=== PATIENT | female | born 1940 | race Caucasian/White ===

== ENCOUNTER 2017-12-09 17:36 | Inpatient (IN) | payer MEDICARE ==
[2017-12-09 18:19] LABS: INR-International Normal Ratio 1.1; PTT 31.7 SEC (22.9-36.1); Prothrombin Time 13.9 SEC (12.0-14.7)
[2017-12-09 18:26] LABS: #Basophils 0.1 thou/uL (0.0-0.2); #Lymphocytes 1.7 thou/uL (1.20-3.40); #Monocytes 1.5 thou/uL (0.11-0.59); #Neutrophils 13.6 thou/uL (1.40-6.50); %Basophils 0.4 % (0.0-1.0); %Eosinophils 0.1 % (0.0-10.0); %Lymphocytes 9.9 % (21.0-51.0); %Monocytes 8.9 % (0.0-10.0); %Neutrophils 80.7 % (42.0-75.0); Hemoglobin 13.3 g/dL (12.0-16.0); Mean Corpuscular HGB CONC 32.2 g/dL (32.0-36.0); Mean Corpuscular Hemoglobin 30.9 pg (27.0-31.0); Mean Corpuscular Volume 95.9 fL (78.0-98.0); Mean Platelet Volume 7.6 fL (7.4-10.4); Platelet Count 171 thou/uL (130-400); RBC Distribution Width 12.1 % (11.5-14.5); Red Blood Cell (RBC) Count 4.31 mill/uL (4.20-5.40); White Blood Cell (WBC) Count 16.8 thou/uL (4.8-10.8)
[2017-12-09 18:33] LABS: Troponin I 2.059 ng/mL (< 0.028)
[2017-12-09] MEDS ORDERED: Heparin 1,000 UNITS/ML VIAL ONE ×2 (18:34→18:35)
[2017-12-09] MEDS ORDERED: Heparin 25,000 units/D5W 500 ML ONE (18:34)
--- NOTE | 2017-12-09 18:53 | RAD ---
CHEST ONE VIEW: History: Chest pain. Comparison: Earlier exam on same date. FINDINGS: Cardiac silhouette is magnified by projection. Pulmonary vasculature unremarkable. Patient is rotated rightward. Calcification in the arterial structures. No lobar consolidation or evidence of pneumotho rax. IMPRESSION: 1. Atherosclerosis. 2. No active cardiopulmonary abnormalities are demonstrated. POS: [facility]
[2017-12-09] MEDS ORDERED: Heparin 10,000 UNITS/ 10 ML VIAL SLOW IVP SCH ×2 (19:00→20:00)
[2017-12-09] MEDS ORDERED: Heparin 25,000 units/D5W 500 ML IV SCH (19:00)
[2017-12-09] MEDS ORDERED: Senokot S 8.6-50 MG TAB PO PRN (19:57)
[2017-12-09] MEDS ORDERED: Aspirin 300 MG Suppository PR SCH (20:00)
[2017-12-09] MEDS ORDERED: Heparin 25,000 units/D5W 500 ML IVPB SCH (20:00)
[2017-12-09 20:05] LABS: Actual Bicarbonate (HCO3a) 17.7 mEq/L (22-28); Analyzer IN Cardio ER; Base Excess (BEa) -9.4 mEq/L (-2.0 to +3.0); CO2 Tension 43.6 mmHg (35.0-45.0); Calcium, Ionized 0.86 mmol/L (1.12-1.30); Carboxyhemoglobin (COHb) 0.3 gm% (0.0-3.0); Hemoglobin (Hb) 9.3 g/dL (12.0-16.0); Potassium - ABG Lab 2.16 mmol/L (3.70-5.30)
[2017-12-09 20:11] LABS: pH, Arterial 7.23 (7.35-7.45)
[2017-12-09 20:12] LABS: Puncture Site RRA
[2017-12-09 20:29] LABS: Hemoglobin 13.2 g/dL (12.0-16.0); Platelet Count 165 thou/uL (130-400)
[2017-12-09 20:51] LABS: PTT 138.2 SEC (22.9-36.1)
[2017-12-09] MEDS ORDERED: Cefepime 1 GM in Sodium Chloride 0.9% 100 ML IVPB SCH (21:00)
[2017-12-09 21:26] VITALS: BMI 25.8
[2017-12-09] MEDS: Famotidine/PF 20 mg/2ml Vial SLOW IVP SCH (21:53)
[2017-12-09] MEDS: Sodium Chloride 0.9% 1,000 ML IV SCH (23:12)
[2017-12-09] MEDS: Diltiazem 125 MG in Sodium Chloride 0.9% 100 ML IVPB SCH (23:14)
[2017-12-09 23:47] LABS: Critical Call Chem Troponin I RESULT DECREASING
--- NOTE | 2017-12-10 01:09 | HP ---
CHIEF COMPLAINT: Shortness of breath, acute mental status change. HISTORY OF PRESENT ILLNESS: The patient is a 77-year-old female. Most of the history is obtained fr om the daughter who I had to call, daughter's name is Radu at [phone]. The patient is a 77-year -old female with a history of hypertension, hypothyroidism, has a smoking history, also has a history of lung cancer and chronic back pain, who was brought into the hospital for shortness of breath, bhavani st pain, and generalized weakness. The patient's daughter stated that her family member when to visi t her on Sunday, she was very short of breath, very weak, so her family member called patient's daugh faviola who is Radu. The patient's daughter stayed with her the whole night last night, made sure that s he was eating and drinking her fluids, also taking her medications. She stated that the patient has been coughing, was shaking, was very short of breath and had generalized weakness. The patient told me that she has been having diarrhea for 2 days which has stopped. Denies any fevers; however, as I mentioned, had some chills. The patient also complained of some chest pain to the patient's daughter ; however, currently she was not having any chest pain and also was complaining of some shortness of breath. PAST MEDICAL HISTORY: Hypertension, thyroid disease, osteoporosis, chronic back pain, history of quincy g cancer. PAST SURGICAL HISTORY: She has had lumbar fusion, right medial lung carcinoma resection, cholecystec shivam, hernia repair, and left hip replacement. ALLERGIES: She has no known drug allergies. MEDICATIONS: This is per the ER list, is as of the following: Atorvastatin 20 mg daily, Gobles 10/32 5 every 4 hours p.r.n., levothyroxine 50 mcg daily, MS Contin 60 mg 1 cap 3 times a day, sertraline 5 0 mg once a day, hydrochlorothiazide 1 cap once a day, Zofran 1 q.6 hours p.r.n., doxepin 10 mg as ne eded, Symbicort HFA inhaler twice a day and ProAir 2 puffs as needed. FAMILY HISTORY: Mother at the age of 80 with lymphoma. Father at 87. SOCIAL HISTORY: She lives alone. She continues to smoke a pack a day. She is a FULL CODE per her d Radu stern. Denies any drug use or any alcohol. REVIEW OF SYSTEMS: Unable to obtain right now patient is on BiPAP. PHYSICAL EXAMINATION: VITAL SIGNS: Temperature of 99.6, respirations of 23, pulse of 101, blood pressure at this time was 110/60. She is 96%, but she is on BiPAP. GENERAL: The patient is drowsy; however, easily arousable, is able to answer questions appropriately and follow commands. CARDIOVASCULAR: S1, S2 present. No murmurs, rubs or gallops. LUNGS: Clear to auscultation. No rhonchi or wheezes noted. ABDOMEN: Soft, nontender. Bowel sounds are present x2. EXTREMITIES: No edema. Pedal pulses are present x2. NEUROLOGIC: Neurovascular santos, she is able to move all 4 extremities. SKIN: No cuts, lesions, or bruises noted. LABORATORY RESULTS: Initially when she came in, her WBC was 22, hemoglobin was 14.7, hematocrit of 4 5.5, bands of 2. Her BNP was 1126, lactic acid was 2.8. Her troponin initially was 2.082, it trende d to 2.059. CK-MB was elevated at 13.8. She did receive 2-1/2 liters of fluid in the ER at [facility]. Sodium was 135, potassium of 4.2, BUN of 29, creatinine of 1.87. Her urine did not indicate s ignificant etiology of UTI. Chest x-ray upon my interpretation, I did not see any infiltrate and her influenza swab was negative. ASSESSMENT AND PLAN: The patient is a very pleasant 77-year-old female who comes to the hospital wit h chest pain, shortness of breath. 1. Acute hypoxic respiratory failure. The patient was hypoxic and required BiPAP. We will continue broad spectrum antibiotics. We will do DuoNebs. She is going to be in the IMCU, we tried to take h er off the BiPAP, although she desaturated. We will also get a blood gas, I have told the respirator y therapist to get a blood gas on this patient and she does have a history of smoking. We will put h er on nicotine patch. 2. Sepsis. The patient has been hypotensive; however, her urine and her chest x-ray, I do not see a ny acute abnormalities. I have asked the ER doctor to just make sure she does not have any RV strain ing to rule out any pulmonary embolism since we are unable to scan her due to her creatinine being el evated. Her EKG findings are not consistent with saddle pulmonary embolism. We will continue the he anupam for now. 3. Non ST elevation myocardial infarction. She has been evaluated by Cardiology, possible will requ isiah catheterization. Her troponin was 2. We will put her on heparin. We will put on aspirin and pu t her on a statin and continue to monitor. 4. Elevated lactic acidosis is most likely secondary to sepsis, which is improving. 5. Elevated BNP. The patient will most likely have some underlying heart failure. We will check an echocardiogram in the morning. 6. Acute metabolic encephalopathy. The patient is on a lot of pain medication. This could be a cau se of her overdosing on so much pain medication, she is a very tiny lady. She takes 60 mg of MS Cont in three times a day plus hydrocodone p.r.n. She is unable to tell me if she has been taking more th an as prescribed since she is on the BiPAP, but this is definitely a possibility that this could be s ome polypharmacy causing her to have change in her respiratory condition. 7. Deep venous thrombosis prophylaxis. We will put the patient on subcu heparin, also she is alread y on heparin, we will continue to monitor.
[2017-12-10 02:15] LABS: #Lymphocytes 2.1 thou/uL (1.20-3.40); #Monocytes 1.1 thou/uL (0.11-0.59); #Neutrophils 10.6 thou/uL (1.40-6.50); %Basophils 0.2 % (0.0-1.0); %Eosinophils 0.1 % (0.0-10.0); %Lymphocytes 15.4 % (21.0-51.0); %Neutrophils 76.4 % (42.0-75.0); Hemoglobin 12.7 g/dL (12.0-16.0); Mean Corpuscular HGB CONC 32.9 g/dL (32.0-36.0); Mean Corpuscular Hemoglobin 31.3 pg (27.0-31.0); Mean Corpuscular Volume 95.2 fL (78.0-98.0); Mean Platelet Volume 7.8 fL (7.4-10.4); Platelet Count 149 thou/uL (130-400); RBC Distribution Width 11.9 % (11.5-14.5); Red Blood Cell (RBC) Count 4.05 mill/uL (4.20-5.40); White Blood Cell (WBC) Count 13.9 thou/uL (4.8-10.8)
[2017-12-10 02:39] LABS: Anion Gap 13 mmol/L (10-20); BUN (Urea Nitrogen) 30 mg/dL (9.8-20.1); Calc. Creatinine Clearance 39 mL/min (70-130); Calcium 8.1 mg/dL (7.8-10.44); Carbon Dioxide 23 mmol/L (23-31); Chloride 101 mmol/L (98-107); Estimated GFR-MDRD 47; Glucose 106 mg/dL (83-110); Potassium 3.6 mmol/L (3.5-5.1); Sodium 133 mmol/L (136-145)
[2017-12-10 02:47] LABS: Troponin I 1.571 ng/mL (< 0.028)
[2017-12-10] MEDS: Acetaminophen 325 MG TAB PO PRN ×2 (06:10→21:03)
[2017-12-10] MEDS: Levothyroxine Sodium 50 MCG TAB PO SCH (06:10)
[2017-12-10] MEDS: Famotidine/PF 20 mg/2ml Vial SLOW IVP SCH ×2 (08:55→20:24)
[2017-12-10] MEDS ORDERED: Ondansetron PF 4 MG/2 ML Vial SLOW IVP PRN (10:49)
[2017-12-10] MEDS: Gabapentin 400 MG CAP PO SCH ×2 (11:06→20:23)
[2017-12-10] MEDS: Aspirin 81 mg Enteric Coated Tablet PO SCH (11:06)
[2017-12-10] MEDS: Morphine ER 30 MG TAB PO SCH ×2 (11:08→20:22)
[2017-12-10] MEDS ORDERED: Morphine 10 MG/ML VIAL SLOW IVP PRN (12:37)
[2017-12-10] MEDS ORDERED: PROVENTIL INHALER 6.7 G (200 INHALATIONS) INH PRN (13:57)
--- NOTE | 2017-12-10 14:01 | PDOC.PN ---
- Subjective Encounter Start Date: 12/10/17 Encounter Start Time: 13:50 Subjective: f/u for AMS, NSTEMI, A-fib RVR. Nsg reports pt c/o of increasing back pain -: noted on chronic narcotics at home. - Objective Resuscitation Status: Resuscitation Status FULL:Full Resuscitation MAR Reviewed: Yes Vital Signs & Weight: Vital Signs (12 hours) Temp Pulse Resp BP Pulse Ox 12/10/17 10:55 90 20 12/10/17 08:00 95 12/10/17 07:32 93 18 92 L 12/10/17 04:00 98.4 F 91 17 126/73 96 12/10/17 02:30 13 12/10/17 02:29 96 13 96 Weight Weight 127 lb 3.2 oz I&O: 12/09/17 12/10/17 12/11/17 06:59 06:59 06:59 Intake Total 800 Balance 800 Result Diagrams: 12/10/17 01:59 12/10/17 01:59 Additional Labs: Microbiology 12/09/17 19:50 Nasal swab Influenza Types A,B Direct EIA - Final Laboratory Tests 12/09/17 12/09/17 12/09/17 13:18 13:18 17:56 WBC Neutrophils % Sodium 135 L Creatinine 1.87 H Lactic Acid Troponin I 2.082 H* 2.059 H* TSH 3rd Generation 12/09/17 12/09/17 12/09/17 17:56 17:57 20:20 WBC 16.8 H Neutrophils % 80.7 H Sodium Creatinine Lactic Acid 1.4 Troponin I TSH 3rd Generation 0.4216 12/09/17 12/10/17 12/10/17 23:00 01:59 01:59 WBC Neutrophils % 76.4 H Sodium Creatinine Lactic Acid Troponin I 1.760 H* 1.571 H* TSH 3rd Generation EKG Reviewed by me: Yes (Tele - A-fib in 80's) Phys Exam - Physical Examination Constitutional: NAD alert, responsive HEENT: PERRLA, sclera anicteric, oral pharynx no lesions Neck: no nodes, no JVD, supple, full ROM Respiratory: no wheezing, no rales, no rhonchi, clear to auscultation bilateral S1, S2 Cardiovascular: no significant murmur, no rub, gallop, irregular Gastrointestinal: soft, non-tender, no distention, positive bowel sounds Musculoskeletal: no edema, pulses present Neurological: normal sensation, moves all 4 limbs Psychiatric: A&O x 3 Skin: no rash, normal turgor, cap refill <2 seconds Dx/Plan (1) NSTEMI (non-ST elevated myocardial infarction) Code(s): I21.4 - NON-ST ELEVATION (NSTEMI) MYOCARDIAL INFARCTION Status: Acute Comment: Continue Lovenox, ASA, Lipitor, Cardiology consulted, Echo pending (2) Acute respiratory failure with hypoxia Code(s): J96.01 - ACUTE RESPIRATORY FAILURE WITH HYPOXIA Status: Acute Comment: Improved, off BiPAP NIMV, continue O2 via NC (3) Acute metabolic encephalopathy Code(s): G93.41 - METABOLIC ENCEPHALOPATHY Status: Acute Comment: Likely multifactorial given chronic narcotic use, hypoxia and NSTEMI (4) REMA (acute kidney injury) Code(s): N17.9 - ACUTE KIDNEY FAILURE, UNSPECIFIED Status: Acute Comment: Improved, likely due to volume depletion, avoid nephrotoxic meds and limit contrast exposure (5) Atrial fibrillation with RVR Code(s): I48.91 - UNSPECIFIED ATRIAL FIBRILLATION Status: Acute Comment: Continue Cardizem gtt, rate improved, 2D echo pending, anticoagulation with Lovenox and consider OAC options for d/c (6) Chronic pain syndrome Code(s): G89.4 - CHRONIC PAIN SYNDROME Status: Chronic Comment: Resume home MS Contin, Gabapentin, [place] - Plan plan discussed w/ family, PT/OT, nephrology social worker, DVT proph w/SCDs Stable currently -: Continue Lovenox -: Continue Cardizem gtt -: 2D echo pending -: AM lab: BMP, CBC * .
--- NOTE | 2017-12-10 14:11 | CON ---
DATE OF CONSULTATION: 12/10/2017 HISTORY OF PRESENT: This patient is a 77-year-old woman with no previous cardiac history who presented with fevers, chills, diarrhea, and was noted to have an elevated troponin level. The patient was in her usual state of health until recently when she developed acute onset of diarrhea. She noted to be having fevers and chills. The patient denied having any chest discomfort. The patient presented to the local Emergency Room, She was noted to have an elevated troponin level. PAST MEDICAL HISTORY: 1. History of carcinoid tumor. 2. Chronic back pain. 3. Hypertension. 4. Osteoporosis. 5. Dyslipidemia. PAST SURGICAL HISTORY: She has had removal of the carcinoid from her right medial lung resection, cholecystectomy, hernia repair,and hip replacement surgery. MEDICATIONS ON ADMISSION: See nursing list. FAMILY HISTORY: There is no strong family history of coronary artery disease. SOCIAL HISTORY: The patient has a long history of tobacco abuse and smokes 1 pack per day. FAMILY HISTORY: No strong family history of heart disease. ALLERGIES: No known drug allergies. REVIEW OF SYSTEMS: The patient reports having severe back discomfort. PHYSICAL EXAMINATION: GENERAL: This is a thin woman in marked distress. VITAL SIGNS: Blood pressure of 126/73. NECK: Showed no jugular vein distention. LUNGS: Lungs have diminished breath sounds bilateral. HEART: Irregular rate and rhythm, normal S1, S2, 1/6 systolic murmur. ABDOMEN: Nondistended. EXTREMITIES: Showed trace edema. SKIN: Warm and dry. VASCULAR: Radial pulses 2+. LABORATORIES: White blood cell count was 13.9, hemoglobin 12.7, hematocrit 38.5 and her platelets 149. Her sodium was 133, potassium 3.6, chloride 101, bicarbonate 23, BUN 30, creatinine is 1.12. Troponin was 1.7. Her EKG revealed her to have atrial fibrillation with nonspecific ST abnormality. IMPRESSION: 1. Sepsis. 2. Non-Q-wave myocardial infarction. 3. Atrial fibrillation with a rapid ventricular response. 4. Chronic back pain. 5. History of carcinoid of a tumor. 6. Tobacco abuse. This patient presented with diarrhea, fever, and chills and a markedly elevated white blood cell count. She has been treated with IV antibiotics. The patient' s troponin level is elevated. This may be secondary to demand ischemia. The patient has multiple risk factors. Would continue to treat the patient for sepsis. We will check the patient's echocardiogram and follow this patient with you through her hospitalization. CLEMENTINA
--- NOTE | 2017-12-10 14:52 | EKG ---
Test Reason : A-FIB Blood Pressure : / mmHG Vent. Rate : 118 BPM Atrial Rate : 078 BPM P-R Int : 000 ms QRS Dur : 096 ms QT Int : 332 ms P-R-T Axes : 000 027 022 degrees QTc Int : 465 ms Atrial fibrillation with rapid ventricular response ST elevation, consider early repolarization, pericarditis, or injury Abnormal ECG Confirmed by KATERINA NOEL ([id number]) on 12/10/2017 2:52:24 PM Referred By: QUAN Confirmed By:KATERINA NOEL
[2017-12-10] MEDS: Cefepime 1 GM in Sodium Chloride 0.9% 100 ML IVPB SCH (15:00)
[2017-12-10] MEDS: HYDROcodone/Acetaminophen 10/325 mg Tablet PO PRN (15:00)
[2017-12-10] MEDS: Sodium Chloride 0.9% 1,000 ML IV SCH (15:01)
[2017-12-10] MEDS: Mometasone/Formoterol 120 PUFF INHALER INH SCH (18:38)
[2017-12-10] MEDS: Atorvastatin Calcium 20 MG TAB PO SCH (20:23)
[2017-12-10] MEDS: Vancomycin HCl 1 GM in Premix Bag 1 BAG IVPB SCH (20:23)
[2017-12-10] MEDS: Enoxaparin Sodium 60 MG/0.6 ML SYRINGE SC SCH (20:24)
--- NOTE | 2017-12-10 23:01 | CON ---
DATE OF CONSULTATION: 12/10/2017 PAST HISTORY: Ms. Velazco is a 77-year-old female who has issues with chronic back pain. She presented with hypotension and metabolic acidosis as well as tachypnea. She was placed on BiPAP. She has had severe diarrhea for 2 days leading up to this, now is complaining of abdominal cramping, but has not had morphine since admission. She says her diarrhea has resolved. PAST MEDICAL HISTORY: Remarkable for hypertension, hypothyroidism, osteoporosis , history of lung cancer, history of lumbar spine surgery. PAST SURGICAL HISTORY: 1. History of lung cancer resected. 2. Status post cholecystectomy. 3. History of herniorrhaphy. 4. History of hip replacement. FAMILY HISTORY: Negative for lung disease in early age. SOCIAL HISTORY: Not obtained. ALLERGIES: She reports an allergy to HYDRALAZINE. She does not use drugs. MEDICATIONS: Medications have been reviewed. REVIEW OF SYSTEMS: 10 point review of systems completed, otherwise remarkable only for pain all over. PHYSICAL EXAM GENERAL: Ms. Velazco is a 77-year-old female who has issues with chronic back pain. HEENT: pupils react EYES:Sclera anicteric NECK:no nodes VITALS: She has had atrial fibrillation since she has been admitted. LUNGS:faint wheezes HEART:RRR NO GALLOP. 2/6 SYSTOLIC MURMUR ABDOMEN: soft EXTREMITIES: without clubbing. LABORATORY DATA: Urinalysis was unremarkable. When she was admitted, her blood gas was done showed a pH 7.23, CO2 is 43, pO2 of 40 on BiPAP. White count was 16.8, hemoglobin 13.3, platelets 171. Today, sodium 135, potassium 4.2, chloride 92, BUN 29, creatinine 1.87. Followup Chem-7 shows creatinine down to 1.12. IMPRESSION AND PLAN: Metabolic acidosis secondary to severe diarrhea with secondary bicarbonate losses, this is improved. There is no output recorded for 24 hours, which would be helpful, so I do not know where she is from a fluid standpoint, but it sounds like she was dry. Her current complaints are more likely related to the beginning of acute morphine withdrawal, so she will need to be put back on her slow-release morphine. She was given one dose of IV morphine this morning. She will stay in the Intermediate Care Unit for now. This is a 50-minute consult, with greater than 50% of the time spent in the unit coordinating care. CLEMENTINA
[2017-12-11] MEDS: Diltiazem 125 MG in Sodium Chloride 0.9% 100 ML IVPB SCH (01:04)
[2017-12-11] MEDS: Morphine ER 30 MG TAB PO SCH ×3 (03:22→20:38)
[2017-12-11 04:57] LABS: Anion Gap 11 mmol/L (10-20); BUN (Urea Nitrogen) 21 mg/dL (9.8-20.1); Calc. Creatinine Clearance 55 mL/min (70-130); Calcium 8.4 mg/dL (7.8-10.44); Carbon Dioxide 24 mmol/L (23-31); Chloride 101 mmol/L (98-107); Estimated GFR-MDRD 72; Glucose 144 mg/dL (83-110); Potassium 3.2 mmol/L (3.5-5.1); Sodium 133 mmol/L (136-145)
[2017-12-11 05:04] LABS: Band 2 % (5-11); Hemoglobin 12.6 g/dL (12.0-16.0); Lymphocytes 13 % (21-51); MDiff Complete? YES; Mean Corpuscular HGB CONC 32.6 g/dL (32.0-36.0); Mean Corpuscular Hemoglobin 30.6 pg (27.0-31.0); Mean Platelet Volume 8.2 fL (7.4-10.4); Monocytes 5 % (0-10); Neutrophil 80 % (42-75); Platelet Count 169 thou/uL (130-400); White Blood Cell (WBC) Count 12.2 thou/uL (4.8-10.8)
[2017-12-11] MEDS: Levothyroxine Sodium 50 MCG TAB PO SCH (05:24)
[2017-12-11] MEDS: Mometasone/Formoterol 120 PUFF INHALER INH SCH ×2 (08:14→18:42)
--- NOTE | 2017-12-11 08:52 | PRG ---
DATE OF SERVICE: 12/11/2017 SUBJECTIVE: She says she feels much better today. She denies shortness of breath. She has had diar danita this morning. She tells me she had C. difficile last year. OBJECTIVE: VITAL SIGNS: She is afebrile, heart rate is 79, respiratory rate is 12, oximetry is 85-92 on 3-4 lit ers nasal cannula, blood pressure 119/59. LUNGS: Clear. HEART: Regular rhythm. ABDOMEN: Soft. LABORATORY DATA: White count 12.2, hemoglobin 12.6, platelets 169. Sodium 133, potassium 3.2, chlor deejay 101, bicarbonate 24, BUN 21, creatinine 0.78. IMPRESSION: 1. Diarrhea. 2. Metabolic acidosis secondary to prolonged diarrhea with intravascular volume contraction. 3. Early opiate withdrawal yesterday withholding after her morphine was held. That is dramatically improved. PLAN: Send stool for C. difficile. Continue with oxygen therapy. I do not see blood cultures that are pending. Her antibiotics probably should be simplified with her history of C. difficile-induced diarrhea and n o clear source of infection other than her gastrointestinal tract.
[2017-12-11] MEDS: Gabapentin 400 MG CAP PO SCH ×2 (09:18→13:43)
[2017-12-11] MEDS: Enoxaparin Sodium 60 MG/0.6 ML SYRINGE SC SCH ×2 (09:18→20:41)
[2017-12-11] MEDS: Sodium Chloride 0.9% 1,000 ML IV SCH (09:18)
[2017-12-11] MEDS: Aspirin 81 mg Enteric Coated Tablet PO SCH (09:18)
[2017-12-11] MEDS: Famotidine/PF 20 mg/2ml Vial SLOW IVP SCH ×2 (09:19→20:40)
[2017-12-11] MEDS: Cefepime 1 GM in Sodium Chloride 0.9% 100 ML IVPB SCH (13:42)
--- NOTE | 2017-12-11 15:01 | PDOC.PN ---
- Subjective Encounter Start Date: 12/11/17 Encounter Start Time: 14:40 Subjective: f/u for ? sepsis, NSTEMI, A-fib rvr converting to SR. Feels better overall. -: Not sleeping very well. Appetite ok. Ucx showing GNR. - Objective Resuscitation Status: Resuscitation Status FULL:Full Resuscitation MAR Reviewed: Yes Vital Signs & Weight: Vital Signs (12 hours) Temp Pulse Resp BP BP Pulse Ox 12/11/17 14:18 20 12/11/17 11:21 98.6 F 76 16 93/51 L 96 12/11/17 11:20 77 16 95 12/11/17 09:18 77 117/74 12/11/17 08:15 85 L 12/11/17 08:13 77 16 85 L 12/11/17 07:45 85 L 12/11/17 07:20 98.5 F 79 12 119/59 L 85 L 12/11/17 04:16 97.7 F 64 18 110/60 92 L Weight Weight 127 lb 3.2 oz I&O: 12/10/17 12/11/17 12/12/17 06:59 06:59 06:59 Intake Total 800 1410 Balance 800 1410 Result Diagrams: 12/11/17 03:41 12/11/17 03:41 Additional Labs: Microbiology 12/09/17 19:50 Nasal swab Influenza Types A,B Direct EIA - Final 12/09/17 15:15 Nasal swab Influenza Types A,B Direct EIA - Final 12/09/17 14:13 Venous blood - Left Arm Blood Culture - Preliminary Specimen has been received and culture in progress. No Growth to date. 12/09/17 14:13 Urine Straight Catheter Urine Culture - Preliminary Gram Negative Johann 12/09/17 14:10 Venous blood - Left Hand Blood Culture - Preliminary Specimen has been received and culture in progress. No Growth to date. Laboratory Tests 12/09/17 12/09/17 12/09/17 13:18 13:18 17:56 WBC Neutrophils % Sodium 135 L Creatinine 1.87 H Lactic Acid Troponin I 2.082 H* 2.059 H* TSH 3rd Generation 12/09/17 12/09/17 12/09/17 17:56 17:57 20:20 WBC 16.8 H Neutrophils % 80.7 H Sodium Creatinine Lactic Acid 1.4 Troponin I TSH 3rd Generation 0.4216 12/09/17 12/10/17 12/10/17 23:00 01:59 01:59 WBC Neutrophils % 76.4 H Sodium Creatinine 1.12 H Lactic Acid Troponin I 1.760 H* TSH 3rd Generation 12/10/17 01:59 WBC Neutrophils % Sodium Creatinine Lactic Acid Troponin I 1.571 H* TSH 3rd Generation Radiology Reviewed by me: Yes (2D echo - EF 60-65%, mod MR, mod-severe TR) EKG Reviewed by me: Yes (Tele - SR) Phys Exam - Physical Examination Constitutional: NAD HEENT: PERRLA, sclera anicteric, oral pharynx no lesions Neck: no nodes, no JVD, supple, full ROM bilat rhonchi S1, S2 Cardiovascular: RRR, no significant murmur, no rub, gallop Gastrointestinal: soft, non-tender, no distention, positive bowel sounds Musculoskeletal: no edema, pulses present Neurological: normal sensation, moves all 4 limbs Psychiatric: A&O x 3 Skin: no rash, normal turgor, cap refill <2 seconds Dx/Plan (1) NSTEMI (non-ST elevated myocardial infarction) Code(s): I21.4 - NON-ST ELEVATION (NSTEMI) MYOCARDIAL INFARCTION Status: Acute Comment: Continue Lovenox, ASA, Lipitor, Cardiology consulted, Echo with preserved EF 60-65% (2) Acute respiratory failure with hypoxia Code(s): J96.01 - ACUTE RESPIRATORY FAILURE WITH HYPOXIA Status: Acute Comment: Improved, off BiPAP NIMV, continue O2 via NC (3) Acute metabolic encephalopathy Code(s): G93.41 - METABOLIC ENCEPHALOPATHY Status: Acute Comment: Likely multifactorial given chronic narcotic use, hypoxia and NSTEMI (4) REMA (acute kidney injury) Code(s): N17.9 - ACUTE KIDNEY FAILURE, UNSPECIFIED Status: Acute Comment: Improved, likely due to volume depletion, avoid nephrotoxic meds and limit contrast exposure (5) Atrial fibrillation with RVR Code(s): I48.91 - UNSPECIFIED ATRIAL FIBRILLATION Status: Acute Comment: Converted to SR, continue Cardizem po, preserved EF, anticoagulation with Lovenox, pt high risk for OAC given fall risk (6) UTI (urinary tract infection) Status: Acute Comment: GNR initially, continue Cefepime pending final sensitivities (7) Chronic pain syndrome Code(s): G89.4 - CHRONIC PAIN SYNDROME Status: Chronic Comment: Resume home MS Contin, Gabapentin, [place] (8) COPD (chronic obstructive pulmonary disease) Status: Chronic Comment: Continue Duonebs, Dulera, Proventil - Plan plan discussed w/ family, continue antibiotics, PT/OT, criminal justice social worker, respiratory therapy, out of bed/ambulate, DVT proph w/SCDs Stable overall -: Saline lock IVF -: Continue Cefepime and Vancomycin -: Continue Duonebs, Dulera, O2 prn -: Ensure High Protein TID * AM lab: BMP, CBC
--- NOTE | 2017-12-11 15:04 | PQF ---
DATE: 12-11-17 ATTN: DR. STEPAN CALDERON Please exercise your independent, professional judgment in responding to the clarification form. Clinical indicators are provided on the bottom of this form for your review Please check appropriate box(s) to clarify if the following diagnosis has been ruled in or ruled out: SEPSIS [ ] Ruled in diagnosis [ ] Continue to treat [ ] Resolved [ x ] Ruled out diagnosis [ ] Other diagnosis [ ] Unable to determine In addition, please specify: Present on Admission (POA): [ ] Yes [ x ] No [ ] Unable to determine For continuity of documentation, please document condition throughout progress notes and discharge summary. Thank You. CLINICAL INDICATORS - SIGNS / SYMPTOMS / LABS ER DX: SEPSIS, HYPOXIC RESPIRATORY FAILURE, LACTIC ACIDOSIS, NSTEMI H&P: ACUTE HYPOXIC RESP FAILURE, SEPSIS, NON ST ELEVATION MD, ELEVATED LACTIC ACIDOSIS IS MOST LIKELY 2/2 SEPSIS, WHICH IS IMPROVING, ACUTE METABOLIC ENCEPHALOPATHY WBC: 12-09-17: 16.8 12-10-17: 13.9 12-11-17: 12.2 BP: ER: 96/43, 88/60 PULSE: ER: 103 12-10-17: 127 RR: ER: 34, 30, 24 12-10-17: 22 RISK FACTORS: H&P: HX HTN, HYPOTHYROIDISM, SMOKER, HX LUNG CA, CAME IN WITH SOB, CP, AND GENERALIZED WEAKNESS, DIARRHEA, HYPOTENSIVE TREATMENTS: ER: VANCOMYCIN IV MAR: MAXIPIME IV, NS IVF (This form is maintained as a part of the permanent medical record) 2014 [employer], [employer]. All Rights Reserved OWEN [email or web address] Office: [phone] [facility], [place]
[2017-12-11] MEDS ORDERED: GABAPENTIN 600 MG PO SCH (17:00)
[2017-12-11 19:09] LABS: Hemoglobin 12.8 g/dL (12.0-16.0); Platelet Count 188 thou/uL (130-400)
[2017-12-11 19:26] LABS: Vancomycin, Trough 8.6 ug/mL
[2017-12-11] MEDS: Atorvastatin Calcium 20 MG TAB PO SCH (20:39)
[2017-12-11] MEDS: Vancomycin HCl 1 GM in Premix Bag 1 BAG IVPB SCH (20:42)
[2017-12-11] MEDS: Gabapentin 300 MG CAP PO SCH (20:48)
[2017-12-11] MEDS: Temazepam 15 MG CAP PO PRN (22:11)
[2017-12-12] MEDS: Levothyroxine Sodium 50 MCG TAB PO SCH (04:47)
[2017-12-12] MEDS: Morphine ER 30 MG TAB PO SCH ×3 (04:47→20:17)
[2017-12-12 04:48] LABS: Anion Gap 10 mmol/L (10-20); BUN (Urea Nitrogen) 14 mg/dL (9.8-20.1); Calc. Creatinine Clearance 60 mL/min (70-130); Calcium 8.5 mg/dL (7.8-10.44); Carbon Dioxide 26 mmol/L (23-31); Chloride 101 mmol/L (98-107); Estimated GFR-MDRD 80; Glucose 114 mg/dL (83-110); Sodium 134 mmol/L (136-145)
[2017-12-12] MEDS: Mometasone/Formoterol 120 PUFF INHALER INH SCH ×2 (06:49→19:37)
[2017-12-12 06:57] LABS: Hemoglobin 12.1 g/dL (12.0-16.0); Mean Corpuscular HGB CONC 32.7 g/dL (32.0-36.0); Mean Corpuscular Hemoglobin 30.7 pg (27.0-31.0); Mean Corpuscular Volume 93.9 fL (78.0-98.0); Mean Platelet Volume 8.6 fL (7.4-10.4); Platelet Count 189 thou/uL (130-400); Red Blood Cell (RBC) Count 3.94 mill/uL (4.20-5.40); White Blood Cell (WBC) Count 11.4 thou/uL (4.8-10.8)
[2017-12-12 08:57] LABS: Band 6 % (5-11); Eosinophils 1 % (0-10); Lymphocytes 22 % (21-51); MDiff Complete? YES; Monocytes 5 % (0-10); Neutrophil 65 % (42-75); PLT Morphology Comment Appears Adequate; Reactive Lymphocytes 1 % (0-10)
[2017-12-12] MEDS: Enoxaparin Sodium 60 MG/0.6 ML SYRINGE SC SCH ×2 (09:26→20:17)
[2017-12-12] MEDS: Aspirin 81 mg Enteric Coated Tablet PO SCH (09:26)
[2017-12-12] MEDS: Famotidine/PF 20 mg/2ml Vial SLOW IVP SCH ×2 (09:26→20:17)
[2017-12-12] MEDS: Gabapentin 300 MG CAP PO SCH ×4 (09:26→20:17)
[2017-12-12] MEDS: Cefepime 1 GM in Sodium Chloride 0.9% 100 ML IVPB SCH (13:36)
--- NOTE | 2017-12-12 14:56 | PDOC.PN ---
- Subjective Encounter Start Date: 12/12/17 Encounter Start Time: 14:25 Subjective: f/u for NSTEMI, UTI with E. coli on Cefepime. Feeling weak today. -: Tolerating po intake. Ambulating with PT. - Objective Resuscitation Status: Resuscitation Status FULL:Full Resuscitation MAR Reviewed: Yes Vital Signs & Weight: Vital Signs (12 hours) Temp Pulse Pulse Pulse Resp BP BP 12/12/17 11:50 99.1 F 103 H 18 12/12/17 10:57 101 H 16 12/12/17 08:53 82 88 126/74 129/77 12/12/17 08:00 99.3 F 91 18 12/12/17 06:51 12/12/17 06:34 85 16 12/12/17 04:00 98.0 F 85 18 BP Pulse Ox Pulse Ox Pulse Ox 12/12/17 11:50 132/95 H 95 12/12/17 10:57 99 12/12/17 08:53 91 L 92 L 12/12/17 08:00 120/67 91 L 12/12/17 06:51 92 L 12/12/17 06:34 92 L 12/12/17 04:00 111/68 90 L Weight Weight 129 lb I&O: 12/11/17 12/12/17 12/13/17 06:59 06:59 06:59 Intake Total 1410 1935.5 480 Output Total 500 300 Balance 1410 1435.5 180 Result Diagrams: 12/12/17 03:54 12/12/17 03:54 Additional Labs: Microbiology 12/09/17 19:50 Nasal swab Influenza Types A,B Direct EIA - Final 12/09/17 15:15 Nasal swab Influenza Types A,B Direct EIA - Final 12/09/17 14:13 Urine Straight Catheter Urine Culture - Final Escherichia coli 12/09/17 14:13 Venous blood - Left Arm Blood Culture - Preliminary Specimen has been received and culture in progress. No Growth to date. 12/09/17 14:13 Urine Straight Catheter Urine Culture - Preliminary Gram Negative Johann 12/09/17 14:10 Venous blood - Left Hand Blood Culture - Preliminary Specimen has been received and culture in progress. No Growth to date. Laboratory Tests 12/09/17 12/09/17 12/09/17 13:18 13:18 17:56 WBC Neutrophils % Sodium 135 L Creatinine 1.87 H Lactic Acid Troponin I 2.082 H* 2.059 H* TSH 3rd Generation 12/09/17 12/09/17 12/09/17 17:56 17:57 20:20 WBC 16.8 H Neutrophils % 80.7 H Sodium Creatinine Lactic Acid 1.4 Troponin I TSH 3rd Generation 0.4216 12/09/17 12/10/17 12/10/17 23:00 01:59 01:59 WBC Neutrophils % 76.4 H Sodium Creatinine 1.12 H Lactic Acid Troponin I 1.760 H* TSH 3rd Generation 12/10/17 01:59 WBC Neutrophils % Sodium Creatinine Lactic Acid Troponin I 1.571 H* TSH 3rd Generation EKG Reviewed by me: Yes (Tele - A-fib in 80's) Phys Exam - Physical Examination Constitutional: NAD alert, responsive HEENT: PERRLA, sclera anicteric, oral pharynx no lesions Neck: no nodes, no JVD, supple occasional rhonchi Respiratory: no wheezing S1, S2 Cardiovascular: no significant murmur, no rub, gallop, irregular Gastrointestinal: soft, non-tender, no distention, positive bowel sounds Musculoskeletal: no edema, pulses present Neurological: normal sensation, moves all 4 limbs Psychiatric: A&O x 3 Skin: no rash, normal turgor, cap refill <2 seconds Dx/Plan (1) NSTEMI (non-ST elevated myocardial infarction) Code(s): I21.4 - NON-ST ELEVATION (NSTEMI) MYOCARDIAL INFARCTION Status: Acute Comment: Continue Lovenox, ASA, Lipitor, Cardiology consulted, Echo with preserved EF 60-65% (2) Acute respiratory failure with hypoxia Code(s): J96.01 - ACUTE RESPIRATORY FAILURE WITH HYPOXIA Status: Acute Comment: Improved, off BiPAP NIMV, continue O2 via NC (3) Acute metabolic encephalopathy Code(s): G93.41 - METABOLIC ENCEPHALOPATHY Status: Acute Comment: Likely multifactorial given chronic narcotic use, hypoxia and NSTEMI (4) REMA (acute kidney injury) Code(s): N17.9 - ACUTE KIDNEY FAILURE, UNSPECIFIED Status: Acute Comment: Improved, likely due to volume depletion, avoid nephrotoxic meds and limit contrast exposure (5) Atrial fibrillation with RVR Code(s): I48.91 - UNSPECIFIED ATRIAL FIBRILLATION Status: Acute Comment: Converted to SR, continue Cardizem po, preserved EF, anticoagulation with Lovenox, pt high risk for OAC given fall risk (6) UTI (urinary tract infection) Status: Acute Comment: E.coli on Ucx, continue Cefepime another 24h (7) Chronic pain syndrome Code(s): G89.4 - CHRONIC PAIN SYNDROME Status: Chronic Comment: Resume home MS Contin, Gabapentin, [place] (8) COPD (chronic obstructive pulmonary disease) Status: Chronic Comment: Continue Duonebs, Dulera, Proventil - Plan continue antibiotics, PT/OT, client services representative, respiratory therapy, out of bed/ ambulate, DVT proph w/SCDs Stable overall -: [place]-Con 40meq BID -: Continue Cefepime another 24h then convert to po regimen -: OOB/PT -: D/C Vancomycin * Am lab: BMP * TRansfer to tele
--- NOTE | 2017-12-12 18:49 | PRG ---
DATE OF PROGRESS NOTE: 12/12/2017 SUBJECTIVE: Adriana Velazco is in no distress. OBJECTIVE: GENERAL: She says she is feeling great. She is sitting up in a chair. VITAL SIGNS: She is afebrile, heart rate 81, respiratory rate 16, oximetry is 100%. We need to begin weaning from oxygen, blood pressure 132/95. LUNGS: Were clear. HEART: Regular rhythm. ABDOMEN: Soft. LABORATORY DATA: Hemoglobin 12.1, white count 11.4, platelets 189. Sodium 134 , potassium 3, chloride 101, bicarbonate 26, BUN 14, creatinine 0.7, glucose 114. IMPRESSION: 1. Hypotension with metabolic acidosis on arrival, likely secondary to severe diarrhea. 2. Acute kidney injury secondary to intravascular volume depletion. 3. Atrial fibrillation, now in sinus rhythm. 4. Chronic pain. 5. Chronic obstructive pulmonary disease, which has not been a clinical issue this admission, . She appears to be improving. She could probably be moved to a telemetry bed. CLEMENTINA
[2017-12-12] MEDS: Atorvastatin Calcium 20 MG TAB PO SCH (20:17)
[2017-12-13] MEDS: Levothyroxine Sodium 50 MCG TAB PO SCH (04:19)
[2017-12-13] MEDS: Morphine ER 30 MG TAB PO SCH ×3 (04:19→20:01)
[2017-12-13 05:16] LABS: Anion Gap 11 mmol/L (10-20); BUN (Urea Nitrogen) 11 mg/dL (9.8-20.1); Calc. Creatinine Clearance 57 mL/min (70-130); Carbon Dioxide 30 mmol/L (23-31); Chloride 102 mmol/L (98-107); Estimated GFR-MDRD 74; Glucose 118 mg/dL (83-110); Potassium 3.3 mmol/L (3.5-5.1); Sodium 140 mmol/L (136-145)
[2017-12-13] MEDS: Mometasone/Formoterol 120 PUFF INHALER INH SCH ×2 (06:36→19:06)
--- NOTE | 2017-12-13 07:25 | PRG ---
DATE OF SERVICE: 12/13/2017 Ms. Velazco is clinically stable. Her only complaint today is that she coughs when she drinks out of a straw. Unfortunately, she is lying at about 15 degrees in bed trying to drink water. PHYSICAL EXAMINATION: VITAL SIGNS: She is afebrile, heart rate 74, respiratory rate 20, oximetry is 96 on 3 liters. LUNGS: Remarkable for diffuse wheezes. These are mild. CARDIOVASCULAR: Regular rhythm. ABDOMEN: Soft and nontender. EXTREMITIES: Without edema or asymmetry. LABORATORY: Sodium 140, potassium 3.3, chloride 102, bicarbonate 30, BUN 11, creatinine 0.76. IMPRESSION: 1. Metabolic acidosis secondary to severe intravascular volume depletion combined with diarrhea, resolved. 2. Cystitis on meropenem. I would think her antibiotics could be changed to p.o. antimicrobials. With simple cystitis, most likely her urinary tract infection is already treated as she has had several days of broad spectrum IV antibiotics. 3. Diarrhea, more or less resolved by her history. I do not see where a C. diff was ever collected. I ordered one in several days back. 4. Anemia with normal mean corpuscular volume. 5. Chronic pain, chronic high dose opiate use. 6. Atrial fibrillation, normal sinus rhythm now. Decision needs to be made whether or not full dose anticoagulation needs to continue. She is still on full dose Lovenox. I will add q.a.m. steroids. Continue nebulized treatments, add Tessalon Perles for cough. I have instructed her to sit up in bed before she takes water. She may do better just drinking out of a cup. She says she has had swallowing problems in the past. She is stable to move to telemetry unit in my opinion. CLEMENTINA
[2017-12-13] MEDS: Gabapentin 300 MG CAP PO SCH ×4 (08:09→20:02)
[2017-12-13] MEDS: Aspirin 81 mg Enteric Coated Tablet PO SCH (08:10)
[2017-12-13] MEDS: Famotidine/PF 20 mg/2ml Vial SLOW IVP SCH ×2 (08:11→20:02)
[2017-12-13] MEDS: Benzonatate 100 MG CAP PO SCH ×3 (08:12→20:01)
[2017-12-13] MEDS: Enoxaparin Sodium 60 MG/0.6 ML SYRINGE SC SCH ×2 (08:12→20:02)
[2017-12-13] MEDS ORDERED: Communication Order-Pharmacy FS SCH (08:45)
[2017-12-13] MEDS: Acetaminophen 325 MG TAB PO PRN (11:08)
[2017-12-13] MEDS: Cefepime 1 GM in Sodium Chloride 0.9% 100 ML IVPB SCH (14:27)
[2017-12-13] MEDS: Potassium Chloride 20 MEQ TAB PO SCH (17:14)
--- NOTE | 2017-12-13 17:34 | PDOC.PN ---
- Subjective Encounter Start Date: 12/13/17 Encounter Start Time: 17:30 Subjective: f/u for NSTEMI, UTI and dehydration. Overall feeling better. No recurrent -: CP. Receiving Cefepime currently. - Objective Resuscitation Status: Resuscitation Status FULL:Full Resuscitation MAR Reviewed: Yes Vital Signs & Weight: Vital Signs (12 hours) Temp Pulse Pulse Pulse Resp BP BP 12/13/17 15:10 98.9 F 85 17 12/13/17 15:05 87 16 12/13/17 11:38 88 18 12/13/17 11:00 99.1 F 97 19 12/13/17 10:34 97 100 136/84 12/13/17 09:10 12/13/17 09:07 97.8 F 101 H 22 H 12/13/17 08:09 99 161/87 H 12/13/17 07:41 12/13/17 07:31 98.9 F 101 H 18 12/13/17 06:40 12/13/17 06:38 94 20 12/13/17 06:36 94 18 BP BP Pulse Ox Pulse Ox Pulse Ox 12/13/17 15:10 110/56 L 94 L 12/13/17 15:05 91 L 12/13/17 11:38 92 L 12/13/17 11:00 136/62 95 12/13/17 10:34 145/68 H 96 95 12/13/17 09:10 96 12/13/17 09:07 167/77 H 96 12/13/17 08:09 12/13/17 07:41 94 L 12/13/17 07:31 130/77 94 L 12/13/17 06:40 96 12/13/17 06:38 98 12/13/17 06:36 98 Weight Weight 133 lb 1 oz I&O: 12/12/17 12/13/17 12/14/17 06:59 06:59 06:59 Intake Total 1935.5 1310 643 Output Total 500 1000 300 Balance 1435.5 310 343 Result Diagrams: 12/12/17 03:54 12/13/17 03:36 Additional Labs: Microbiology 12/09/17 19:50 Nasal swab Influenza Types A,B Direct EIA - Final 12/09/17 15:15 Nasal swab Influenza Types A,B Direct EIA - Final 12/09/17 14:13 Urine Straight Catheter Urine Culture - Final Escherichia coli 12/09/17 14:13 Venous blood - Left Arm Blood Culture - Preliminary Specimen has been received and culture in progress. No Growth to date. 12/09/17 14:13 Urine Straight Catheter Urine Culture - Preliminary Gram Negative Johann 12/09/17 14:10 Venous blood - Left Hand Blood Culture - Preliminary Specimen has been received and culture in progress. No Growth to date. Laboratory Tests 12/09/17 12/09/17 12/09/17 13:18 13:18 17:56 WBC Neutrophils % Sodium 135 L Potassium Creatinine 1.87 H Lactic Acid Troponin I 2.082 H* 2.059 H* TSH 3rd Generation 12/09/17 12/09/17 12/09/17 17:56 17:57 20:20 WBC 16.8 H Neutrophils % 80.7 H Sodium Potassium Creatinine Lactic Acid 1.4 Troponin I TSH 3rd Generation 0.4216 12/09/17 12/10/17 12/10/17 23:00 01:59 01:59 WBC Neutrophils % 76.4 H Sodium Potassium Creatinine 1.12 H Lactic Acid Troponin I 1.760 H* TSH 3rd Generation 12/10/17 12/12/17 01:59 03:54 WBC Neutrophils % Sodium Potassium 3.0 L Creatinine Lactic Acid Troponin I 1.571 H* [facility] 3rd Generation EKG Reviewed by me: Yes (Tele - A-fib in 's) Phys Exam - Physical Examination Constitutional: NAD HEENT: PERRLA, sclera anicteric, oral pharynx no lesions Neck: no nodes, no JVD, supple, full ROM scattered coarse sounds S1, S2 Cardiovascular: no significant murmur, no rub, gallop, irregular Gastrointestinal: soft, non-tender, no distention, positive bowel sounds Musculoskeletal: no edema, pulses present Neurological: normal sensation, moves all 4 limbs Psychiatric: normal affect, A&O x 3 Skin: normal turgor, cap refill <2 seconds Dx/Plan (1) NSTEMI (non-ST elevated myocardial infarction) Code(s): I21.4 - NON-ST ELEVATION (NSTEMI) MYOCARDIAL INFARCTION Status: Acute Comment: Continue Lovenox, ASA, Lipitor, Cardiology consulted, Echo with preserved EF 60-65%, plan for LHC in am (2) Acute respiratory failure with hypoxia Code(s): J96.01 - ACUTE RESPIRATORY FAILURE WITH HYPOXIA Status: Acute Comment: Improved, off BiPAP NIMV, continue O2 via NC (3) Acute metabolic encephalopathy Code(s): G93.41 - METABOLIC ENCEPHALOPATHY Status: Acute Comment: Likely multifactorial given chronic narcotic use, hypoxia and NSTEMI (4) REMA (acute kidney injury) Code(s): N17.9 - ACUTE KIDNEY FAILURE, UNSPECIFIED Status: Acute Comment: Improved, likely due to volume depletion, avoid nephrotoxic meds and limit contrast exposure (5) Atrial fibrillation with RVR Code(s): I48.91 - UNSPECIFIED ATRIAL FIBRILLATION Status: Acute Comment: Converted to SR, continue Cardizem po, preserved EF, anticoagulation with Lovenox, pt high risk for OAC given fall risk (6) UTI (urinary tract infection) Status: Acute Comment: E.coli on Ucx, d/c Cefepime, start Omnicef 300mg BID (7) Chronic pain syndrome Code(s): G89.4 - CHRONIC PAIN SYNDROME Status: Chronic Comment: Resume home MS Contin, Gabapentin, [place] (8) COPD (chronic obstructive pulmonary disease) Status: Chronic Comment: Continue Duonebs, Dulera, Proventil - Plan plan discussed w/ family, continue antibiotics, PT/OT, social welfare clerk, respiratory therapy, out of bed/ambulate, DVT proph w/SCDs Stable currently -: continue pulmonary supportive measures -: Plan for LHC in am -: continue ASA, Lipitor -: KCL 40meq BID * AM lab: BMP
[2017-12-13] MEDS: Cefdinir 300 MG CAP PO SCH (20:02)
[2017-12-13] MEDS: Atorvastatin Calcium 20 MG TAB PO SCH (20:02)
[2017-12-13 20:17] LABS: Hemoglobin 11.8 g/dL (12.0-16.0); Platelet Count 253 thou/uL (130-400)
[2017-12-14] MEDS: Guaifenesin DM 100-10/5 ML UDCUP PO PRN (01:05)
[2017-12-14 05:28] LABS: Anion Gap 12 mmol/L (10-20); BUN (Urea Nitrogen) 15 mg/dL (9.8-20.1); Calc. Creatinine Clearance 59 mL/min (70-130); Calcium 9.5 mg/dL (7.8-10.44); Carbon Dioxide 27 mmol/L (23-31); Chloride 102 mmol/L (98-107); Estimated GFR-MDRD 74; Glucose 142 mg/dL (83-110); Potassium 4.8 mmol/L (3.5-5.1); Sodium 136 mmol/L (136-145)
[2017-12-14] MEDS: Benzonatate 100 MG CAP PO SCH ×3 (05:51→20:49)
[2017-12-14] MEDS: Morphine ER 30 MG TAB PO SCH ×3 (05:52→21:02)
[2017-12-14] MEDS: Levothyroxine Sodium 50 MCG TAB PO SCH (05:52)
[2017-12-14] MEDS: Potassium Chloride 20 MEQ TAB PO SCH ×2 (05:53→16:00)
[2017-12-14] MEDS: Aspirin 81 mg Enteric Coated Tablet PO SCH ×2 (05:53→09:22)
[2017-12-14] MEDS: Gabapentin 300 MG CAP PO SCH ×4 (05:53→20:44)
[2017-12-14] MEDS: Cefdinir 300 MG CAP PO SCH ×2 (05:54→20:45)
[2017-12-14] MEDS: Famotidine/PF 20 mg/2ml Vial SLOW IVP SCH ×2 (05:56→20:44)
[2017-12-14] MEDS ORDERED: Lidocaine 1% (PF) 30 ML VIAL ONE (07:05)
[2017-12-14] MEDS ORDERED: Fentanyl 100 MCG/2 ML VIAL ONE (08:11)
[2017-12-14] MEDS ORDERED: Midazolam HCl 2 mg/2 ml Vial ONE (08:11)
[2017-12-14] MEDS ORDERED: Nitroglycerin 0.4 MG TAB (25 Tab Bottle) SL PRN (08:35)
[2017-12-14] MEDS ORDERED: Acetaminophen/Codeine 30-300mg Tablet PO PRN ×2 (08:35)
[2017-12-14] MEDS ORDERED: traMADol HCl 50 MG TAB PO PRN (08:35)
[2017-12-14] MEDS ORDERED: Sodium Chloride 0.9% 200 ML IV SCH (09:00)
[2017-12-14] MEDS: Mometasone/Formoterol 120 PUFF INHALER INH SCH ×2 (11:57→19:28)
[2017-12-14] MEDS ORDERED: Iopamidol 370 76% 100 ML VIAL ONE (13:29)
--- NOTE | 2017-12-14 14:09 | PDOC.PN ---
- Subjective Encounter Start Date: 12/14/17 Encounter Start Time: 14:00 Subjective: f/u for UTI, apparent NSTEMI and resp failure. s/p cardiac cath today -: showing mild disease with recs for med mgmt. No new complaints. - Objective Resuscitation Status: Resuscitation Status FULL:Full Resuscitation MAR Reviewed: Yes Vital Signs & Weight: Vital Signs (12 hours) Temp Pulse Resp BP BP Pulse Ox 12/14/17 11:57 78 12 12/14/17 11:51 94 L 12/14/17 11:48 78 12 12/14/17 11:05 96.7 F L 72 16 144/70 H 95 12/14/17 07:25 98.4 F 92 17 179/88 H 94 L 12/14/17 05:55 91 12/14/17 03:42 99.1 F 91 17 140/71 92 L 12/14/17 02:22 92 L Weight Weight 131 lb 3 oz I&O: 12/13/17 12/14/17 12/15/17 06:59 06:59 06:59 Intake Total 1310 1523 Output Total 1000 1020 Balance 310 503 Result Diagrams: 12/13/17 19:52 12/14/17 04:55 Additional Labs: Microbiology 12/09/17 19:50 Nasal swab Influenza Types A,B Direct EIA - Final 12/09/17 15:15 Nasal swab Influenza Types A,B Direct EIA - Final 12/09/17 14:13 Urine Straight Catheter Urine Culture - Final Escherichia coli 12/09/17 14:13 Venous blood - Left Arm Blood Culture - Preliminary Specimen has been received and culture in progress. No Growth to date. 12/09/17 14:13 Urine Straight Catheter Urine Culture - Preliminary Gram Negative Johann 12/09/17 14:10 Venous blood - Left Hand Blood Culture - Preliminary Specimen has been received and culture in progress. No Growth to date. Laboratory Tests 12/09/17 12/09/17 12/09/17 13:18 13:18 17:56 WBC Neutrophils % Sodium 135 L Potassium Creatinine 1.87 H Lactic Acid Troponin I 2.082 H* 2.059 H* TSH 3rd Generation 12/09/17 12/09/17 12/09/17 17:56 17:57 20:20 WBC 16.8 H Neutrophils % 80.7 H Sodium Potassium Creatinine Lactic Acid 1.4 Troponin I TSH 3rd Generation 0.4216 12/09/17 12/10/17 12/10/17 23:00 01:59 01:59 WBC Neutrophils % 76.4 H Sodium Potassium Creatinine 1.12 H Lactic Acid Troponin I 1.760 H* TSH 3rd Generation 12/10/17 12/12/17 01:59 03:54 WBC Neutrophils % Sodium Potassium 3.0 L Creatinine Lactic Acid Troponin I 1.571 H* [facility] 3rd Generation Radiology Reviewed by me: Yes (LHC - mild dz RCA, preserved EF) EKG Reviewed by me: Yes (Tele - SR) Phys Exam - Physical Examination Constitutional: NAD HEENT: PERRLA, sclera anicteric, oral pharynx no lesions Neck: no nodes, no JVD, supple, full ROM Respiratory: no wheezing, no rales, no rhonchi, clear to auscultation bilateral S1, S2 Cardiovascular: RRR, no significant murmur, no rub, gallop Gastrointestinal: soft, non-tender, no distention, positive bowel sounds Musculoskeletal: no edema, pulses present Neurological: normal sensation, moves all 4 limbs Psychiatric: A&O x 3 Skin: normal turgor, cap refill <2 seconds Dx/Plan (1) Acute respiratory failure with hypoxia Code(s): J96.01 - ACUTE RESPIRATORY FAILURE WITH HYPOXIA Status: Acute Comment: Improved, off BiPAP NIMV, continue O2 via NC (2) Acute metabolic encephalopathy Code(s): G93.41 - METABOLIC ENCEPHALOPATHY Status: Acute Comment: Likely multifactorial given chronic narcotic use, hypoxia and NSTEMI (3) REMA (acute kidney injury) Code(s): N17.9 - ACUTE KIDNEY FAILURE, UNSPECIFIED Status: Acute Comment: Improved, likely due to volume depletion, avoid nephrotoxic meds and limit contrast exposure (4) Atrial fibrillation with RVR Code(s): I48.91 - UNSPECIFIED ATRIAL FIBRILLATION Status: Acute Comment: Converted to SR, continue Cardizem po, preserved EF, Eliquis currently but remains fall risk (5) UTI (urinary tract infection) Status: Acute Comment: E.coli on Ucx, d/c Cefepime, start Omnicef 300mg BID (6) Chronic pain syndrome Code(s): G89.4 - CHRONIC PAIN SYNDROME Status: Chronic Comment: Resume home MS Contin, Gabapentin, [place] (7) COPD (chronic obstructive pulmonary disease) Status: Chronic Comment: Continue Duonebs, Dulera, Proventil (8) CAD (coronary artery disease) Code(s): I25.10 - ATHSCL HEART DISEASE OF [place] CORONARY ARTERY W/O ANG PCTRS Status: Chronic Comment: Mild dz on LHC, med mgmt - Plan continue antibiotics, PT/OT, licensed social worker, out of bed/ambulate, DVT proph w/ SCDs Stable overall -: Continue Omnicef -: ASA, Lipitor -: OOB/PT -: AM lab: H/H * Likely home in 24-48h
--- NOTE | 2017-12-14 15:51 | PRG ---
DATE OF SERVICE: 12/14/2017 SUBJECTIVE: Adriana Velazco says she is feeling much better. She is complaining of insomnia. She does not really know whether or not she will be able to quit smoking, but she says she is willing to try a patch. PHYSICAL EXAMINATION: VITAL SIGNS: She is afebrile, heart rate 78, respiratory rate is 12, oximetry is 94% on 3 liters. LUNGS: Still remarkable for wheezes. HEART: Regular rhythm. ABDOMEN: Soft. LABORATORY DATA: Hemoglobin was 11.8 yesterday. Sodium 136, potassium 4.8, chloride 102, bicarbonate 27, BUN 15, creatinine 0.76. IMPRESSION: 1. Chronic obstructive pulmonary disease with ongoing bronchospasm. 2. Tobacco dependence. PLAN: Will add a patch. Steroids are probably keeping her awake, so I will switch her to p.o. prednisone and put in for a sleeping pill. MTDD
[2017-12-14] MEDS: Nicotine 14 MG PATCH TD SCH (15:54)
[2017-12-14] MEDS: Atorvastatin Calcium 20 MG TAB PO SCH (20:44)
[2017-12-15] MEDS: Morphine ER 30 MG TAB PO SCH ×3 (03:22→20:29)
[2017-12-15] MEDS: Mometasone/Formoterol 120 PUFF INHALER INH SCH ×2 (06:43→18:57)
[2017-12-15] MEDS: Levothyroxine Sodium 50 MCG TAB PO SCH (06:45)
[2017-12-15] MEDS: Gabapentin 300 MG CAP PO SCH ×4 (08:30→20:30)
[2017-12-15] MEDS: predniSONE 20 MG TAB PO SCH (08:30)
[2017-12-15] MEDS: Cefdinir 300 MG CAP PO SCH ×2 (08:30→20:30)
[2017-12-15] MEDS: Aspirin 81 mg Enteric Coated Tablet PO SCH (08:30)
[2017-12-15] MEDS: Potassium Chloride 20 MEQ TAB PO SCH ×2 (08:30→16:39)
[2017-12-15] MEDS: Famotidine/PF 20 mg/2ml Vial SLOW IVP SCH (08:31)
[2017-12-15] MEDS: Benzonatate 100 MG CAP PO SCH ×3 (08:31→20:30)
[2017-12-15] MEDS ORDERED: Apixaban 2.5 MG TAB PO SCH ×3 (09:00→10:15)
--- NOTE | 2017-12-15 09:41 | PDOC.CTH ---
Cardiology Progress Note - Subjective Patient with c/o cough causing urinary incontinence. Also c/o severe groin pain at cath site. - Objective Vital Signs Temp Pulse Resp BP BP Pulse Ox 12/15/17 08:30 97 12/15/17 07:53 98.4 F 97 18 113/77 95 12/15/17 06:46 93 L 12/15/17 06:45 80 18 93 L 12/15/17 06:43 80 18 93 L 12/15/17 04:00 97.8 F 96 18 151/85 H 95 12/15/17 02:11 92 L 12/14/17 22:45 92 L Weight 129 lb 12/14/17 12/15/17 12/16/17 06:59 06:59 05:59 Intake Total 1523 1920 Output Total 1020 1425 Balance 503 495 - Physical Examination General/Neuro: alert & oriented x3 Neck: no JVD present Lungs: other: (tight) Heart: other: (IRR) Abdomen: NT/ND Other PE findings: Right groin TTP - Telemetry Telemetry Rhythm: AF - Labs Result Diagrams: 12/13/17 19:52 12/14/17 04:55 Troponin/CKMB Troponin I 1.571 ng/mL (< 0.028) H* 12/10/17 01:59 - Assessment/Plan 1. Right groin pain s/p cath 2. paroxysmal AF 3. NSTEMI - mild CAD on cath. Probable demand ischemia 4. Sepsis at presentation 5. URI Stable cardiac status. Still in/out of AF. ? add Multaq. Unsure if patient can afford. Per nursing she has been converting in and out since admission so will continue cardizem only for now. Increase Eliquis to therapeutic dosage as she is currently underdosed only placing her at a risk of bleeding with CVA prevention. US right groin given TTP out of proportion. No swelling suggestive of bleed, but will double check at patient request. Cough treatment per pulmonary.
[2017-12-15] MEDS ORDERED: Apixaban 5 MG TAB PO SCH (10:00)
--- NOTE | 2017-12-15 12:29 | PDOC.PN ---
- Subjective Encounter Start Date: 12/15/17 Encounter Start Time: 08:00 Pt seen for followup re: acute hypoxic respiratory failure. Reports right groin pain. No chest pain, shortness of breath, fevers or chills. - Objective Resuscitation Status: Resuscitation Status FULL:Full Resuscitation MAR Reviewed: Yes Vital Signs & Weight: Vital Signs (12 hours) Temp Pulse Resp BP BP BP Pulse Ox 12/15/17 11:52 98 F 94 18 138/90 95 12/15/17 10:18 94 18 94 L 12/15/17 08:30 97 12/15/17 08:00 95 12/15/17 07:53 98.4 F 97 18 113/77 95 12/15/17 06:46 93 L 12/15/17 06:45 80 18 93 L 12/15/17 06:43 80 18 93 L 12/15/17 04:00 97.8 F 96 18 151/85 H 95 12/15/17 02:11 92 L Weight Weight 129 lb I&O: 12/14/17 12/15/17 12/16/17 06:59 06:59 05:59 Intake Total 1523 1920 Output Total 1020 1425 Balance 503 495 Result Diagrams: 12/13/17 19:52 12/14/17 04:55 EKG Reviewed by me: Yes (Tele: adrián) Phys Exam - Physical Examination Constitutional: NAD HEENT: moist MMs Neck: supple Bibasal crackles Cardiovascular: irregular Gastrointestinal: soft right groin tenderness Neurological: moves all 4 limbs Psychiatric: normal affect Dx/Plan (1) Acute respiratory failure with hypoxia Code(s): J96.01 - ACUTE RESPIRATORY FAILURE WITH HYPOXIA Status: Acute Comment: Improved (2) Atrial fibrillation with RVR Code(s): I48.91 - UNSPECIFIED ATRIAL FIBRILLATION Status: Acute Comment: continue cardizem (3) CAD (coronary artery disease) Code(s): I25.10 - ATHSCL HEART DISEASE OF [place] CORONARY ARTERY W/O ANG PCTRS Status: Chronic Comment: For med mgmt (4) Hypertension Code(s): I10 - ESSENTIAL (PRIMARY) HYPERTENSION Status: Chronic Plan: controlled Comment: controlled - Plan * . Review of Systems - Review of Systems Respiratory: Cough, Dry. negative: Shortness of Breath, SOB with Excertion, Pleuritic Pain, Wheezing Cardiovascular: negative: chest pain, palpitations, orthopnea, paroxysmal nocturnal dyspnea, edema, light headedness Musculoskeletal: Other (right groin pain) - Medications/Allergies Allergies/Adverse Reactions: Allergies Allergy/AdvReac Type Severity Reaction Status Date / Time hydralazine Allergy Verified 03/10/14 22:10 Medications: Current Medications Acetaminophen (Tylenol) 650 mg PO Q4H PRN PRN Reason: Headache/Fever/Mild Pain (1-3) Last Admin: 12/13/17 11:08 Dose: 650 mg Acetaminophen/Codeine Phosphate (Tylenol #3) 1 tab PO Q4H PRN PRN Reason: Mild Pain (1-3) Acetaminophen/Codeine Phosphate (Tylenol #3) 2 tab PO Q4H PRN PRN Reason: Moderate Pain (4-6) Hydrocodone Bitart/Acetaminophen (Meta 10/325) 1 tab PO Q6H PRN PRN Reason: Moderate Pain (4-6) Last Admin: 12/10/17 15:00 Dose: 1 tab Albuterol Sulfate (Proventil Hfa) 2 puff INH Q6HR PRN PRN Reason: SOB &/or Wheezing Albuterol/Ipratropium (Duoneb) 3 ml NEB [id number] [facility] Last Admin: 12/15/17 10:18 Dose: 3 ml Apixaban (Eliquis) 5 mg PO BID [facility] Aspirin (Ecotrin) 81 mg PO DAILY [facility] Last Admin: 12/15/17 08:30 Dose: 81 mg Atorvastatin Calcium (Lipitor) 20 mg PO HS [facility] Last Admin: 12/14/17 20:44 Dose: 20 mg Benzonatate (Tessalon) 200 mg PO TID [facility] Last Admin: 12/15/17 08:31 Dose: 200 mg Cefdinir (Omnicef) 300 mg PO BID [facility] Last Admin: 12/15/17 08:30 Dose: 300 mg Diltiazem HCl (Cardizem Cd) 240 mg PO DAILY [facility] Last Admin: 12/15/17 08:30 Dose: 240 mg Famotidine (Pepcid) 20 mg SLOW IVP Q12HR [facility] Last Admin: 12/15/17 08:31 Dose: 20 mg Gabapentin (Neurontin) 600 mg PO QID [facility] Last Admin: 12/15/17 11:56 Dose: 600 mg Guaifenesin/Dextromethorphan (Robitussin Dm) 15 ml PO Q4H PRN PRN Reason: Cough Last Admin: 12/14/17 01:05 Dose: 15 ml Levothyroxine Sodium (Synthroid) 50 mcg PO 0600 [facility] Last Admin: 12/15/17 06:45 Dose: 50 mcg Mometasone Furoate/Formoterol Fumar (Dulera 200 Mcg/5 Mcg Inhaler) 1 puff INH BID-RT [facility] Last Admin: 12/15/17 06:43 Dose: 1 puff Morphine Sulfate (Ms Contin) 60 mg PO 0400,1200,2000 [facility] Last Admin: 12/15/17 11:55 Dose: 60 mg Morphine Sulfate (Morphine) 6 mg SLOW IVP Q4H PRN PRN Reason: Pain Last Admin: 12/10/17 12:49 Dose: 6 mg Nicotine (Nicoderm Patch) 14 mg TD Q24HR [facility] Last Admin: 12/14/17 15:54 Dose: 14 mg Nitroglycerin (Nitrostat) 0.4 mg SL Q5MIN PRN PRN Reason: Chest Pain Ondansetron HCl (Zofran) 4 mg SLOW IVP Q6H PRN PRN Reason: Nausea Last Admin: 12/10/17 11:06 Dose: 4 mg Potassium Chloride (K-Dur) 40 meq PO BID-[facility] Last Admin: 12/15/17 08:30 Dose: 40 meq Prednisone (Prednisone) 20 mg PO QAM-WM [facility] Last Admin: 12/15/17 08:30 Dose: 20 mg Senna/Docusate Sodium (Senokot S) 2 tab PO BID PRN PRN Reason: Constipation Sertraline HCl (Zoloft) 50 mg PO DAILY [facility] Last Admin: 12/15/17 08:31 Dose: 50 mg Sodium Chloride (Flush - Normal Saline) 10 ml IVF Q12HR [facility] Last Admin: 12/15/17 08:31 Dose: 10 ml Sodium Chloride (Flush - Normal Saline) 10 ml IVF PRN PRN PRN Reason: Saline Flush Temazepam (Restoril) 15 mg PO HSPRN PRN PRN Reason: Insomnia Last Admin: 12/11/17 22:11 Dose: 15 mg Tramadol HCl (Ultram) 50 mg PO Q6H PRN PRN Reason: Moderate Pain (4-6)
--- NOTE | 2017-12-15 13:25 | ULT ---
ULTRASOUND EXTREMITY NONVASCULAR LIMITED: (right groin ultrasound) HISTORY: The patient is status post cath performed 2 days ago. Right groin pain and tenderness. FINDINGS/IMPRESSION: There is normal flow in the common femoral artery and flow in the right groin. No cystic mass with f low is demonstrated to suggest pseudoaneurysm formation. POS: [facility]
[2017-12-15] MEDS: Nicotine 14 MG PATCH TD SCH (15:31)
--- NOTE | 2017-12-15 15:46 | PRG ---
DATE OF SERVICE: 12/15/2017 SUBJECTIVE: Ms. Velazco is complaining of back pain after going for a walk with physical therapy yanci oliver. Other than that, she had no complaints. OBJECTIVE: VITAL SIGNS: She is afebrile, heart rate is 94, respiratory rate is 18, oximetry is 95 on 3 liters, blood pressure is 138/90. LUNGS: Were actually remarkable for less wheezes than in the last few days. HEART: Regular rhythm. ABDOMEN: Soft. She did not ask for a sleeping pill last night, so she did not sleep much, but she does nap on and of f all day and I have explained to her this is why she cannot sleep at night. IMPRESSION: 1. Chronic obstructive pulmonary disease, not a real factor in this admission with some bronchospasm . 2. Tobacco use up until this admission. Now, the patch on. 3. Diarrhea illness leading to intravascular volume depletion and metabolic acidosis, resolved. 4. Atrial fibrillation. 5. History of coronary artery disease. 6. Hypertension, reasonably well controlled with some breakthrough elevated blood pressures, last on e was probably after exercise. We will continue to follow.
[2017-12-15 20:11] LABS: Hemoglobin 11.8 g/dL (12.0-16.0); Platelet Count 347 thou/uL (130-400)
[2017-12-15] MEDS: Atorvastatin Calcium 20 MG TAB PO SCH (20:30)
[2017-12-15] MEDS: Famotidine 20 MG TAB PO SCH (20:30)
[2017-12-15] MEDS: Apixaban 5 MG TAB PO SCH (20:30)
[2017-12-16] MEDS: Temazepam 15 MG CAP PO PRN ×2 (00:05→23:09)
[2017-12-16] MEDS: Guaifenesin DM 100-10/5 ML UDCUP PO PRN ×2 (01:35→23:09)
[2017-12-16] MEDS: Morphine ER 30 MG TAB PO SCH ×3 (04:17→20:30)
[2017-12-16] MEDS: Levothyroxine Sodium 50 MCG TAB PO SCH (04:17)
[2017-12-16] MEDS: Mometasone/Formoterol 120 PUFF INHALER INH SCH ×2 (06:51→18:54)
[2017-12-16] MEDS: Gabapentin 300 MG CAP PO SCH ×4 (08:03→20:29)
[2017-12-16] MEDS: Benzonatate 100 MG CAP PO SCH ×3 (08:03→20:29)
[2017-12-16] MEDS: Famotidine 20 MG TAB PO SCH ×2 (08:04→20:31)
[2017-12-16] MEDS: Cefdinir 300 MG CAP PO SCH ×2 (08:04→20:29)
[2017-12-16] MEDS: Apixaban 5 MG TAB PO SCH ×2 (08:04→20:30)
[2017-12-16] MEDS: Aspirin 81 mg Enteric Coated Tablet PO SCH (08:04)
[2017-12-16] MEDS: Potassium Chloride 20 MEQ TAB PO SCH ×2 (08:05→17:00)
[2017-12-16] MEDS: predniSONE 20 MG TAB PO SCH (08:05)
--- NOTE | 2017-12-16 09:34 | PDOC.CTH ---
<Leighann Collier - Last Filed: 12/16/17 09:32> Cardiology Progress Note - Subjective Still with c/o cough, but otherwise ok. In/out of AF with RVR and what appears to be AFl. 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 Right groin pain s/p cath - negative groin US 2. paroxysmal AF/Fl 3. NSTEMI - mild CAD on cath. Probable demand ischemia 4. Sepsis at presentation 5. URI 6. COPD Doing better, but still breaking through with AF/Fl with RVR. Will rate-control for now. Dr. Pyle back tomorrow and can determine if patient needs Multaq vs other antiarrhythmic or EP consult. <Curt Sahni - Last Filed: 12/16/17 14:30> Cardiology Progress Note - Objective Vital Signs Temp Pulse Pulse Pulse Resp BP BP 12/16/17 13:51 80 16 12/16/17 12:48 102 H 94 169/89 H 125/64 12/16/17 11:33 97.8 F 111 H 16 12/16/17 08:04 88 12/16/17 07:03 98.2 F 88 16 12/16/17 06:51 90 14 12/16/17 03:25 98.5 F 85 18 BP BP Pulse Ox Pulse Ox Pulse Ox 12/16/17 13:51 12/16/17 12:48 94 L 97 12/16/17 11:33 123/69 96 12/16/17 08:04 12/16/17 07:03 176/82 H 99 12/16/17 06:51 12/16/17 03:25 132/71 92 L Weight 131 lb 12/15/17 12/16/17 12/17/17 07:59 06:59 06:59 Intake Total Output Total Balance - Labs Result Diagrams: 12/15/17 19:57 12/14/17 04:55 Troponin/CKMB Troponin I 1.571 ng/mL (< 0.028) H* 12/10/17 01:59 - Assessment/Plan Pt seen and examined. IMproving. No pain to right groin. Mild CAD Abx
--- NOTE | 2017-12-16 11:19 | PDOC.PN ---
- Subjective Encounter Start Date: 12/16/17 Encounter Start Time: 08:20 Pt seen for followup re: acute hypoxic resp failure. Reports feeling weak. No nausea or vomiting. 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 Weight Weight 131 lb I&O: 12/15/17 12/16/17 12/17/17 07:59 06:59 06:59 Intake Total Output Total Balance Result Diagrams: 12/15/17 19:57 12/14/17 04:55 Phys Exam - Physical Examination Constitutional: NAD HEENT: moist MMs Neck: supple Respiratory: clear to auscultation bilateral Cardiovascular: RRR Gastrointestinal: soft Neurological: moves all 4 limbs Psychiatric: normal affect Dx/Plan (1) Acute respiratory failure with hypoxia Code(s): J96.01 - ACUTE RESPIRATORY FAILURE WITH HYPOXIA Status: Acute Comment: Improved (2) Atrial fibrillation with RVR Code(s): I48.91 - UNSPECIFIED ATRIAL FIBRILLATION Status: Acute Comment: on cardizem, currently in sinus rhythm (3) CAD (coronary artery disease) Code(s): I25.10 - ATHSCL HEART DISEASE OF [place] CORONARY ARTERY W/O ANG PCTRS Status: Chronic Comment: for medical management (4) Hypertension Code(s): I10 - ESSENTIAL (PRIMARY) HYPERTENSION Status: Chronic Comment: controlled - Plan * . Review of Systems - Review of Systems Constitutional: weakness Respiratory: SOB with Excertion. negative: Cough, Shortness of Breath, Pleuritic Pain, Wheezing Cardiovascular: negative: chest pain, palpitations, orthopnea, paroxysmal nocturnal dyspnea, edema, light headedness - Medications/Allergies Allergies/Adverse Reactions: Allergies Allergy/AdvReac Type Severity Reaction Status Date / Time hydralazine Allergy Verified 03/10/14 22:10 Medications: Current Medications Acetaminophen (Tylenol) 650 mg PO Q4H PRN PRN Reason: Headache/Fever/Mild Pain (1-3) Last Admin: 12/13/17 11:08 Dose: 650 mg Acetaminophen/Codeine Phosphate (Tylenol #3) 1 tab PO Q4H PRN PRN Reason: Mild Pain (1-3) Acetaminophen/Codeine Phosphate (Tylenol #3) 2 tab PO Q4H PRN PRN Reason: Moderate Pain (4-6) Hydrocodone Bitart/Acetaminophen ([place]xtell 10/325) 1 tab PO Q6H PRN PRN Reason: Moderate Pain (4-6) Last Admin: 12/10/17 15:00 Dose: 1 tab Albuterol Sulfate (Proventil Hfa) 2 puff INH Q6HR PRN PRN Reason: SOB &/or Wheezing Albuterol/Ipratropium (Duoneb) 3 ml NEB [id number] [facility] Last Admin: 12/16/17 10:35 Dose: Not Given Apixaban (Eliquis) 5 mg PO BID [facility] Last Admin: 12/16/17 08:04 Dose: 5 mg Aspirin (Ecotrin) 81 mg PO DAILY [facility] Last Admin: 12/16/17 08:04 Dose: 81 mg Atorvastatin Calcium (Lipitor) 20 mg PO HS [facility] Last Admin: 12/15/17 20:30 Dose: 20 mg Benzonatate (Tessalon) 200 mg PO TID [facility] Last Admin: 12/16/17 08:03 Dose: 200 mg Cefdinir (Omnicef) 300 mg PO BID [facility] Last Admin: 12/16/17 08:04 Dose: 300 mg Diltiazem HCl (Cardizem Cd) 240 mg PO DAILY [facility] Last Admin: 12/16/17 08:04 Dose: 240 mg Famotidine (Pepcid) 20 mg PO BID [facility] Last Admin: 12/16/17 08:04 Dose: 20 mg Gabapentin (Neurontin) 600 mg PO QID [facility] Last Admin: 12/16/17 08:03 Dose: 600 mg Guaifenesin/Dextromethorphan (Robitussin Dm) 15 ml PO Q4H PRN PRN Reason: Cough Last Admin: 12/16/17 01:35 MACHINE ADJUSTER HELPER Dose: 15 ml Levothyroxine Sodium (Synthroid) 50 mcg PO 0600 [facility] Last Admin: 12/16/17 04:17 Dose: 50 mcg Mometasone Furoate/Formoterol Fumar (Dulera 200 Mcg/5 Mcg Inhaler) 1 puff INH BID-RT [facility] Last Admin: 12/16/17 06:51 Dose: 1 puff Morphine Sulfate (Ms Contin) 60 mg PO 0400,1200,2000 [facility] Last Admin: 12/16/17 04:17 Dose: 60 mg Morphine Sulfate (Morphine) 6 mg SLOW IVP Q4H PRN PRN Reason: Pain Last Admin: 12/10/17 12:49 Dose: 6 mg Nicotine (Nicoderm Patch) 14 mg TD Q24HR [facility] Last Admin: 12/15/17 15:31 Dose: 14 mg Nitroglycerin (Nitrostat) 0.4 mg SL Q5MIN PRN PRN Reason: Chest Pain Ondansetron HCl (Zofran) 4 mg SLOW IVP Q6H PRN PRN Reason: Nausea Last Admin: 12/10/17 11:06 Dose: 4 mg Potassium Chloride (K-Dur) 40 meq PO BID-[facility] Last Admin: 12/16/17 08:05 Dose: 40 meq Prednisone (Prednisone) 20 mg PO QAM-[facility] Last Admin: 12/16/17 08:05 Dose: 20 mg Senna/Docusate Sodium (Senokot S) 2 tab PO BID PRN PRN Reason: Constipation Sertraline HCl (Zoloft) 50 mg PO DAILY [facility] Last Admin: 12/16/17 08:04 Dose: 50 mg Sodium Chloride (Flush - Normal Saline) 10 ml IVF Q12HR [facility] Last Admin: 12/16/17 08:05 Dose: 10 ml Sodium Chloride (Flush - Normal Saline) 10 ml IVF PRN PRN PRN Reason: Saline Flush Temazepam (Restoril) 15 mg PO HSPRN PRN PRN Reason: Insomnia Last Admin: 12/16/17 00:05 Dose: 15 mg Tramadol HCl (Ultram) 50 mg PO Q6H PRN PRN Reason: Moderate Pain (4-6)
[2017-12-16] MEDS: Nicotine 14 MG PATCH TD SCH (14:07)
--- NOTE | 2017-12-16 16:31 | PRG ---
DATE OF SERVICE: 12/16/2017 SUBJECTIVE: Adriana Velazco has no complaints other than back pain. OBJECTIVE: VITAL SIGNS: She is afebrile, heart rate is 88-111 today, respiratory rate is 16, oximetry is 96 on 3 liters, blood pressure is 169/89, heart rate was down to 102 after lunch. LUNGS: Distant, clear. HEART: Regular rhythm. ABDOMEN: Soft. IMPRESSION: 1. Intermittent atrial fibrillation. 2. Chronic obstructive pulmonary disease, which is clinically stable at this point in time. 3. Deconditioning. 4. Chronic back pain on long-acting morphine. 5. Status post admission with severe diarrhea and a metabolic acidosis, most likely secondary to bic arbonate losses with her diarrhea. 6. Intravascular volume depletion on presentation, resolved. PLAN: Continue current supportive care.
[2017-12-16] MEDS: Acetaminophen 325 MG TAB PO PRN (17:01)
[2017-12-16] MEDS: Atorvastatin Calcium 20 MG TAB PO SCH (20:30)
[2017-12-17] MEDS: Levothyroxine Sodium 50 MCG TAB PO SCH (05:08)
[2017-12-17] MEDS: Morphine ER 30 MG TAB PO SCH ×3 (05:08→20:54)
[2017-12-17] MEDS: Mometasone/Formoterol 120 PUFF INHALER INH SCH ×2 (07:13→18:01)
[2017-12-17] MEDS: Benzonatate 100 MG CAP PO SCH ×3 (08:42→20:56)
[2017-12-17] MEDS: Potassium Chloride 20 MEQ TAB PO SCH ×2 (08:42→17:23)
[2017-12-17] MEDS: predniSONE 20 MG TAB PO SCH (08:42)
[2017-12-17] MEDS: Cefdinir 300 MG CAP PO SCH ×2 (08:42→20:56)
[2017-12-17] MEDS: Gabapentin 300 MG CAP PO SCH ×4 (08:43→20:56)
[2017-12-17] MEDS: Famotidine 20 MG TAB PO SCH ×2 (08:43→20:56)
[2017-12-17] MEDS: Aspirin 81 mg Enteric Coated Tablet PO SCH (08:43)
[2017-12-17] MEDS: Apixaban 5 MG TAB PO SCH ×2 (08:43→20:55)
--- NOTE | 2017-12-17 10:15 | PQF ---
DATE: 12-17-17 ATTN: DR. DERRICK PERALTA Please exercise your independent, professional judgment in responding to the clarification form. Clinical indicators are provided on the bottom of this form for your review Please check appropriate box(s) to clarify if the following diagnosis has been ruled in or ruled out: NSTEMI [ ] Ruled in diagnosis [ ] Continue to treat [ ] Resolved [ ] Ruled out diagnosis [ X ] Other diagnosis ___demand ischemia [ ] Unable to determine In addition, please specify: Present on Admission (POA): [ ] Yes [ ] No [ ] Unable to determine For continuity of documentation, please document condition throughout progress notes and discharge summary. Thank You. CLINICAL INDICATORS - SIGNS / SYMPTOMS / LABS ER DX: SEPSIS, HYPOXIC RESPIRATORY FAILURE, LACTIC ACIDOSIS, NSTEMI H&P: ACUTE HYPOXIC RESPIRATORY FAILURE, SEPSIS, NON ST ELEVATION SD, ACUTE METABOLIC ENCEPHALOPATHY TROP: 12-09-17: 2.059 1.760 12-10-17: 1.[address] NOEL 12-10-17: SEPSIS, NON Q-WAVE SD PN DR. CALDERON 12-11-17: NSTEMI RISK FACTORS: H&P: HX HTN, THROID DISEASE, OSTEOPOROSIS, HX OF LUNG CANCER , SMOKER TREATMENTS: H&P: CARDIOLOGY CONSULT, WE WILL PUT HER ON HEPARIN. WE WILL PUT ON ASPIRIN AND PUT HER ON A STATIN AND CONTINUE TO MONITOR. (This form is maintained as a part of the permanent medical record) 2014 [email or web address]. All Rights Reserved OWEN [email or web address] Office: [phone] [facility]
--- NOTE | 2017-12-17 12:03 | PDOC.PN ---
- Subjective Encounter Start Date: 12/17/17 Encounter Start Time: 07:20 Pt seen for followup re: acute hypoxic respiratory failure. Feels better. No nausea or vomiting. - Objective Resuscitation Status: Resuscitation Status FULL:Full Resuscitation MAR Reviewed: Yes Vital Signs & Weight: Vital Signs (12 hours) Temp Pulse Resp BP Pulse Ox 12/17/17 11:18 98.2 F 86 18 103/59 L 94 L 12/17/17 10:36 82 16 94 L 12/17/17 08:42 78 12/17/17 07:15 97.5 F L 78 16 173/80 H 94 L 12/17/17 07:11 84 16 94 L 12/17/17 04:10 98.7 F 80 19 127/66 96 12/17/17 01:35 78 18 93 L Weight Weight 132 lb 8 oz I&O: 12/16/17 12/17/17 12/18/17 06:59 06:59 06:59 Intake Total 1450 Output Total 1900 Balance -450 Result Diagrams: 12/15/17 19:57 12/14/17 04:55 EKG Reviewed by me: Yes (Tele: NSR) Phys Exam - Physical Examination Constitutional: NAD HEENT: moist MMs Neck: supple Respiratory: clear to auscultation bilateral Cardiovascular: RRR Gastrointestinal: soft Neurological: moves all 4 limbs Psychiatric: normal affect Dx/Plan (1) Acute respiratory failure with hypoxia Code(s): J96.01 - ACUTE RESPIRATORY FAILURE WITH HYPOXIA Status: Acute Comment: Improved (2) Atrial fibrillation with RVR Code(s): I48.91 - UNSPECIFIED ATRIAL FIBRILLATION Status: Acute Comment: continue cardizem (3) CAD (coronary artery disease) Code(s): I25.10 - ATHSCL HEART DISEASE OF [place] CORONARY ARTERY W/O ANG PCTRS Status: Chronic Comment: for medical management. Mild CAD on cath. Troponin elevation likely due to demand ischemia. (4) Hypertension Code(s): I10 - ESSENTIAL (PRIMARY) HYPERTENSION Status: Chronic Comment: controlled - Plan * . Review of Systems - Review of Systems Respiratory: SOB with Excertion. negative: Cough, Shortness of Breath, Pleuritic Pain, Wheezing Cardiovascular: negative: chest pain, palpitations, orthopnea, paroxysmal nocturnal dyspnea, edema, light headedness, other - Medications/Allergies Allergies/Adverse Reactions: Allergies Allergy/AdvReac Type Severity Reaction Status Date / Time hydralazine Allergy Verified 03/10/14 22:10 Medications: Current Medications Acetaminophen (Tylenol) 650 mg PO Q4H PRN PRN Reason: Headache/Fever/Mild Pain (1-3) Last Admin: 12/16/17 17:01 Dose: 650 mg Acetaminophen/Codeine Phosphate (Tylenol #3) 1 tab PO Q4H PRN PRN Reason: Mild Pain (1-3) Acetaminophen/Codeine Phosphate (Tylenol #3) 2 tab PO Q4H PRN PRN Reason: Moderate Pain (4-6) Hydrocodone Bitart/Acetaminophen ([place] 10/325) 1 tab PO Q6H PRN PRN Reason: Moderate Pain (4-6) Last Admin: 12/10/17 15:00 Dose: 1 tab Albuterol Sulfate (Proventil Hfa) 2 puff INH Q6HR PRN PRN Reason: SOB &/or Wheezing Albuterol/Ipratropium (Duoneb) 3 ml NEB [id number] [facility] Last Admin: 12/17/17 10:36 Dose: 3 ml Apixaban (Eliquis) 5 mg PO BID [facility] Last Admin: 12/17/17 08:43 Dose: 5 mg Aspirin (Ecotrin) 81 mg PO DAILY [facility] Last Admin: 12/17/17 08:43 Dose: 81 mg Atorvastatin Calcium (Lipitor) 20 mg PO HS [facility] Last Admin: 12/16/17 20:30 Dose: 20 mg Benzonatate (Tessalon) 200 mg PO TID [facility] Last Admin: 12/17/17 08:42 Dose: 200 mg Cefdinir (Omnicef) 300 mg PO BID [facility] Last Admin: 12/17/17 08:42 Dose: 300 mg Diltiazem HCl (Cardizem Cd) 240 mg PO DAILY [facility] Last Admin: 12/17/17 08:42 Dose: 240 mg Famotidine (Pepcid) 20 mg PO BID [facility] Last Admin: 12/17/17 08:43 Dose: 20 mg Gabapentin (Neurontin) 600 mg PO QID [facility] Last Admin: 12/17/17 08:43 Dose: 600 mg Guaifenesin/Dextromethorphan (Robitussin Dm) 15 ml PO Q4H PRN PRN Reason: Cough Last Admin: 12/16/17 23:09 Dose: 15 ml Levothyroxine Sodium (Synthroid) 50 mcg PO 0600 [facility] Last Admin: 12/17/17 05:08 Dose: 50 mcg Mometasone Furoate/Formoterol Fumar (Dulera 200 Mcg/5 Mcg Inhaler) 1 puff INH BID-RT [facility] Last Admin: 12/17/17 07:13 Dose: 1 puff Morphine Sulfate (Ms Contin) 60 mg PO 0400,1200,2000 [facility] Last Admin: 12/17/17 05:08 Dose: 60 mg Morphine Sulfate (Morphine) 6 mg SLOW IVP Q4H PRN PRN Reason: Pain Last Admin: 12/10/17 12:49 Dose: 6 mg Nicotine (Nicoderm Patch) 14 mg TD Q24HR [facility] Last Admin: 12/16/17 14:07 Dose: 14 mg Nitroglycerin (Nitrostat) 0.4 mg SL Q5MIN PRN PRN Reason: Chest Pain Ondansetron HCl (Zofran) 4 mg SLOW IVP Q6H PRN PRN Reason: Nausea Last Admin: 12/10/17 11:06 Dose: 4 mg Potassium Chloride (K-Dur) 40 meq PO BID-[facility] Last Admin: 12/17/17 08:42 Dose: 40 meq Prednisone (Prednisone) 20 mg PO QAM-[facility] Last Admin: 12/17/17 08:42 Dose: 20 mg Senna/Docusate Sodium (Senokot S) 2 tab PO BID PRN PRN Reason: Constipation Sertraline HCl (Zoloft) 50 mg PO DAILY [facility] Last Admin: 12/17/17 08:43 Dose: 50 mg Sodium Chloride (Flush - Normal Saline) 10 ml IVF Q12HR [facility] Last Admin: 12/17/17 08:43 Dose: 10 ml Sodium Chloride (Flush - Normal Saline) 10 ml IVF PRN PRN PRN Reason: Saline Flush Temazepam (Restoril) 15 mg PO HSPRN PRN PRN Reason: Insomnia Last Admin: 12/16/17 23:09 Dose: 15 mg Tramadol HCl (Ultram) 50 mg PO Q6H PRN PRN Reason: Moderate Pain (4-6)
[2017-12-17] MEDS: Nicotine 14 MG PATCH TD SCH (15:46)
[2017-12-17] MEDS: HYDROcodone/Acetaminophen 10/325 mg Tablet PO PRN (15:46)
[2017-12-17 19:17] LABS: Hemoglobin 13.6 g/dL (12.0-16.0); Platelet Count 499 thou/uL (130-400)
[2017-12-17] MEDS: Atorvastatin Calcium 20 MG TAB PO SCH (20:56)
[2017-12-18] MEDS: Temazepam 15 MG CAP PO PRN (00:09)
[2017-12-18] MEDS: Guaifenesin DM 100-10/5 ML UDCUP PO PRN (00:09)
[2017-12-18] MEDS: Levothyroxine Sodium 50 MCG TAB PO SCH (05:05)
[2017-12-18] MEDS: Morphine ER 30 MG TAB PO SCH ×2 (05:05→11:48)
[2017-12-18] MEDS: Mometasone/Formoterol 120 PUFF INHALER INH SCH (07:11)
[2017-12-18] MEDS: Aspirin 81 mg Enteric Coated Tablet PO SCH (09:35)
[2017-12-18] MEDS: Famotidine 20 MG TAB PO SCH (09:36)
[2017-12-18] MEDS: Cefdinir 300 MG CAP PO SCH (09:36)
[2017-12-18] MEDS: Apixaban 5 MG TAB PO SCH (09:37)
[2017-12-18] MEDS: predniSONE 20 MG TAB PO SCH (09:38)
[2017-12-18] MEDS: Gabapentin 300 MG CAP PO SCH ×2 (09:38→13:49)
[2017-12-18] MEDS: Benzonatate 100 MG CAP PO SCH ×2 (09:43→15:32)
[2017-12-18] MEDS: Potassium Chloride 20 MEQ TAB PO SCH (10:13)
[2017-12-18] MEDS ORDERED: Digoxin 0.5 MG/2 ML AMP SLOW IVP SCH ×2 (11:00→13:00)
[2017-12-18 12:25] VITALS: TEMP 98.2
[2017-12-18 13:12] VITALS: BP 174/77
--- NOTE | 2017-12-18 14:11 | PRG ---
DATE OF SERVICE: 12/18/2017 SUBJECTIVE: Ms. Velazco has no complaints. She tells me she is anticipating going home soon. OBJECTIVE: VITAL SIGNS: She is afebrile, heart rate is 83, respiratory rate 16, oximetry is 93 on 2 liters. LUIS DANIEL NGS: Clear. HEART: Regular rhythm. ABDOMEN: Soft. She says she has a nebulizer at home. IMPRESSION: 1. Chronic obstructive pulmonary disease, stable after a mild exacerbation. 2. Tobacco dependence. 3. Status post admission with metabolic acidosis likely as a complication of diarrhea that was sever e with intravascular volume depletion. 4. History of hypertension. 5. History of resected lung cancer. 6. Deconditioning. 7. Chronic pain on long-acting opiates. PLAN: Continue as per the other physicians. From a pulmonary standpoint, she is stable to go home at any time.
[2017-12-18] MEDS: Nicotine 14 MG PATCH TD SCH (16:25)
--- NOTE | 2017-12-19 02:34 | DIS ---
DATE OF ADMISSION: 12/09/2017 DATE OF DISCHARGE: 12/18/2017 PRIMARY CARE PHYSICIAN: Dr. Aissatou Freire. DISCHARGE DIAGNOSES: 1. Acute hypoxic respiratory failure. 2. Sepsis. 3. Demand ischemia. 4. Atrial fibrillation/flutter. 5. Acute metabolic encephalopathy. 6. Dyskinesia coli urinary tract infection. 7. Physical deconditioning. CONSULTATIONS DURING THIS HOSPITALIZATION: Cardiology, Dr. Pyle. Pulmonary and critical care wa Dr. Morales sims. CONDITION OF PATIENT ON THE DAY OF DISCHARGE: Stable. I assessed Mr. Velazco on the day of discha rge. She denies any chest pain or shortness of breath. PHYSICAL EXAMINATION: VITAL SIGNS: Stable. HEART: S1 and S2 are heard, regular. LUNGS: Lung examination reveals occasional expiratory wheeze. DISCHARGE MEDICATIONS: Zofran 4 mg every 6 hours as needed, Lipitor 20 mg daily, gabapentin 600 mg 4 times a day, levothyroxine 50 mcg daily, MS Contin 60 mg 3 times a day, Zoloft 50 mg daily, Nicoderm 14 mg patch daily, Tylenol No.3 one-two tablets every 4 hours as needed, apixaban 5 mg 2 times a day , aspirin 81 mg daily, Tessalon 200 mg 3 times a day, cefdinir 300 mg 2 times a day for 5 more days, digoxin 0.125 mg daily, Cardizem-CD 240 mg daily, DuoNeb 3 mL every 6 hours as needed, Medrol Dosepak , Dulera 200/5 mcg inhaler, 1 puff 2 times a day, and Senokot S 2 tablets two times a day as needed. HOSPITAL COURSE: Ms. Velazco is a pleasant 77-year-old lady who was admitted to [facility] on 12/09/2017. Please refer to Dr. Ferreira's history and physical note dated 018 for further details. Patient was initially treated with BiPAP and was admitted to [facility]. She was seen by Cardiology and Pulmonary and Critical Care Medicine Services. A 2D echocardiogram on 2017 showed left ventricular ejection fraction of 60%-65%, mildly dilated left atrium, mildly enlarge d right ventricle cavity, normal left ventricular size, moderate mitral regurgitation, and moderate-t o-severe tricuspid regurgitation. She was treated with broad spectrum antibiotics. Influenza screen at the time of admission was negat jenny. Urine cultures grew Escherichia coli that was sensitive to amikacin, cefepime, gentamicin, shahbaz penem, piperacillin, tazobactam, tobramycin and trimethoprim/sulfamethoxazole, intermediate sensitivi ty to nitrofurantoin and ampicillin/sulbactam and resistant to ampicillin, cefoxitin, ceftazidime, ce ftriaxone, ciprofloxacin, and levofloxacin. She also had runs of atrial fibrillation/flutter. She has been started on anticoagulation by Cardiol ogy Service. She has also been started on digoxin. She had elevated troponins, therefore, underwent cardiac catheterization on 12/14/2017. She was foun d to have mild coronary artery disease, and the troponin elevation was most likely secondary to deman d ischemia. She continued to improve clinically but was deconditioned. She was evaluated by therapy services. S he is being discharged to inpatient rehab for further management. Many thanks for allowing me to participate in your patient's care. Please feel free to contact me wi th any questions or concerns On 12/17/2017, she had hemoglobin 13.6, platelet count 499,000. On 12/14/2017, she had sodium 136 an d potassium 4.8. DISCHARGE DESTINATION: [facility]. TOTAL AMOUNT OF TIME SPENT COORDINATING THIS DISCHARGE: 32 minutes.
[2017-12-19] MEDS ORDERED: Digoxin 0.125 MG TAB PO SCH (09:00)
== END 2017-12-18 16:55 | DRG 189 ==
LOC: ERS 17:36 → IMCU/EMU 19:45 → 2NO 12-13 09:09
PROVIDERS: ADMIT Internal Medicine; ATTEND Internal Medicine
PROC: 4A023N7 Measurement of Cardiac Sampling and Pressure, Left Heart, Percutaneous Approach (ICD-10-PCS; principal; 2017-12-09)
PROC: B2151ZZ Fluoroscopy of Left Heart using Low Osmolar Contrast (ICD-10-PCS; 2017-12-09)
PROC: B2111ZZ Fluoroscopy of Multiple Coronary Arteries using Low Osmolar Contrast (ICD-10-PCS; 2017-12-09)
DX: J96.01 Acute respiratory failure with hypoxia (principal); G93.41 Metabolic encephalopathy; E87.2 Acidosis; N17.9 Acute kidney failure, unspecified; I24.8 Other forms of acute ischemic heart disease; I48.92 Unspecified atrial flutter; N39.0 Urinary tract infection, site not specified; I10 Essential (primary) hypertension; E03.9 Hypothyroidism, unspecified; Z85.118 Personal history of other malignant neoplasm of bronchus and lung; G89.29 Other chronic pain; M81.0 Age-related osteoporosis without current pathological fracture; Z96.642 Presence of left artificial hip joint; F17.210 Nicotine dependence, cigarettes, uncomplicated; J44.9 Chronic obstructive pulmonary disease, unspecified; I25.10 Atherosclerotic heart disease of native coronary artery without angina pectoris; E86.9 Volume depletion, unspecified; N30.90 Cystitis, unspecified without hematuria; D64.9 Anemia, unspecified; F11.90 Opioid use, unspecified, uncomplicated; I08.1 Rheumatic disorders of both mitral and tricuspid valves; B96.20 Unspecified Escherichia coli [E. coli] as the cause of diseases classified elsewhere; Z90.49 Acquired absence of other specified parts of digestive tract; E78.5 Hyperlipidemia, unspecified; I48.0 Paroxysmal atrial fibrillation
CPT/HCPCS: 36415; 71045; 76882; 80048; 80061; 80202; 82805; 83605; 84443; 84484; 85007; 85014; 85018; 85025; 85027; 85049; 87804; 93005; 93010; 93306; 93458; 93798; 94640; 94660; 94760; 96365; 96368; 96376; 99152; C1769; G8978-GP-CL; G8978-GP-CM; G8979-GP-CJ; G8979-GP-CK; G8987-GO-CK; G8988-GO-CJ; J0692; J1160; J1644; J1650; J2001; J2250; J2270; J2405; J2920; J3010; J3370; J7050; J7506; J7620; S0028

== ENCOUNTER 2017-12-28 05:15 | Inpatient (IN) | payer MEDICARE ==
[2017-12-28] MEDS ORDERED: Acetaminophen 500 MG TAB ONE (05:42)
[2017-12-28] MEDS ORDERED: methylPREDNISolone Sod Succ/PF 125 MG/2 ML VIAL ONE (05:42)
[2017-12-28] MEDS ORDERED: Piperacillin/Tazobactam 3.375 GM VIAL ONE (05:42)
[2017-12-28] MEDS ORDERED: Water For Inject, Bacteriostat 30 ML ONE (05:42)
[2017-12-28] MEDS ORDERED: Acetaminophen 650 MG Suppository ONE (05:45)
[2017-12-28] MEDS ORDERED: Acetaminophen 325 MG Suppository ONE (05:45)
[2017-12-28 05:53] LABS: Bilirubin Negative (Negative); Blood, Urine Negative (Negative); Clarity CLEAR (Clear); Glucose, Urine (Dipstick) Negative (Negative); Leukocyte Trace (Negative); Nitrite Negative (Negative); Protein, Urine (Dipstick) Trace mg/dL (Neg-Trace); Specific Gravity, Urine 1.022 (1.002-1.036); Urobilinogen 0.2 mg/dL (0.2-1.0)
[2017-12-28 05:56] LABS: Bacteria/HPF None Seen HPF (None Seen); RBC/HPF 0-3 HPF (0-3); Squamous Epithelial 0-3 HPF (0-3); WBC/HPF 0-3 HPF (0-3)
[2017-12-28 06:05] LABS: Hyaline Casts/LPF 4-6 HYALINE CAST LPF (0-3 Hyaline); Other Casts/LPF None Seen LPF (0-3 Hyaline); Oval Fat Bodies/HPF None Seen HPF (None Seen); Pathc Cast-AUWi Flag 3.77 (0-2.49); Renal Epithelial 0-3 HPF (0-3); Sperm/HPF None Seen HPF (None Seen); Transitional Epithelial NONE SEEN HPF (0-3); Trichomonas/HPF None Seen HPF (None Seen); Yeast-All Forms None Seen HPF (None Seen)
[2017-12-28 06:16] LABS: Hemoglobin 11.8 g/dL (12.0-16.0); Mean Corpuscular HGB CONC 31.2 g/dL (32.0-36.0); Mean Corpuscular Hemoglobin 30.8 pg (27.0-31.0); Mean Corpuscular Volume 98.8 fL (78.0-98.0); Mean Platelet Volume 7.2 fL (7.4-10.4); Platelet Count 316 thou/uL (130-400); RBC Distribution Width 12.8 % (11.5-14.5); Red Blood Cell (RBC) Count 3.83 mill/uL (4.20-5.40); White Blood Cell (WBC) Count 17.3 thou/uL (4.8-10.8)
[2017-12-28] MEDS ORDERED: Ondansetron PF 4 MG/2 ML Vial IVP PRN (06:20)
[2017-12-28] MEDS ORDERED: Acetaminophen 325 MG TAB PO PRN (06:20)
[2017-12-28 06:26] LABS: ALT (SGPT) 21 U/L (8-55); AST (SGOT) 16 U/L (5-34); Albumin 3.3 g/dL (3.4-4.8); Alkaline Phosphatase 83 U/L (40-150); Anion Gap 10 mmol/L (10-20); BUN (Urea Nitrogen) 35 mg/dL (9.8-20.1); Bilirubin, Total 0.9 mg/dL (0.2-1.2); Calc. Creatinine Clearance 0 mL/min (70-130); Calcium 9.5 mg/dL (7.8-10.44); Carbon Dioxide 35 mmol/L (23-31); Chloride 94 mmol/L (98-107); Estimated GFR-MDRD 44; Glucose 148 mg/dL (83-110); Potassium 4.7 mmol/L (3.5-5.1); Protein, Total 6.3 g/dL (6.0-8.3); Sodium 134 mmol/L (136-145)
[2017-12-28 06:29] LABS: Band 8 % (5-11); Lymphocytes 9 % (21-51); MDiff Complete? YES; Monocytes 10 % (0-10); Neutrophil 73 % (42-75); PLT Morphology Comment Appears Adequate
[2017-12-28] MEDS ORDERED: Sodium Chloride 0.9% 1,000 ML IV SCH ×3 (06:30→14:30)
--- NOTE | 2017-12-28 07:51 | RAD ---
PORTABLE CHEST ONE VIEW 12/28/17 at 4:41 a.m. HISTORY: Dyspnea, cough. FINDINGS: Comparison made with exam of previous day. The heart size is normal. There is pulmonary vascular congestion with bilateral infiltrates in the lo wer lung zones, right greater than left. No pneumothoraces or large effusions are seen. Postop change s in the spine are redemonstrated. IMPRESSION: Bilateral pneumonia. POS: [facility]
[2017-12-28] MEDS ORDERED: Norepinephrine 8 MG/0.9% NS 250 ML IVPB SCH (08:45)
[2017-12-28] MEDS ORDERED: Norepinephrine 8 MG/0.9% NS 250 ML ONE (09:15)
[2017-12-28 09:25] LABS: INR-International Normal Ratio 1.4; Prothrombin Time 17.1 SEC (12.0-14.7)
[2017-12-28] MEDS ORDERED: Hydrocortisone Sod Succ/PF 250 mg/2 ml Vial SLOW IVP SCH (09:30)
[2017-12-28] MEDS ORDERED: Furosemide 40 MG/4 ML VIAL SLOW IVP SCH (10:15)
[2017-12-28 10:21] VITALS: BMI 32.7
[2017-12-28] MEDS ORDERED: Furosemide 40 MG/4 ML VIAL ONE (10:31)
--- NOTE | 2017-12-28 10:39 | RAD ---
FRONTAL VIEW CHEST: Date: 12/28/17 COMPARISON: Earlier same date. INDICATION: Dyspnea. Central line placement evaluation. FINDINGS: There has been placement of a left subclavian venous catheter. A discrete, significant postprocedural pneumothorax is not seen. There has been progression of abnormal alveolar and interstitial opacity t hroughout each lung, predominantly perihilar in distribution, superimposed upon an enlarged cardiac s ilhouette and pulmonary vasculature. Evidence of bilateral pleural fluid, mild in volume. IMPRESSION: 1. Interval placement of left subclavian venous catheter without evidence of a significant postproce dural pneumothorax. 2. Progressive pulmonary parenchymal opacification favoring cardiogenic pulmonary edema. Correlate c linically and recommend continued imaging follow-up. POS: [facility]
--- NOTE | 2017-12-28 10:40 | CT ---
CT HEAD NONCONTRAST: Date: 12/28/17 HISTORY: Altered mental status. CVA. COMPARISON: 02/04/07. FINDINGS: There is no evidence of acute intracranial hemorrhage or infarct. Diffuse cortical atrophy and chroni c ischemic small vessel disease have progressed since the previous exam 10 years ago. There is no mas s effect or shift of midline structures. Mild mucosal thickening within the ethmoid air cells. IMPRESSION: No acute intracranial abnormalities are demonstrated. POS: [facility]
[2017-12-28 10:42] LABS: Base Excess (BEa) 1.8 mEq/L (-2.0 to +3.0); CO2 Tension 58.6 mmHg (35.0-45.0); Carboxyhemoglobin (COHb) 1.1 gm% (0.0-3.0); Hemoglobin (Hb) 11.8 g/dL (12.0-16.0); O2 Tension (PaO2) 77.4 mmHg (> 70.0); Potassium - ABG Lab 4.45 mmol/L (3.70-5.30); pH, Arterial 7.31 (7.35-7.45)
[2017-12-28 10:47] LABS: Puncture Site LRA
[2017-12-28] MEDS: Digoxin 0.125 MG TAB PO SCH (10:48)
[2017-12-28] MEDS: Famotidine 20 MG TAB PO SCH ×2 (10:48→21:03)
[2017-12-28] MEDS: Aspirin 81 mg Enteric Coated Tablet PO SCH (10:49)
[2017-12-28] MEDS: Famotidine/PF 20 mg/2ml Vial SLOW IVP SCH ×2 (10:52→21:05)
[2017-12-28] MEDS: Cefepime 2 GM in Sodium Chloride 0.9% 100 ML IVPB SCH (10:59)
[2017-12-28] MEDS: Benzonatate 100 MG CAP PO SCH ×3 (10:59→21:36)
--- NOTE | 2017-12-28 11:03 | HP ---
DATE OF ADMISSION: 12/28/2017 REASON FOR ADMISSION: Sepsis/septic shock, right lung pneumonia, acute respiratory failure with hypoxia, chf exacerbatio. HISTORY OF PRESENT ILLNESS: Please note majority of this history is obtained by talking to ER physician, ER records and prior medical records as the patient is not oriented at present. The patient was at the inpatient rehab after she was discharged 10 days back and was sent over for shortness of breath and fever. This is per ER records. On arrival here, the patient had saturations dropping down to 80% and was placed on a face mask. Also, her blood pressure started to drop down to 70 systolic and was given 2 liters bolus. She had a temperature of 101.6. The patient currently is speaking in Micronesian language and does not respond to in [place]rean back. PAST MEDICAL/SURGICAL HISTORY: She was discharged on 12/18/2017 to inpatient rehab after she was hospitalized for nearly 9 days in the hospital. She was here for hypoxic respiratory failure, sepsis, metabolic encephalopathy, atrial fibrillation, demand ischemia and urinary tract infection. She was deconditioned and was sent to rehabilitation. The patient's last echo done on the shows a good ejection fraction, but has [id number] tricuspid regurgitation and moderate mitral regurgitation. History of hypertension, hypothyroidism, osteoporosis, chronic back pain on narcotics high dose, history of lung cancer with prior resection on the right side, history of lumbar fusion , cholecystectomy, hernia repair, left hip replacement, COPD. CURRENT MEDICATIONS: The patient was discharged on Lipitor 20 mg daily, gabapentin 600 mg 4 times daily, levothyroxine 50 mcg daily, MS Contin 60 mg p.o. 3 times daily, Zoloft 50 mg daily, nicotine patch 14 mg daily, Tylenol No. 3 p.r.n., Eliquis 5 mg twice daily likely for atrial fibrillation, aspirin 81 mg daily, Tessalon Perles 200 mg 3 times daily, Omnicef 300 mg twice daily for 5 days and likely has completed this course, digoxin 0.125 mg p.o. daily, Cardizem CD 240 mg daily, DuoNeb q.6 hourly, Medrol Dosepak, Dulera inhaler, Senokot-S 2 tabs twice daily as needed. ALLERGIES: No known drug allergies. PERSONAL HISTORY: The patient was smoking a pack a day up until her last admission on 12/09/2017. Does not abuse drugs or alcohol. She lives with alone per prior records. FAMILY HISTORY: Per prior records, mother of lymphoma at the age of 80 years. Father at the age of 87 years. CODE STATUS: I have discussed this with Ms. Osmany Carolina, her daughter and POA and she wants her to be full code. REVIEW OF SYSTEMS: Cannot be obtained as the patient is not oriented at present. PHYSICAL EXAMINATION: VITAL SIGNS: Blood pressure 80/60, pulse 90 per minute, respiratory rate 20 per minute, temperature 101.2 degrees Fahrenheit, saturating 84% on room air. NECK: Supple. No elevated JVD. HEENT: Eyes, extraocular muscles intact. Pupils reacting to light. Oral cavity, mucous membranes are dry. No exudates or congestion. CARDIOVASCULAR: S1, S2 heard. Regular rhythm. RESPIRATORY: Air entry 1+ bilateral. Scattered rales plus bilateral, rhonchi plus bilateral. ABDOMEN: Soft. Bowel sounds heard. No tenderness, rigidity or guarding. EXTREMITIES: Mild peripheral edema. No calf tenderness. VASCULAR SYSTEM: Peripheral pulses barely palpable in the lower extremities. EXTREMITIES: Upper extremities 1+ bilateral. No ischemic ulcerations or gangrene. The patient has a bruise on her right leg and right thigh area on the upper lateral aspect. We will obtain an x-ray of the region once she is more stable hemodynamically. CENTRAL NERVOUS SYSTEM The patient is seen moving all extremities. No gross focal signs seen, but the patient is not oriented. PSYCHIATRIC: Cannot be assessed due to the patient's current cognitive status. LABORATORY AND X-RAY FINDINGS: Chest x-ray done shows bilateral pneumonia, worse on the right side. White count of 17, H and H 11 and 37, platelet count 316,000 with 73% neutrophils, 8% bands. Electrolytes are stable. BUN 35, creatinine 1.1, glucose 148, albumin is 3.3. UA done on the shows moderate leukoesterase, greater than 50 WBCs with no bacteria seen. Blood cultures have been obtained yesterday. The preliminary results show no growth. EKG done shows atrial fibrillation at 93 beats per minute with nonspecific ST- T wave changes. CLINICAL IMPRESSION AND PLAN: The patient will be admitted to ICU for sepsis with septic shock. The patient was on steroids. It is unclear if she is still on it. In view of this, she will be given 100 mg hydrocortisone stat one dose now and we will continue on Solu-Medrol 40 mg IV q.6 hourly. She will be on broad spectrum antibiotics including cefepime, Levaquin and vancomycin. Damian. She has received a total of 2 liters bolus of normal saline in the ER and we will give the third liter. We will obtain CT angio chest and CT brain. The patient was on Eliquis for likely atrial fibrillation and it is unclear if she is still continuing it and unlikely to have PE given her anticoagulation. She will be on aspirin, Lipitor and digoxin. We will hold the Rebtel CD. Levothyroxine and Zoloft as before. We will also continue her extended release morphine 60 mg 3 times daily to prevent withdrawal. Her blood gas will be obtained stat now. I will consult Dr. Morales for Pulmonology and Critical Care. The patient was seen by Dr. Nielsen during her last admission here. A cortisol level stat will be obtained as well. I have discussed code status with the patient's daughter, Ms. Osmany Carolina and she wants her mom to be full code. She in fact states me that she spoke to her last night and she sounded okay. The patient apparently is fluent in both Micronesian and Eritrean per daughter. CLEMENTINA
[2017-12-28] MEDS: Morphine ER 30 MG TAB PO SCH ×3 (11:08→21:02)
[2017-12-28] MEDS: Levofloxacin 750 mg/D5W 500 MG in Premix Bag 1 BAG IVPB SCH (11:11)
--- NOTE | 2017-12-28 11:13 | OP ---
DATE OF PROCEDURE: 12/28/2017 PREOPERATIVE DIAGNOSES: Acute sepsis with septic shock. POSTOPERATIVE DIAGNOSES: Acute sepsis with septic shock. PROCEDURES PERFORMED: Placemet of triple lumen left subclavian central venous catheter. INDICATIONS FOR PROCEDURE: A 77-year-old woman who was seen in the emergency department with acute hypotension and confusion. Severe sepsis with septic shock is suspected. The patient needs IV access for therapeutics. Multiple efforts to secure a dependable peripheral IV access was unsuccessful and I was asked to place a central venous catheter to facilitate therapeutic intervention. DESCRIPTION OF PROCEDURE: Informed consent obtained from the patient who was placed in supine position. Left chest wall sterilely prepped and draped in usual fashion. Skin below the left clavicle anesthetized with 1% lidocaine. Left subclavian vein was cannulated with an 18-gauge introducer needle returning dark venous blood. A guidewire was passed through the needle and advanced to the left subclavian vein without resistance. Needle was withdrawn over the guidewire. A stab incision was made adjacent to the guidewire using an 11 scalpel. The dilator was passed over the guidewire dilating subcutaneous tissues. Dilator was removed and replaced with a triple-lumen central venous catheter which was advanced over the guidewire and placed in the left subclavian vein without resistance or stopping at the 18 cm roxann. Guidewire was removed. Dark venous blood was aspirated from all 3 ports which were individually flushed with saline. Catheter was secured to the anterior chest wall using 3-0 silk suture at 2 points. Sterile dressings were applied. The patient tolerated this procedure without any apparent complications. A chest x- ray was obtained confirming proper placement and no pneumothorax present. CLEMENTINA
--- NOTE | 2017-12-28 11:39 | CON ---
DATE OF CONSULTATION: 12/28/2017 HISTORY: She is a 77-year-old female who presents with back pain, difficulty breathing, co ugh, congestion, confusion and hypoxemia. When she arrived to the ER, she was hypotensive, started on Levophed. She had a CAT scan of her ches t and her head and a chest x-ray was taken. In my mind all are consistent with congestive heart failure, questionable pneumonia. She is still sm oking. Sats were 84% on room air, her temperature was 101, blood pressure was 119/67, blood pressure has since declined to 80 systolic when she was started on the Levophed. Her main complaint once again includes back pain. PAST MEDICAL HISTORY: Hypothyroidism, high cholesterol, hypertension, CHF, diastolic dysfunction, CO PD, tobacco abuse. PAST SURGICAL HISTORY: She had appendix, cholecystectomy, hernia, orthopedic surgery, right hip, spi nal surgery, thoracic and lumbar, tonsils. TOBACCO: As noted. ALCOHOL: None. ALLERGIES: HYDRALAZINE. MEDICATIONS: From home includes a long list including Nicoderm, Eliquis 5 twice a day, aspirin 81, d igoxin 0.125, Cardizem-CD 240, nebulizer, Synthroid 50 mcg, Dulera, morphine, MS Contin 60 three time s a day, Zoloft 50. On admission she was started on Maxipime 2 grams, Levaquin, Synthroid, Solu-Medrol, Dulera vancomycin . PHYSICAL EXAMINATION: GENERAL: She is in the ICU. NEUROLOGIC: She is awake and responsive, appears to be in no distress with a Ventimask. VITAL SIGNS: Sats are 99%, pulse 83, blood pressure 130/85 on the Levophed. CHEST: Chest reveals bilateral rhonchi and crackles. CARDIAC: Normal S1, S2, no gallops. ABDOMEN: Soft, no masses. LABORATORY: White count 10,000, H&H 11 and 37, platelet count 360, 73 segs, 8 bands. Electrolytes a re normal. Creatinine 1.9. Bicarb is 35. Urine was normal. IMPRESSION: 1. Respiratory failure. 2. Congestive heart failure. 3. Bilateral pleural effusion. 4. Possibly pneumonia. 5. Renal failure. 6. Advanced age. 7. Diastolic dysfunction. PLAN: At this stage, continue nebulizer treatments, steroids and antibiotics. Diuretics. Consult C ardiology. This is a consultation note, critical care time 45 minutes in the ICU.
--- NOTE | 2017-12-28 12:07 | CT ---
CTA THORAX WITH CONTRAST: (Computed Tomographic Angiography, chest(noncoronary) with contrast material, and image postprocessin g) (PE protocol) Date: 12/28/17 Time: 0936 hours HISTORY: 77-year-old female with cough, fever, and hemoptysis. TECHNIQUE: IV injection of iodinated contrast: 60 mL [id number]. Scan acquisition timing attempted to coincide with iodinated contrast bolus reaching maximal density in pulmonary arteries. 3D MIP reconstructions. FINDINGS: There is no evidence of pulmonary thromboembolism. There is vertebroplasty cement treating old compre ssion fractures at multiple levels in the thoracic spine. Pedicle screws are partially visualized in the upper lumbar spine. There are multifocal patchy consolidations. The largest are in the bilateral lower lobes, with air bronchograms. There is a small right pleural effusion. There is a small bubble of gas at the right posterior inferior hemithoracic pleural space. There are a few smaller patchy air space densities, most notably in the right middle lobe. There are diffuse interstitial densities thr oughout the rest of the lungs. There is thickening of pulmonary septa diffusely. Diffuse soft tissue density throughout the mediastinum suggestive of lymphadenopathy, including pretracheal region, aorto pulmonic window, and especially subcarinal region, confluent with bilateral hilar lymphadenopathy, ri ght greater than left. Ectasia, tortuosity, and atherosclerotic calcification of thoracic aorta. No p neumothorax. Approximately 3 x 2 cm mass at the left adrenal gland is noted. This was present on prev ious CT of 02/05/07, and is probably an adrenal adenoma. It has slightly increased in size since 2006 . There is a left internal jugular central venous catheter with distal tip in the SVC. There is edema throughout the subcutaneous soft tissues around the chest wall. IMPRESSION: 1. Evidence for pneumonia in the bilateral lower lobes, and in the right middle lobe. 2. Nonspecific mediastinal and hilar lymphadenopathy. 3. Possible congestive heart failure with pulmonary interstitial edema. 4. No pulmonary thromboembolism. 5. Severe osteoporosis, and status post vertebroplasty of multiple old compression fractures of the thoracic spine. 6. Small right pleural effusion containing a small bubble of gas, raising the possibility of small r ight empyema. Alternatively, this gas could have been introduced by a needle if there was a recent th oracentesis. 7. Anasarca. jn[] POS: TPC
[2017-12-28] MEDS ORDERED: ISOVUE-370 76%-LOCM 1 ML ONE (12:30)
[2017-12-28] MEDS: Mometasone/Formoterol 120 PUFF INHALER INH SCH (19:06)
[2017-12-28] MEDS: Vancomycin HCl 750 MG in Sodium Chloride 0.9% 250 ML 250 ML IVPB SCH (21:01)
[2017-12-28] MEDS: Atorvastatin Calcium 20 MG TAB PO SCH (21:02)
[2017-12-29 05:28] LABS: #Lymphocytes 0.4 thou/uL (1.20-3.40); #Monocytes 0.5 thou/uL (0.11-0.59); #Neutrophils 15.8 thou/uL (1.40-6.50); %Basophils 0.2 % (0.0-1.0); %Eosinophils 0.1 % (0.0-10.0); %Lymphocytes 2.6 % (21.0-51.0); %Neutrophils 94.1 % (42.0-75.0); Hemoglobin 9.9 g/dL (12.0-16.0); Mean Corpuscular HGB CONC 31.1 g/dL (32.0-36.0); Mean Corpuscular Hemoglobin 30.3 pg (27.0-31.0); Mean Corpuscular Volume 97.2 fL (78.0-98.0); Mean Platelet Volume 7.7 fL (7.4-10.4); Platelet Count 281 thou/uL (130-400); RBC Distribution Width 12.5 % (11.5-14.5); Red Blood Cell (RBC) Count 3.29 mill/uL (4.20-5.40); White Blood Cell (WBC) Count 16.7 thou/uL (4.8-10.8)
[2017-12-29 05:43] LABS: ALT (SGPT) 26 U/L (8-55); AST (SGOT) 19 U/L (5-34); Albumin 3.1 g/dL (3.4-4.8); Alkaline Phosphatase 89 U/L (40-150); Anion Gap 10 mmol/L (10-20); BUN (Urea Nitrogen) 32 mg/dL (9.8-20.1); Bilirubin, Total 0.4 mg/dL (0.2-1.2); Calc. Creatinine Clearance 57 mL/min (70-130); Carbon Dioxide 31 mmol/L (23-31); Chloride 100 mmol/L (98-107); Estimated GFR-MDRD 59; Globulin 2.7 g/dL (2.4-3.5); Glucose 167 mg/dL (83-110); Potassium 4.5 mmol/L (3.5-5.1); Protein, Total 5.8 g/dL (6.0-8.3); Sodium 136 mmol/L (136-145)
[2017-12-29] MEDS: Morphine ER 30 MG TAB PO SCH ×3 (07:30→20:08)
[2017-12-29] MEDS: Levothyroxine Sodium 50 MCG TAB PO SCH (07:31)
--- NOTE | 2017-12-29 08:38 | RAD ---
RADIOGRAPH CHEST 1 VIEW: Date: 12/29/17 Time: 0510 HOURS HISTORY: 77-year-old female with respiratory distress. COMPARISON: 12/28/17 at 0821 hours. FINDINGS: The bilateral mixed interstitial and alveolar densities have improved. There are residual alveolar de nsities in the right mid and right lower lung zones, and at the left base. The lung apices are relati vely clear now. Cardiac size is within normal limits. Left subclavian central line remains. Vertebrop lasty cement in multiple thoracic spine levels fixating old compression fractures. No pneumothorax. IMPRESSION: Interval improvement in the bilateral infiltrates, which could represent pulmonary edema, pneumonia, or a combination of both. KUSH [] POS: DANIEL
[2017-12-29] MEDS: Aspirin 81 mg Enteric Coated Tablet PO SCH (09:17)
[2017-12-29] MEDS: Famotidine 20 MG TAB PO SCH ×2 (09:17→20:09)
[2017-12-29] MEDS: Levofloxacin 750 mg/D5W 500 MG in Premix Bag 1 BAG IVPB SCH (09:17)
[2017-12-29] MEDS: Digoxin 0.125 MG TAB PO SCH (09:17)
[2017-12-29] MEDS: Benzonatate 100 MG CAP PO SCH ×3 (09:18→20:10)
[2017-12-29] MEDS: Vancomycin HCl 750 MG in Sodium Chloride 0.9% 250 ML 250 ML IVPB SCH (09:18)
[2017-12-29] MEDS: Famotidine/PF 20 mg/2ml Vial SLOW IVP SCH ×2 (09:37→20:10)
[2017-12-29] MEDS: Mometasone/Formoterol 120 PUFF INHALER INH SCH ×2 (09:37→20:20)
[2017-12-29] MEDS: Cefepime 2 GM in Sodium Chloride 0.9% 100 ML IVPB SCH (09:57)
--- NOTE | 2017-12-29 11:35 | PDOC.PN ---
- Subjective Encounter Start Date: 12/29/17 Encounter Start Time: 10:45 Subjective: awake, no sob -: feels good, is eating well - Objective Resuscitation Status: Resuscitation Status FULL:Full Resuscitation MAR Reviewed: Yes Vital Signs & Weight: Vital Signs (12 hours) Pulse Pulse Ox 12/29/17 09:17 73 12/29/17 06:55 96 Weight Weight 156 lb 11.979 oz Most Recent Monitor Data Heart Rate from ECG 75 NIBP 120/56 NIBP BP-Mean 77 Respiration from ECG 12 SpO2 95 I&O: 12/28/17 12/29/17 12/30/17 06:59 06:59 06:59 Intake Total 2053.5 Output Total 2330 Balance -276.5 Result Diagrams: 12/29/17 04:49 12/29/17 04:49 Phys Exam - Physical Examination HEENT: PERRLA, moist MMs Neck: no JVD, supple Respiratory: no wheezing rhonchi+, rales+ Cardiovascular: RRR, no significant murmur Gastrointestinal: soft, non-tender, positive bowel sounds Musculoskeletal: no edema, pulses present Neurological: non-focal, moves all 4 limbs Psychiatric: normal affect, A&O x 3 Dx/Plan (1) Acute exacerbation of CHF (congestive heart failure) Code(s): I50.9 - HEART FAILURE, UNSPECIFIED Status: Acute Qualifiers: Heart failure type: diastolic Qualified Code(s): I50.33 - Acute on chronic diastolic (congestive) heart failure (2) Sepsis Code(s): A41.9 - SEPSIS, UNSPECIFIED ORGANISM Status: Suspected Qualifiers: Sepsis type: sepsis due to unspecified organism Qualified Code(s): A41.9 - Sepsis, unspecified organism (3) PNA (pneumonia) Code(s): J18.9 - PNEUMONIA, UNSPECIFIED ORGANISM Status: Suspected Qualifiers: Pneumonia type: due to unspecified organism Laterality: bilateral (4) Acute metabolic encephalopathy Code(s): G93.41 - METABOLIC ENCEPHALOPATHY Status: Resolved (5) Acute respiratory failure with hypoxia Code(s): J96.01 - ACUTE RESPIRATORY FAILURE WITH HYPOXIA Status: Resolved (6) CAD (coronary artery disease) Code(s): I25.10 - ATHSCL HEART DISEASE OF [place] CORONARY ARTERY W/O ANG PCTRS Status: Chronic Qualifiers: Coronary Disease-Associated Artery/Lesion type: [place] artery [place] vs. transplanted heart: [place] heart Associated angina: without angina Qualified Code(s): I25.10 - Atherosclerotic heart disease of [place] coronary artery without angina pectoris (7) COPD (chronic obstructive pulmonary disease) Status: Chronic (8) Chronic pain syndrome Code(s): G89.4 - CHRONIC PAIN SYNDROME Status: Chronic Comment: Resume home MS Contin, Gabapentin, [place] (9) Hypertension Code(s): I10 - ESSENTIAL (PRIMARY) HYPERTENSION Status: Chronic Qualifiers: Hypertension type: essential hypertension Qualified Code(s): I10 - Essential (primary) hypertension Comment: controlled - Plan has diuresed well, is oriented well this morning -: is on nasal canula, oral lasix bid -: await full cultures, had normal ef, likely diastolic dysfunction -: PT to mobilize as tolerated -: is on levaq, prednisone, nebs. * . continue dig, asp and lipitor. Review of Systems - Medications/Allergies Allergies/Adverse Reactions: Allergies Allergy/AdvReac Type Severity Reaction Status Date / Time hydralazine Allergy Verified 03/10/14 22:10 Medications: Current Medications Acetaminophen (Tylenol) 650 mg PO Q4H PRN PRN Reason: Headache/Fever/Mild Pain (1-3) Albuterol/Ipratropium (Duoneb) 3 ml NEB QID-RT [facility] Last Admin: 12/29/17 09:37 Dose: Not Given Aspirin (Ecotrin) 81 mg PO DAILY [facility] Last Admin: 12/29/17 09:17 Dose: 81 mg Atorvastatin Calcium (Lipitor) 20 mg PO HS [facility] Last Admin: 12/28/17 21:02 Dose: 20 mg Benzonatate (Tessalon) 200 mg PO TID [facility] Last Admin: 12/29/17 09:18 Dose: 200 mg Digoxin (Lanoxin) 0.125 mg PO QAM [facility] Last Admin: 12/29/17 09:17 Dose: 0.125 mg Famotidine (Pepcid) 20 mg SLOW IVP Q12HR [facility] Last Admin: 12/29/17 09:37 Dose: Not Given Famotidine (Pepcid) 20 mg PO BID [facility] Last Admin: 12/29/17 09:17 Dose: 20 mg Furosemide (Lasix) 40 mg PO 0900,1400 [facility] Norepinephrine Bitartrate (Levophed) 250 mls @ 0 mls/hr IVPB INF [facility]; Protocol Sodium Chloride (Normal Saline 0.9%) 1,000 mls @ 0 mls/hr IV .Q0M [facility] Levofloxacin (Levaquin) 500 mg PO 0600 [facility] Levothyroxine Sodium (Synthroid) 50 mcg PO 0600 [facility] Last Admin: 12/29/17 07:31 Dose: 50 mcg Miscellaneous Medication (Pharmacy To Dose) 0 each IVPB PRN PRN PRN Reason: VANC/CEFEPIME Pharmacy to Dose Mometasone Furoate/Formoterol Fumar (Dulera 200 Mcg/5 Mcg Inhaler) 1 puff INH BID-RT [facility] Last Admin: 12/29/17 09:37 Dose: Not Given Morphine Sulfate (Ms Contin) 60 mg PO TID [facility] Last Admin: 12/29/17 07:30 Dose: 60 mg Ondansetron HCl (Zofran Odt) 4 mg PO Q6H PRN PRN Reason: Nausea/Vomiting Ondansetron HCl (Zofran) 4 mg IVP Q6H PRN PRN Reason: Nausea/Vomiting Last Admin: 12/28/17 10:58 Dose: 4 mg Prednisone (Prednisone) 20 mg PO QAM-WM [facility] Senna/Docusate Sodium (Senokot S) 2 tab PO BIDPRN PRN PRN Reason: Constipation Sertraline HCl (Zoloft) 50 mg PO DAILY [facility] Last Admin: 12/29/17 09:17 Dose: 50 mg Sodium Chloride (Flush - Normal Saline) 10 ml IVF PRN PRN PRN Reason: Saline Flush Sodium Chloride (Flush - Normal Saline) 10 ml IVF Q12HR [facility] Last Admin: 12/29/17 09:19 Dose: 10 ml
--- NOTE | 2017-12-29 14:38 | PRG ---
DATE OF SERVICE: 12/29/2017 SUBJECTIVE: This morning, she is better, less short of breath, less cough. X-ray still shows eviden ce of pulmonary edema. OBJECTIVE: VITAL SIGNS: Sats are 98 on 4 liters, pulse 71, blood pressure 124/87, respiration rate 18. CHEST: Bilateral crackles and wheezing. CARDIAC: Normal S1, S2. No gallops. ABDOMEN: Soft. No masses. LABORATORY DATA: White count 16,000, H and H 9 and 31, platelet count is normal. Electrolytes are n ormal. Her BNP was 1293, elevated. IMPRESSION: 1. Congestive heart failure, probably diastolic dysfunction. 2. Chronic obstructive pulmonary disease, tobacco abuse. PLAN: Deescalate antibiotics, p.o. medication, steroids, neb treatments, diuretics. She was transfe rred out of the ICU.
[2017-12-29] MEDS: Furosemide 20 MG TAB PO SCH (14:59)
[2017-12-29] MEDS: Atorvastatin Calcium 20 MG TAB PO SCH (20:10)
[2017-12-29] MEDS: Ondansetron ODT 4 MG TAB PO PRN (20:13)
[2017-12-30] MEDS: Levothyroxine Sodium 50 MCG TAB PO SCH (05:58)
[2017-12-30] MEDS: Mometasone/Formoterol 120 PUFF INHALER INH SCH ×2 (06:09→20:07)
[2017-12-30] MEDS: Benzonatate 100 MG CAP PO SCH ×3 (09:29→22:26)
[2017-12-30] MEDS: Digoxin 0.125 MG TAB PO SCH (09:33)
[2017-12-30] MEDS: Aspirin 81 mg Enteric Coated Tablet PO SCH (09:34)
[2017-12-30] MEDS: Morphine ER 30 MG TAB PO SCH ×3 (09:34→21:17)
[2017-12-30] MEDS: predniSONE 20 MG TAB PO SCH (09:35)
[2017-12-30] MEDS: Furosemide 20 MG TAB PO SCH (09:35)
[2017-12-30] MEDS: Famotidine/PF 20 mg/2ml Vial SLOW IVP SCH (09:36)
[2017-12-30] MEDS: Famotidine 20 MG TAB PO SCH ×2 (09:36→21:18)
--- NOTE | 2017-12-30 10:49 | PDOC.PN ---
- Subjective Encounter Start Date: 12/30/17 Encounter Start Time: 09:45 Subjective: has sob, felt worse this morning -: is trying to eat her breakfast - Objective Resuscitation Status: Resuscitation Status FULL:Full Resuscitation MAR Reviewed: Yes Vital Signs & Weight: Vital Signs (12 hours) Temp Pulse Resp BP Pulse Ox 12/30/17 10:08 71 16 94 L 12/30/17 09:33 86 12/30/17 07:33 97.9 F 85 16 148/69 H 91 L 12/30/17 06:08 72 14 96 12/29/17 23:20 98.8 F 82 20 104/52 L 91 L Weight Admit Weight 156 lb 11.979 oz Weight 156 lb 11.979 oz Most Recent Monitor Data Heart Rate from ECG 75 NIBP 120/56 NIBP BP-Mean 77 Respiration from ECG 12 SpO2 95 I&O: 12/29/17 12/30/17 12/31/17 06:59 06:59 06:59 Intake Total 2053.5 Output Total 2330 1150 Balance -276.5 -1150 Result Diagrams: 12/29/17 04:49 12/29/17 04:49 Phys Exam - Physical Examination HEENT: PERRLA, moist MMs Neck: no JVD, supple Respiratory: no wheezing rales++ Cardiovascular: RRR, no significant murmur Gastrointestinal: soft, non-tender, positive bowel sounds Musculoskeletal: no edema, pulses present Neurological: non-focal, moves all 4 limbs Psychiatric: normal affect, A&O x 3 Dx/Plan (1) Acute exacerbation of CHF (congestive heart failure) Code(s): I50.9 - HEART FAILURE, UNSPECIFIED Status: Acute Qualifiers: Heart failure type: diastolic Qualified Code(s): I50.33 - Acute on chronic diastolic (congestive) heart failure (2) Sepsis Code(s): A41.9 - SEPSIS, UNSPECIFIED ORGANISM Status: Suspected Qualifiers: Sepsis type: sepsis due to unspecified organism Qualified Code(s): A41.9 - Sepsis, unspecified organism (3) PNA (pneumonia) Code(s): J18.9 - PNEUMONIA, UNSPECIFIED ORGANISM Status: Suspected Qualifiers: Pneumonia type: due to unspecified organism Laterality: bilateral (4) Acute metabolic encephalopathy Code(s): G93.41 - METABOLIC ENCEPHALOPATHY Status: Resolved (5) Acute respiratory failure with hypoxia Code(s): J96.01 - ACUTE RESPIRATORY FAILURE WITH HYPOXIA Status: Resolved (6) CAD (coronary artery disease) Code(s): I25.10 - ATHSCL HEART DISEASE OF [place] CORONARY ARTERY W/O ANG PCTRS Status: Chronic Qualifiers: Coronary Disease-Associated Artery/Lesion type: [place] artery [place] vs. transplanted heart: [place] heart Associated angina: without angina Qualified Code(s): I25.10 - Atherosclerotic heart disease of [place] coronary artery without angina pectoris (7) COPD (chronic obstructive pulmonary disease) Status: Chronic (8) Chronic pain syndrome Code(s): G89.4 - CHRONIC PAIN SYNDROME Status: Chronic Comment: Resume home MS Contin, Gabapentin, [place] (9) Hypertension Code(s): I10 - ESSENTIAL (PRIMARY) HYPERTENSION Status: Chronic Qualifiers: Hypertension type: essential hypertension Qualified Code(s): I10 - Essential (primary) hypertension Comment: controlled - Plan change lasix to iv for 3 more doses then po -: is on levaquin, nebs prn -: to amb as tolerated with PT -: continue digoxin, lipitor and aspirin as before -: likely dc plan in am to rehab if she is clinically better * . Review of Systems - Medications/Allergies Allergies/Adverse Reactions: Allergies Allergy/AdvReac Type Severity Reaction Status Date / Time hydralazine Allergy Verified 03/10/14 22:10 Medications: Current Medications Acetaminophen (Tylenol) 650 mg PO Q4H PRN PRN Reason: Headache/Fever/Mild Pain (1-3) Albuterol/Ipratropium (Duoneb) 3 ml NEB QID-RT [facility] Last Admin: 12/30/17 10:08 Dose: 3 ml Aspirin (Ecotrin) 81 mg PO DAILY [facility] Last Admin: 12/30/17 09:34 Dose: 81 mg Atorvastatin Calcium (Lipitor) 20 mg PO HS [facility] Last Admin: 12/29/17 20:10 Dose: 20 mg Benzonatate (Tessalon) 200 mg PO TID [facility] Last Admin: 12/30/17 09:29 Dose: 200 mg Digoxin (Lanoxin) 0.125 mg PO QAM [facility] Last Admin: 12/30/17 09:33 Dose: 0.125 mg Famotidine (Pepcid) 20 mg PO BID [facility] Last Admin: 12/30/17 09:36 Dose: 20 mg Furosemide (Lasix) 40 mg SLOW IVP 0600,1400 [facility] Norepinephrine Bitartrate (Levophed) 250 mls @ 0 mls/hr IVPB INF [facility]; Protocol Sodium Chloride (Normal Saline 0.9%) 1,000 mls @ 0 mls/hr IV .Q0M [facility] Levofloxacin (Levaquin) 500 mg PO 0600 [facility] Last Admin: 12/30/17 05:58 Dose: 500 mg Levothyroxine Sodium (Synthroid) 50 mcg PO 0600 [facility] Last Admin: 12/30/17 05:58 Dose: 50 mcg Mometasone Furoate/Formoterol Fumar (Dulera 200 Mcg/5 Mcg Inhaler) 1 puff INH BID-RT [facility] Last Admin: 12/30/17 06:09 Dose: 1 puff Morphine Sulfate (Ms Contin) 60 mg PO TID [facility] Last Admin: 12/30/17 09:34 Dose: 60 mg Ondansetron HCl (Zofran Odt) 4 mg PO Q6H PRN PRN Reason: Nausea/Vomiting Last Admin: 12/29/17 20:13 Dose: 4 mg Ondansetron HCl (Zofran) 4 mg IVP Q6H PRN PRN Reason: Nausea/Vomiting Last Admin: 12/28/17 10:58 Dose: 4 mg Prednisone (Prednisone) 20 mg PO QAM-WM [facility] Last Admin: 12/30/17 09:35 Dose: 20 mg Senna/Docusate Sodium (Senokot S) 2 tab PO BIDPRN PRN PRN Reason: Constipation Sertraline HCl (Zoloft) 50 mg PO DAILY [facility] Last Admin: 12/30/17 09:36 Dose: 50 mg Sodium Chloride (Flush - Normal Saline) 10 ml IVF PRN PRN PRN Reason: Saline Flush Sodium Chloride (Flush - Normal Saline) 10 ml IVF Q12HR [facility] Last Admin: 12/30/17 09:41 Dose: 10 ml
[2017-12-30 11:22] LABS: #Neutrophils 16.1 thou/uL (1.40-6.50); %Basophils 0.1 % (0.0-1.0); %Eosinophils 0.1 % (0.0-10.0); %Lymphocytes 5.3 % (21.0-51.0); %Monocytes 5.4 % (0.0-10.0); %Neutrophils 89.1 % (42.0-75.0); Hemoglobin 9.7 g/dL (12.0-16.0); Mean Corpuscular HGB CONC 31.6 g/dL (32.0-36.0); Mean Corpuscular Hemoglobin 30.3 pg (27.0-31.0); Mean Corpuscular Volume 96.1 fL (78.0-98.0); Mean Platelet Volume 7.6 fL (7.4-10.4); Platelet Count 251 thou/uL (130-400); RBC Distribution Width 12.7 % (11.5-14.5); White Blood Cell (WBC) Count 18.1 thou/uL (4.8-10.8)
[2017-12-30 11:36] LABS: Anion Gap 12 mmol/L (10-20); BUN (Urea Nitrogen) 27 mg/dL (9.8-20.1); Calc. Creatinine Clearance 65 mL/min (70-130); Calcium 8.8 mg/dL (7.8-10.44); Carbon Dioxide 28 mmol/L (23-31); Chloride 102 mmol/L (98-107); Estimated GFR-MDRD 69; Glucose 115 mg/dL (83-110); Potassium 4.1 mmol/L (3.5-5.1); Sodium 138 mmol/L (136-145)
--- NOTE | 2017-12-30 13:33 | PRG ---
DATE OF SERVICE: 12/30/2017 SUBJECTIVE: This morning, she is better. She is less short of breath, still confused. OBJECTIVE: VITAL SIGNS: Sats 90 on room air, respiration rate 18, temperature 98, blood pressure 143/67. CHEST: Chest reveals decreased breath sounds, no wheezing. CARDIAC: Normal S1, S2. ABDOMEN: Soft, no gallops mass. LABORATORY: White count 18,000, H and H 9 and 30, platelet count is 251. IMPRESSION: Chronic obstructive pulmonary disease, tobacco abuse, severe deconditioning. PLAN: P.o. antibiotics, p.o. steroids. Home soon.
[2017-12-30] MEDS: Furosemide 40 MG/4 ML VIAL SLOW IVP SCH (15:57)
[2017-12-30] MEDS: Senokot S 8.6-50 MG TAB PO PRN (16:17)
[2017-12-30] MEDS: Prevnar 13-Val Conj/PF 0.5 ML SYRINGE IM ONE (16:18)
[2017-12-30] MEDS: Atorvastatin Calcium 20 MG TAB PO SCH (21:18)
[2017-12-31] MEDS: Furosemide 40 MG/4 ML VIAL SLOW IVP SCH (05:54)
[2017-12-31] MEDS: Levothyroxine Sodium 50 MCG TAB PO SCH (05:54)
[2017-12-31 06:21] LABS: Anion Gap 10 mmol/L (10-20); BUN (Urea Nitrogen) 26 mg/dL (9.8-20.1); Calc. Creatinine Clearance 64 mL/min (70-130); Carbon Dioxide 34 mmol/L (23-31); Chloride 97 mmol/L (98-107); Estimated GFR-MDRD 68; Glucose 96 mg/dL (83-110); Potassium 3.4 mmol/L (3.5-5.1); Sodium 138 mmol/L (136-145)
[2017-12-31] MEDS: Mometasone/Formoterol 120 PUFF INHALER INH SCH ×2 (06:32→18:45)
[2017-12-31] MEDS: Digoxin 0.125 MG TAB PO SCH (09:19)
[2017-12-31] MEDS: Famotidine 20 MG TAB PO SCH ×2 (09:19→21:12)
[2017-12-31] MEDS: predniSONE 20 MG TAB PO SCH (09:19)
[2017-12-31] MEDS: Aspirin 81 mg Enteric Coated Tablet PO SCH (09:20)
[2017-12-31] MEDS: Benzonatate 100 MG CAP PO SCH ×3 (09:23→21:11)
[2017-12-31] MEDS ORDERED: Diltiazem HCl 125 MG, Admixture Fee 1 EACH in Sodium Chloride 0.9% 100 ML IVPB SCH (09:30)
[2017-12-31] MEDS: Morphine ER 30 MG TAB PO SCH ×3 (10:29→21:12)
[2017-12-31] MEDS: Ondansetron ODT 4 MG TAB PO PRN (10:31)
[2017-12-31] MEDS: Prevnar 13-Val Conj/PF 0.5 ML SYRINGE IM ONE (10:48)
--- NOTE | 2017-12-31 11:56 | PDOC.PN ---
- Subjective Encounter Start Date: 12/31/17 Encounter Start Time: 08:30 Subjective: does not feel good -: no sob or chest pain -: has chills but no fever - Objective Resuscitation Status: Resuscitation Status FULL:Full Resuscitation MAR Reviewed: Yes Vital Signs & Weight: Vital Signs (12 hours) Temp Pulse Resp BP Pulse Ox 12/31/17 11:40 98.7 F 98 16 174/98 H 93 L 12/31/17 09:19 79 12/31/17 07:41 98.6 F 79 18 187/82 H 93 L 12/31/17 06:29 76 18 90 L 12/31/17 05:15 169/75 H 12/31/17 04:00 98.3 F 79 20 178/84 H 95 12/31/17 00:00 99.5 F 87 16 141/67 H 94 L Weight Admit Weight 156 lb 11.979 oz Weight 156 lb 11.979 oz Most Recent Monitor Data Heart Rate from ECG 75 NIBP 120/56 NIBP BP-Mean 77 Respiration from ECG 12 SpO2 95 I&O: 12/30/17 12/31/17 01/01/18 06:59 06:59 06:59 Intake Total 340 Output Total 1150 300 Balance -1150 40 Result Diagrams: 12/30/17 07:39 12/31/17 05:42 Additional Labs: Accuchecks 12/31/17 09:10 POC Glucose 88 Phys Exam - Physical Examination HEENT: PERRLA, moist MMs Neck: no JVD, supple Respiratory: no wheezing, no rales Cardiovascular: RRR, no significant murmur Gastrointestinal: soft, non-tender, positive bowel sounds Musculoskeletal: no edema, pulses present Neurological: non-focal, moves all 4 limbs Dx/Plan (1) Atrial fibrillation with RVR Code(s): I48.91 - UNSPECIFIED ATRIAL FIBRILLATION Status: Acute Comment: cardizem drip (2) Acute exacerbation of CHF (congestive heart failure) Code(s): I50.9 - HEART FAILURE, UNSPECIFIED Status: Acute Qualifiers: Heart failure type: diastolic Qualified Code(s): I50.33 - Acute on chronic diastolic (congestive) heart failure (3) Sepsis Code(s): A41.9 - SEPSIS, UNSPECIFIED ORGANISM Status: Suspected Qualifiers: Sepsis type: sepsis due to unspecified organism Qualified Code(s): A41.9 - Sepsis, unspecified organism (4) PNA (pneumonia) Code(s): J18.9 - PNEUMONIA, UNSPECIFIED ORGANISM Status: Suspected Qualifiers: Pneumonia type: due to unspecified organism Laterality: bilateral (5) Acute metabolic encephalopathy Code(s): G93.41 - METABOLIC ENCEPHALOPATHY Status: Resolved (6) Acute respiratory failure with hypoxia Code(s): J96.01 - ACUTE RESPIRATORY FAILURE WITH HYPOXIA Status: Resolved (7) CAD (coronary artery disease) Code(s): I25.10 - ATHSCL HEART DISEASE OF [place] CORONARY ARTERY W/O ANG PCTRS Status: Chronic Qualifiers: Coronary Disease-Associated Artery/Lesion type: [place] artery [place] vs. transplanted heart: [place] heart Associated angina: without angina Qualified Code(s): I25.10 - Atherosclerotic heart disease of [place] coronary artery without angina pectoris (8) COPD (chronic obstructive pulmonary disease) Status: Chronic (9) Chronic pain syndrome Code(s): G89.4 - CHRONIC PAIN SYNDROME Status: Chronic Comment: Resume home MS Contin, Gabapentin, [place] (10) Hypertension Code(s): I10 - ESSENTIAL (PRIMARY) HYPERTENSION Status: Chronic Qualifiers: Hypertension type: essential hypertension Qualified Code(s): I10 - Essential (primary) hypertension Comment: controlled - Plan is on cardizem drip, watch for BP -: change lasix to po -: on digoxin, asp, lipitor -: levaquin, steroids, prn nebs -: PT to mobilize when rvr settles down * . Review of Systems - Medications/Allergies Allergies/Adverse Reactions: Allergies Allergy/AdvReac Type Severity Reaction Status Date / Time hydralazine Allergy Verified 03/10/14 22:10 Medications: Current Medications Acetaminophen (Tylenol) 650 mg PO Q4H PRN PRN Reason: Headache/Fever/Mild Pain (1-3) Albuterol/Ipratropium (Duoneb) 3 ml NEB QID-RT [facility] Last Admin: 12/31/17 09:57 Dose: Not Given Aspirin (Ecotrin) 81 mg PO DAILY [facility] Last Admin: 12/31/17 09:20 Dose: 81 mg Atorvastatin Calcium (Lipitor) 20 mg PO HS [facility] Last Admin: 12/30/17 21:18 Dose: 20 mg Benzonatate (Tessalon) 200 mg PO TID [facility] Last Admin: 12/31/17 09:23 Dose: 200 mg Digoxin (Lanoxin) 0.125 mg PO QAM [facility] Last Admin: 12/31/17 09:19 Dose: 0.125 mg Famotidine (Pepcid) 20 mg PO BID [facility] Last Admin: 12/31/17 09:19 Dose: 20 mg Furosemide (Lasix) 40 mg SLOW IVP 0600,1400 [facility] Last Admin: 12/31/17 05:54 Dose: 40 mg Diltiazem HCl 125 mg/Miscellaneous Medication 1 each/ Sodium Chloride 125 mls @ 5 mls/hr IVPB INF [facility]; Protocol Last Admin: 12/31/17 10:22 Dose: 125 mls Levofloxacin (Levaquin) 500 mg PO 0600 [facility] Last Admin: 12/31/17 05:54 Dose: 500 mg Levothyroxine Sodium (Synthroid) 50 mcg PO 0600 [facility] Last Admin: 12/31/17 05:54 Dose: 50 mcg Mometasone Furoate/Formoterol Fumar (Dulera 200 Mcg/5 Mcg Inhaler) 1 puff INH BID-RT [facility] Last Admin: 12/31/17 06:32 Dose: 1 puff Morphine Sulfate (Ms Contin) 60 mg PO TID [facility] Last Admin: 12/31/17 10:29 Dose: 60 mg Ondansetron HCl (Zofran Odt) 4 mg PO Q6H PRN PRN Reason: Nausea/Vomiting Last Admin: 12/31/17 10:31 Dose: 4 mg Ondansetron HCl (Zofran) 4 mg IVP Q6H PRN PRN Reason: Nausea/Vomiting Last Admin: 12/28/17 10:58 Dose: 4 mg Prednisone (Prednisone) 20 mg PO QAM-WM [facility] Last Admin: 12/31/17 09:19 Dose: 20 mg Senna/Docusate Sodium (Senokot S) 2 tab PO BIDPRN PRN PRN Reason: Constipation Last Admin: 12/30/17 16:17 Dose: 2 tab Sertraline HCl (Zoloft) 50 mg PO DAILY [facility] Last Admin: 12/31/17 09:21 Dose: 50 mg Sodium Chloride (Flush - Normal Saline) 10 ml IVF PRN PRN PRN Reason: Saline Flush Sodium Chloride (Flush - Normal Saline) 10 ml IVF Q12HR [facility] Last Admin: 12/31/17 09:24 Dose: 10 ml
[2017-12-31] MEDS ORDERED: Potassium Chloride 20 MEQ TAB PO SCH (12:45)
--- NOTE | 2017-12-31 12:48 | CON ---
DATE OF CONSULTATION: 12/31/2017 REASON FOR CONSULTATION: Atrial flutter. PRIMARY MASTER IN CHANCERY: Dr. Mina Pyle. HISTORY OF PRESENT ILLNESS: Ms. Velazco is a delightful 77-year-old woman. She recently was in [facility] with tachycardia, atrial fibrillation and some atrial flutter. She was sent to [facility] before she had to come back to the hospital due to shortness of breath and rapid heart rate. The patient has recurrent atrial flutter, we have been reconsulted. The patient recently had cardiac catheterization showing only mild atherosclerotic heart disease. MEDICATIONS: 1. Intravenous diltiazem. 2. Aspirin. 3. Atorvastatin. 4. Digoxin 0.125 mg a day. 5. Prednisone. ALLERGIES: HYDRALAZINE. REVIEW OF SYSTEMS: CONSTITUTIONAL: Feels weak and fatigued. VISION: No changes. HEARING: No changes. PULMONARY: No cough or wheezing. GASTROINTESTINAL: No nausea, vomiting, diarrhea. SKIN: No rashes. NEUROLOGIC: No unilateral weakness or numbness. PSYCHIATRIC: No unusual depression or anxiety. PAST MEDICAL HISTORY: Positive for atrial fibrillation, atrial flutter and COPD. 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 SOCIAL HISTORY: She has a long history of smoking up until this recent admission, smoked a pack a da y. PHYSICAL EXAMINATION: GENERAL: This is a pleasant elderly woman, states that she just does not feel well. VITAL SIGNS: Blood pressure 174/98, pulse 98, it is currently regular and she is in sinus rhythm. NECK: Neck veins are normal. Carotid normal upstrokes, no bruits. LUNGS: Clear. CARDIAC: Currently, normal S1, normal S2. There is no murmur, rub or gallop. ABDOMEN: Soft, nontender. EXTREMITIES: Warm, dry, no clubbing, cyanosis or edema. PERTINENT LABORATORY AND X-RAY FINDINGS: Hemoglobin is 9.7, hematocrit 30.7, potassium 3.4, BUN is 2 6, creatinine 0.82. BNP 1293. Recent cardiac catheterization showed only mild nonobstructive atherosclerotic heart disease. [place] rdiogram; ejection fraction 60-65%. The EKG does show atrial flutter with a ventricular response of 140. Now, she is in sinus rhythm. ASSESSMENT: 1. Paroxysmal atrial flutter. 2. Also, paroxysmal atrial fibrillation by report. PLAN: 1. Currently on intravenous diltiazem. 2. She is on digoxin. 3. She is on furosemide, transitioning to intravenous. She has diastolic heart failure. 4. Consideration for Electrophysiologic consultation, at some point would likely benefit from atrial flutter ablation. For now, we will continue the intravenous Cardizem.
[2017-12-31] MEDS: Furosemide 20 MG TAB PO SCH (13:00)
[2017-12-31] MEDS: Senokot S 8.6-50 MG TAB PO PRN (16:06)
[2017-12-31] MEDS: Atorvastatin Calcium 20 MG TAB PO SCH (21:11)
[2018-01-01] MEDS: Mometasone/Formoterol 120 PUFF INHALER INH SCH ×2 (06:11→18:33)
[2018-01-01] MEDS: Levothyroxine Sodium 50 MCG TAB PO SCH (07:07)
[2018-01-01] MEDS: Morphine ER 30 MG TAB PO SCH ×3 (08:25→23:31)
[2018-01-01] MEDS: Benzonatate 100 MG CAP PO SCH ×3 (08:25→23:31)
[2018-01-01] MEDS: Digoxin 0.125 MG TAB PO SCH (08:25)
[2018-01-01] MEDS: Aspirin 81 mg Enteric Coated Tablet PO SCH (08:26)
[2018-01-01] MEDS: Furosemide 20 MG TAB PO SCH ×2 (08:26→15:19)
[2018-01-01] MEDS: Famotidine 20 MG TAB PO SCH ×2 (08:26→23:29)
[2018-01-01] MEDS: predniSONE 20 MG TAB PO SCH (08:26)
--- NOTE | 2018-01-01 11:16 | PDOC.PN ---
- Subjective Encounter Start Date: 01/01/18 Encounter Start Time: 09:45 Subjective: no sob, feels better -: ate her breakfast -: is wanting to walk with PT - Objective Resuscitation Status: Resuscitation Status FULL:Full Resuscitation MAR Reviewed: Yes Vital Signs & Weight: Vital Signs (12 hours) Temp Pulse Resp BP BP Pulse Ox 01/01/18 09:38 85 14 92 L 01/01/18 08:26 59 L 134/64 01/01/18 08:25 62 01/01/18 07:45 98.3 F 62 16 158/71 H 89 L 01/01/18 06:11 85 16 92 L 01/01/18 06:09 81 16 92 L 01/01/18 04:00 98.6 F 60 19 140/65 91 L 01/01/18 00:00 98.7 F 83 19 157/73 H 91 L Weight Admit Weight 156 lb 11.979 oz Weight 156 lb 11.979 oz Most Recent Monitor Data Heart Rate from ECG 75 NIBP 120/56 NIBP BP-Mean 77 Respiration from ECG 12 SpO2 95 I&O: 12/31/17 01/01/18 01/02/18 06:59 06:59 06:59 Intake Total 340 Output Total 300 800 Balance 40 -800 Result Diagrams: 12/30/17 07:39 12/31/17 05:42 Phys Exam - Physical Examination HEENT: PERRLA, sclera anicteric Neck: no JVD, supple Respiratory: no wheezing rales+ Cardiovascular: no significant murmur, irregular Gastrointestinal: soft, non-tender, positive bowel sounds Musculoskeletal: no edema, pulses present Neurological: non-focal, moves all 4 limbs Psychiatric: A&O x 3 Dx/Plan (1) Atrial fibrillation with RVR Code(s): I48.91 - UNSPECIFIED ATRIAL FIBRILLATION Status: Acute Comment: rate controlled (2) Acute exacerbation of CHF (congestive heart failure) Code(s): I50.9 - HEART FAILURE, UNSPECIFIED Status: Acute Qualifiers: Heart failure type: diastolic Qualified Code(s): I50.33 - Acute on chronic diastolic (congestive) heart failure (3) Sepsis Code(s): A41.9 - SEPSIS, UNSPECIFIED ORGANISM Status: Suspected Qualifiers: Sepsis type: sepsis due to unspecified organism Qualified Code(s): A41.9 - Sepsis, unspecified organism (4) PNA (pneumonia) Code(s): J18.9 - PNEUMONIA, UNSPECIFIED ORGANISM Status: Suspected Qualifiers: Pneumonia type: due to unspecified organism Laterality: bilateral (5) Acute metabolic encephalopathy Code(s): G93.41 - METABOLIC ENCEPHALOPATHY Status: Resolved (6) Acute respiratory failure with hypoxia Code(s): J96.01 - ACUTE RESPIRATORY FAILURE WITH HYPOXIA Status: Resolved (7) CAD (coronary artery disease) Code(s): I25.10 - ATHSCL HEART DISEASE OF [place] CORONARY ARTERY W/O ANG PCTRS Status: Chronic Qualifiers: Coronary Disease-Associated Artery/Lesion type: [place] artery [place] vs. transplanted heart: [place] heart Associated angina: without angina Qualified Code(s): I25.10 - Atherosclerotic heart disease of [place] coronary artery without angina pectoris (8) COPD (chronic obstructive pulmonary disease) Status: Chronic (9) Chronic pain syndrome Code(s): G89.4 - CHRONIC PAIN SYNDROME Status: Chronic Comment: Resume home MS Contin, Gabapentin, [place] (10) Hypertension Code(s): I10 - ESSENTIAL (PRIMARY) HYPERTENSION Status: Chronic Qualifiers: Hypertension type: essential hypertension Qualified Code(s): I10 - Essential (primary) hypertension Comment: controlled - Plan afib/flutter is rate controlled, dc cardizem drip -: is on oral cardizem, dig, aspirin, eliquis, lasix -: levaquin, nebs, prednisone -: PT to mobilize from today -: dc planning to home with HH/PT? * . Review of Systems - Medications/Allergies Allergies/Adverse Reactions: Allergies Allergy/AdvReac Type Severity Reaction Status Date / Time hydralazine Allergy Verified 03/10/14 22:10 Medications: Current Medications Acetaminophen (Tylenol) 650 mg PO Q4H PRN PRN Reason: Headache/Fever/Mild Pain (1-3) Last Admin: 01/01/18 02:13 Dose: 650 mg Albuterol/Ipratropium (Duoneb) 3 ml NEB QID-RT [facility] Last Admin: 01/01/18 09:38 Dose: 3 ml Aspirin (Ecotrin) 81 mg PO DAILY [facility] Last Admin: 01/01/18 08:26 Dose: 81 mg Atorvastatin Calcium (Lipitor) 20 mg PO HS [facility] Last Admin: 12/31/17 21:11 Dose: 20 mg Benzonatate (Tessalon) 200 mg PO TID [facility] Last Admin: 01/01/18 08:25 Dose: 200 mg Digoxin (Lanoxin) 0.125 mg PO QAM [facility] Last Admin: 01/01/18 08:25 Dose: 0.125 mg Diltiazem HCl (Cardizem Cd) 120 mg PO BID [facility] Last Admin: 01/01/18 08:26 Dose: 120 mg Famotidine (Pepcid) 20 mg PO BID [facility] Last Admin: 01/01/18 08:26 Dose: 20 mg Furosemide (Lasix) 20 mg PO 0900,1400 [facility] Last Admin: 01/01/18 08:26 Dose: 20 mg Levofloxacin (Levaquin) 500 mg PO 0600 [facility] Last Admin: 01/01/18 07:07 Dose: 500 mg Levothyroxine Sodium (Synthroid) 50 mcg PO 0600 [facility] Last Admin: 01/01/18 07:07 Dose: 50 mcg Mometasone Furoate/Formoterol Fumar (Dulera 200 Mcg/5 Mcg Inhaler) 1 puff INH BID-RT [facility] Last Admin: 01/01/18 06:11 Dose: 1 puff Morphine Sulfate (Ms Contin) 60 mg PO TID [facility] Last Admin: 01/01/18 08:25 Dose: 60 mg Ondansetron HCl (Zofran Odt) 4 mg PO Q6H PRN PRN Reason: Nausea/Vomiting Last Admin: 12/31/17 10:31 Dose: 4 mg Ondansetron HCl (Zofran) 4 mg IVP Q6H PRN PRN Reason: Nausea/Vomiting Last Admin: 12/28/17 10:58 Dose: 4 mg Prednisone (Prednisone) 20 mg PO QAM-WM [facility] Last Admin: 01/01/18 08:26 Dose: 20 mg Senna/Docusate Sodium (Senokot S) 2 tab PO BIDPRN PRN PRN Reason: Constipation Last Admin: 12/31/17 16:06 Dose: 2 tab Sertraline HCl (Zoloft) 50 mg PO DAILY [facility] Last Admin: 01/01/18 08:27 Dose: 50 mg Sodium Chloride (Flush - Normal Saline) 10 ml IVF PRN PRN PRN Reason: Saline Flush Sodium Chloride (Flush - Normal Saline) 10 ml IVF Q12HR [facility] Last Admin: 01/01/18 08:26 Dose: 10 ml
[2018-01-01 11:48] LABS: #Eosinphils 0.1 thou/uL (0.0-0.7); #Lymphocytes 0.8 thou/uL (1.20-3.40); #Monocytes 0.6 thou/uL (0.11-0.59); #Neutrophils 12.4 thou/uL (1.40-6.50); %Eosinophils 0.8 % (0.0-10.0); %Lymphocytes 5.4 % (21.0-51.0); %Monocytes 4.1 % (0.0-10.0); %Neutrophils 89.7 % (42.0-75.0); Hemoglobin 12.2 g/dL (12.0-16.0); Mean Corpuscular HGB CONC 31.6 g/dL (32.0-36.0); Mean Corpuscular Volume 94.9 fL (78.0-98.0); Mean Platelet Volume 7.2 fL (7.4-10.4); Platelet Count 318 thou/uL (130-400); RBC Distribution Width 12.5 % (11.5-14.5); Red Blood Cell (RBC) Count 4.07 mill/uL (4.20-5.40); White Blood Cell (WBC) Count 13.8 thou/uL (4.8-10.8)
[2018-01-01 12:09] LABS: BUN (Urea Nitrogen) 21 mg/dL (9.8-20.1); Calc. Creatinine Clearance 61 mL/min (70-130); Calcium 9.6 mg/dL (7.8-10.44); Estimated GFR-MDRD 64; Glucose 136 mg/dL (83-110)
[2018-01-01 12:19] LABS: Anion Gap 14 mmol/L (10-20); Carbon Dioxide 34 mmol/L (23-31); Chloride 93 mmol/L (98-107); Potassium 3.7 mmol/L (3.5-5.1); Sodium 137 mmol/L (136-145)
--- NOTE | 2018-01-01 13:28 | PRG ---
DATE OF SERVICE: 01/01/2018 SUBJECTIVE: Ms. Velazco says she just feels "so-so." No chest pain or pressure. PHYSICAL EXAMINATION: VITAL SIGNS: Blood pressure 157/74, pulse 67 and regular. LUNGS: Clear. CARDIAC: Normal S1, normal S2. ABDOMEN: Soft, nontender. EXTREMITIES: There is no significant edema. ASSESSMENT: 1. Paroxysmal atrial fibrillation and atrial flutter, now in sinus rhythm. 2. Chronic obstructive pulmonary disease. PLAN: 1. Continue current medical regimen. 2. At some point, will likely need atrial flutter ablation once the medical problems improved.
[2018-01-01] MEDS: Dronedarone HCl 400 MG TAB PO SCH (17:07)
[2018-01-01] MEDS ORDERED: Fleet Enema 133 ML BOT FS PRN (19:39)
[2018-01-01] MEDS ORDERED: Fleet Enema 133 ML BOT PR SCH (20:00)
--- NOTE | 2018-01-01 20:37 | CON ---
DATE OF ADMISSION: 12/28/2017 DATE OF CONSULTATION: 01/01/2018 REFERRING PHYSICIAN: Kiley Tripatih M.D. REASON FOR CONSULTATION: Atrial arrhythmias. HISTORY OF PRESENT ILLNESS: Ms. Velazco is a very pleasant 77-year-old woman. She was admitted to [facility] for acute respiratory failure with hypoxia, septic shock and questionable right lung pneumonia. She was admitted at [facility] in November and at that time was diagnosed with atrial fibrillation. She was discharged to rehab and was transferred back to [facility] after having acute respiratory failure. She has since been found to be back in atrial flutter and atrial fibrillation hospitalization with RVR. She was just recently started on Eliquis 5 mg b.i.d. and EP consult is for consideration of ablation for her atrial flutter. Currently, Ms. Velazco is resting comfortably in bed. She denies any heart racing, palpitations, chest pain, pressure, syncope, near syncope, stroke or stroke-like symptoms. She does report fatigue, shortness of breath, malaise and generalized weakness. She is also very tired. She had a recent left heart catheterization showing mild atherosclerotic heart disease. An echocardiogram performed in November that showed preserved ejection fraction of approximately 60 %, moderate to severe tricuspid regurgitation. REVIEW OF SYSTEMS: Twelve-point review of systems was conducted and is negative except that listed above in the HPI. PAST MEDICAL HISTORY: Includes hypertension, high cholesterol, hypothyroidism, congestive heart failure, diastolic dysfunction, COPD, and tobacco abuse and atrial fibrillation, atrial flutter. PAST SURGICAL HISTORY: Appendectomy, cholecystectomy, hernia repair, orthopedic surgeries. SOCIAL HISTORY: Negative for tobacco, alcohol, or illicit drugs. Lives at home independently until recent health issues. Has a daughter that is close to her. FAMILY HISTORY: Negative for heart disease. ALLERGIES: HYDRALAZINE. HOME MEDICATIONS: Nicoderm CQ, Tylenol No. 3 as needed, cefdinir 300 mg p.o. b.i.d., Tessalon Perles 3 times a day, Lipitor daily, aspirin 81 mg daily, Eliquis 5 mg b.i.d., Zofran 4 mg as needed, MS Contin 60 mg p.o. t.i.d., Dulera inhaler b.i.d., levothyroxine 50 mcg daily, DuoNeb q.i.d., gabapentin 600 mg daily, diltiazem CD 240 mg daily, digoxin 0.125 mg p.o. daily, senna b.i.d. p.r.n. and Medrol Dosepak as directed. PHYSICAL EXAMINATION: VITAL SIGNS: Temperature 98.0, pulse 67, blood pressure 157/74, respirations 18 , oxygen is 91% on 1 liter nasal cannula. GENERAL: The patient is rather small stature and frail appearing. She appears malnourished and underweight. She is mostly asleep during the exam, but will awake to voice and physical stimulation. She is alert and oriented. Her speech is clear. Affect is appropriate and sleepy. NECK: Supple without jugular venous distention. LUNGS: Have fine crackles and wheezes bilaterally. Respirations are even and unlabored with good bilateral excursion. HEART: Heart rate is regularly regular currently. PMI nondisplaced. ABDOMEN: Soft, nontender without palpable masses. Hepatojugular reflux is negative. EXTREMITIES: Bilateral lower extremities exhibit 1+ edema. NEUROLOGIC: Grossly intact and nonfocal. DATABASE: INR 1.4, hemoglobin 12.2, hematocrit 38.6, WBC 13.8, platelet count 318. Potassium 3.7, creatinine 0.86, AST and ALT are within normal limits. BNP 1293. Telemetry and EKG reviewed, mostly show atrial fibrillation with varying ventricular rates. There is 1 tracing in the chart, but could indicate typical atrial flutter that likely indicate typical atrial flutter currently in sinus rhythm. Echocardiogram from November shows preserved ejection fraction of approximately 60% with moderate to severe tricuspid regurgitation. IMPRESSION: 1. Paroxysmal atrial flutter and atrial fibrillation with rapid ventricular response currently in sinus rhythm. 2. Respiratory failure secondary to pneumonia. 3. Diastolic dysfunction with congestive heart failure with an elevated BNP. 4. Urinary tract infection, questionable. 5. Malnutrition with low albumin. 6. Oral anticoagulation with Eliquis. Her CHADS-VASc score of 5. 7. Chronic obstructive pulmonary disease. PLAN: 1. I have ordered Multaq 400 mg p.o. b.i.d. We will continue that while she is in the hospital though this may not be financially an option as an outpatient. We will watch her QT for possible prolongation and if this is seen , may need to consider alternate agents that are also known to provoke QT prolongation like Levaquin. 2. Continue oral anticoagulation and monitor for bleeding. 3. Could consider CTI ablation for her flutter. If this recurs despite of arrhythmia suppression and once she is medically and more stable condition and better compensated. For now, would recommend just arrhythmia suppression and continued anticoagulation. This is discussed with the patient and her daughter who both prefer conservative medical management at this time. Thank you for allowing us to participate in the care of this patient. CLEMENTINA
[2018-01-01] MEDS: Apixaban 5 MG TAB PO SCH (23:29)
[2018-01-01] MEDS: Atorvastatin Calcium 20 MG TAB PO SCH (23:29)
[2018-01-02] MEDS ORDERED: cloNIDine 0.1 MG TAB PO PRN (00:01)
[2018-01-02] MEDS: Ondansetron ODT 4 MG TAB PO PRN (03:10)
[2018-01-02] MEDS: Fleet Enema 133 ML BOT PR PRN ×2 (03:10→11:02)
[2018-01-02 04:33] LABS: Anion Gap 19 mmol/L (10-20); BUN (Urea Nitrogen) 18 mg/dL (9.8-20.1); Calc. Creatinine Clearance 64 mL/min (70-130); Calcium 9.2 mg/dL (7.8-10.44); Carbon Dioxide 29 mmol/L (23-31); Chloride 92 mmol/L (98-107); Estimated GFR-MDRD 68; Glucose 103 mg/dL (83-110); Potassium 3.5 mmol/L (3.5-5.1); Sodium 136 mmol/L (136-145)
[2018-01-02] MEDS: Mometasone/Formoterol 120 PUFF INHALER INH SCH ×2 (07:16→19:31)
[2018-01-02] MEDS: Levothyroxine Sodium 50 MCG TAB PO SCH (07:39)
--- NOTE | 2018-01-02 09:31 | PRG ---
DATE OF SERVICE: 01/02/2018 Ms. Velazco is feeling better. She is in better spirits today. No chest pain or pressure. PHYSICAL EXAMINATION: VITAL SIGNS: Blood pressure 120/65, pulse 70, it is regular. LUNGS: Clear. CARDIAC: Normal S1, normal S2. ABDOMEN: Soft and nontender. ASSESSMENT: 1. Paroxysmal atrial fibrillation and atrial flutter. 2. She has been started on Multaq by Dr. Swann yesterday. He recommends medical therapy. PLAN: 1. Continue current medical regimen. The patient from a cardiac standpoint could be sent back to [facility] rehab facility. 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 2. We will give her 1 extra dose of potassium today. 3. She is now on Multaq and moderate dose Cardizem, will stop digoxin.
[2018-01-02] MEDS: Morphine ER 30 MG TAB PO SCH ×3 (10:06→21:49)
[2018-01-02] MEDS: Benzonatate 100 MG CAP PO SCH ×3 (10:07→21:48)
[2018-01-02] MEDS: Apixaban 5 MG TAB PO SCH ×2 (10:07→21:48)
[2018-01-02] MEDS: Dronedarone HCl 400 MG TAB PO SCH ×2 (10:07→16:11)
[2018-01-02] MEDS: Aspirin 81 mg Enteric Coated Tablet PO SCH (10:07)
[2018-01-02] MEDS: Famotidine 20 MG TAB PO SCH ×2 (10:08→21:48)
[2018-01-02] MEDS: Furosemide 20 MG TAB PO SCH ×2 (10:08→14:32)
[2018-01-02] MEDS: predniSONE 20 MG TAB PO SCH (10:08)
[2018-01-02] MEDS: Digoxin 0.125 MG TAB PO SCH (10:20)
--- NOTE | 2018-01-02 12:03 | PDOC.PN ---
- Subjective Encounter Start Date: 01/02/18 Encounter Start Time: 10:40 Subjective: awake, no chest pain or palp -: no sob, wants something for constipation - Objective Resuscitation Status: Resuscitation Status FULL:Full Resuscitation MAR Reviewed: Yes Vital Signs & Weight: Vital Signs (12 hours) Temp Pulse Resp BP BP Pulse Ox 01/02/18 10:07 70 01/02/18 08:00 97.7 F 70 20 120/65 90 L 01/02/18 07:13 82 16 94 L 01/02/18 04:00 98.3 F 80 20 146/80 H 93 L 01/02/18 01:00 172/70 H 01/02/18 00:14 187/86 H Weight Admit Weight 156 lb 11.979 oz Weight 156 lb 11.979 oz Most Recent Monitor Data Heart Rate from ECG 75 NIBP 120/56 NIBP BP-Mean 77 Respiration from ECG 12 SpO2 95 I&O: 01/01/18 01/02/18 01/03/18 06:59 06:59 06:59 Intake Total 750 Output Total 800 1400 Balance -800 -650 Result Diagrams: 01/01/18 11:23 01/02/18 04:01 Phys Exam - Physical Examination HEENT: PERRLA, moist MMs Neck: no JVD, supple Respiratory: no wheezing, no rales Cardiovascular: no significant murmur, irregular Gastrointestinal: soft, non-tender, positive bowel sounds Musculoskeletal: no edema, pulses present Neurological: non-focal, moves all 4 limbs Psychiatric: normal affect, A&O x 3 Dx/Plan (1) Atrial fibrillation with RVR Code(s): I48.91 - UNSPECIFIED ATRIAL FIBRILLATION Status: Acute Comment: rate controlled (2) Acute exacerbation of CHF (congestive heart failure) Code(s): I50.9 - HEART FAILURE, UNSPECIFIED Status: Acute Qualifiers: Heart failure type: diastolic Qualified Code(s): I50.33 - Acute on chronic diastolic (congestive) heart failure (3) Sepsis Code(s): A41.9 - SEPSIS, UNSPECIFIED ORGANISM Status: Suspected Qualifiers: Sepsis type: sepsis due to unspecified organism Qualified Code(s): A41.9 - Sepsis, unspecified organism (4) PNA (pneumonia) Code(s): J18.9 - PNEUMONIA, UNSPECIFIED ORGANISM Status: Suspected Qualifiers: Pneumonia type: due to unspecified organism Laterality: bilateral (5) Acute metabolic encephalopathy Code(s): G93.41 - METABOLIC ENCEPHALOPATHY Status: Resolved (6) Acute respiratory failure with hypoxia Code(s): J96.01 - ACUTE RESPIRATORY FAILURE WITH HYPOXIA Status: Resolved (7) CAD (coronary artery disease) Code(s): I25.10 - ATHSCL HEART DISEASE OF [place] CORONARY ARTERY W/O ANG PCTRS Status: Chronic Qualifiers: Coronary Disease-Associated Artery/Lesion type: [place] artery [place] vs. transplanted heart: [place] heart Associated angina: without angina Qualified Code(s): I25.10 - Atherosclerotic heart disease of [place] coronary artery without angina pectoris (8) COPD (chronic obstructive pulmonary disease) Status: Chronic (9) Chronic pain syndrome Code(s): G89.4 - CHRONIC PAIN SYNDROME Status: Chronic Comment: Resume home MS Contin, Gabapentin, [place] (10) Hypertension Code(s): I10 - ESSENTIAL (PRIMARY) HYPERTENSION Status: Chronic Qualifiers: Hypertension type: essential hypertension Qualified Code(s): I10 - Essential (primary) hypertension Comment: controlled - Plan on multaq, cardizem daily, off dig for now -: eliquis full dose, levaquin, nebs, lasix -: watch for qt prolongation -: asp, lipitor, prednisone taper, bowel regimen, is on narcotics -: PT to mobilize as tolerated, will be ready for dc in am if telemetry is nor * . Review of Systems - Medications/Allergies Allergies/Adverse Reactions: Allergies Allergy/AdvReac Type Severity Reaction Status Date / Time hydralazine Allergy Verified 03/10/14 22:10 Medications: Current Medications Acetaminophen (Tylenol) 650 mg PO Q4H PRN PRN Reason: Headache/Fever/Mild Pain (1-3) Last Admin: 01/01/18 02:13 Dose: 650 mg Albuterol/Ipratropium (Duoneb) 3 ml NEB QID-RT [facility] Last Admin: 01/02/18 07:13 Dose: 3 ml Apixaban (Eliquis) 5 mg PO BID [facility] Last Admin: 01/02/18 10:07 Dose: 5 mg Aspirin (Ecotrin) 81 mg PO DAILY [facility] Last Admin: 01/02/18 10:07 Dose: 81 mg Atorvastatin Calcium (Lipitor) 20 mg PO HS [facility] Last Admin: 01/01/18 23:29 Dose: 20 mg Benzonatate (Tessalon) 200 mg PO TID [facility] Last Admin: 01/02/18 10:07 Dose: 200 mg Clonidine (Catapres) 0.1 mg PO BIDPRN PRN PRN Reason: Blood Pressure Last Admin: 01/02/18 00:14 Dose: 0.1 mg Diltiazem HCl (Cardizem Cd) 120 mg PO DAILY [facility] Last Admin: 01/02/18 10:07 Dose: 120 mg Dronedarone (Multaq) 400 mg PO BID-WM [facility] Last Admin: 01/02/18 10:07 Dose: 400 mg Famotidine (Pepcid) 20 mg PO BID [facility] Last Admin: 01/02/18 10:08 Dose: 20 mg Furosemide (Lasix) 20 mg PO 0900,1400 [facility] Last Admin: 01/02/18 10:08 Dose: 20 mg Levofloxacin (Levaquin) 500 mg PO 0600 [facility] Last Admin: 01/02/18 07:39 Dose: 500 mg Levothyroxine Sodium (Synthroid) 50 mcg PO 0600 [facility] Last Admin: 01/02/18 07:39 Dose: 50 mcg Mometasone Furoate/Formoterol Fumar (Dulera 200 Mcg/5 Mcg Inhaler) 1 puff INH BID-RT [facility] Last Admin: 01/02/18 07:16 Dose: 1 puff Morphine Sulfate (Ms Contin) 60 mg PO TID [facility] Last Admin: 01/02/18 10:06 Dose: 60 mg Ondansetron HCl (Zofran Odt) 4 mg PO Q6H PRN PRN Reason: Nausea/Vomiting Last Admin: 01/02/18 03:10 Dose: 4 mg Ondansetron HCl (Zofran) 4 mg IVP Q6H PRN PRN Reason: Nausea/Vomiting Last Admin: 12/28/17 10:58 Dose: 4 mg Prednisone (Prednisone) 20 mg PO [facility] Last Admin: 01/02/18 10:08 Dose: 20 mg Senna/Docusate Sodium (Senokot S) 2 tab PO BIDPRN PRN PRN Reason: Constipation Last Admin: 12/31/17 16:06 Dose: 2 tab Sertraline HCl (Zoloft) 50 mg PO DAILY [facility] Last Admin: 01/02/18 10:08 Dose: 50 mg Sodium Biphosphate/Sodium Phosphate (Fleet Enema) 133 ml IA DAILYPRN PRN PRN Reason: Constipation Last Admin: 01/02/18 11:02 Dose: 133 ml Sodium Chloride (Flush - Normal Saline) 10 ml IVF PRN PRN PRN Reason: Saline Flush Sodium Chloride (Flush - Normal Saline) 10 ml IVF Q12HR [facility] Last Admin: 01/02/18 10:09 Dose: 10 ml
[2018-01-02] MEDS ORDERED: Bisacodyl 10 MG SUPP PR PRN (12:05)
[2018-01-02] MEDS: Docusate 100 MG CAP PO SCH (21:48)
[2018-01-02] MEDS: Atorvastatin Calcium 20 MG TAB PO SCH (21:48)
[2018-01-03] MEDS: Levothyroxine Sodium 50 MCG TAB PO SCH (06:13)
[2018-01-03 07:46] VITALS: BP 104/59; TEMP 98.5
[2018-01-03] MEDS: Mometasone/Formoterol 120 PUFF INHALER INH SCH (07:50)
[2018-01-03] MEDS: Morphine ER 30 MG TAB PO SCH (08:22)
[2018-01-03] MEDS: Apixaban 5 MG TAB PO SCH (08:22)
[2018-01-03] MEDS: Docusate 100 MG CAP PO SCH (08:23)
[2018-01-03] MEDS: Aspirin 81 mg Enteric Coated Tablet PO SCH (08:23)
[2018-01-03] MEDS: Famotidine 20 MG TAB PO SCH (08:23)
[2018-01-03] MEDS: Dronedarone HCl 400 MG TAB PO SCH (08:23)
[2018-01-03] MEDS: Furosemide 20 MG TAB PO SCH (08:23)
[2018-01-03] MEDS: predniSONE 20 MG TAB PO SCH (08:23)
[2018-01-03] MEDS: Benzonatate 100 MG CAP PO SCH (08:24)
[2018-01-03] MEDS ORDERED: Polyethylene Glycol 3350 17 GM Packet PO SCH (09:00)
--- NOTE | 2018-01-03 12:02 | PDOC.CTH ---
Cardiology Progress Note - Subjective No new issues. No new complaints. - Objective Vital Signs Temp Pulse Resp BP Pulse Ox 01/03/18 10:50 68 16 01/03/18 08:25 69 01/03/18 08:06 95 01/03/18 07:50 69 18 95 01/03/18 07:45 98.5 F 66 18 104/59 L 90 L 01/03/18 04:00 98.4 F 60 18 118/55 L 93 L Admit Weight 156 lb 11.979 oz Weight 123 lb 3.2 oz 01/02/18 01/03/18 01/04/18 06:59 06:59 06:59 Intake Total 750 1266 240 Output Total 1400 475 Balance -650 791 240 - Physical Examination General/Neuro: alert & oriented x3, NAD Neck: no JVD present Lungs: CTA, unlabored respirations Heart: RRR Abdomen: NT/ND Extremities: other: (no edema) - Telemetry Telemetry Rhythm: NSR - Labs Result Diagrams: 01/01/18 11:23 01/02/18 04:01 - Assessment/Plan 1. Paroxysmal afib/flutter. 2. [place] PLAN: - Continue Multaq. - Follow up with Dr. Pyle as outpatient on discharge. - Will sign out. Please call with any questions.
--- NOTE | 2018-01-03 18:37 | DIS ---
DATE OF ADMISSION: 12/28/2017 DATE OF DISCHARGE: 01/03/2018 DISCHARGE DISPOSITION: [facility] Bed. PRIMARY CARE PHYSICIAN: Aissatou Freire M.D. DISCHARGE DIAGNOSES: 1. Paroxysmal atrial fibrillation and flutter, on Multaq. 2. Pneumonia. 3. Chronic deconditioning. 4. Acute on chronic congestive diastolic heart failure. 5. Suspected sepsis due to pneumonia. 6. Acute metabolic encephalopathy, resolved. 7. Acute hypoxic respiratory failure, resolved. 8. Coronary artery disease. 9. Chronic pain syndrome. 10. Hypertension. DISCHARGE MEDICATIONS: 1. Nicotine patch 14 mg q.24 hours. 2. Tessalon Perles p.r.n. 3. Lipitor. 4. Aspirin 81 mg daily. 5. Eliquis 5 mg p.o. b.i.d. 6. MS Contin 60 mg p.o. t.i.d. Please note that this is a home medication. No prescription was pro vided. 7. Dulera 1 puff b.i.d. 8. Levothyroxine 50 mcg daily. 9. DuoNebs q.i.d. p.r.n. 10. Zoloft 50 mg daily. 11. Clonidine 0.1 mg p.o. b.i.d. p.r.n. 12. Levofloxacin 500 mg p.o. daily for 5 more days. 13. Lasix 20 mg p.o. b.i.d. 14. Multaq 400 mg p.o. b.i.d. 15. Diltiazem CD 120 mg p.o. daily. This has been changed from 250 mg daily that the patient was pr eviously taking. 16. Bisacodyl and acetaminophen p.r.n. INHOUSE CONSULTATIONS: 1. Cardiology, Kiley Tripathi M.D. and Ellis Avery MD 2. Electrophysiology, Rush Swann M.D. 3. General Surgery, Dionicio Barrios DO PROCEDURES DONE IN THE HOSPITAL: 1. CT scan of the brain on 12/28/2017, which shows no acute intracranial abnormalities. 2. CT angio of the thorax on 12/28/2017, which shows pneumonia in both lower lobes, nonspecific medi astinal and hilar lymphadenopathy and possibly congestive heart failure. 3. Severe osteoporosis was also seen. There was no pulmonary embolism. 4. Placement of a triple lumen left subclavian central venous line by Dr. Barrios on 12/28/2017, for I V access. 5. Multiple chest x-rays. HOSPITAL COURSE: Ms. Velazco is a 77-year-old pleasant female who [facility] being [facility] there only days prior to presentation: For Shortness of breath and fever. According to the admission H and P, she was found to be hypoxic with sats dropping to 80% an d blood pressure dropping down to 70 systolic, requiring IV least fluid resuscitation. She was also found to be febrile. She was admitted with a presumptive diagnosis of sepsis with septic shock on pr esentation. Chest x-ray showed bilateral pneumonia. She had a leukocytosis with left shift and band emia. UA showed leukocyte esterase and multiple wbc's. EKG showed atrial fibrillation. Please see admission history and physical for further detail. HOSPITAL COURSE: CT angio was done and it was negative for pulmonary embolism. The patient was alre yfn on aspirin, Lipitor, digoxin, and Eliquis. Pulmonary Critical Care Medicine was also consulted. The patient was started and continued on broad spectrum empiric IV antibiotics and cultures were orde red. Her blood culture and urine culture remained negative until date. She went into atrial fibrillation with RVR during hospitalization for which Cardiology was consulted and she was initially treated with IV Cardizem, which was later transitioned to oral and Multaq orall y. Dr. Swann also saw the patient and recommended continuation of arrhythmic for now. As of this [facility]a, she has been cleared for discharge by Cardiology and Electrophysiology. She will continue the oral anticoagulation and antiarrhythmics along with calcium channel leoncio. [facility]. She was seen and examined prior to discharge. She has been accepted at [facility] for re habilitation and is hemodynamically stable and will be discharged. PHYSICAL EXAMINATION: Per my review this morning include, VITAL SIGNS: Temperature 98.5, heart rate 68, respirations 16, saturating 95% on 2 liters nasal sridhar em. GENERAL: No acute distress, awake, alert, oriented x3. CHEST: Clear to auscultation bilaterally. Rate and rhythm is regular. Discharge plan was discussed with the patient and she verbalized understanding. DISCHARGE LAB WORK: CBC shows WBCs of 13.8, which was 17.3 upon presentation. Serum chemistries unr emarkable. Total time spent 38 minutes.
--- NOTE | 2018-01-04 10:59 | PRG ---
DATE OF SERVICE: 01/02/2018 SUBJECTIVE: Mrs. Velazco seems to be doing better today. She had atrial fibrillation overnight neri d some constipation-like symptoms, but this morning, she converted back to sinus rhythm, currently sh e is feeling well. OBJECTIVE: VITAL SIGNS: Blood pressure 136/54, heart rate 67, respiration is 20, temperature 98.4 degrees Fahre nheit. GENERAL: She is alert and oriented woman in no apparent distress. NECK: Supple. Jugular veins not distended. CHEST: Coarse without crackles. CARDIOVASCULAR: Heart sounds are regular to rate and rhythm. No murmur or gallop. ABDOMEN: Benign. Bowel sounds positive. EXTREMITIES: Lower extremities without edema, clubbing or cyanosis. DATABASE: The telemetry strips revealing atypical atrial flutter spells with moderate ventricular ra te control converting to sinus rhythm. EKG reveals QTC of 465. No significant change. LABORATORY DATA: White count 13.8, hemoglobin 12.2, platelet count is about 318,000. INR 1.4. Sodi um 136, potassium 3.5, BUN 18, creatinine 0.82. ASSESSMENT AND PLAN: Mrs. Velazco is a pleasant 77-year-old woman with a history of paroxysmal atr ial fibrillation and flutter. She had recurrent respiratory distress and developed frequent rapid at rial fibrillation with RVR. Some EKGs suggested CTI circuit operational, other EKGs suggest multifoc al left atrial . At this point, we will try medical management which is in keeping with the patient and the daughter's wishes. Multaq will be initiated. Monitor for bradycardia. We would continue Eliquis. Discussed with Dr. Morales, the pulmonary just regarding her antibiotic Levaquin which may need to be adjusted if QT prolongs. If typical atrial flutter with rapid rates recur, ;although that would be in frail, cache ctic, elderly lady.
== END 2018-01-03 12:54 | disposition swing bed (61) | DRG 871 ==
LOC: ERS 05:15 → CCU 06:16 → 2SE 12-29 11:52
PROVIDERS: ADMIT Internal Medicine; ATTEND Internal Medicine
PROC: 02HV33Z Insertion of Infusion Device into Superior Vena Cava, Percutaneous Approach (ICD-10-PCS; principal; 2017-12-28)
DX: A41.9 Sepsis, unspecified organism (principal); J18.9 Pneumonia, unspecified organism; I50.33 Acute on chronic diastolic (congestive) heart failure; G93.41 Metabolic encephalopathy; J96.01 Acute respiratory failure with hypoxia; R65.21 Severe sepsis with septic shock; I48.92 Unspecified atrial flutter; E46 Unspecified protein-calorie malnutrition; N17.9 Acute kidney failure, unspecified; I48.0 Paroxysmal atrial fibrillation; Z79.01 Long term (current) use of anticoagulants; I11.0 Hypertensive heart disease with heart failure; I25.10 Atherosclerotic heart disease of native coronary artery without angina pectoris; G89.29 Other chronic pain; Z79.82 Long term (current) use of aspirin; M81.0 Age-related osteoporosis without current pathological fracture; E78.00 Pure hypercholesterolemia, unspecified; E03.9 Hypothyroidism, unspecified; J44.9 Chronic obstructive pulmonary disease, unspecified; F17.210 Nicotine dependence, cigarettes, uncomplicated; Z68.25 Body mass index [BMI] 25.0-25.9, adult; K59.00 Constipation, unspecified
CPT/HCPCS: 36415; 36416; 36556; 51701; 70450; 71045; 71275; 80048; 80053; 81003; 82533; 82805; 83605; 83880; 85025; 85610; 87040; 87070; 87086; 87205; 90471; 90670; 93005; 93010; 93798; 94640; 96361; 96365; 96367; 96375; A4353; G0009; G8978-GP-CM; G8979-GP-CK; G8987-GO-CM; G8988-GO-CK; J0692; J1720; J1940; J1956; J2405; J2543; J2920; J2930; J3370; J7050; J7506; J7620; Q0162; S0028

== ENCOUNTER 2018-06-04 02:24 | Observation (INO) | payer MEDICARE ==
--- NOTE | 2018-06-04 03:25 | PDOC.FPRHP ---
- History of Present Illness Chief Complaint: feeling wierd History of Present Illness: 77yo F with pmh of COPD presents as transfer from outside ER for CP. However, when pt was evaluated [facility] she adamently denied ever having had chest pain or any discomfort. She just reports "feeling wierd" and having some SOB for 2 days with increased sputum (with green coloration). No fevers or chills, no LE edema. ED Course: hydralazine, gabapentin, morphine, lasix 20mg IV, ASA, nitro - Allergies/Adverse Reactions Allergies Allergy/AdvReac Type Severity Reaction Status Date / Time hydralazine Allergy Verified 05/31/18 13:50 No Known Drug Allergies Allergy Verified 05/31/18 13:50 - Home Medications Medication Instructions Recorded Confirmed Type Sennosides/Docusate Sodium 2 tab PO BID PRN tab 12/18/17 01/03/18 Rx [Senokot S] Acetaminophen [Tylenol Regular 650 mg PO Q4H PRN tab 01/23/18 Rx Strength] Apixaban [Eliquis] 5 mg PO BID tab 01/23/18 Rx Aspirin [Ecotrin Low Strength] 81 mg PO DAILY tab 01/23/18 Rx Atorvastatin Calcium 20 mg PO HS #30 tablet 01/23/18 Rx Bisacodyl [Dulcolax] 10 mg PO DAILYPRN PRN tab 01/23/18 Rx Clotrimazole [Lotrimin 1% Cream] 0 gm TOP BID tube 01/23/18 Rx Diltiazem CD [Cardizem CD] 120 mg PO DAILY cap 01/23/18 06/04/18 Rx Dronedarone HCl [Multaq] 400 mg PO BID-WM tab 01/23/18 Rx Famotidine [Pepcid] 20 mg PO BID #60 tab 01/23/18 Rx Furosemide [Lasix] 20 mg PO 0900,1400 tab 01/23/18 Rx Ipratropium/Albuterol Sulfate 3 ml NEB QID PRN neb 01/23/18 Rx [DuoNeb] Lantiseptic 0 gm TOP PRN PRN jar 01/23/18 Rx Levothyroxine Sodium [Synthroid] 50 mcg PO 0600 tab 01/23/18 06/04/18 Rx Mag Hydrox/Al Hydrox/Simeth 30 ml PO Q6H PRN #120 udcup 01/23/18 Rx [Maalox Plus] Morphine ER [MS Contin] 60 mg PO 0600,1500,2100 tab 01/23/18 06/04/18 Rx Nicotine [Nicoderm CQ] 7 mg TD DAILY #30 patch 01/23/18 Rx Polyethylene Glycol 3350 [Miralax] 17 gm PER TUBE DAILY #1 bot 01/23/18 Rx Sertraline HCl [Zoloft] 50 mg PO DAILY tab 01/23/18 Rx traZODone HCl [Desyrel] 50 mg PO HS PRN #15 tab 01/23/18 Rx Acetaminophen/Diphenhydramine 1 tablet PO TID 03/13/18 03/13/18 History [Percogesic 325-12.5 mg Tablet] Albuterol Sulfate [Albuterol 2.5 mg NEB Q4H PRN 03/13/18 06/04/18 History Sulfate Neb] Albuterol Sulfate [Proair HFA] 2 puff INH Q6HR PRN 03/13/18 03/13/18 History Apixaban [Eliquis] 5 mg PO BID 03/13/18 06/04/18 History Budesonide-Formoterol [Symbicort 2 puff INH BID 03/13/18 06/04/18 History 160-4.5] Diltiazem HCl [Cardizem] 1 tab PO DAILY 03/13/18 03/13/18 History Dronedarone HCl [Multaq] 400 mg PO BID-WM 03/13/18 06/04/18 History Fluticasone Propionate [Flonase 1 spray EA NARE DAILY 03/13/18 06/04/18 History Allergy Relief] Gabapentin 600 mg PO QID 03/13/18 06/04/18 History HYDROcodone/Acetaminophen [[place] 1 tab PO QID PRN 03/13/18 06/04/18 History 10-325 Tablet] Hydrochlorothiazide 25 mg PO DAILY 03/13/18 06/04/18 History Morphine Sulfate [Morphabond ER] 60 mg PO Q8H 03/13/18 03/13/18 History Nitroglycerin [Nitrostat] 0.4 mg SL Q5MIN #1 bot 03/13/18 Rx Pravastatin Sodium [Pravachol] 20 mg PO HS #30 tab 03/13/18 Rx - History PMHx: mild CAD-cath in 12/2017 reveals 20% stenosis in RCA, Paroxysmal a-fib/ flutter, COPD, hypothyroidism, chronic back pain on high dose opioids PSHx: back surgeries, right middle lobe resection 2/2 lung cancer?, lumbar fusion, cholecystectomy, left hip replacement, appendectomy, hysterectomy FHx: Father: LAILA Social: Smokes 5-10 cig per day for the last few month, previously 1 pack a day for 50 years, no alcohol or drugs - Review of Systems General: denies: fever/chills, weight/appetite/sleep changes ENT: denies: nasal congestion, rhinorrhea Respiratory: reports: cough (productive green sputum), shortness of breath Cardiovascular: denies: chest pain, paroxysmal nocturnal dyspnea, orthopnea Gastrointestinal: denies: nausea, vomiting, constipation, abdominal pain Genitourinary: denies: dysuria, discharge Skin: denies: rashes, lesions Musculoskeletal: reports: pain (back pain) Neurological: denies: numbness, syncope, seizure - Vital signs BP: 152/68, Pulse: 68, Resp: 16, Temp: 98.2 (Oral), Pain: 6, O2 sat: 96 on 3L Oxygen, Time: 06/04/2018 02:35 weight: 58kg - Physical Exam Constitutional: awake, alert and oriented HEENT: EOMI, grossly normal vision, grossly normal hearing Neck: supple, trachea midline Chest: no-tender to palpation Heart: RRR, normal S1/S2, other (+1 pitting edema in bilateral ankles) Lungs: no respiratory distress, other (expiratory wheezing in bilateral lungs) Abdomen: soft, non-tender Musculoskeletal: normal structure, normal tone Neurological: no focal deficit, normal sensation Skin: no rash/lesions, good turgor Heme/Lymphatic: no unusual bruising or bleeding, no purpura Psychiatric: normal mood and affect, good judgment and insight FMR H&P: A/P - Problem List (1) COPD exacerbation Current Visit: Yes Status: Acute Code(s): J44.1 - CHRONIC OBSTRUCTIVE PULMONARY DISEASE W (ACUTE) EXACERBATION (2) Afib Current Visit: Yes Status: Acute Code(s): I48.91 - UNSPECIFIED ATRIAL FIBRILLATION (3) Hypertension Current Visit: No Status: Chronic Code(s): I10 - ESSENTIAL (PRIMARY) HYPERTENSION Qualifiers: Hypertension type: essential hypertension Qualified Code(s): I10 - Essential (primary) hypertension Comment: controlled - Plan COPD exacerbation A- exam consisitent with COPD exacerbation, pt is now requiring up to 3L of O2 where as previously she was only requiring O2 at night. Increased sputum but afebrile with unimpressive WBC at 11.8 P- prednisone -duonebs -procal -hold ABX for now until resulted procal mild volume overload A- no hx of CHF, echo from 11/2017 does show EF of 60-65%. Exam consistent with some mild volume overload. Pt is s/p one dose of lasix 20mg IV P- will hold future lasix and fluid restrict with strict I/Os COPD -home meds afib -home meds HTN -home meds hypothyroidism -home meds CODE: FULL FMR H&P: Upper Level - Pertinent history 77 yr old female with PMH of mild CAD, COPD, Pt felt weird. Feels as though she may be coming down with something. She reports increased sputum production over the last couple days. Reports increased coughing. No fever. Has required increased oxygen use over the last 2 days. Usually only requires it at night. Patient adamantly denies chest pain. - Pertinent findings Gen: patient is very sleepy(it is 0400) but easily arrousable Lungs: Diffuse wheezes in all lungs frausto, bilateral lower lobe crackles, moving air, no resp distress Neuro: no focal neurologic deficits Msk: severe kyphosis CXR (2 view): mild diffuse interstitial prominence, no focal consolidation. EKG: NSR, no ST changes QTc 476 - Plan Date/Time: 06/04/18 0324 I, [Crystal Samson], have evaluated this patient and agree with findings/plan as outlined by [employer]rib[employer] internship resident. Pertinent changes/additions are listed here. 77 yr old female with increased SOB, increasing O2 requirement, increase cough and productive sputum COPD exacerbation -patient afebrile, no tachycardia, mild WBC, no tachypnea(no sepsis/sirs critera met) -will obtain procal and add antibiotics if indicated -oral prednisone -scheduled duonebs -wean O2 as tolerated Chest pain -reported in ER notes although patient adamantly denies -trop neg x 2 -neg stress in 02/2018 -cath with only 20% stenosis in RCA in 11/2017 Chronic back pain -restart home pain meds hypothyroidism -restart home med hx of a fib/flutter -cont multaq -cont eliquis PCP: Dr. Ray Code: FULL Dispo: likely in 2 midnights DVT ppx: eliquis Diet: HH
[2018-06-04] MEDS ORDERED: predniSONE 20 MG TAB ONE (05:24)
[2018-06-04] MEDS ORDERED: Calcium Carbonate 500 MG ChewTAB PO PRN (06:44)
[2018-06-04] MEDS ORDERED: Levothyroxine Sodium 50 MCG TAB PO SCH (06:44)
[2018-06-04] MEDS ORDERED: Acetaminophen 325 MG TAB PO PRN (06:44)
[2018-06-04] MEDS ORDERED: predniSONE 20 MG TAB PO SCH (06:44)
[2018-06-04 07:10] VITALS: BMI 25.3
[2018-06-04 08:47] LABS: Troponin I Less than 0.010 ng/mL (< 0.028)
[2018-06-04] MEDS ORDERED: Non-Formulary Item 1 EACH (Fluticasone Propionate [Flonase Allergy Relief] 1 SPRAY) EA NARE SCH (09:00)
[2018-06-04] MEDS ORDERED: Non-Formulary Item 1 EACH (Gabapentin [Gabapentin] 600 MG) PO SCH (09:00)
[2018-06-04] MEDS: Levothyroxine Sodium 50 MCG TAB PO SCH (09:49)
[2018-06-04] MEDS: Apixaban 5 MG TAB PO SCH ×2 (09:49→20:00)
[2018-06-04] MEDS: Dronedarone HCl 400 MG TAB PO SCH ×2 (09:49→17:54)
[2018-06-04] MEDS: Gabapentin 300 MG CAP PO SCH ×4 (09:49→20:00)
[2018-06-04] MEDS: Hydrochlorothiazide 25 MG TAB PO SCH (09:50)
[2018-06-04] MEDS: Nicotine 21 MG PATCH TD SCH (09:50)
[2018-06-04] MEDS: Fluticasone Propionate Nasal Spray 16 gm Bottle NASAL SCH ×2 (09:56→10:36)
[2018-06-04 10:31] LABS: Actual Bicarbonate (HCO3a) 34.1 mEq/L (22-28); Base Excess (BEa) 9.1 mEq/L (-2.0 to +3.0); CO2 Tension 47.3 mmHg (35.0-45.0); Calcium, Ionized 1.18 mmol/L (1.12-1.30); Carboxyhemoglobin (COHb) 3.4 gm% (0.0-3.0); Hemoglobin (Hb) 14.9 g/dL (12.0-16.0); Potassium - ABG Lab 3.65 mmol/L (3.70-5.30); pH, Arterial 7.48 (7.35-7.45)
[2018-06-04 10:33] LABS: ALV-art Gradient 42.505 (0-20); O2 Tension (PaO2) 48.1 mmHg (> 70.0); Puncture Site LRA
--- NOTE | 2018-06-04 14:16 | HP ---
I have examined the patient. I have discussed the case with Dr. Sukh Rubalcava and agree with his assessment and plan. Briefly, Ms. Velazco is a 77-year-old white female with a long history of COPD. She presented to an [facility] ER with increased shortness of breath and some chest discomfort. She has a long history of COPD and requires oxygen at home at times. PHYSICAL EXAMINATION: GENERAL: On exam, when I examined her, she was drowsy but easily arousable. VITAL SIGNS: Her blood pressure is 150/60, her pulse rate was 70 and regular, respirations were 16. She is afebrile. Her O2 saturation on 3 L was 96%. EAR, NOSE, AND THROAT: No evidence of erythema of the throat. NECK: Supple. CARDIAC: Heart rhythm was regular. S4 apical gallop. LUNGS: There are a few expiratory wheezes bilaterally. She was not using accessory muscles of respiration. ABDOMEN: Flat and soft. No guarding, rebound, or rigidity. EXTREMITIES: Trace edema. NEUROLOGICAL: No focal deficits. LABORATORY DATA: Her room air arterial blood gas showed pH is 7.48, pCO2 of 47.3, pO2 of 48.1 with an O2 saturation of 86%. Still pending are chemistries and CBC. ASSESSMENT: 1. Acute exacerbation of chronic obstructive pulmonary disease. 2. Oxygen-dependent patient with chronic obstructive pulmonary disease. PLAN: Admit. Continue DuoNeb. Continue steroids. We have explained to the patient that she will need lifelong 24 hour per day oxygen. Job ID: [id number]
[2018-06-04 18:39] LABS: Bilirubin Negative (Negative); Blood, Urine Negative (Negative); Clarity CLEAR (Clear); Glucose, Urine (Dipstick) Negative (Negative); Leukocyte Negative (Negative); Nitrite Negative (Negative); Protein, Urine (Dipstick) Negative (Neg-Trace); Specific Gravity, Urine 1.008 (1.002-1.036); Urobilinogen 0.2 mg/dL (0.2-1.0); pH, Urine 8.5 (5.0-9.0)
[2018-06-04 18:41] LABS: Bacteria/HPF None Seen HPF (None Seen); Hyaline Casts/LPF 0-3 HYALINE CAST LPF (0-3 Hyaline); RBC/HPF 0-3 HPF (0-3); Squamous Epithelial None Seen HPF (0-3); WBC/HPF None Seen HPF (0-3)
[2018-06-05] MEDS: HYDROcodone/Acetaminophen 7.5/325 mg Tablet PO PRN ×2 (02:01→08:03)
[2018-06-05 05:15] LABS: #Eosinphils 0.2 thou/uL (0.0-0.7); #Lymphocytes 1.8 thou/uL (1.20-3.40); #Monocytes 0.8 thou/uL (0.11-0.59); %Basophils 0.4 % (0.0-1.0); %Eosinophils 1.6 % (0.0-10.0); %Lymphocytes 18.6 % (21.0-51.0); %Monocytes 7.7 % (0.0-10.0); %Neutrophils 71.8 % (42.0-75.0); Hemoglobin 13.5 g/dL (12.0-16.0); Mean Corpuscular HGB CONC 31.7 g/dL (32.0-36.0); Mean Corpuscular Hemoglobin 29.7 pg (27.0-31.0); Mean Corpuscular Volume 93.5 fL (78.0-98.0); Mean Platelet Volume 7.5 fL (7.4-10.4); Platelet Count 296 thou/uL (130-400); RBC Distribution Width 12.7 % (11.5-14.5); Red Blood Cell (RBC) Count 4.56 mill/uL (4.20-5.40); White Blood Cell (WBC) Count 9.8 thou/uL (4.8-10.8)
[2018-06-05 05:59] LABS: Anion Gap 15 mmol/L (10-20); BUN (Urea Nitrogen) 12 mg/dL (9.8-20.1); Calc. Creatinine Clearance 45 mL/min (70-130); Calcium 9.7 mg/dL (7.8-10.44); Carbon Dioxide 27 mmol/L (23-31); Chloride 102 mmol/L (98-107); Estimated GFR-MDRD 56; Glucose 88 mg/dL (83-110); Potassium 3.7 mmol/L (3.5-5.1); Sodium 140 mmol/L (136-145)
[2018-06-05] MEDS: Hydrochlorothiazide 25 MG TAB PO SCH (06:27)
[2018-06-05] MEDS ORDERED: predniSONE 20 MG TAB PO SCH (08:00)
[2018-06-05] MEDS: Dronedarone HCl 400 MG TAB PO SCH (08:08)
[2018-06-05] MEDS: Gabapentin 300 MG CAP PO SCH ×2 (08:09→13:43)
[2018-06-05] MEDS: Apixaban 5 MG TAB PO SCH (08:09)
[2018-06-05] MEDS: Fluticasone Propionate Nasal Spray 16 gm Bottle NASAL SCH (08:14)
[2018-06-05] MEDS: Nicotine 21 MG PATCH TD SCH (08:26)
--- NOTE | 2018-06-05 08:50 | PDOC.FM ---
- Subjective Subjective: High BPs overnight, fransico denies VERDUGO, chest pain , vision changes. Says breathing is better. C/o lower back pain, requesting home pain meds she takes. - Objective MAR Reviewed: Yes Vital Signs & Weight: Vital Signs (12 hours) Temp Pulse Resp BP BP Pulse Ox 06/05/18 08:08 85 195/86 H 06/05/18 07:03 94 L 06/05/18 07:02 98.6 F 89 18 194/86 H 97 06/05/18 07:01 94 16 94 L 06/05/18 06:15 195/93 H 06/05/18 05:08 98.6 F 84 19 208/97 H 92 L 06/05/18 02:18 95 06/05/18 02:14 16 06/04/18 23:27 98.1 F 104 H 20 132/69 92 L 06/04/18 22:26 94 16 Weight Weight 50.394 kg I&O: 06/04/18 06/05/18 06/06/18 06:59 06:59 06:59 Intake Total 1270 Output Total 1800 Balance -530 Result Diagrams: 06/05/18 04:29 06/05/18 04:29 Phys Exam - Physical Examination Constitutional: NAD HEENT: PERRLA, moist MMs dec respiratory effort, mild expiratory wheezing Cardiovascular: RRR, no significant murmur Gastrointestinal: soft, non-tender Neurological: non-focal, moves all 4 limbs Psychiatric: normal affect, A&O x 3 Dx/Plan (1) Afib Code(s): I48.91 - UNSPECIFIED ATRIAL FIBRILLATION Status: Acute (2) COPD exacerbation Code(s): J44.1 - CHRONIC OBSTRUCTIVE PULMONARY DISEASE W (ACUTE) EXACERBATION Status: Acute (3) CAD (coronary artery disease) Code(s): I25.10 - ATHSCL HEART DISEASE OF [place] CORONARY ARTERY W/O ANG PCTRS Status: Chronic Qualifiers: Coronary Disease-Associated Artery/Lesion type: [place] artery [place] vs. transplanted heart: [place] heart Associated angina: without angina Qualified Code(s): I25.10 - Atherosclerotic heart disease of [place] coronary artery without angina pectoris (4) Chronic pain syndrome Code(s): G89.4 - CHRONIC PAIN SYNDROME Status: Chronic - Plan Plan: COPD exacerbation -On home O2 around baseline -Continue steroids, duonebs -Neg procal, no fever, no imaging indicative of PNA-no need to initiate abx -Pt w/ likely inc O2 requirement, advised to wear oxygen contniuously -May need rpt echo in outpt setting to assess for pulm HTN -Counseled on smoking cessation COPD -resume home med regimen upon discharge -daughter states she has all COPD meds at home including duonebs nebulizer, maintenance inhaler afib -home meds HTN -elevated, likely 2/2 pain -resume home meds, recheck, PRN antihypertensive if SBP >180 hypothyroidism -home meds Chronic back pain -Resume home meds CODE: FULL
[2018-06-05] MEDS: Levothyroxine Sodium 50 MCG TAB PO SCH (09:31)
[2018-06-05] MEDS ORDERED: Morphine ER 30 MG TAB PO SCH ×2 (09:45→15:00)
[2018-06-05 12:21] VITALS: BP 147/67; TEMP 98.9
--- NOTE | 2018-06-05 12:23 | PRG ---
DATE OF SERVICE: 06/05/2018 ADDENDUM: Please add this as an addendum to the note of Dr. Maxine Hunt. Ms. Velazco is at her baseline. She is resting in bed, in no distress. Her shortness of breath is at baseline. She will be discharged today, and I have suggested that we add Spiriva for long-term inhalation treatment. We have also explained to her carefully that she needs to use O2 24 hours a day for the rest of her life. We have also counseled that she quit smoking. We will supply her with a nicotine patch prescription. Job ID: [id number]
--- NOTE | 2018-06-06 14:09 | DIS ---
DATE OF ADMISSION: 06/04/2018 DATE OF DISCHARGE: 06/05/2018 RESIDENT: Maxine Hunt, PGY-1. ADMITTING ATTENDING: Shannan Freitas MD. DISCHARGE ATTENDING: Adeel Storm MD. CONSULTS: None. PROCEDURES: None. PRIMARY DIAGNOSES: 1. Acute hypoxic respiratory failure requiring nasal cannula, secondary to COPD exacerbation 2. Acute COPD exacerbation. SECONDARY DIAGNOSES: 1. COPD 2. Suspected underlying pulmonary hypertension. 3. History of atrial fibrillation and atrial flutter. 4. Hypothyroidism. 5. History of myocardial infarction x2. 6. Tobacco use. 7. Chronic low back pain. DISCHARGE MEDICATIONS: 1. Prednisone 40 mg p.o. q.a.m. for 3 more days. 2. Nicoderm 21 mg patch transdermal q.24 hours. 3. Spiriva HandiHaler 18 mcg inhaled daily. 4. DuoNeb 3 mL nebulizer q.2 hours p.r.n. 5. DuoNeb 3 mL q.4 hours. 6. TUMS. 7. Tylenol. Rest of the patient's home medications, which were not reconciled due to no updated list as daughter was supposed to bring. DISCONTINUE MEDICATIONS: None. HOSPITAL COURSE: Ms. Adriana Velazco is a 77-year-old female with an extensive smoking history, who presented to the ER for "feeling weird." The patient had been short of breath for 2 days with increased green sputum. She is typically on 2 L of home O2 only at night but had been having an increased requirement for daytime use. She required 4L in the ER to remain non-hypoxic. Labs and x-ray were negative for signs of pneumonia. The patient was treated as an acute COPD exacerbation and started on breathing treatments. She improved over the course of her stay in the hospital , but ultimately needing 2L O2 constantly during both day and night. ABG was consistent with chronic hypoxemia. There was suspicion for underlying pulmonary hypertension from her COPD. TTE was not obtained to confirm this since patient had one 6 months prior that was normal. The patient was advised to continue wearing O2 continuously and to titrate to goal saturation of 92%. She was also advised to quit smoking. The patient indicated understanding and she was sent home with tobacco patches with instructions to follow up. .The patient does live with daughter who helps take care of her. Daughter was called for updates and for follow up instructions. DISPOSITION: Stable. DISCHARGE INSTRUCTIONS: 1. Location: Home. 2. Diet: Diabetic and heart healthy diet. 3. Activity: As tolerated. 4. Followup: Please follow up with Dr. Ray in 2 to 3 days. 5. Please continue using home O2 and titrating to peripheral O2 saturation 90% to 92% as discussed. 6. Please quit smoking. Job ID: [id number] MTDD
== END 2018-06-05 13:57 | disposition home or self-care (01) ==
LOC: ERS 02:24 → 2SW 06:51
PROVIDERS: ADMIT Family Medicine; ATTEND Family Medicine
DX: J44.1 Chronic obstructive pulmonary disease with (acute) exacerbation (principal); J96.01 Acute respiratory failure with hypoxia; I25.10 Atherosclerotic heart disease of native coronary artery without angina pectoris; I48.0 Paroxysmal atrial fibrillation; E03.9 Hypothyroidism, unspecified; F17.210 Nicotine dependence, cigarettes, uncomplicated; E87.70 Fluid overload, unspecified; G89.4 Chronic pain syndrome; I48.92 Unspecified atrial flutter; I25.2 Old myocardial infarction; Z99.81 Dependence on supplemental oxygen; Z88.8 Allergy status to other drugs, medicaments and biological substances; Z79.01 Long term (current) use of anticoagulants; Z79.899 Other long term (current) drug therapy; Z79.891 Long term (current) use of opiate analgesic
CPT/HCPCS: 80048; 81001; 82805; 84145; 84484 ×2; 85025; 93005; 94640 ×3; 97116; 99285; G0378 ×2; 36415; J7512; J7620

== ENCOUNTER 2018-07-16 11:46 | Outpatient (CLI) | payer MEDICARE ==
--- NOTE | 2018-07-16 12:04 | RAD ---
EXAM: Chest Two Views 07/16/2018 12:01 PM HISTORY: Dyspnea COMPARISON: June 03, 2018 FINDINGS: Heart: Normal in size and contour. Pulmonary vessels: Normal. Costophrenic angles: Clear. Lungs: No acute airspace opacity or pleural effusion is evident. Scattered fibrotic change is stable Pneumothorax: None. Osseous structures:There is multilevel vertebroplasty changes. The moderate wedge compression fractur e involving mid thoracic vertebra is stable. There are pedicle screws involving multiple lumbar vertebral levels. Additional findings: None. IMPRESSION: No significant acute intrathoracic disease.
== END 2018-07-16 11:47 | disposition home or self-care (01) ==
LOC: RAD 11:46
PROVIDERS: ATTEND Internal Medicine Critical Care Medicine
DX: R06.00 Dyspnea, unspecified (principal)
CPT/HCPCS: 71046

== ENCOUNTER 2018-08-25 09:43 | Observation (INO) | payer MEDICARE ==
[2018-08-25] MEDS ORDERED: Nitroglycerin 2% Ointment 1 INCH/1 GM Packet ONE (10:28)
--- NOTE | 2018-08-25 11:50 | PDOC.FPRHP ---
- History of Present Illness Chief Complaint: Chest Pain History of Present Illness: Mrs. Velazco is a pleasant 77yo CF with h/o Afib on Eliquis, HTN, chronic pain , COPD on 2L O2, and hypothyroidism who presents for aytpical chest pain. Patient states she was sitting in her recliner this morning at about 0600 when she began to experience a squeezing, left-sided chest pain rated 7/10 and lasting approximately 1 minute. The pain then resolved on its own, but she then experienced 2 more similar episodes over the next few minutes. EMS was called and she was transported to the [place] ED. Once there, she was given nitro and ASA with initial trops negative and transferred to [facility] ED for further eval and management. She has not experienced any more chest pain since prior to presentation to [facility] ED. She states that during the episode she did not experience any n/v, diaphoresis, radiation of the pain, SOB, LOC, or associated pain. She denies any recent illness, change in medications, or previous episodes similar in the past. She has had an extensive cardiac workup in the past. Echo in Nov 2017 showed EF of 60-65% and moderate to severe tricuspid regurg, Heart cath in 2017 demonstrated 20% stenosis in the RCA, and Stress test in Feb 2018 was without any demand-perfusion deficits. 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 ED Course: In the ED she was given ASA and nitro. Initial trops x2 negative. Admitted for cardiac r/o. - Allergies/Adverse Reactions Allergies Allergy/AdvReac Type Severity Reaction Status Date / Time hydralazine Allergy Verified 05/31/18 13:50 Latex, Natural Rubber Allergy Verified 08/25/18 13:43 - Home Medications Medication Instructions Recorded Confirmed Type Sennosides/Docusate Sodium 2 tab PO BID PRN tab 12/18/17 01/03/18 Rx [Senokot S] Acetaminophen [Tylenol Regular 650 mg PO Q4H PRN tab 01/23/18 Rx Strength] Apixaban [Eliquis] 5 mg PO BID tab 01/23/18 Rx Aspirin [Ecotrin Low Strength] 81 mg PO DAILY tab 01/23/18 Rx Atorvastatin Calcium 20 mg PO HS #30 tablet 01/23/18 Rx Bisacodyl [Dulcolax] 10 mg PO DAILYPRN PRN tab 01/23/18 Rx Clotrimazole [Lotrimin 1% Cream] 0 gm TOP BID tube 01/23/18 Rx Diltiazem CD [Cardizem CD] 120 mg PO DAILY cap 01/23/18 06/04/18 Rx Dronedarone HCl [Multaq] 400 mg PO BID-WM tab 01/23/18 Rx Famotidine [Pepcid] 20 mg PO BID #60 tab 01/23/18 Rx Furosemide [Lasix] 20 mg PO 0900,1400 tab 01/23/18 Rx Ipratropium/Albuterol Sulfate 3 ml NEB QID PRN neb 01/23/18 Rx [DuoNeb] Lantiseptic 0 gm TOP PRN PRN jar 01/23/18 Rx Levothyroxine Sodium [Synthroid] 50 mcg PO 0600 tab 01/23/18 06/04/18 Rx Mag Hydrox/Al Hydrox/Simeth 30 ml PO Q6H PRN #120 udcup 01/23/18 Rx [Maalox Plus] Morphine ER [MS Contin] 60 mg PO 0600,1500,2100 tab 01/23/18 06/04/18 Rx Nicotine [Nicoderm CQ] 7 mg TD DAILY #30 patch 01/23/18 Rx Polyethylene Glycol 3350 [Miralax] 17 gm PER TUBE DAILY #1 bot 01/23/18 Rx Sertraline HCl [Zoloft] 50 mg PO DAILY tab 01/23/18 Rx traZODone HCl [Desyrel] 50 mg PO HS PRN #15 tab 01/23/18 Rx Acetaminophen/Diphenhydramine 1 tablet PO TID 03/13/18 03/13/18 History [Percogesic 325-12.5 mg Tablet] Albuterol Sulfate [Albuterol 2.5 mg NEB Q4H PRN 03/13/18 06/04/18 History Sulfate Neb] Albuterol Sulfate [Proair HFA] 2 puff INH Q6HR PRN 03/13/18 03/13/18 History Apixaban [Eliquis] 5 mg PO BID 03/13/18 06/04/18 History Budesonide-Formoterol [Symbicort 2 puff INH BID 03/13/18 06/04/18 History 160-4.5] Diltiazem HCl [Cardizem] 1 tab PO DAILY 03/13/18 03/13/18 History Dronedarone HCl [Multaq] 400 mg PO BID-WM 03/13/18 06/04/18 History Fluticasone Propionate [Flonase 1 spray EA NARE DAILY 03/13/18 06/04/18 History Allergy Relief] Gabapentin 600 mg PO QID 03/13/18 06/04/18 History HYDROcodone/Acetaminophen [[place] 1 tab PO QID PRN 03/13/18 06/04/18 History 10-325 Tablet] Hydrochlorothiazide 25 mg PO DAILY 03/13/18 06/04/18 History Morphine Sulfate [Morphabond ER] 60 mg PO Q8H 03/13/18 03/13/18 History Nitroglycerin [Nitrostat] 0.4 mg SL Q5MIN #1 bot 03/13/18 Rx Pravastatin Sodium [Pravachol] 20 mg PO HS #30 tab 03/13/18 Rx Acetaminophen [Tylenol Regular 650 mg PO Q4H PRN tab 06/05/18 Rx Strength] Calcium Carbonate [Tums] 1,000 mg PO Q4H PRN tab 06/05/18 Rx Ipratropium/Albuterol Sulfate 3 ml NEB [id number] PRN neb 06/05/18 Rx [DuoNeb] Ipratropium/Albuterol Sulfate 3 ml NEB [id number] neb 06/05/18 Rx [DuoNeb] Nicotine [Nicoderm CQ] 21 mg TD Q24HR #30 patch 06/05/18 Rx Tiotropium [Spiriva Handihaler] 18 mcg INH DAILY #1 inh 06/05/18 Rx predniSONE 40 mg PO QAM-WM #3 tab 06/05/18 Rx - History PMHx:Afib on Eliquis, Hypothyroidism, HTN, COPD on 2L, HLD, chronic pain on Percocet and morphine PSHx: Hysterectomy, appy, jakob, hernia repair, R hip replacement, spinal surgery with hardware placement, tonsilectomy FHx: No family history of cardiac conditions. Social: 1ppd x60+ years, no alcohol or tobacco use. Lives at home with Daughter. - Review of Systems General: denies: fever/chills, weight/appetite/sleep changes, night sweats, fatigue Eyes: denies: vision changes ENT: denies: nasal congestion, rhinorrhea Respiratory: denies: cough, congestion, shortness of breath, exercise intolerance Cardiovascular: reports: chest pain, edema. denies: palpitation, paroxysmal nocturnal dyspnea, orthopnea Gastrointestinal: denies: nausea, vomiting, diarrhea, constipation, abdominal pain, GI bleeding Genitourinary: denies: incontinence, dysuria, polyuria Skin: denies: rashes Musculoskeletal: reports: pain (chronic back pain), stiffness (chronic in back) Neurological: denies: numbness, syncope, seizure - Vital signs BP: 141/70 HR: 63 RR: 18 Tmax: 87.5 Pox: 97% on RA Wt: 58kg - Physical Exam Constitutional: NAD, awake, alert and oriented, well developed HEENT: normocephalic and atraumatic, PERRLA, EOMI, grossly normal vision, grossly normal hearing, MMM Neck: supple, trachea midline, no JVD Chest: no-tender to palpation Heart: RRR, normal S1/S2, no murmurs/rubs/gallops, pulses present, other (1+ pitting edema to ankles bilaterally.) Lungs: no respiratory distress, good air movement, no wheezing, other (Good aeration throughout. Slight rales BL bases.) Abdomen: soft, non-tender, bowel sounds present, no masses/distention Musculoskeletal: normal structure, normal tone Neurological: no focal deficit, normal sensation Skin: other (3cm healing contusion on right lower left from fall out of chair a few days ago. Surround edema, but no erythema or exudates noted.) Heme/Lymphatic: no unusual bruising or bleeding Psychiatric: normal mood and affect, good judgment and insight FMR H&P: Results - Labs Lab results: Laboratory Tests 08/25/18 08/25/18 08/25/18 06:35 06:35 06:35 WBC 11.6 H Hgb 12.3 Plt Count 231 Sodium 141 Potassium 3.6 Chloride 98 Carbon Dioxide 33 H BUN 18 Creatinine 1.09 Glucose 96 Calcium 9.2 Total Bilirubin Less than 0.2 L AST 19 ALT 16 Alkaline Phosphatase 99 Troponin I Less than 0.010 B-Natriuretic Peptide 08/25/18 08/25/18 06:35 10:31 WBC Hgb Plt Count Sodium Potassium Chloride Carbon Dioxide BUN Creatinine Glucose Calcium Total Bilirubin AST ALT Alkaline Phosphatase Troponin I Less than 0.010 B-Natriuretic Peptide 186.4 H - EKG Interpretation EKG: NSR. Normal intervals. Inverted T wave in V1. No acute ST changes. FMR H&P: A/P - Problem List (1) Atypical chest pain Current Visit: Yes Status: Acute Code(s): R07.89 - OTHER CHEST PAIN (2) Afib Current Visit: No Status: Chronic Code(s): I48.91 - UNSPECIFIED ATRIAL FIBRILLATION Qualifiers: Atrial fibrillation type: paroxysmal Qualified Code(s): I48.0 - Paroxysmal atrial fibrillation (3) COPD (chronic obstructive pulmonary disease) Current Visit: No Status: Chronic (4) Chronic pain Current Visit: No Status: Chronic Code(s): G89.29 - OTHER CHRONIC PAIN Qualifiers: Chronic pain type: chronic pain syndrome Qualified Code(s): G89.4 - Chronic pain syndrome (5) Hypertension Current Visit: No Status: Chronic Code(s): I10 - ESSENTIAL (PRIMARY) HYPERTENSION Qualifiers: Hypertension type: essential hypertension Qualified Code(s): I10 - Essential (primary) hypertension Comment: controlled - Plan Mrs. Velazco is a 77yo CF with h/o Afib on Eliquis, COPD on 2L, chronic pain on Morphine and Percocet, and HTN who presents with atypical chest pain. 1. Atypical chest pain - cardiac vs GI vs MSK - EKG and trops x2 negative. No return of sxs. - Extensive cardiac workup in past. Echo (11/2017) 60-65%, Cath (12/2017) 20% stenosis in RCA, and Stress (02/2018) WNL. 2/2 entensive workup in past year, will not undergo stress today and will pursue enzyme cardiac r/o - Will continue to trend trops x4 total - CBC and CMP WNL, will check mg and phos 2. Afib - On Eliquis at home, will continue. Admitted to Tele Obs for monitoring. Continue home medications for rate control. 3. Chronic mad[place] - continue home morphine and percocet - continue home medications 4. COPD on 2L - No acute exacerbation, will provide 2L O2 and monitor. 5. HTN - continue home medications 6. HLD - continue home medications 7. Hypothryoidism - Continue home levo. Will check TSH. Diet: Heart Heathy VTE: Eliquis Code: Full Disposition/LOS: Admit to Tele for observation. Trending troponins. Anticipate d/c within 48hours pending clinical course. FMR H&P: Upper Level - Pertinent history 77 yo F w/hx of CAD, afib, HLD, HTN, opiate dependance, COPD, NE x2, hypothyroidism here with complaint of squeezing chest pain that lasted less than 1 hour at approx 0600 on 08/25 while watching TV. Denies exacerbating or remitting factors and notes that the pain stopped on its own. She has had 2 MIs in the past, but has never had similar pain. She was initially seen in the [facility] ED where initial trop was negative and EKG was reassuring. She was given ASA and nitro and transferred to this facility for further monitoring. Here, repeat trop was also negative and EKG remained largely normal with the exception of inverted T wave in V1 and 1st degree AV block with sinus bradycardia. CP has not returned since initial episode See international first officer note for full ROS, PE, vitals, and lab results. ROS General denies fever, chills HEENT denies changes in vision or headache CV complains of CP. Denies radiation of pain or diaphoresis Resp denies SOB, cough GI denies n/v Extremities denies edema - Pertinent findings PE General A&O x4, no acute distress HEENT NCAT CV RRR, no murmur, no pedal edema, no chest wall TTP Resp CTA b/l GI non distended, no tenderness Extremities no edema, normal pulses Neuro no focal deficits - Plan Date/Time: 08/25/18 1150 I, Sam Alston DO, have evaluated this patient and agree with findings/plan as outlined by international first officer resident. Pertinent changes/additions are listed here. 1. Atypical chest pain - given normal stress in February of this year and only 20% RCA occlusion on cath in Dec, this is unlikely to be ACS - trend trops x3 and monitor on tele, if CP returns will get stress in am - elevated BNP is at baseline 2. COPD - at baseline 2L NC 3. HTN - home meds 4. CAD - continue statin/asa 5. A fib - currently in NSR, continue DOAC 6. Hypothyroid - home synthroid Addendum - Attending - Attending Attestation Date/Time: 08/25/18 2319 I personally evaluated the patient and discussed the management with Dr. Merritt/ Alecia. I agree with the History, Examination, Assessment and Plan documented above with any addition or exceptions noted below. Patient with multiple PMHx here with acute onset of chest pain. She had normal EKG and vitals signs and has not had return of the chest pain. She had stress testing about 6 months ago, as well as heart cath about 8 months ago that showed no CAD, only 20% stenosis in some distal coronary branches. She is not indicated for repeat imaging at this time. Will r/o ACS with enzymes. Suspect this may be more related to pulmonary disease due to history of COPD and echo review that shows some RV enlargement. Monitor through the day and likely discharge tomorrow.
[2018-08-25 13:44] VITALS: BMI 23.3
[2018-08-25] MEDS ORDERED: Nicotine 14 MG PATCH TD SCH (14:00)
[2018-08-25 14:22] LABS: Phosphorus 3.7 mg/dL (2.3-4.7)
[2018-08-25 14:28] LABS: Troponin I Less than 0.010 ng/mL (< 0.028)
[2018-08-25 14:42] LABS: Thyroid Stimulating Hormone 2.5598 uIU/mL (0.35-4.94)
[2018-08-25 16:56] VITALS: BP 162/73; TEMP 97.2
--- NOTE | 2018-08-31 13:16 | EKG ---
Test Reason : CHEST PAIN Blood Pressure : / mmHG Vent. Rate : 064 BPM Atrial Rate : 064 BPM P-R Int : 184 ms QRS Dur : 098 ms QT Int : 450 ms P-R-T Axes : 061 053 055 degrees QTc Int : 464 ms Normal sinus rhythm Normal ECG No changes Confirmed by EVELYN SCHULTE, FRANKLIN ([id number]), editor book XAVIER MARTINEZ ([id number]) on 08/31/2018 1:15:53 PM Referred By: Confirmed By:FRANKLIN RIVAS MD
== END 2018-08-25 19:20 | disposition home or self-care (01) ==
LOC: ERS 09:43 → ERHOLD 10:23 → 2SW 13:20
PROVIDERS: ADMIT Student in an Organized Health Care Education/Training Program; ATTEND Student in an Organized Health Care Education/Training Program
DX: R07.89 Other chest pain (principal); I10 Essential (primary) hypertension; E03.9 Hypothyroidism, unspecified; J44.9 Chronic obstructive pulmonary disease, unspecified; I48.91 Unspecified atrial fibrillation; G89.29 Other chronic pain; F17.210 Nicotine dependence, cigarettes, uncomplicated; Z79.51 Long term (current) use of inhaled steroids; Z79.82 Long term (current) use of aspirin; Z79.899 Other long term (current) drug therapy; Z88.8 Allergy status to other drugs, medicaments and biological substances; Z91.040 Latex allergy status; Z79.01 Long term (current) use of anticoagulants
CPT/HCPCS: 82306; 83735; 84100; 84443; 84484; 93005; 99285; G0378 ×2; 36415

== ENCOUNTER 2018-10-04 20:06 | Inpatient (IN) | payer MEDICARE ==
[~2018-10-04 20:06] MED LIST: ISOVUE-370 76%-LOCM 1 ML ONE
[2018-10-04] MEDS ORDERED: Fentanyl 100 MCG/2 ML VIAL ONE ×2 (20:15→20:23)
[2018-10-04] MEDS ORDERED: Midazolam HCl 5 mg/ml Vial ONE ×2 (20:15→20:29)
[2018-10-04] MEDS ORDERED: fentaNYL Citrate/PF 2,000 MCG in Sodium Chloride 0.9% 60 ML IV SCH (20:27)
[2018-10-04 20:36] LABS: Bilirubin Negative (Negative); Blood, Urine Negative (Negative); Clarity Clear (Clear); Glucose, Urine (Dipstick) Normal (Negative); Leukocyte Negative Leu/uL (Negative); Nitrite Negative (Negative); Protein, Urine (Dipstick) Negative (Neg-Trace); Urobilinogen Normal mg/dL (Less than 2)
[2018-10-04 20:49] LABS: #Eosinphils 0.1 thou/uL (0.0-0.7); #Lymphocytes 0.7 thou/uL (1.20-3.40); #Monocytes 0.3 thou/uL (0.11-0.59); #Neutrophils 9.7 thou/uL (1.40-6.50); %Eosinophils 0.5 % (0.0-10.0); %Lymphocytes 6.2 % (21.0-51.0); %Monocytes 2.6 % (0.0-10.0); %Neutrophils 90.8 % (42.0-75.0); Hemoglobin 11.3 g/dL (12.0-16.0); Mean Corpuscular Hemoglobin 30.2 pg (27.0-31.0); Mean Corpuscular Volume 94.5 fL (78.0-98.0); Mean Platelet Volume 6.4 fL (7.4-10.4); Platelet Count 319 thou/uL (130-400); RBC Distribution Width 12.8 % (11.5-14.5); Red Blood Cell (RBC) Count 3.73 mill/uL (4.20-5.40); White Blood Cell (WBC) Count 10.7 thou/uL (4.8-10.8)
[2018-10-04 20:54] LABS: Actual Bicarbonate (HCO3a) 34.2 mEq/L (22-28); Analyzer IN Cardio ER; Base Excess (BEa) 9.5 mEq/L (-2.0 to +3.0); CO2 Tension 46.5 mmHg (35.0-45.0); Carboxyhemoglobin (COHb) 1.7 gm% (0.0-3.0); Potassium - ABG Lab 3.96 mmol/L (3.70-5.30); pH, Arterial 7.48 (7.35-7.45)
[2018-10-04 21:03] LABS: CO2 Tension (PvCO2) 58.3 mmHg (40.0-50.0); Calcium, Ionized 1.11 mmol/L (See Comments:); Chloride 93 mmol/L (98-107); Glucose 113 mg/dL (83-110); Lactate 0.44 mmol/L (0.50-2.20); Potassium 3.8 mmol/L (3.5-5.1); Sodium 137 mmol/L (138-145); T. Carbon Dioxide 37.6 mmol/L (22.0-28.0); vO2 Saturation-calc 49.9 % (60.0-85.0)
[2018-10-04 21:07] LABS: PTT 33.8 SEC (22.9-36.1); Prothrombin Time 13.5 SEC (12.0-14.7)
--- NOTE | 2018-10-04 21:08 | RAD ---
EXAM: CHEST ONE VIEW HISTORY: Tube placement. COMPARISON: 08/25/2018 FINDINGS: Endotracheal tube is noted in place with the tip overlying the T4-T5 level. Nasogastric tube is noted in place. The tip is not definitively visualized but probably overlies the region of the distal esophagus or GE junction and should be advanced. A right subclavian central venous catheter is noted in place which courses in a cephalad direction overlie the right neck. The tip is not imaged. Cardiac silhouette is within normal limits. Pulmonary vasculature is at the upper limits of normal. T here are increased bibasilar interstitial densities which could be related to chronic lung changes, but none infectious process is a possibility. The left lateral costophrenic angle is excluded from vi ew. Vascular calcifications are seen in a tortuous thoracic aorta. There are vertebroplasty changes invol ving multiple thoracic vertebral bodies with postsurgical changes seen involving the lower thoracic as well as upper lumbar spine with multilevel pedicular screws seen. IMPRESSION: 1. Nasogastric tube is noted in place. The tip is not definitely visualized but probably overlies the region of the GE junction and should be advanced. 2. Right subclavian central venous catheter noted in place with the catheter overlying the right neck . The tip is not visualized. No pneumothorax is seen. 3. Bibasilar interstitial densities which may be related to infectious process. Findings could potent ially be related to mild chronic lung changes, but the interstitial densities do appear mildly increased when compared to prior exam. Follow-up evaluation is recommended. 4. Endotracheal tube noted in place. 5. Vertebroplasty changes and postsurgical changes of the thoracic and lumbar spine.
[2018-10-04 21:13] LABS: ALT (SGPT) 23 U/L (8-55); AST (SGOT) 28 U/L (5-34); Albumin 3.7 g/dL (3.4-4.8); Alkaline Phosphatase 109 U/L (40-150); Anion Gap 15 mmol/L (10-20); BUN (Urea Nitrogen) 14 mg/dL (9.8-20.1); Bilirubin, Total 0.2 mg/dL (0.2-1.2); Calc. Creatinine Clearance 0 mL/min (70-130); Calcium 8.9 mg/dL (7.8-10.44); Carbon Dioxide 33 mmol/L (23-31); Chloride 92 mmol/L (98-107); Estimated GFR-MDRD 51; Globulin 2.3 g/dL (2.4-3.5); Glucose 106 mg/dL (83-110); Potassium 4.1 mmol/L (3.5-5.1); Sodium 136 mmol/L (136-145)
[2018-10-04 21:25] LABS: ALV-art Gradient 163.075 (0-20); Puncture Site RRA
[2018-10-04] MEDS ORDERED: Cefepime 2 GM VIAL ONE (21:30)
--- NOTE | 2018-10-04 22:07 | CT ---
CT Head without IV contrast COMPARISON: 12/28/2017. HISTORY: Altered mental status. TECHNIQUE: Axial CT imaging at 5 mm intervals from vertex through skull base without contrast FINDINGS: There is no evidence of an acute infarction, hemorrhage, mass effect, or midline shift. There is decr eased attenuation seen in the periventricular white matter which is nonspecific but likely attributable to chronic small vessel ischemic changes. Punctate low-density focus is seen in the infe rior aspect left basal ganglia also seen on prior study and likely attributable to tiny remote lacunar infarction. There is mild cerebral volume loss. The ventricular system is normal in size, sha pe, and position for the degree of sulcal atrophy. There is opacification of multiple ethmoidal air cells bilaterally with mucosal thickening in each fr ontal sinus with minimal mucosal thickening in the left maxillary antrum. Mastoid air cells are clear. Osseous structures appear intact. There is a increased density focus seen overlying the right internal jugular foramen likely related t o patient's right subclavian central venous catheter noted on recent chest x-ray to extend superiorly. IMPRESSION: 1. No acute intracranial abnormality demonstrated. 2. Chronic small vessel ischemic changes and cerebral volume loss similar to prior exam. 3. Sinus disease. 4. Radiopaque density with tip in the region of the jugular foramen likely related to patient's centr al venous catheter noted to extend cephalad on the recent chest x-ray.
[2018-10-05] MEDS ORDERED: Lorazepam 2 MG/ML VIAL SLOW IVP PRN ×2 (00:14→00:34)
[2018-10-05] MEDS ORDERED: Morphine 2 MG/ML SYRINGE SLOW IVP PRN ×2 (00:14→00:34)
[2018-10-05] MEDS ORDERED: DISCONTINUE PREVIOUS NARCOTIC PAIN MEDICATIONS AND BENZODIAZEPINES FS SCH ×2 (00:14→00:34)
[2018-10-05] MEDS ORDERED: Propofol BOLUS 1,000 MG/100 ML VIAL IV PRN ×2 (00:14→00:34)
[2018-10-05] MEDS ORDERED: Fentanyl BOLUS 250 ML IVPB PRN ×2 (00:14→00:34)
[2018-10-05] MEDS ORDERED: Propofol 1,000 MG/100 ML VIAL IV PRN (00:14)
[2018-10-05] MEDS ORDERED: Sodium Chloride 0.45% 1,000 ML IV SCH (00:15)
[2018-10-05] MEDS ORDERED: Loperamide HCl 2 MG CAP PO PRN ×2 (00:29)
[2018-10-05] MEDS ORDERED: cefTRIAXone\\ROCEPHIN 2 GM in Sodium Chloride 0.9% 100 ML IVPB SCH (00:29)
[2018-10-05] MEDS ORDERED: Acetaminophen 325 MG TAB PO PRN (00:29)
[2018-10-05] MEDS ORDERED: Ventilator Sedation Protocol 1 EACH FS SCH (00:29)
[2018-10-05] MEDS ORDERED: Senokot S 8.6-50 MG TAB PO PRN ×2 (00:29→03:42)
[2018-10-05] MEDS ORDERED: Norepinephrine 8 MG in Dextrose 5% in Water 242 ML IVPB PRN (00:29)
--- NOTE | 2018-10-05 00:30 | PDOC.FPRHP ---
- History of Present Illness Chief Complaint: ARDS History of Present Illness: History obtained from medical staff, due to intubation of pt. Pt is a 77 yo F with history of AFib (on Eliquis), COPD (on 2L @ home), chronic pain (percocet and morphine @ home), HTN, and Hypothyroidism who presents to the ED intubated by EMS in the field for Acute Hypoxic Respiratory Distress. She saw her PCP in [place] earlier today and was given 3 meds (Bactrim, prednisone, and Doxy), Pt took 1 dose. Pt called EMS this afternoon after experiencing dyspnea. When EMS arrived, they tried her on Bipap. She continued to experience SOB and fell, without hitting her head and became unconcious, so they inbuated her in the field. ED Course: Once in the ED, CT of Head was negative. Pt was started on Vanc and Rocephin. A central line was placed and 500 cc bolus was given. Troponin was < 0.010, BNP: 259.7, and UA neg for leuk, nitirites, and WBC. WBC: 10.7, PT, PTT, and INR were wnl. LA was neg at 0.6. - Allergies/Adverse Reactions Allergies Allergy/AdvReac Type Severity Reaction Status Date / Time hydralazine Allergy Verified 10/05/18 00:56 Latex, Natural Rubber Allergy Verified 10/05/18 00:56 - Home Medications Medication Instructions Recorded Confirmed Type Sennosides/Docusate Sodium 2 tab PO BID PRN tab 12/18/17 10/05/18 Rx [Senokot S] Furosemide [Lasix] 20 mg PO 0900,1400 tab 01/23/18 10/05/18 Rx Levothyroxine Sodium [Synthroid] 50 mcg PO 0600 tab 01/23/18 10/05/18 Rx Sertraline HCl [Zoloft] 50 mg PO DAILY tab 01/23/18 10/05/18 Rx Diltiazem HCl [Cardizem] 30 mg PO BID 03/13/18 10/05/18 History Dronedarone HCl [Multaq] 400 mg PO BID-WM 03/13/18 10/05/18 History Gabapentin 600 mg PO TID 03/13/18 10/05/18 History Morphine Sulfate [Morphabond ER] 60 mg PO Q8H 03/13/18 10/05/18 History Pravastatin Sodium [Pravachol] 20 mg PO HS #30 tab 03/13/18 10/05/18 Rx Alendronate Sodium [Fosamax] 70 mg PO Q7D 10/05/18 10/05/18 History Aspirin [Ecotrin Low Strength] 325 mg PO DAILY 10/05/18 10/05/18 History Fluticasone/Salmeterol [Advair 1 inh IH BID 10/05/18 10/05/18 History Diskus 500/50] Potassium Chloride 10 meq PO BID 10/05/18 10/05/18 History oxyCODONE HCl/Acetaminophen 1 each PO TID 10/05/18 10/05/18 History [Oxycodone-Acetaminophen 10-325] - History Obtained from previous stay, due to pt currently intubated PMHx:Afib on Eliquis, Hypothyroidism, HTN, COPD on 2L, HLD, chronic pain on Percocet and morphine PSHx: Hysterectomy, appy, jakob, hernia repair, R hip replacement, spinal surgery with hardware placement, tonsilectomy FHx: No family history of cardiac conditions. Social: 1ppd x60+ years, no alcohol or tobacco use. Lives at home with Daughter. - Review of Systems ROS unobtainable: due to endotracheal tube - Vital signs BP: 153/72 HR: 120 RR: 17 Tmax: 101.8 Pox: 100% on Ventilator Wt: 63.4 kg - Physical Exam Constitutional: other -Constitutional: Unable to arouse with sternal rub or nail bed pressure. HEENT: normocephalic and atraumatic, PERRLA, conjunctiva clear Neck: supple, no LAD Chest: no-tender to palpation Heart: RRR, normal S1/S2, pulses present, no edema -Lungs: Rhonchi diffusely present. Abdomen: soft, non-tender, bowel sounds present Musculoskeletal: normal structure -Neurological: Unable to assess. Skin: no rash/lesions, no jaundice Heme/Lymphatic: no unusual bruising or bleeding, no LAD FMR H&P: Results - Labs Result Diagrams: 10/05/18 04:54 10/05/18 04:54 Lab results: WBC 10.7 thou/uL (4.8-10.8) 10/04/18 20:41 Hgb 11.3 g/dL (12.0-16.0) L 10/04/18 20:41 Hct 35.2 % (36.0-47.0) L 10/04/18 20:41 MCV 94.5 fL (78.0-98.0) 10/04/18 20:41 Plt Count 319 thou/uL (130-400) 10/04/18 20:41 Neutrophils % 90.8 % (42.0-75.0) H 10/04/18 20:41 ABG pH 7.48 (7.35-7.45) H 10/04/18 20:49 ABG pCO2 46.5 mmHg (35.0-45.0) H 10/04/18 20:49 ABG pO2 64.0 mmHg (> 70.0) 10/04/18 20:49 VBG pCO2 58.3 mmHg (40.0-50.0) H 10/04/18 20:45 VBG pO2 27.8 mmHg (35.0-45.0) L 10/04/18 20:45 Sodium 136 mmol/L (136-145) 10/04/18 20:41 Potassium 4.1 mmol/L (3.5-5.1) 10/04/18 20:41 Chloride 92 mmol/L (98-107) L 10/04/18 20:41 Carbon Dioxide 33 mmol/L (23-31) H 10/04/18 20:41 BUN 14 mg/dL (9.8-20.1) 10/04/18 20:41 Creatinine 1.05 mg/dL (0.6-1.1) 10/04/18 20:41 Glucose 106 mg/dL (83-110) 10/04/18 20:41 Lactic Acid 0.6 mmol/L (0.5-2.2) 10/04/18 20:41 Calcium 8.9 mg/dL (7.8-10.44) 10/04/18 20:41 Total Bilirubin 0.2 mg/dL (0.2-1.2) 10/04/18 20:41 AST 28 U/L (5-34) 10/04/18 20:41 ALT 23 U/L (8-55) 10/04/18 20:41 Alkaline Phosphatase 109 U/L (40-150) 10/04/18 20:41 B-Natriuretic Peptide 259.7 pg/mL (0-100) H 10/04/18 20:41 Serum Total Protein 6.0 g/dL (6.0-8.3) 10/04/18 20:41 Albumin 3.7 g/dL (3.4-4.8) 10/04/18 20:41 Urine Ketones Negative mg/dL (Negative) 10/04/18 20:16 Urine Blood Negative (Negative) 10/04/18 20:16 Urine Nitrite Negative (Negative) 10/04/18 20:16 Ur Leukocyte Esterase Negative Brijesh/uL (Negative) 10/04/18 20:16 FMR H&P: A/P - Problem List (1) COPD exacerbation Current Visit: No Status: Acute Code(s): J44.1 - CHRONIC OBSTRUCTIVE PULMONARY DISEASE W (ACUTE) EXACERBATION (2) Sepsis Current Visit: No Status: Suspected Code(s): A41.9 - SEPSIS, UNSPECIFIED ORGANISM Qualifiers: Sepsis type: sepsis due to unspecified organism Qualified Code(s): A41.9 - Sepsis, unspecified organism - Plan Mrs. Velazco is a 77 yo F with h/o Afib, COPD on 2L, chronic pain on Morphine and Percocet, and HTN who presents with acute respiratory distress and intubated. 1. Acute Respiratory Distress Most likely 2/2 COPD Exacerbation * Duoneb & Albuterol treatments * IV Steroids * Monitor O2 sats * Vent managment and sedation * Pulm Consult 2. SIRS/SEPSIS Tachycardic, Tachypneic, TMax: 101.8 * Vanc and Cefepime in ER * Cxray: bibasilar insterstitial densities * Will switch to rocephin and azithro * Await Cx 3. Afib * Admitted to ICU on continuous telemetry. * Continue home medications for rate control: Multaq 4. Chronic madrid * Will hold home morphine and percocet * Continue home med: Gabapentin 5. HTN * Will hold home medication for now * Episode of hypotension in the ER possibly 2/2 sedation medication * Will monitor 6. HLD * Continue home med: pravastatin 7. Hypothryoidism * Continue home levo Lines: Central IJ Diet: NPO DVT Prophylaxis: Lovenox Code Status: Full GI Prophylaxis: Pepcid Dispo: Inpt, pt needs to be weaned off vent and source of infection found. FMR H&P: Upper Level - Pertinent history 77 yo F presents for acute respiratory failure intubated by ems in field. She has PMH of COPD, chronic opiate dependence. Per report pt was seen by pcp and rx 'd medication for seeming COPD exacerbation, but was only able to lease picker one. She had worsening sob and called ems. On ems arrival pt was tachypneic and hypoxic into the low 70s. RSI performed. In ED pt had central line placed and xr done. XR showed bibasilar interstitial markings chronic vs infiltrate. - Pertinent findings ROS: Unable to obtain. PE: Gen: Sedated intubated HEENT: ET tub in place, OG tube in place. NCAT. Pinpoint pupils. CV: Regurg murmur, mild otherwise regular rate and rhythm Resp: Diffuse rhonchi and few scattered expiratory wheezes Abd: Soft NTND bsx4 Extremities: Warm, peripheral pulses intact. 1+ edema b/l LE. Neuro: Sedated - Plan Date/Time: 10/05/1828 IAlexis DO, have evaluated this patient and agree with findings/ plan as outlined by technical support intern resident. Pertinent changes/additions are listed here. 1) ARDS: with acute hypoxic hypercapneic respiratory failure - will admit to CCU and cont mech ventilation, concult pulm - ABG showed met alkalosis which is likely posthypercapneic alkalosis, will repeat - likely 2/2 copd exacerbation given lung exam findings and cxr findings - given broad spectrum abx in ED, will switch to rocephin azithromycin 2) SIRS: - febrile in field, unclear if this was after ketamine, otherwise no recurrent measured fever and nothing given for antipyretic - will cont rocephin and azithromycin - check procalcitonin 3) COPD, exacerbation - duonebs, albuterol - cont mech ventilation and wean per pulm 4) HTN: - labile bp, will cont to monitor consider restarting meds in am 5) A fib - cont home meds - cont eliquis - RRR on exam and ekg sinus 6) Chronic opiate dependence/abuse: - pt not given narcan in field, unclear scene on arrival per reports - per chart review pt went into mild opiate withdrawal on last admission, cont home medications after weaning from vent Dispo: Serious, will admit to ICU for mechanical ventilation and cont abx for acute COPD exxacerbation. Consult pulm in am, appreciate recs. DVT PPX: Trino PCP: CC Code Status: Full
[2018-10-05] MEDS ORDERED: Lactated Ringer's 1,000 ML IV SCH (00:45)
[2018-10-05] MEDS: Azithromycin 500 MG in Sodium Chloride 0.9% 250 ML 250 ML IVPB SCH (00:45)
--- NOTE | 2018-10-05 00:46 | RAD ---
EXAM: CHEST ONE VIEW HISTORY: Replacement of central line. COMPARISON: 10/04/2018. FINDINGS: Endotracheal tube and nasogastric tubes remain in place. Tip of the nasogastric tube is unable to be visualized. The right subclavian central venous catheter has been withdrawn with the tip overlying the medial right lung apex. The exact location of the central venous catheter is unable to be determi virginie based on this chest x-ray. Bibasilar interstitial and patchy densities are seen which could be related to bibasilar pneumonia or atelectasis. There is elevation right hemidiaphragm. Suggestion of tiny bilateral pleural effusions. Vascular calcifications are seen in the thoracic aorta. Vertebroplasty changes of multiple thoracic vertebral bodies are seen with postsurgical changes seen in lower thoracic spine. IMPRESSION: 1. Central venous catheter on the right is seen. However, the location tip of the central venous cath eter is unable to the determined on this examination, and the tip overlies the medial aspect of the right lung apex. This finding was discussed with Alen, nurse in charge of the patient's care in the [facility] on 10/04/2018 at 0042 hours. 2. Increased bibasilar patchy and interstitial densities which could be related to bibasilar atelecta sis, but bibasilar pneumonia is also a possibility.
[2018-10-05] MEDS: Nicotine 21 MG PATCH TD SCH (01:44)
[2018-10-05] MEDS ORDERED: Enoxaparin Sodium 40 MG/0.4 ML SYRINGE SC SCH ×2 (04:15→09:00)
[2018-10-05 05:12] LABS: #Basophils 0.1 thou/uL (0.0-0.2); #Lymphocytes 1.7 thou/uL (1.20-3.40); #Monocytes 0.6 thou/uL (0.11-0.59); #Neutrophils 6.6 thou/uL (1.40-6.50); %Basophils 0.7 % (0.0-1.0); %Eosinophils 0.5 % (0.0-10.0); %Lymphocytes 18.7 % (21.0-51.0); %Monocytes 6.8 % (0.0-10.0); %Neutrophils 73.2 % (42.0-75.0); Hemoglobin 10.4 g/dL (12.0-16.0); Mean Corpuscular HGB CONC 33.1 g/dL (32.0-36.0); Mean Corpuscular Hemoglobin 31.3 pg (27.0-31.0); Mean Corpuscular Volume 94.5 fL (78.0-98.0); Mean Platelet Volume 6.7 fL (7.4-10.4); Platelet Count 282 thou/uL (130-400); RBC Distribution Width 12.9 % (11.5-14.5); Red Blood Cell (RBC) Count 3.32 mill/uL (4.20-5.40)
[2018-10-05 05:32] LABS: ALT (SGPT) 19 U/L (8-55); AST (SGOT) 25 U/L (5-34); Albumin 3.1 g/dL (3.4-4.8); Alkaline Phosphatase 83 U/L (40-150); Anion Gap 14 mmol/L (10-20); BUN (Urea Nitrogen) 13 mg/dL (9.8-20.1); Bilirubin, Total 0.3 mg/dL (0.2-1.2); Calc. Creatinine Clearance 43 mL/min (70-130); Calcium 8.8 mg/dL (7.8-10.44); Carbon Dioxide 30 mmol/L (23-31); Chloride 97 mmol/L (98-107); Estimated GFR-MDRD 52; Globulin 2.5 g/dL (2.4-3.5); Glucose 89 mg/dL (83-110); Potassium 3.7 mmol/L (3.5-5.1); Protein, Total 5.6 g/dL (6.0-8.3); Sodium 137 mmol/L (136-145)
[2018-10-05] MEDS: cefTRIAXone\\ROCEPHIN 1 GM in Sodium Chloride 0.9% 100 ML IVPB SCH (05:39)
[2018-10-05] MEDS: Levothyroxine Sodium 50 MCG TAB PO SCH (05:39)
[2018-10-05] MEDS: methylPREDNISolone Sod Succ 40 MG VIAL IVP SCH ×3 (05:40→17:25)
[2018-10-05 07:37] LABS: Actual Bicarbonate (HCO3a) 31.8 mEq/L (22-28); CO2 Tension 46.2 mmHg (35.0-45.0); Calcium, Ionized 1.14 mmol/L (1.12-1.30); Carboxyhemoglobin (COHb) 1.1 gm% (0.0-3.0); Hemoglobin (Hb) 11.3 g/dL (12.0-16.0); Potassium - ABG Lab 3.54 mmol/L (3.70-5.30); pH, Arterial 7.46 (7.35-7.45)
[2018-10-05 07:39] LABS: Puncture Site L.R.
--- NOTE | 2018-10-05 07:42 | CT ---
PRELIMINARY REPORT/[facility]/EMERGENCY AFTER HOURS PROCEDURE: EXAM: CT Abdomen and Pelvis With Contrast EXAM DATE/TIME: 10/05/2018 12:01 AM CLINICAL HISTORY: 77 years old, female; Prior surgery; Patient HX: Er 1. Fever w/o source, eval for p ossible infection. PT is a sepsis activation. Surgical history of hysterectomy, appendectomy, cholecy stectomy, hernia repair. TECHNIQUE: Imaging protocol: Computed tomography images of the abdomen and pelvis with intravenous contrast. COMPARISON: No relevant prior studies available. FINDINGS: ABDOMEN: Bilateral pleural effusions are present with adjacent atelectasis and pulmonary fibrosis. Nonspecific posterior right basilar lung nodules are present. Lower thoracic vertebral kyphoplasty changes are p resent. Liver is unremarkable aside from a left lobe 18 mm cyst or hemangioma. Spleen, pancreas, right adrena l and right kidney are unremarkable. There may be a left adrenal nodule on image 26 measuring nearly 2 cm. Nonobstructive lower pole left renal stone is present. No evidence of bowel obstruction, pneumoperitoneum or free abdominal fluid. Atherosclerotic change present in the aorta, without aneurysm. No abnormal peripherally enhancing fluid collection. PELVIS: Appendix is surgically absent. Gamble catheter is present within the bladder. Lower pelvis cannot be evaluated because of orthopedic hardware. Diverticular changes are present within the colon without inflammation. Postsurgical changes in the left hemipelvis and lumbar spine IMPRESSION: No acute surgical or inflammatory intra-abdominal or pelvic process. Bilateral pleural effusions with adjacent atelectasis. No explanation for sepsis. Thank you for allowing us to participate in the care of your patient. Dictated and Authenticated by: Jasen Mcfadden MD 10/05/2018 12:51 AM Central Time ([place] & [place]) FINAL REPORT CT ABDOMEN AND PELVIS WITH CONTRAST: FINDINGS/IMPRESSION: Final report is in agreement with the above-provided preliminary interpretation. CODE QA POS: MARY ANN
[2018-10-05] MEDS: Potassium Chloride 10 MEQ TAB PO SCH ×2 (08:22→17:25)
[2018-10-05] MEDS: Dronedarone HCl 400 MG TAB PO SCH ×2 (08:22→17:25)
[2018-10-05] MEDS: Aspirin 325 mg Enteric Coated Tablet PO SCH (08:22)
[2018-10-05] MEDS: Furosemide 20 MG TAB PO SCH ×2 (08:22→14:26)
[2018-10-05] MEDS: Gabapentin 300 MG CAP PO SCH ×3 (08:22→21:13)
[2018-10-05] MEDS ORDERED: Prevnar 13-Val Conj/PF 0.5 ML SYRINGE IM ONE ×2 (09:00→16:15)
[2018-10-05] MEDS ORDERED: Famotidine 20 MG TAB PO SCH (09:00)
[2018-10-05] MEDS: fentaNYL Citrate/PF 2,000 MCG in Sodium Chloride 0.9% 60 ML IV SCH ×2 (09:06→21:59)
[2018-10-05 09:22] LABS: Magnesium 1.6 mg/dL (1.6-2.6)
[2018-10-05 09:29] LABS: Phosphorus 1.6 mg/dL (2.3-4.7)
--- NOTE | 2018-10-05 09:43 | RAD ---
FRONTAL VIEW CHEST: COMPARISON: Previous day. INDICATION: ICU patient, followup. FINDINGS: Endotracheal tube is present with tip in a stable position. Persistent bilateral interstitial as wel l as patchy bibasilar opacities remain. Right subclavian venous catheter demonstrates similar config uration. Enteric catheter traverses to the central, mid abdomen. IMPRESSION: Grossly stable chest. POS: [facility]
--- NOTE | 2018-10-05 09:53 | CON ---
DATE OF CONSULTATION: HISTORY OF PRESENT ILLNESS: Adriana Velazco is a 77-year-old female, who is intubated for mental status change and respiratory failure. She is presently in the ICU on the vent. History as outlined by admitting physician. Apparently, she had some kind of respiratory issues several days ago, was given a course of antibiotics by her primary care physician. She denied worsening shortness of breath. Tried BiPAP without any relief. She apparently failed, became unconscious and was intubated. PAST MEDICAL HISTORY: Previous extensive past medical history pertinent for congestive heart failure, COPD, chronic pain, atrial fibrillation, and hypothyroidism. PAST SURGICAL HISTORY: Previous surgeries; hernia, gallbladder, appendix, hip, spinal surgery hardware, and tonsillectomy. Previous surgeries as otherwise extensively outlined. ALLERGIES: HYDRALAZINE. MEDICATIONS: Home medicine: 1. Oxycodone. 2. Zoloft 50. 3. Synthroid 50. 4. Morphine sulfate 60. 5. Gabapentin 600. 6. Advair. 7. Multaq 400. 8. Cardizem 30. 9. Aspirin. She is now started on; 1. Solu-Medrol. 2. Zithromax. 3. Ceftriaxone. 4. Neb treatments. PHYSICAL EXAMINATION: GENERAL: She is otherwise awake, alert, and responsive on the vent. Nods appropriately. Moves all 4 extremities. VITAL SIGNS: Saturations are 98%, blood pressure 137/58, respiratory rate 18, and pulse 80. CHEST: Decreased breath sounds. No wheezing. CARDIAC: Normal S1 and S2. No gallops. ABDOMEN: No masses. LABORATORY DATA: White count 9000, H and H 10 and 31, and platelet count is normal. A pO2 is 60, pCO2 of 5 of PEEP. X-ray shows bilateral infiltrates, improved. Lytes are normal. BNP is only 259. IMPRESSION: Chronic obstructive pulmonary disease exacerbation, bronchitis, probably diastolic dysfunction, atrial fibrillation, and chronic pain, multiple medication. PLAN: Continue steroids and neb treatment. Hopefully, we can wean and extubate in the next 24 to 48 hours. This is a 45-minute critical care time. Job ID: [id number]
[2018-10-05] MEDS: Sodium Chloride 0.9% 1,000 ML IV SCH ×2 (10:33→18:24)
[2018-10-05] MEDS: Propofol 1,000 MG/100 ML VIAL IV PRN ×2 (10:34→18:23)
[2018-10-05] MEDS ORDERED: PHOS-NAK 1 PKT PACK PO ONE (17:45)
[2018-10-05] MEDS: Pravastatin Sodium 20 MG TAB PO SCH (21:12)
[2018-10-06] MEDS: Nicotine 21 MG PATCH TD SCH (01:08)
[2018-10-06] MEDS: Azithromycin 500 MG in Sodium Chloride 0.9% 250 ML 250 ML IVPB SCH (01:08)
[2018-10-06] MEDS: methylPREDNISolone Sod Succ 40 MG VIAL IVP SCH ×4 (01:09→20:55)
[2018-10-06] MEDS: Propofol 1,000 MG/100 ML VIAL IV PRN ×2 (01:18→05:08)
[2018-10-06 04:14] LABS: #Lymphocytes 0.6 thou/uL (1.20-3.40); #Monocytes 0.4 thou/uL (0.11-0.59); #Neutrophils 8.7 thou/uL (1.40-6.50); %Eosinophils 0.2 % (0.0-10.0); %Lymphocytes 6.5 % (21.0-51.0); %Monocytes 3.9 % (0.0-10.0); %Neutrophils 89.4 % (42.0-75.0); Hemoglobin 11.1 g/dL (12.0-16.0); Mean Corpuscular HGB CONC 32.8 g/dL (32.0-36.0); Mean Corpuscular Hemoglobin 30.9 pg (27.0-31.0); Mean Corpuscular Volume 94.4 fL (78.0-98.0); Mean Platelet Volume 7.2 fL (7.4-10.4); Platelet Count 278 thou/uL (130-400); RBC Distribution Width 13.1 % (11.5-14.5); Red Blood Cell (RBC) Count 3.58 mill/uL (4.20-5.40); White Blood Cell (WBC) Count 9.7 thou/uL (4.8-10.8)
[2018-10-06 04:24] LABS: Phosphorus 2.4 mg/dL (2.3-4.7)
[2018-10-06 04:28] LABS: ALT (SGPT) 28 U/L (8-55); AST (SGOT) 55 U/L (5-34); Albumin 3.3 g/dL (3.4-4.8); Alkaline Phosphatase 89 U/L (40-150); Anion Gap 13 mmol/L (10-20); BUN (Urea Nitrogen) 15 mg/dL (9.8-20.1); Bilirubin, Total 0.2 mg/dL (0.2-1.2); Calc. Creatinine Clearance 51 mL/min (70-130); Calcium 8.9 mg/dL (7.8-10.44); Carbon Dioxide 28 mmol/L (23-31); Chloride 101 mmol/L (98-107); Estimated GFR-MDRD 63; Globulin 2.8 g/dL (2.4-3.5); Glucose 144 mg/dL (83-110); Potassium 3.8 mmol/L (3.5-5.1); Protein, Total 6.1 g/dL (6.0-8.3); Sodium 138 mmol/L (136-145)
[2018-10-06] MEDS: Sodium Chloride 0.9% 1,000 ML IV SCH ×2 (05:07→16:27)
[2018-10-06] MEDS: cefTRIAXone\\ROCEPHIN 1 GM in Sodium Chloride 0.9% 100 ML IVPB SCH (05:08)
[2018-10-06] MEDS: Levothyroxine Sodium 50 MCG TAB PO SCH (05:09)
--- NOTE | 2018-10-06 06:42 | PDOC.FM ---
- Subjective Subjective: Pt still intubated, resting comfortably. Nurse reports good toleration of OG feeds, no acute events overnight. Pt currently tolerating CPAP on vent. - Objective Vital Signs & Weight: Vital Signs (12 hours) Temp Pulse Resp BP Pulse Ox 10/06/18 06:33 85 136/70 10/06/18 06:31 85 19 99 10/06/18 06:00 19 10/06/18 04:00 97.8 F 17 10/06/18 02:28 85 13 100 10/06/18 02:00 22 H 10/06/18 00:00 19 10/05/18 22:07 85 10/05/18 22:06 82 15 97 10/05/18 22:00 20 10/05/18 20:00 15 100 Weight Admit Weight 60.1 kg Weight 59.7 kg Most Recent Monitor Data Heart Rate from ECG 94 NIBP 136/70 NIBP BP-Mean 92 Respiration from ECG 12 SpO2 99 I&O: 10/04/18 10/05/18 10/06/18 06:59 06:59 06:59 Intake Total 846.2 3596.3 Output Total 765 1025 Balance 81.2 2571.3 Result Diagrams: 10/06/18 03:43 10/06/18 03:43 Phys Exam - Physical Examination Constitutional: NAD sedated HEENT: moist MMs Neck: no nodes, supple Respiratory: no rales, wheezing present Cardiovascular: RRR, no significant murmur Gastrointestinal: soft, non-tender Musculoskeletal: pulses present sedated Skin: no rash, normal turgor Dx/Plan (1) COPD exacerbation Code(s): J44.1 - CHRONIC OBSTRUCTIVE PULMONARY DISEASE W (ACUTE) EXACERBATION Status: Acute (2) Afib Code(s): I48.91 - UNSPECIFIED ATRIAL FIBRILLATION Status: Chronic Qualifiers: Atrial fibrillation type: paroxysmal Qualified Code(s): I48.0 - Paroxysmal atrial fibrillation (3) Chronic pain syndrome Code(s): G89.4 - CHRONIC PAIN SYNDROME Status: Chronic (4) Hypertension Code(s): I10 - ESSENTIAL (PRIMARY) HYPERTENSION Status: Chronic Qualifiers: Hypertension type: essential hypertension Qualified Code(s): I10 - Essential (primary) hypertension (5) PNA (pneumonia) Code(s): J18.9 - PNEUMONIA, UNSPECIFIED ORGANISM Status: Suspected Qualifiers: Pneumonia type: due to unspecified organism Laterality: bilateral - Plan Plan: ARDS: with acute hypoxic hypercapneic respiratory failure A- likely 2/2 copd exacerbation given lung exam findings and cxr findings. Repeat CXR from 10/05 showed some evidence of CAP P- continue prednisone and duonebs -likely extubation today -rocephin azithromycin CAP A- febrile in field, unclear if this was after ketamine, otherwise no recurrent measured fever and nothing given for antipyretic. CXR suspicious for CAP as listed above. P- will cont rocephin and azithromycin HTN: -labile bp on admission, will cont to monitor consider restarting meds A fib -cont home meds, cont eliquis Chronic opiate dependence/abuse: -hx of withdrawal on previous admission, restart home meds once off sedation DVT PPX: Eliquis Code Status: Full Addendum - Attending - Attending Attestation Date/Time: 10/06/18 [id number] I personally evaluated the patient and discussed the management with Dr. Rubalcava. I agree with the History, Examination, Assessment and Plan documented above with any addition or exceptions noted below. She is now extubated and resting comfortably.
[2018-10-06 06:56] LABS: Actual Bicarbonate (HCO3a) 30.3 mEq/L (22-28); Base Excess (BEa) 5.2 mEq/L (-2.0 to +3.0); CO2 Tension 47.2 mmHg (35.0-45.0); Calcium, Ionized 1.12 mmol/L (1.12-1.30); Hemoglobin (Hb) 11.2 g/dL (12.0-16.0); O2 Tension (PaO2) 72.2 mmHg (> 70.0); Potassium - ABG Lab 3.84 mmol/L (3.70-5.30); pH, Arterial 7.43 (7.35-7.45)
[2018-10-06 07:55] LABS: Puncture Site L.R.
[2018-10-06] MEDS ORDERED: predniSONE 20 MG TAB PO SCH (08:00)
[2018-10-06] MEDS ORDERED: DC Sedation Protocol FS ONE (08:17)
[2018-10-06] MEDS ORDERED: Famotidine 20 MG TAB PO SCH (09:00)
--- NOTE | 2018-10-06 09:10 | RAD ---
FRONTAL VIEW CHEST: COMPARISON: Previous day. INDICATION: Daily patient followup. FINDINGS: Slight interval advancement of endotracheal tube with tip approximating the right mainstem. Bilatera l interstitial, alveolar, and pleural-based opacities of the chest are again seen. No significant in terval change depicted. IMPRESSION: 1. Endotracheal tube with tip approximating the proximal right mainstem. Slight retraction may prov e useful. 2. Bilateral pulmonary parenchymal opacities as well as a pleural-based density. POS: MARY ANN
[2018-10-06] MEDS: Apixaban 5 MG TAB PO SCH ×2 (09:52→20:41)
[2018-10-06] MEDS: Gabapentin 300 MG CAP PO SCH ×3 (09:52→20:41)
[2018-10-06] MEDS: Potassium Chloride 10 MEQ TAB PO SCH ×2 (09:52→18:47)
[2018-10-06] MEDS: Dronedarone HCl 400 MG TAB PO SCH ×2 (09:53→18:47)
[2018-10-06] MEDS: Aspirin 325 mg Enteric Coated Tablet PO SCH (09:53)
--- NOTE | 2018-10-06 10:04 | PRG ---
DATE OF SERVICE: 10/06/2018 SUBJECTIVE: This morning, she is awake, alert, responsive, no distress. X-ray shows relatively no acute infiltrates. OBJECTIVE: VITAL SIGNS: Pulse 85, blood pressure 130/70, and respiratory rate 18. CHEST: Decreased breath sounds. No wheezing. CARDIAC: Normal S1 and S2. No gallops. ABDOMEN: No masses. LABORATORY DATA: PO2 of 72, pCO2 of 47.3 on 40%, rate of 10. White count is normal. H and H unremarkable. Electrolytes are normal. IMPRESSION: 1. Respiratory failure. 2. Chronic obstructive pulmonary disease exacerbation. 3. Bronchitis. PLAN: They do not discontinue the steroids, low-dose for several days. De-escalate antibiotics. PT supportive care. Baseline echocardiogram, assess LV function. One-half hour of critical time. Job ID: [id number]
[2018-10-06] MEDS: HYDROcodone/Acetaminophen 5/325 mg Tablet PO PRN ×2 (15:03→21:57)
[2018-10-06] MEDS: Pravastatin Sodium 20 MG TAB PO SCH (20:41)
[2018-10-06] MEDS ORDERED: ALPRAZolam 0.5 MG TAB PO SCH (22:00)
[2018-10-06 22:34] LABS: Actual Bicarbonate (HCO3a) 29.5 mEq/L (22-28); Base Excess (BEa) 3.6 mEq/L (-2.0 to +3.0); CO2 Tension 49.2 mmHg (35.0-45.0); Calcium, Ionized 1.21 mmol/L (1.12-1.30); Carboxyhemoglobin (COHb) 1.1 gm% (0.0-3.0); Potassium - ABG Lab 3.84 mmol/L (3.70-5.30)
[2018-10-06 22:45] LABS: O2 Tension (PaO2) 55.3 mmHg (> 70.0); Puncture Site RBRACH
[2018-10-06] MEDS: Albuterol Sulfate 2.5 mg/3 ml Neb NEB PRN ×2 (23:00→23:01)
--- NOTE | 2018-10-06 23:03 | RAD ---
EXAM: CHEST ONE VIEW HISTORY: Shortness of breath COMPARISON: 10/06/2018 at 0458 hours. FINDINGS: The endotracheal tube and nasogastric tubes have been removed. Cardiac silhouette is magnified by pro jection. Pulmonary vasculature is mildly increased. There is been interval mild increase in perihilar interstitial densities with mild patchy densities at each lung base. Findings may relate to asymmetric pulmonary edema or developing infectious process. A tiny left pleural effusion is present. -Calcic is seen thoracic aorta. Vertebroplasty changes and postsurgical changes of the spine are noted. There is osteopenia. IMPRESSION: 1. Interval removal of the endotracheal tube and nasogastric tubes. 2. Increased interstitial opacities and mild patchy densities at each lung base which may be related to asymmetric pulmonary edema given short interval change. 3. Small left pleural effusion. 4. Osteopenia.
[2018-10-06 23:31] LABS: Anion Gap 14 mmol/L (10-20); BUN (Urea Nitrogen) 15 mg/dL (9.8-20.1); Calc. Creatinine Clearance 56 mL/min (70-130); Calcium 9.4 mg/dL (7.8-10.44); Carbon Dioxide 27 mmol/L (23-31); Chloride 103 mmol/L (98-107); Estimated GFR-MDRD 70; Glucose 181 mg/dL (83-110); Potassium 3.7 mmol/L (3.5-5.1); Sodium 140 mmol/L (136-145)
--- NOTE | 2018-10-06 23:32 | PDOC.EVN ---
Event Note - Event Note Event Note: Paged by ICU around 2210 for elevated BP in the 200s systolic and patient shaking and anxious. Came up with Dr. Ulloa to evaluate the patient. She was anxious appearing and in respiratory distress. Her pulse was in the 130s, O2 sat in the mid to high 80s on 3-4L O2 by NC. She had diffuse rales and poor inspiratory air movement. Dr. Morales had just given an order for her to get xanax and she had just received a duoneb treatment about 20 minutes prior. Ordered stat ABG, CXR, EKG, Trop, d dimer, BMP, CBC. Shortly after this, made the decision to place the patient on BiPAP. Dr. Freitas was called and notified of this decision and she came up to evaluate the patient as well. The patient remained anxious and reported difficulty breathing while on the BiPAP, however her O2 sat improved to the low 90s. She was then given another breathing treatment and her sats improved to the mid 90s. The EKG showed sinus tachycardia with no significant ST changes. D dimer - 1.32 Trop 0.051 Will check BNP and trend trop. PE less likely 2/2 lovenox ppx and then eliquis throughout hospitalization. Will keep on differential if patient decompensates or no other source found.
[2018-10-06 23:36] LABS: Troponin I 0.051 ng/mL (< 0.028)
[2018-10-07] MEDS ORDERED: Lorazepam 2 MG/ML VIAL SLOW IVP SCH (00:15)
[2018-10-07 00:41] LABS: Band 3 % (5-11); Hemoglobin 13.1 g/dL (12.0-16.0); Lymphocytes 7 % (21-51); MDiff Complete? YES; Mean Corpuscular HGB CONC 32.6 g/dL (32.0-36.0); Mean Corpuscular Hemoglobin 31.2 pg (27.0-31.0); Mean Corpuscular Volume 95.8 fL (78.0-98.0); Mean Platelet Volume 7.1 fL (7.4-10.4); Monocytes 3 % (0-10); Neutrophil 87 % (42-75); Platelet Count 451 thou/uL (130-400); Platelet Morphology Comment Appears Increased; RBC Distribution Width 13.4 % (11.5-14.5); Red Blood Cell (RBC) Count 4.19 mill/uL (4.20-5.40)
[2018-10-07] MEDS: Nicotine 21 MG PATCH TD SCH (00:58)
[2018-10-07] MEDS: Labetalol HCl 100 MG/20 ML VIAL SLOW IVP PRN ×2 (00:58→14:11)
[2018-10-07] MEDS ORDERED: Furosemide 40 MG/4 ML VIAL SLOW IVP SCH (01:15)
[2018-10-07 02:35] LABS: #Eosinphils 0.1 thou/uL (0.0-0.7); #Lymphocytes 0.7 thou/uL (1.20-3.40); #Monocytes 1.2 thou/uL (0.11-0.59); #Neutrophils 26.5 thou/uL (1.40-6.50); %Basophils 0.1 % (0.0-1.0); %Eosinophils 0.2 % (0.0-10.0); %Lymphocytes 2.6 % (21.0-51.0); %Neutrophils 93.1 % (42.0-75.0); Mean Corpuscular HGB CONC 32.2 g/dL (32.0-36.0); Mean Corpuscular Hemoglobin 31.1 pg (27.0-31.0); Mean Corpuscular Volume 96.4 fL (78.0-98.0); Platelet Count 422 thou/uL (130-400); RBC Distribution Width 13.3 % (11.5-14.5); Red Blood Cell (RBC) Count 4.19 mill/uL (4.20-5.40); White Blood Cell (WBC) Count 28.5 thou/uL (4.8-10.8)
[2018-10-07 03:01] LABS: ALT (SGPT) 39 U/L (8-55); AST (SGOT) 82 U/L (5-34); Albumin 3.5 g/dL (3.4-4.8); Alkaline Phosphatase 97 U/L (40-150); Anion Gap 16 mmol/L (10-20); BUN (Urea Nitrogen) 17 mg/dL (9.8-20.1); Bilirubin, Total 0.2 mg/dL (0.2-1.2); Calc. Creatinine Clearance 54 mL/min (70-130); Calcium 9.1 mg/dL (7.8-10.44); Carbon Dioxide 24 mmol/L (23-31); Chloride 104 mmol/L (98-107); Estimated GFR-MDRD 68; Globulin 3.1 g/dL (2.4-3.5); Glucose 242 mg/dL (83-110); Potassium 4.1 mmol/L (3.5-5.1); Protein, Total 6.6 g/dL (6.0-8.3); Sodium 140 mmol/L (136-145)
[2018-10-07 03:23] LABS: CKMB 22.1 ng/mL (0-6.6)
[2018-10-07] MEDS ORDERED: Enoxaparin Sodium 60 MG/0.6 ML SYRINGE SC SCH (03:30)
[2018-10-07] MEDS: cefTRIAXone\\ROCEPHIN 1 GM in Sodium Chloride 0.9% 100 ML IVPB SCH (05:32)
--- NOTE | 2018-10-07 06:36 | PDOC.FM ---
- Subjective Subjective: Patient became extremely anxious, dyspneic, & tachycardic overnight requiring her to be placed on Bipap. Tolerated Bipap well overnight but early this AM around 0640 residents were paged again to bedside for tachypnea and hypoxia on Bipap. Therefore, after consulting with pulmonology, the decision was made to re -intubate the patient. Her consent was obtained prior to the procedure and her vitals improved significantly following intubation. - Objective MAR Reviewed: Yes Vital Signs & Weight: Vital Signs (12 hours) Temp Pulse Resp BP Pulse Ox 10/07/18 04:00 97.4 F L 10/07/18 02:15 96 26 H 99 10/07/18 00:58 111 H 183/103 H 10/07/18 00:00 97.5 F L 92 L 10/06/18 23:01 121 H 23 H 92 L 10/06/18 23:00 98.2 F 121 H 22 H 92 L 10/06/18 22:47 121 H 10/06/18 22:01 114 H 23 H 99 10/06/18 20:00 97.7 F 10/06/18 19:40 98 10/06/18 18:39 87 17 94 L Weight Admit Weight 60.1 kg Weight 60 kg Most Recent Monitor Data Heart Rate from ECG 110 NIBP 128/101 NIBP BP-Mean 110 Respiration from ECG 30 SpO2 88 I&O: 10/05/18 10/06/18 10/07/18 06:59 06:59 06:59 Intake Total 846.2 3596.3 2046.1 Output Total 765 1085 2390 Balance 81.2 2511.3 -343.9 Result Diagrams: 10/07/18 02:28 10/07/18 02:28 EKG Reviewed by me: Yes (sinus tachycardia from overnight) Radiology Reviewed by me: Yes (increased interstitial opacities & mild patchy densities @ each lung base) Phys Exam - Physical Examination moderate distress 2/2 increased work of breathing HEENT: moist MMs, sclera anicteric Neck: supple, full ROM Respiratory: wheezing present expiratory wheezing & inspriatory rhonchi heard throughout Cardiovascular: no significant murmur tachycardic with a regular rhythm Gastrointestinal: soft, non-tender, no distention, positive bowel sounds Musculoskeletal: no edema pulses difficult to palpate in B/L LEs & feet cool to touch Neurological: non-focal, moves all 4 limbs Psychiatric: normal affect Deviation from normal: able to nod yes & no appropriately to answer questions but unable to speak due to respiratory distress Skin: no rash, normal turgor Deviation from normal: slightly delayed cap refill just over 2s Dx/Plan (1) COPD exacerbation Code(s): J44.1 - CHRONIC OBSTRUCTIVE PULMONARY DISEASE W (ACUTE) EXACERBATION Status: Acute (2) Acute exacerbation of CHF (congestive heart failure) Code(s): I50.9 - HEART FAILURE, UNSPECIFIED Status: Suspected (3) Hypothyroidism Code(s): E03.9 - HYPOTHYROIDISM, UNSPECIFIED Status: Chronic (4) Afib Code(s): I48.91 - UNSPECIFIED ATRIAL FIBRILLATION Status: Chronic Qualifiers: Atrial fibrillation type: paroxysmal Qualified Code(s): I48.0 - Paroxysmal atrial fibrillation (5) CAD (coronary artery disease) Code(s): I25.10 - ATHSCL HEART DISEASE OF [place] CORONARY ARTERY W/O ANG PCTRS Status: Chronic Qualifiers: Coronary Disease-Associated Artery/Lesion type: [place] artery [place] vs. transplanted heart: [place] heart Associated angina: without angina Qualified Code(s): I25.10 - Atherosclerotic heart disease of [place] coronary artery without angina pectoris (6) COPD (chronic obstructive pulmonary disease) Status: Chronic Qualifiers: COPD type: COPD with acute exacerbation Qualified Code(s): J44.1 - Chronic obstructive pulmonary disease with (acute) exacerbation (7) Chronic pain syndrome Code(s): G89.4 - CHRONIC PAIN SYNDROME Status: Chronic (8) Hypertension Code(s): I10 - ESSENTIAL (PRIMARY) HYPERTENSION Status: Chronic Qualifiers: Hypertension type: essential hypertension Qualified Code(s): I10 - Essential (primary) hypertension - Plan Plan: 77YOF with a PMH significant for COPD on 2L of O2 at home, HTN, paroxysmal A fib , hypothyroidism and chronic pain syndrome who was brought in via EMS after being intubated in the field for SOB Acute hypoxic hypercapneic respiratory failure 2/2 an acute on chronic COPD and/ or suspected CHF exacerbation - Likely 2/2 COPD exacerbation given lung exam findings and cxr findings; however, cannot r/o a possible CHF exacerbation component with pulmonary edema noted on CXR from this AM & overnight. Also cannot r/o an infectious pneumonitis /PNA as patient could have aspirated following her first intubation and extubation. - Will continue prednisone and duonebs & consider broadening abx once again as patient is currently only receiving rocephin. - Repeat ABG s/p intubation pending. - Will continue to monitor respiratory status closely and wean off of respiratory support as tolerated by the patient. Continue QD CXRs. Suspected CAP vs. aspiration pneumonitis - Febrile in field but has remained afebrile since admission. However, WBC elevated even more from yesterday at 28.5 this AM & procal 0.03. Most recent CXR notable for stable & diffuse alveolar & interstitial opacities which could be 2/2 pulmonary edema vs. infection. - Will continue rocephin and consider re-broadening abx coverage due to possibility of aspiration following extubation yesterday. Will also consider sputum cultures. - PRN antipyretics. Suspected CHF exacerbation - No documented or reported h/o CHF but BNP ordered overnight elevated at ~700 which was also higher than BNP with initial admission labs. CXR also concerning for volume overload. ECHO pending for this AM. Will consider de-escalating IVFs as BP is stable and continue VINCENZO lasix pending patient's response to a 40mg IV dose this AM. - Will continue QD weights and strict I&Os. HTN - BP significantly elevated over hospital course thus far. Suspect improvement with sedation meds but will also continue PRN labetalol pending a home meds rec today. Will consider restarting home meds once med rec has been obtained. A fib -Aware, will continue home meds for rate control. Started on therapeutic lovenox overnight due to concern for a possible PE so holding eliquis for now. Chronic opiate dependence/abuse -Aware, hx of withdrawal on previous admission. Will restart home meds once off sedation but consider PRN morphine while intubated and not tolerating PO. Hypothyroidism - Aware will continue home meds once tolerating PO. DVT PPX: Th Lovenox GI PPx: famotidine Abx: Rocephin day #3 IVFs: NS @ 50mLhr Code Status: Full Addendum - Attending - Attending Attestation Date/Time: 10/07/18 1151 I personally evaluated the patient and discussed the management with Dr. Burrell. I agree with and repeated the History, Examination, Assessment and Plan documented above with any addition or exceptions noted below. Resp failure with likely acute on chronic hf with possible STEMI - reviewed ECG from overnight and there appears to be lateral KAL with + TnI. This has resolved on repeat. Will d/w cardiology. Otherwise daily sedation vacation, lung protective vent, TF, GI ppx and therapeutic lovenox.
[2018-10-07 06:41] LABS: Actual Bicarbonate (HCO3a) 31.5 mEq/L (22-28); Base Excess (BEa) 3.2 mEq/L (-2.0 to +3.0); Calcium, Ionized 1.15 mmol/L (1.12-1.30); Carboxyhemoglobin (COHb) 0.8 gm% (0.0-3.0); O2 Tension (PaO2) 73.6 mmHg (> 70.0); Potassium - ABG Lab 4.15 mmol/L (3.70-5.30)
[2018-10-07 06:43] LABS: ALV-art Gradient 272.575 (0-20); CO2 Tension 65.3 mmHg (35.0-45.0); Puncture Site RRA
[2018-10-07] MEDS ORDERED: Propofol 1,000 MG/100 ML VIAL IV ONE (06:59)
[2018-10-07] MEDS ORDERED: Ventilator Sedation Protocol 1 EACH FS ONE (07:26)
[2018-10-07] MEDS ORDERED: Fentanyl BOLUS 250 ML IVPB PRN (07:33)
[2018-10-07] MEDS ORDERED: Propofol BOLUS 1,000 MG/100 ML VIAL IV PRN (07:33)
--- NOTE | 2018-10-07 07:33 | PDOC.EVN ---
Event Note - Event Note Event Note: Nursing paged residents to patient's bedside at ~0640 due to reported increased work of breathing and hypoxia down to the low 80s on Bipap. On exam patient was tachypneic into the upper 20s and tachycardic into the 110s and unable to speak even in short phrases due to increased work of breathing. Pulmonology, Dr. Morales was updated who recommended we intubate the patient. Patient consented by nodding yes and was intubated with a 7.5 ET tube placed 21cm at the teeth after receiving 20mg Etomidate and 60mg rocuronuim IV. Correct placement was confirmed via a STAT portable CXR following the procedure which was reviewed by myself and the attending physician, Dr. Shannan Freitas. Sedation procotol re- initiated & patient noted to be resting comfortably and was satting 95-95% on SIMV mode at 16 and 60% FiO2 s/p confirmation of tube placement. Attending physician, Dr. Shannan Freitas was present throughout the entire procedure.
--- NOTE | 2018-10-07 07:41 | RAD ---
CHEST 1 VIEW: HISTORY: Shortness of breath. Comparison: 10/06/2018 at 10:51 PM. FINDINGS: Lines and tubes: Interval placement of an endotracheal tube, terminating beyond the clavicles. Nasoga stric tube extends beyond the diaphragm. Distal tip is not seen. Cardiac silhouette: Normal. Aorta: Atherosclerosis. Pulmonary vessels: Normal. Costophrenic angles: Clear. Lungs: Stable diffuse interstitial and alveolar opacities. Pneumothorax: None. Osseous abnormalities: Stable multilevel vertebroplasty. IMPRESSION: Interval placement of endotracheal and nasogastric tubes. Otherwise, no change. Transcribed Date/Time: 10/07/2018 8:10 AM
[2018-10-07 08:05] LABS: Actual Bicarbonate (HCO3a) 32.1 mEq/L (22-28); Base Excess (BEa) 5.3 mEq/L (-2.0 to +3.0); CO2 Tension 56.6 mmHg (35.0-45.0); Calcium, Ionized 1.14 mmol/L (1.12-1.30); Carboxyhemoglobin (COHb) 1.4 gm% (0.0-3.0); Hemoglobin (Hb) 13.9 g/dL (12.0-16.0); O2 Tension (PaO2) 68.5 mmHg (> 70.0); Potassium - ABG Lab 3.76 mmol/L (3.70-5.30); pH, Arterial 7.37 (7.35-7.45)
[2018-10-07 08:07] LABS: Puncture Site RRA
--- NOTE | 2018-10-07 08:40 | PRG ---
DATE OF SERVICE: 10/07/2018 SUBJECTIVE: Adriana Velazco is a 77-year-old female, who was extubated yesterday. She became progressively more short of breath. She says she was uneasy. I told her to give her Xanax, called the resident to see the patient. Heart rate increased at 2 o'clock, BiPAP was started by the residents, at 7 o'clock they called me, states she was having difficulty breathing. Gases showed severe respiratory acidosis, pCO2 of 65, pH of 7.30 with pCO2 of 73 on the BiPAP. She was intubated. Troponin is elevated. BNP is 761. Echo pending. Glucose 241. X-ray shows bilateral pulmonary infiltrates. OBJECTIVE: VITAL SIGNS: Blood pressure 150/100, pulse 116, saturations 99% on the vent, and respirations 18. CHEST: Bilateral crackles. CARDIAC: Normal S1 and S2. No gallops. ABDOMEN: No masses. LABORATORY DATA: White count 28,000, segs 93. Lytes are normal. Glucose 241. IMAGING DATA: X-ray shows bilateral pulmonary infiltrates. ASSESSMENT: 1. Respiratory failure. 2. Pneumonia. 3. Superimposed congestive heart failure. 4. Supraventricular tachycardia. 5. Hypothyroidism. 6. Severe deconditioning. PLAN: Antibiotic being adjusted. Continue supportive care, PT, nutrition. May await results of the echo. One-half hour of critical care time. Job ID: [id number]
[2018-10-07] MEDS: Lorazepam 2 MG/ML VIAL SLOW IVP PRN ×3 (09:25→14:08)
[2018-10-07] MEDS: Gabapentin 300 MG CAP PO SCH ×3 (09:39→21:18)
[2018-10-07] MEDS: Dronedarone HCl 400 MG TAB PO SCH (09:39)
[2018-10-07] MEDS: Famotidine/PF 20 mg/2ml Vial SLOW IVP SCH ×2 (09:40→21:18)
[2018-10-07] MEDS: Levothyroxine Sodium 50 MCG TAB PO SCH (09:56)
[2018-10-07] MEDS: Cefepime 1 GM in Sodium Chloride 0.9% 100 ML IVPB SCH ×2 (09:56→21:19)
[2018-10-07] MEDS: Aspirin 325 mg Enteric Coated Tablet PO SCH (10:22)
[2018-10-07] MEDS: Potassium Chloride 10 MEQ TAB PO SCH (10:22)
[2018-10-07] MEDS ORDERED: Aspirin 325 MG TAB PER TUBE SCH (10:30)
[2018-10-07] MEDS ORDERED: Dextrose 50% Abboject 50 ML SYRINGE SLOW IVP PRN (10:36)
[2018-10-07] MEDS ORDERED: HumaLOG 300 UNITS/3 ML VIAL SC PRN ×2 (10:36)
[2018-10-07] MEDS: methylPREDNISolone Sod Succ 40 MG VIAL IVP SCH ×2 (10:37→22:01)
[2018-10-07 11:02] LABS: Bicarbonate (HCO3v) 35.8 mmol/L (22.0-28.0)
[2018-10-07] MEDS: Propofol 1,000 MG/100 ML VIAL IV PRN (11:06)
[2018-10-07] MEDS ORDERED: Aspirin Chewable 81 MG TAB PER TUBE SCH (11:20)
[2018-10-07] MEDS ORDERED: HYDROcodone/Acetaminophen 10/325 mg Tablet PO PRN (11:48)
[2018-10-07 12:36] LABS: Troponin I 1.823 ng/mL (< 0.028)
[2018-10-07] MEDS: Morphine 2 MG/ML SYRINGE SLOW IVP PRN (12:53)
[2018-10-07] MEDS: fentaNYL Citrate/PF 2,000 MCG in Sodium Chloride 0.9% 60 ML IV SCH (13:19)
[2018-10-07] MEDS: Enalaprilat Dihydrate 1.25 MG/ML VIAL SLOW IVP SCH ×2 (13:27→18:51)
--- NOTE | 2018-10-07 14:57 | CON ---
DATE OF CONSULTATION: HISTORY OF PRESENT ILLNESS: The patient is a 77-year-old woman, who presented with dyspnea and respiratory failure. The patient has a history of atrial fibrillation and mild coronary artery disease. In November of last year, she underwent a cardiac catheterization, found to have normal left systolic function with mild coronary artery disease. The right coronary artery had two 20% lesions. The LAD and LCX were both free of significant disease. The patient re-presented in February 2008 with chest pain. She underwent another stress test, which revealed her to have normal left ventricular ejection fraction of 81% with no evidence of ischemia. The patient was admitted with respiratory failure. She has a history of COPD. The patient is now intubated and unable to give a coherent history. PAST MEDICAL HISTORY: Significant for;, 1. CAD. 2. Atrial fibrillation. 3. Hypertension. 4. Hypothyroidism. 5. Carcinoid tumor. 6. Lung carcinoma. PAST SURGICAL HISTORY: Hernia surgery, hip replacement. SOCIAL HISTORY: Long history of tobacco abuse. PHYSICAL EXAMINATION: GENERAL: Intubated woman, who is sedated with a blood pressure of 158/111. NECK: No jugular venous distention. LUNGS: Coarse breath sounds bilateral. HEART: Regular rate and rhythm. Normal S1 and S2. 1/6 systolic murmur. ABDOMEN: Nondistended. EXTREMITIES: Showed no edema. LABORATORY DATA: Her sodium was 140, potassium 4.1, chloride 104, bicarbonate 24, BUN 17, creatinine 0.82. CPK-MB was 22.1, troponin was 0.482. BNP is 761. Her white blood cell count was 28.5, hemoglobin 13.0, hematocrit 40.5, and platelets 422. IMAGING STUDIES: Her EKG reveals her to have normal sinus rhythm with Q-waves suggestive of a possible anterior MN. IMPRESSION: 1. Respiratory failure. 2. Congestive heart failure. 3. Myocardial infarction, probably type 2. 4. History of atrial fibrillation. 5. Chronic obstructive pulmonary disease. 6. Tobacco abuse. This patient developed respiratory failure. She appears to be septic with a markedly elevated white count and developed respiratory failure. She has elevated a small elevation of her troponin level of 1.8. I suspect the patient has had a type 2 myocardial infarction. The patient will be treated with aspirin lipid-lowering medication. I will check the patient's echocardiogram. She appears to be in congestive heart failure. We will discontinue her Multaq. We will start SOFIE inhibitor therapy. We will follow this patient with you throughout her hospitalization. It is a critical care note. Time is 30 minutes. Job ID: [id number]
[2018-10-07] MEDS ORDERED: Etomidate 20 MG/10 ML VIAL ONE (17:00)
[2018-10-07] MEDS ORDERED: Rocuronium Bromide 10 MG/ML (10ML VIAL) ONE (17:00)
[2018-10-07] MEDS: Sodium Chloride 0.9% 1,000 ML IV SCH (21:17)
[2018-10-07] MEDS: Senokot S 8.6-50 MG TAB PO SCH (21:18)
[2018-10-07] MEDS: Atorvastatin Calcium 20 MG TAB PO SCH (21:18)
[2018-10-07] MEDS: Enoxaparin Sodium 60 MG/0.6 ML SYRINGE SC SCH (21:19)
[2018-10-07] MEDS ORDERED: methylPREDNISolone Sod Succ 40 MG VIAL IVP SCH (22:00)
[2018-10-08] MEDS: Enalaprilat Dihydrate 1.25 MG/ML VIAL SLOW IVP SCH ×4 (00:03→21:45)
[2018-10-08] MEDS: fentaNYL Citrate/PF 2,000 MCG in Sodium Chloride 0.9% 60 ML IV SCH ×2 (00:04→12:50)
[2018-10-08] MEDS: Morphine 2 MG/ML SYRINGE SLOW IVP PRN (00:50)
[2018-10-08] MEDS ORDERED: Amiodarone 150 MG, Admixture Fee 1 EACH in Dextrose 5% in Water 100 ML IVPB SCH ×2 (03:30→10:00)
[2018-10-08] MEDS: Amiodarone 450 MG, Admixture Fee 1 EACH in Dextrose 5% in Water 250 ML IVPB SCH (04:00)
[2018-10-08] MEDS ORDERED: Digoxin 0.5 MG/2 ML AMP SLOW IVP SCH (05:00)
[2018-10-08 05:34] LABS: #Lymphocytes 1.2 thou/uL (1.20-3.40); #Monocytes 0.6 thou/uL (0.11-0.59); #Neutrophils 13.5 thou/uL (1.40-6.50); %Basophils 0.1 % (0.0-1.0); %Eosinophils 0.1 % (0.0-10.0); %Lymphocytes 8.1 % (21.0-51.0); %Monocytes 3.9 % (0.0-10.0); %Neutrophils 87.9 % (42.0-75.0); Hemoglobin 11.4 g/dL (12.0-16.0); Mean Corpuscular HGB CONC 32.9 g/dL (32.0-36.0); Mean Corpuscular Hemoglobin 31.2 pg (27.0-31.0); Mean Corpuscular Volume 94.9 fL (78.0-98.0); Mean Platelet Volume 7.2 fL (7.4-10.4); Platelet Count 262 thou/uL (130-400); RBC Distribution Width 13.3 % (11.5-14.5); Red Blood Cell (RBC) Count 3.64 mill/uL (4.20-5.40); White Blood Cell (WBC) Count 15.3 thou/uL (4.8-10.8)
[2018-10-08 05:58] LABS: ALT (SGPT) 33 U/L (8-55); AST (SGOT) 52 U/L (5-34); Alkaline Phosphatase 76 U/L (40-150); Anion Gap 13 mmol/L (10-20); BUN (Urea Nitrogen) 22 mg/dL (9.8-20.1); Bilirubin, Total 0.3 mg/dL (0.2-1.2); Calc. Creatinine Clearance 54 mL/min (70-130); Calcium 8.3 mg/dL (7.8-10.44); Carbon Dioxide 25 mmol/L (23-31); Chloride 105 mmol/L (98-107); Estimated GFR-MDRD 71; Globulin 2.6 g/dL (2.4-3.5); Glucose 129 mg/dL (83-110); Potassium 4.4 mmol/L (3.5-5.1); Protein, Total 5.6 g/dL (6.0-8.3); Sodium 139 mmol/L (136-145)
[2018-10-08] MEDS ORDERED: HumaLOG 300 UNITS/3 ML VIAL SC PRN (06:12)
--- NOTE | 2018-10-08 06:16 | PDOC.FM ---
- Subjective Subjective: Patient remained stable from a respiratory standpoint intubated & sedated overnight; however, went into a fib with RVR @ ~ 0300 and cardiology was notified. Was started on an amio drip which has kept her HR in the 110-120s since. Also received a 0.5 dose of IV digoxin. GCS score of 10 with spontaneous eye opening and responding to commands. - Objective MAR Reviewed: Yes Vital Signs & Weight: Vital Signs (12 hours) Temp Pulse Resp BP Pulse Ox 10/08/18 04:56 160 H 10/08/18 04:00 98.2 F 23 H 10/08/18 02:17 106 H 105/68 10/08/18 02:00 19 10/08/18 00:03 143/96 H 10/08/18 00:00 98.8 F 25 H 10/07/18 22:00 25 H 10/07/18 21:53 119 H 119/80 10/07/18 20:00 25 H 100 10/07/18 19:00 98.8 F 10/07/18 18:31 118 H 141/95 H Weight Admit Weight 60.1 kg Weight 57.8 kg Most Recent Monitor Data Heart Rate from ECG 138 NIBP 92/63 NIBP BP-Mean 72 Respiration from ECG 25 SpO2 100 I&O: 10/06/18 10/07/18 10/08/18 06:59 06:59 06:59 Intake Total 3596.3 2046.1 1548.6 Output Total 1085 2440 748 Balance 2511.3 -393.9 800.6 Result Diagrams: 10/08/18 05:07 10/08/18 05:07 EKG Reviewed by me: Yes Radiology Reviewed by me: Yes (extensive B/L alveolar & interstitial parenchymal & effusion changes ) Phys Exam - Physical Examination Constitutional: NAD intubated & sedated HEENT: moist MMs, sclera anicteric Neck: supple Respiratory: no wheezing CTA in B/L upper lung [place] with trace inspiratory rhonchi in lower lobes Cardiovascular: no significant murmur tachycardic w/ an irregularly irregular rhythm Gastrointestinal: soft, no distention, positive bowel sounds Musculoskeletal: no edema pulses difficult to detect in B/L LEs Neurological: non-focal, moves all 4 limbs GCS score of 10 Psychiatric: normal affect Deviation from normal: nods yes & no appropriately to questioning Deviation from normal: Scabbed over/healing skin tear on L buttock & erythema over sacrum w/ ppx -: mepiplex in place; bruising to B/L UEs; cap refill < 3s; no rash Dx/Plan (1) COPD exacerbation Code(s): J44.1 - CHRONIC OBSTRUCTIVE PULMONARY DISEASE W (ACUTE) EXACERBATION Status: Acute (2) Acute exacerbation of CHF (congestive heart failure) Code(s): I50.9 - HEART FAILURE, UNSPECIFIED Status: Suspected (3) Hypothyroidism Code(s): E03.9 - HYPOTHYROIDISM, UNSPECIFIED Status: Chronic (4) Afib Code(s): I48.91 - UNSPECIFIED ATRIAL FIBRILLATION Status: Acute Qualifiers: Atrial fibrillation type: paroxysmal Qualified Code(s): I48.0 - Paroxysmal atrial fibrillation (5) CAD (coronary artery disease) Code(s): I25.10 - ATHSCL HEART DISEASE OF [place] CORONARY ARTERY W/O ANG PCTRS Status: Chronic Qualifiers: Coronary Disease-Associated Artery/Lesion type: [place] artery [place] vs. transplanted heart: [place] heart Associated angina: without angina Qualified Code(s): I25.10 - Atherosclerotic heart disease of [place] coronary artery without angina pectoris (6) COPD (chronic obstructive pulmonary disease) Status: Chronic Qualifiers: COPD type: COPD with acute exacerbation Qualified Code(s): J44.1 - Chronic obstructive pulmonary disease with (acute) exacerbation (7) Chronic pain syndrome Code(s): G89.4 - CHRONIC PAIN SYNDROME Status: Chronic (8) Hypertension Code(s): I10 - ESSENTIAL (PRIMARY) HYPERTENSION Status: Chronic Qualifiers: Hypertension type: essential hypertension Qualified Code(s): I10 - Essential (primary) hypertension (9) Type 2 AMI (acute myocardial infarction) Code(s): I21.A1 - MYOCARDIAL INFARCTION TYPE 2 Status: Acute - Plan Plan: 77YOF with a PMH significant for COPD on 2L of O2 at home, mild CAD, HTN, paroxysmal A fib, hypothyroidism and chronic pain syndrome who was brought in via EMS after being intubated in the field for SOB. Acute hypoxic hypercapneic respiratory failure 2/2 an acute on chronic COPD and/ or suspected CHF exacerbation - Likely 2/2 COPD exacerbation given lung exam findings and cxr findings; however, newly developed CHF is also likely a contributing factor based on prelim. ECHO read at bedside yesterday with mild improvement in CXR this AM s/p IV lasix yesterday. In addition, cannot r/o an infectious pneumonitis as patient 's CXR also improved after switching to cefepime from rocephin yesterday. - Will continue IV steroids as well as VINCENZO duonebs & albuterol per pulmonology, appreciate recs. - Repeat ABG pending for this AM. Post-intubation ABG slightly improved from pre -intubation yesterday. - Will continue to monitor respiratory status closely and wean off of respiratory support as tolerated by the patient. Continue QD CXRs. A fib with RVR -Aware, amio gtt started overnight as patient's HR jumped into the 160 range s/ p a dig & dilt bolus push. Cards on board, appreciate recs. Maintaining rate between 110-120s on drip @ 1mg/minute earlier this AM but has since converted to normal sinus w/o any additional meds. Will continue to monitor rate closely & touch base with cards regarding CVA ppx as patient likely a poor candidate for OAC therapy with HAS-BLED score of 3 based on age, antiplatelet use and uncontrolled HTN upon admission. However, given the fact that patient is still smoking with newly developed CHF [id number] score also extremely high at 6. Will also defer to cards regarding plans for d/c drip and transitioning to oral meds. Suspected CAP vs. aspiration pneumonitis - Febrile in field but has remained afebrile since admission. Switched to cefepime yesterday & WBC down to 15.3 this AM. Sputum Cx pending but prelim read shows few WBCs & no organisms & procal 0.06 yesterday AM, repeat pending for this AM. Most recent CXR notable for mildly improved diffuse alveolar & interstitial opacities. - PRN antipyretics. Suspected CHF exacerbation - BNP ~700 on 10/06 which was > than BNP with initial admission labs. CXR concerning for volume overload. ECHO read pending but prelim bedside read c/w HFrEF. Cards on board & started SOFIE-I therapy. Will continue VINCENZO lasix but increase to BID dosing today. - Will continue QD weights and strict I&Os. HTN - BP in low-normal range since initiation of SOFIE-I yesterday but MAP has been > or equal to 65 w/o addition or need for pressors since BP has dropped. Will decrease vasotec to 0.625 Q8H per pulm recs. Cards also on board, appreciate recs. Will continue to monitor closely. Type II AK - Per cards patient likely suffered an anterior type II [place] based on EKG changes and uptrending troponins. Will continue ASA & statin therapy per cards recs & consider de-escalating Th Lovenox. Chronic opiate dependence/abuse -Aware, hx of withdrawal on previous admission. Will restart home meds once off sedation but will continue PRN IV morphine for breakthrough agitation while intubated & sedated. Hypothyroidism - Aware, will continue home meds. Physical Deconditioning: - PT and OT consulted. May consider CM consult as well as patient will likely require a rehab vs. SNF stay upon d/c pending her clinical course. - Will start tube feeds slowly per pulm recs today at ~20cc/hr DVT PPX: Th Lovenox GI PPx: famotidine Abx: Cefepime 1g Q12HR, day #2 IVFs: NS @ 50mLhr Code Status: Full Addendum - Attending - Attending Attestation Date/Time: 10/08/18 1411 I personally evaluated the patient and discussed the management with Dr. Burrell. I agree with the History, Examination, Assessment and Plan documented above with any addition or exceptions noted below. Likely acute HFrEF -begin diuresis -ACEI already added, consider bb when improved and may req mra in the future Lung protective ventilation Continue antibiotics would limit course if no growth Continue amio gtt, cardioverted this AM NSTEMI vs type 2 AK -cards following
[2018-10-08] MEDS: Levothyroxine Sodium 50 MCG TAB PO SCH (07:04)
[2018-10-08] MEDS ORDERED: Furosemide 40 MG TAB PO SCH (07:30)
[2018-10-08 07:36] LABS: Actual Bicarbonate (HCO3a) 26.6 mEq/L (22-28); Base Excess (BEa) 1.9 mEq/L (-2.0 to +3.0); CO2 Tension 41.6 mmHg (35.0-45.0); Calcium, Ionized 1.17 mmol/L (1.12-1.30); Hemoglobin (Hb) 12.6 g/dL (12.0-16.0); O2 Tension (PaO2) 68.1 mmHg (> 70.0); Potassium - ABG Lab 4.91 mmol/L (3.70-5.30); pH, Arterial 7.42 (7.35-7.45)
[2018-10-08 07:37] LABS: Puncture Site RRA
--- NOTE | 2018-10-08 07:48 | RAD ---
Exam: Chest one view: HISTORY: Respiratory insufficiency COMPARISON: 10/07/2018 FINDINGS: Life support tubes remain in place and stable. Extensive bilateral interstitial and alveolar parenchy mal changes and pleural effusion changes with cardiomegaly. Since postop changes of the lumbar thoracic spine. No significant new process. IMPRESSION: Stable chest. Continued short-term follow-up.
[2018-10-08] MEDS: Cefepime 1 GM in Sodium Chloride 0.9% 100 ML IVPB SCH ×2 (08:28→20:45)
[2018-10-08] MEDS: Enoxaparin Sodium 60 MG/0.6 ML SYRINGE SC SCH ×2 (08:29→20:46)
[2018-10-08] MEDS: Famotidine/PF 20 mg/2ml Vial SLOW IVP SCH ×2 (08:29→20:45)
[2018-10-08] MEDS: Senokot S 8.6-50 MG TAB PO SCH ×2 (08:32→20:48)
[2018-10-08] MEDS: Gabapentin 300 MG CAP PO SCH ×3 (08:32→20:45)
[2018-10-08] MEDS: Aspirin Chewable 81 MG TAB PER TUBE SCH (08:33)
[2018-10-08] MEDS: methylPREDNISolone Sod Succ 40 MG VIAL IVP SCH ×2 (08:40→20:45)
[2018-10-08] MEDS: Digoxin 0.5 MG/2 ML AMP SLOW IVP SCH ×2 (08:40→08:51)
--- NOTE | 2018-10-08 08:40 | PRG ---
DATE OF SERVICE: 10/08/2018 SUBJECTIVE: This morning, she is intubated, vented, and sedated. OBJECTIVE: VITAL SIGNS: Blood pressure is low 90/80, pulse 120, respirations 18. I's and O's have been consistently sightly ahead. CHEST: Bilateral rhonchi and crackles. No wheezing. CARDIAC: Sinus tach. ABDOMEN: Soft. LABORATORY DATA: White count 15,000, H and H 11 and 34, platelet count 262. PO2 of 68, pCO2 of 41 ph 7.43 lytes are normal. Glucose 118. ASSESSMENT: Respiratory failure, congestive heart failure, chronic obstructive pulmonary disease, pneumonia, severe deconditioning. PLAN: Medicine being adjusted such that to maintain a systolic at least 100. nutrition, PT. One-half hour of critical time. Job ID: [id number] MTDD
[2018-10-08] MEDS: Propofol 1,000 MG/100 ML VIAL IV PRN (08:53)
[2018-10-08] MEDS: Lorazepam 2 MG/ML VIAL SLOW IVP PRN ×3 (08:53→21:59)
[2018-10-08] MEDS ORDERED: Aspirin 325 MG TAB PER TUBE SCH (09:00)
[2018-10-08] MEDS ORDERED: Furosemide 20 MG/2 ML VIAL SLOW IVP SCH ×3 (12:36→20:00)
[2018-10-08] MEDS ORDERED: Pancrelipase DR 12000 1 CAP FS PRN (13:36)
[2018-10-08] MEDS ORDERED: Sodium Bicarbonate Tab 325 MG TAB PER TUBE PRN (13:36)
[2018-10-08] MEDS: Furosemide 20 MG/2 ML VIAL SLOW IVP SCH (14:20)
[2018-10-08] MEDS ORDERED: Amiodarone 150 MG in Dextrose 5% in Water 100 ML IVPB SCH (17:45)
[2018-10-08] MEDS: Sodium Chloride 0.9% 1,000 ML IV SCH (20:44)
[2018-10-08] MEDS: Atorvastatin Calcium 20 MG TAB PO SCH (20:45)
[2018-10-09] MEDS: Lorazepam 2 MG/ML VIAL SLOW IVP PRN ×6 (00:43→16:22)
[2018-10-09] MEDS: fentaNYL Citrate/PF 2,000 MCG in Sodium Chloride 0.9% 60 ML IV SCH ×2 (01:47→19:31)
[2018-10-09] MEDS: Amiodarone 450 MG, Admixture Fee 1 EACH in Dextrose 5% in Water 250 ML IVPB SCH ×2 (04:48→14:10)
[2018-10-09 05:04] LABS: #Lymphocytes 1.1 thou/uL (1.20-3.40); #Monocytes 0.5 thou/uL (0.11-0.59); #Neutrophils 11.1 thou/uL (1.40-6.50); %Eosinophils 0.2 % (0.0-10.0); %Lymphocytes 8.8 % (21.0-51.0); %Monocytes 3.7 % (0.0-10.0); %Neutrophils 87.3 % (42.0-75.0); Hemoglobin 10.4 g/dL (12.0-16.0); Mean Corpuscular HGB CONC 33.7 g/dL (32.0-36.0); Mean Corpuscular Hemoglobin 31.7 pg (27.0-31.0); Mean Corpuscular Volume 94.1 fL (78.0-98.0); Mean Platelet Volume 8.8 fL (7.4-10.4); Platelet Count 200 thou/uL (130-400); RBC Distribution Width 13.3 % (11.5-14.5); Red Blood Cell (RBC) Count 3.28 mill/uL (4.20-5.40); White Blood Cell (WBC) Count 12.7 thou/uL (4.8-10.8)
[2018-10-09 05:28] LABS: ALT (SGPT) 34 U/L (8-55); AST (SGOT) 60 U/L (5-34); Albumin 2.9 g/dL (3.4-4.8); Alkaline Phosphatase 71 U/L (40-150); Anion Gap 15 mmol/L (10-20); BUN (Urea Nitrogen) 25 mg/dL (9.8-20.1); Bilirubin, Total 0.3 mg/dL (0.2-1.2); Calc. Creatinine Clearance 56 mL/min (70-130); Calcium 8.3 mg/dL (7.8-10.44); Carbon Dioxide 26 mmol/L (23-31); Chloride 104 mmol/L (98-107); Estimated GFR-MDRD 71; Globulin 2.8 g/dL (2.4-3.5); Glucose 124 mg/dL (83-110); Potassium 4.4 mmol/L (3.5-5.1); Protein, Total 5.7 g/dL (6.0-8.3); Sodium 141 mmol/L (136-145)
[2018-10-09] MEDS: Furosemide 20 MG/2 ML VIAL SLOW IVP SCH ×2 (05:45→14:11)
[2018-10-09] MEDS: Enalaprilat Dihydrate 1.25 MG/ML VIAL SLOW IVP SCH (05:45)
[2018-10-09] MEDS: Levothyroxine Sodium 50 MCG TAB PO SCH (05:45)
[2018-10-09] MEDS ORDERED: Furosemide 20 MG/2 ML VIAL SLOW IVP SCH (06:00)
--- NOTE | 2018-10-09 06:17 | PDOC.FM ---
- Subjective Subjective: Patient had recurrent episodes of hypotension overnight so vasotec was held and propofol was stopped. Also became agitated and required a one-time dose of ativan and fentanyl was increased from 125mcg/hr to 150. HR fluctuated from 150s to 60s on the amiodarone drip. Remained rate controlled for duration of exam. Was resting comfortably and following most commands on exam. - Objective MAR Reviewed: Yes Vital Signs & Weight: Vital Signs (12 hours) Temp Pulse Resp BP Pulse Ox 10/09/18 06:00 16 10/09/18 05:45 118/82 10/09/18 04:00 16 99 10/09/18 03:10 71 16 99 10/09/18 03:00 98.6 F 10/09/18 02:00 16 10/09/18 00:00 16 10/08/18 23:57 99 10/08/18 23:00 97.8 F 10/08/18 22:00 16 10/08/18 21:50 78 16 100 10/08/18 21:45 118/82 10/08/18 20:00 100 10/08/18 19:51 16 10/08/18 19:00 98.9 F 10/08/18 18:53 92 16 93 L Weight Admit Weight 60.1 kg Weight 59.1 kg Most Recent Monitor Data Heart Rate from ECG 64 NIBP 107/58 NIBP BP-Mean 74 Respiration from ECG 16 SpO2 100 I&O: 10/07/18 10/08/18 10/09/18 06:59 06:59 06:59 Intake Total 2046.1 2316.0 2365.8 Output Total 2440 838 1790 Balance -393.9 1478.0 575.8 Result Diagrams: 10/09/18 03:32 10/09/18 03:32 Radiology Reviewed by me: Yes (cardiomegaly w/ perihilar opacities & small B/L effusions, stable exam) Phys Exam - Physical Examination Constitutional: NAD HEENT: moist MMs, sclera anicteric Neck: supple Respiratory: no wheezing Cardiovascular: no significant murmur, irregular irregular rhythm and rate jumping from 70s to 100s during exam Gastrointestinal: soft, non-tender, no distention, positive bowel sounds Musculoskeletal: no edema pulses difficult to palpate in B/L LEs Neurological: non-focal, moves all 4 limbs GCS score of 9, opens eyes to command and follows most other commands Skin: no rash Deviation from normal: cap refill <3s Dx/Plan (1) COPD exacerbation Code(s): J44.1 - CHRONIC OBSTRUCTIVE PULMONARY DISEASE W (ACUTE) EXACERBATION Status: Acute (2) Acute exacerbation of CHF (congestive heart failure) Code(s): I50.9 - HEART FAILURE, UNSPECIFIED Status: Suspected (3) Hypothyroidism Code(s): E03.9 - HYPOTHYROIDISM, UNSPECIFIED Status: Chronic (4) Afib Code(s): I48.91 - UNSPECIFIED ATRIAL FIBRILLATION Status: Acute Qualifiers: Atrial fibrillation type: paroxysmal Qualified Code(s): I48.0 - Paroxysmal atrial fibrillation (5) CAD (coronary artery disease) Code(s): I25.10 - ATHSCL HEART DISEASE OF [place] CORONARY ARTERY W/O ANG PCTRS Status: Chronic Qualifiers: Coronary Disease-Associated Artery/Lesion type: [place] artery [place] vs. transplanted heart: [place] heart Associated angina: without angina Qualified Code(s): I25.10 - Atherosclerotic heart disease of [place] coronary artery without angina pectoris (6) COPD (chronic obstructive pulmonary disease) Status: Chronic Qualifiers: COPD type: COPD with acute exacerbation Qualified Code(s): J44.1 - Chronic obstructive pulmonary disease with (acute) exacerbation (7) Chronic pain syndrome Code(s): G89.4 - CHRONIC PAIN SYNDROME Status: Chronic (8) Hypertension Code(s): I10 - ESSENTIAL (PRIMARY) HYPERTENSION Status: Chronic Qualifiers: Hypertension type: essential hypertension Qualified Code(s): I10 - Essential (primary) hypertension (9) Type 2 AMI (acute myocardial infarction) Code(s): I21.A1 - MYOCARDIAL INFARCTION TYPE 2 Status: Acute - Plan Plan: 77YOF with a PMH significant for COPD on 2L of O2 at home, mild CAD, HTN, paroxysmal A fib, hypothyroidism and chronic pain syndrome who was brought in via EMS after being intubated in the field for SOB. Acute hypoxic hypercapneic respiratory failure 2/2 an acute on chronic COPD and/ or suspected CHF exacerbation - Likely 2/2 COPD exacerbation given lung exam findings and cxr findings; however, newly developed CHF is also likely a contributing factor based on preliminary ECHO read at bedside yesterday. Official read still pending. In addition, cannot r/o an infectious pneumonitis as patient's CXR stable from yesterday. - Will continue IV steroids as well as VINCENZO duonebs & albuterol per pulmonology, appreciate recs. - ABG today WNLs w/ exception of O2 of 104 & Bicarb of 28.5. - Will continue to monitor respiratory status closely and wean sedation today per pulm recs in anticipation of future extubation. Continue QD CXRs. A fib with RVR -Aware, patient converted for a few hours yesterday while on amio drip but went back into afib w/ RVR yesterday evening with rate up into the 130s. Remains on the drip and is currently NPO in anticipation of possible cardioversion today. In and out of afib currently but rate controlled on drip @ 0.5 mcg/min. Cards on board, appreciate recs. Will defer to cards for plans for CVA PPx but will continue Th Lovenox for now. Per chart review eliquis was d/c 2/2 recurrent falls in early July of this year. Suspected CAP vs. aspiration pneumonitis - Febrile in field but has remained afebrile since 10/06. WBC count continues to downtrend. Sputum Cx negative @ 12 hours & procal stable at 0.07. CXR stable this AM from yesterday w/ persistent small B/L effusions. - PRN antipyretics. Pulmonary edema 2/2 suspected CHF exacerbation - BNP ~700 on 10/06 which was > than BNP with initial admission labs. CXR still concerning for volume overload despite 40mg PO & 20mg IV lasix in last 24 hours & UO of just over 1700mL in last 24 hours. ECHO read still pending. Will continue VINCENZO BID lasix but consider increasing dosing to 40mg today. - Will continue QD weights and strict I&Os. HTN - Hypotensive overnight again so vasotec held & propofol stopped. BP currently stable. Will consider stopping vasotec for now. Will continue to monitor closely & wean sedation per cards recs. Type II OR - Per cards patient likely suffered an anterior type II [place] based on EKG changes and uptrending troponins. Will continue ASA & statin therapy per cards recs as well as Th Lovenox while patient remains in & out of a fib. Chronic opiate dependence/abuse -Aware, hx of withdrawal on previous admission. Will restart home meds once off sedation but will continue PRN IV morphine for breakthrough agitation while intubated & sedated. Hypothyroidism - Aware, will continue home meds. hyperglycemia - SSI remains in place should BG levels be >200. Goal to keep levels between 140 -180. Did reach goal yesterday after initiation of tube feeds but BG down to 125 this AM since patient has been NPO since midnight. Will continue to monitor closely & consider adding D5 to fluids and/or changing hypoglycemia protocol parameters to remain within goal range in setting of acute illness. Physical Deconditioning: - PT and OT consulted. Will likely consult CM in the next day or so as patient will likely require a rehab vs. SNF stay upon d/c pending her clinical course. - Will resume tube feeds once cleared by cards per pulm & dieticians recs. DVT PPX: Th Lovenox GI PPx: famotidine Abx: Cefepime 1g Q12HR, day #3 IVFs: NS @ 50mLhr Code Status: Full Addendum - Attending - Attending Attestation Date/Time: 10/09/18 0596 I personally evaluated the patient and discussed the management with Dr. Burrell. I agree with and repeated the History, Examination, Assessment and Plan documented above with any addition or exceptions noted below. Patient I&S this morning. Her lungs remain with extensive crackles in the bases. Afib with RVR/t2MI/acute HFrEF -call for echo read -I would increase statin if LFTs tolerate -on amio and th lovenox, I believe cardiology is planning cardioversion today -consider increasing lasix Leukocytosis -would plan on d/c antibiotics today vs at 5 days D/c NS, initiate feeds and may get FW if necessary
--- NOTE | 2018-10-09 06:25 | RAD ---
CHEST ONE VIEW: INDICATIONS: Daily CCU examination. Intubation. COMPARISON: 10/08/2018 FINDINGS: ET tube and gastric catheter are unchanged. Cardiomegaly with perihilar opacities and small bilatera l pleural effusions persist. No pneumothorax is evident. IMPRESSION: Stable examination. POS: BH
[2018-10-09 06:59] LABS: Magnesium 1.8 mg/dL (1.6-2.6); Phosphorus 2.5 mg/dL (2.3-4.7)
[2018-10-09] MEDS ORDERED: CCU Electrolyte Replacement 1 EACH FS ONE (07:05)
[2018-10-09] MEDS ORDERED: Magnesium Oxide 400 MG TAB PO PRN (07:09)
[2018-10-09] MEDS ORDERED: Potassium Phosphate 12 MMOL in Sodium Chloride 0.9% 250 ML 250 ML IV PRN (07:09)
[2018-10-09] MEDS ORDERED: Potassium Chloride 40 MEQ in Premix Bag 1 BAG IVPB PRN (07:09)
[2018-10-09] MEDS ORDERED: Potassium Chloride 40 MEQ in Sodium Chloride 0.9% 250 ML 250 ML IVPB PRN (07:09)
[2018-10-09] MEDS ORDERED: Potassium Chloride 20 MEQ TAB PO PRN (07:09)
[2018-10-09] MEDS ORDERED: PHOS-NAK 1 PKT PACK PO PRN ×2 (07:09)
[2018-10-09] MEDS ORDERED: Magnesium 2 GM/50 ML 2 GM in Premix Bag 1 BAG IVPB PRN (07:09)
[2018-10-09] MEDS ORDERED: Potassium Phosphate 9 MMOL in Sodium Chloride 0.9% 100 ML IVPB PRN (07:09)
[2018-10-09] MEDS ORDERED: Potassium Phosphate 15 MMOL in Sodium Chloride 0.9% 250 ML 250 ML IV PRN (07:09)
[2018-10-09 07:33] LABS: Actual Bicarbonate (HCO3a) 28.5 mEq/L (22-28); Base Excess (BEa) 3.6 mEq/L (-2.0 to +3.0); Calcium, Ionized 1.12 mmol/L (1.12-1.30); Carboxyhemoglobin (COHb) 0.7 gm% (0.0-3.0); Hemoglobin (Hb) 10.7 g/dL (12.0-16.0); O2 Tension (PaO2) 104.1 mmHg (> 70.0); Potassium - ABG Lab 3.47 mmol/L (3.70-5.30); pH, Arterial 7.42 (7.35-7.45)
[2018-10-09 07:34] LABS: Puncture Site RR
--- NOTE | 2018-10-09 08:50 | PRG ---
DATE OF SERVICE: 10/09/2018 SUBJECTIVE: Adriana Velazco remains intubated in the vent on fentanyl at 100 mcg, but she opens eyes. Moves her extremities. OBJECTIVE: VITAL SIGNS: Blood pressure looked better 100/80, pulse 80, respirations 18, and saturations 96%. I's and O's have been consistently ahead. CHEST: Bilateral rhonchi and crackles. CARDIAC: Normal S1 and S2. No gallops. ABDOMEN: No masses. LABORATORY DATA: A pO2 is 104, pCO2 45%, pH 7.42 at rate of 16. Lytes are normal. AST 60. X-ray still shows CHF findings. IMPRESSION AND PLAN: Respiratory failure, congestive heart failure, superimposed pneumonia, severe deconditioning, and chronic obstructive pulmonary disease. Try and minimize sedation. Continue nutrition and PT. One-half hour of critical care time. Job ID: [id number]
[2018-10-09] MEDS: Cefepime 1 GM in Sodium Chloride 0.9% 100 ML IVPB SCH ×2 (09:15→20:32)
[2018-10-09] MEDS: Enoxaparin Sodium 60 MG/0.6 ML SYRINGE SC SCH ×2 (09:15→20:33)
[2018-10-09] MEDS: Digoxin 0.5 MG/2 ML AMP SLOW IVP SCH ×2 (10:41→12:38)
[2018-10-09] MEDS: Famotidine/PF 20 mg/2ml Vial SLOW IVP SCH ×2 (10:58→20:33)
[2018-10-09] MEDS: methylPREDNISolone Sod Succ 40 MG VIAL IVP SCH (10:59)
[2018-10-09] MEDS: Magnesium Oxide 400 MG TAB PO PRN (10:59)
[2018-10-09] MEDS: Gabapentin 300 MG CAP PO SCH ×3 (11:02→20:33)
[2018-10-09] MEDS: Aspirin Chewable 81 MG TAB PER TUBE SCH (11:03)
[2018-10-09] MEDS: Senokot S 8.6-50 MG TAB PO SCH ×2 (11:03→20:34)
[2018-10-09] MEDS ORDERED: ALPRAZolam 0.25 MG TAB PO SCH (11:45)
--- NOTE | 2018-10-09 13:16 | OP ---
DATE OF PROCEDURE: 10/09/2018 PROCEDURE PERFORMED: Electrical cardioversion. The patient was shocked with 200 joules synchronized electricity and 200 joules of synchronized electricity. The patient remained in atrial fibrillation. IMPRESSION: Unsuccessful electrical cardioversion. Job ID: [id number] MTDD
[2018-10-09] MEDS: ALPRAZolam 0.25 MG TAB PO SCH ×2 (16:05→20:33)
[2018-10-09] MEDS: Atorvastatin Calcium 20 MG TAB PO SCH (20:33)
[2018-10-09] MEDS: Lisinopril 5 MG TAB PO SCH (20:34)
[2018-10-10] MEDS: Lorazepam 2 MG/ML VIAL SLOW IVP PRN ×4 (01:23→22:55)
[2018-10-10 03:42] LABS: #Eosinphils 0.1 thou/uL (0.0-0.7); #Monocytes 0.7 thou/uL (0.11-0.59); #Neutrophils 8.9 thou/uL (1.40-6.50); %Eosinophils 1.1 % (0.0-10.0); %Lymphocytes 17.4 % (21.0-51.0); %Monocytes 5.5 % (0.0-10.0); Hemoglobin 10.1 g/dL (12.0-16.0); Mean Corpuscular HGB CONC 33.4 g/dL (32.0-36.0); Mean Corpuscular Hemoglobin 31.6 pg (27.0-31.0); Mean Corpuscular Volume 94.8 fL (78.0-98.0); Mean Platelet Volume 7.7 fL (7.4-10.4); Platelet Count 205 thou/uL (130-400); RBC Distribution Width 13.2 % (11.5-14.5); Red Blood Cell (RBC) Count 3.18 mill/uL (4.20-5.40); White Blood Cell (WBC) Count 11.8 thou/uL (4.8-10.8)
[2018-10-10 04:13] LABS: ALT (SGPT) 27 U/L (8-55); AST (SGOT) 29 U/L (5-34); Alkaline Phosphatase 65 U/L (40-150); Anion Gap 11 mmol/L (10-20); BUN (Urea Nitrogen) 22 mg/dL (9.8-20.1); Bilirubin, Total 0.3 mg/dL (0.2-1.2); Calc. Creatinine Clearance 56 mL/min (70-130); Calcium 8.4 mg/dL (7.8-10.44); Carbon Dioxide 30 mmol/L (23-31); Chloride 101 mmol/L (98-107); Estimated GFR-MDRD 72; Globulin 2.2 g/dL (2.4-3.5); Glucose 100 mg/dL (83-110); Potassium 3.5 mmol/L (3.5-5.1); Protein, Total 5.2 g/dL (6.0-8.3); Sodium 138 mmol/L (136-145)
[2018-10-10] MEDS: Furosemide 20 MG/2 ML VIAL SLOW IVP SCH ×2 (05:45→14:09)
[2018-10-10] MEDS: Levothyroxine Sodium 50 MCG TAB PO SCH (05:45)
--- NOTE | 2018-10-10 06:43 | PDOC.FM ---
- Subjective Subjective: Patient converted to NSR yesterday afternoon following 2 cardioversions & has remained in sinus while on amio gtt @ 0.5 mcg/min. Sedation increased from 50 to 125 mcg/min due to patient breathing over ventilator. Otherwise, NAEO. Resting comfortably on exam and following commands. - Objective MAR Reviewed: Yes Vital Signs & Weight: Vital Signs (12 hours) Temp Pulse Resp BP Pulse Ox 10/10/18 06:00 15 10/10/18 04:00 16 100 10/10/18 03:22 64 10 L 100 10/10/18 03:00 97.5 F L 10/10/18 02:00 13 10/10/18 00:00 11 L 100 10/09/18 23:00 98.4 F 10/09/18 22:00 12 10/09/18 21:47 81 13 97 10/09/18 20:34 82 132/71 10/09/18 20:00 14 100 10/09/18 19:00 98.2 F Weight Admit Weight 60.1 kg Weight 59 kg Most Recent Monitor Data Heart Rate from ECG 70 NIBP 111/59 NIBP BP-Mean 76 Respiration from ECG 8 SpO2 100 I&O: 10/08/18 10/09/18 10/10/18 06:59 06:59 06:59 Intake Total 2316.0 2400.7 2009.4 Output Total 838 1790 2340 Balance 1478.0 610.7 -330.6 Result Diagrams: 10/10/18 03:33 10/10/18 03:33 Radiology Reviewed by me: Yes (improvement in B/L pleural effusions compared to yesterday) Phys Exam - Physical Examination Constitutional: NAD HEENT: moist MMs, sclera anicteric Neck: supple Respiratory: wheezing present diffuse expiratory wheezing noted Cardiovascular: RRR, no significant murmur Gastrointestinal: soft, non-tender, no distention, positive bowel sounds Musculoskeletal: no edema pulses difficut to palpate in B/L UEs Neurological: non-focal, moves all 4 limbs GCS 9 Skin: no rash, normal turgor Deviation from normal: multiple purpura over B/L UEs 2/2 multiple needle sticks Dx/Plan (1) COPD exacerbation Code(s): J44.1 - CHRONIC OBSTRUCTIVE PULMONARY DISEASE W (ACUTE) EXACERBATION Status: Acute (2) Acute exacerbation of CHF (congestive heart failure) Code(s): I50.9 - HEART FAILURE, UNSPECIFIED Status: Suspected (3) Hypothyroidism Code(s): E03.9 - HYPOTHYROIDISM, UNSPECIFIED Status: Chronic (4) Afib Code(s): I48.91 - UNSPECIFIED ATRIAL FIBRILLATION Status: Acute Qualifiers: Atrial fibrillation type: paroxysmal Qualified Code(s): I48.0 - Paroxysmal atrial fibrillation (5) CAD (coronary artery disease) Code(s): I25.10 - ATHSCL HEART DISEASE OF [place] CORONARY ARTERY W/O ANG PCTRS Status: Chronic Qualifiers: Coronary Disease-Associated Artery/Lesion type: [place] artery [place] vs. transplanted heart: [place] heart Associated angina: without angina Qualified Code(s): I25.10 - Atherosclerotic heart disease of [place] coronary artery without angina pectoris (6) COPD (chronic obstructive pulmonary disease) Status: Chronic Qualifiers: COPD type: COPD with acute exacerbation Qualified Code(s): J44.1 - Chronic obstructive pulmonary disease with (acute) exacerbation (7) Chronic pain syndrome Code(s): G89.4 - CHRONIC PAIN SYNDROME Status: Chronic (8) Hypertension Code(s): I10 - ESSENTIAL (PRIMARY) HYPERTENSION Status: Chronic Qualifiers: Hypertension type: essential hypertension Qualified Code(s): I10 - Essential (primary) hypertension (9) Type 2 AMI (acute myocardial infarction) Code(s): I21.A1 - MYOCARDIAL INFARCTION TYPE 2 Status: Acute - Plan Plan: 77YOF with a PMH significant for COPD on 2L of O2 at home, mild CAD, HTN, paroxysmal A fib, hypothyroidism and chronic pain syndrome who was brought in via EMS after being intubated in the field for SOB. Acute hypoxic hypercapneic respiratory failure 2/2 an acute on chronic COPD and/ or CHF exacerbation - Likely 2/2 COPD exacerbation given lung exam findings and cxr findings. Will continue IV steroids but QD rather than BID & de-escalate VINCENZO duonebs & PRN albuterol per pulmonology & as tolerated by the patient. - For CHF exacerbation, (ECHO from 10/07 showed an EF of 10-15%) Will continue VINCENZO BID lasix as CXR improved s/p diuresis w/ BID IV lasix yesterday. Continue QD weights and strict I&Os. D/C IVFs. - For possible infection/PNA, sputum Cx + only for katt so severe bacterial PNA highly unlikely as procal has also been negative since admission. Will consider stopping abx today or after a five day course. Day #4 of cefepime today. - ABG pending for today & will adjust vent accordingly based on results. Will possibly attempt extubation later today & will consider stopping QD CXRs as patient has been stable for the last several days & today's imaging is improved from yesterday's. A fib with RVR, resolved -Patient converted several hours after 2 cardioversions done yesterday and has been in NSR since. Currently stable on amio gtt @ 0.5 mcg/min. Cards on board, appreciate recs. Will defer to cards for plans for CVA PPx but will continue Th Lovenox for now. Per chart review keila was d/c 2/2 recurrent falls in early July of this year. HTN - BP stable since patient converted back to NSR. Cards resumed SOFIE-I therapy with zestril @ 5mg BID. PRN labetalol also on board if SBP is > 180. Type II [place] - Per cards patient likely suffered an anterior type II [place] based on EKG changes and uptrending troponins. Will continue ASA & statin therapy per cards recs & consider de-escalating Th Lovenox now that patient is back in NSR. Chronic opiate dependence/abuse -Aware, hx of withdrawal on previous admission. Will restart home meds once off sedation but will continue PRN IV morphine for breakthrough agitation while intubated & sedated. Hypothyroidism - Aware, will continue home meds. hyperglycemia - SSI remains in place should BG levels be >200. Goal to keep BG levels between 140-180. Anticipate improvement today with resumption of tube feeds. Will continue to monitor closely & consider changing hypoglycemia protocol parameters to remain within goal range in setting of acute illness. Physical Deconditioning: - PT and OT consulted as well as CM as patient will likely require a rehab vs. SNF stay upon d/c pending her clinical course. - PC also consulted to discuss goals of care as patient's prognosis remains poor even if extubated given severe decline in cardiac function. DVT PPX: Th Lovenox GI PPx: famotidine Abx: Cefepime 1g Q12HR, day #4 IVFs: none Code Status: Full Addendum - Attending - Attending Attestation Date/Time: 10/10/18 4305 I personally evaluated the patient and discussed the management with Dr. Burrell. I agree with the History, Examination, Assessment and Plan documented above with any addition or exceptions noted below. D/w cards concerning EF and possible cath. Otherwise continue diuresis and plan for ventilator liberation later today pending SBT.
[2018-10-10 07:20] LABS: Actual Bicarbonate (HCO3a) 28.4 mEq/L (22-28); Base Excess (BEa) 3.9 mEq/L (-2.0 to +3.0); CO2 Tension 42.3 mmHg (35.0-45.0); Calcium, Ionized 1.15 mmol/L (1.12-1.30); Hemoglobin (Hb) 11.8 g/dL (12.0-16.0); O2 Tension (PaO2) 61.4 mmHg (> 70.0); Potassium - ABG Lab 3.21 mmol/L (3.70-5.30); pH, Arterial 7.45 (7.35-7.45)
[2018-10-10] MEDS: Amiodarone 450 MG, Admixture Fee 1 EACH in Dextrose 5% in Water 250 ML IVPB SCH (07:21)
[2018-10-10 07:24] LABS: ALV-art Gradient 99.625 (0-20); Puncture Site LRA
[2018-10-10 07:43] LABS: Magnesium 1.8 mg/dL (1.6-2.6); Phosphorus 2.2 mg/dL (2.3-4.7)
--- NOTE | 2018-10-10 07:45 | RAD ---
CHEST 1 VIEW: INDICATION: Intubation. COMPARISON: 10/09/2018. FINDINGS: Cardiomegaly and pulmonary vascular congestion and perihilar interstitial opacities persist. Tiny bi lateral pleural effusions persist. ET tube and gastric catheter are unchanged. No pneumothorax is e vident. IMPRESSION: Stable exam. POS: BH
--- NOTE | 2018-10-10 09:05 | PRG ---
DATE OF SERVICE: 10/10/2018 SUBJECTIVE: This morning, still sedated on the vent. OBJECTIVE: VITAL SIGNS: Blood pressure is better 122/62, pulse 74, respiratory rate 18, and saturations are 98%. I's and O's have been negative. CHEST: Decreased breath sounds. No wheezing. CARDIAC: Normal S1 and S2. No gallops. ABDOMEN: No masses. LABORATORY DATA: Lytes are normal. BUN is 22. A pO2 is 61, pCO2 is 40%, and pH of 7.45 on 30%, rate of 10. White count 11,000, H and H 10 and 30, and platelet count normal. IMPRESSION AND PLAN: Congestive heart failure, cardiomyopathy, respiratory failure, chronic obstructive pulmonary disease, and chronic pain. Try and minimize sedation. Continue nutrition and PT. Hopefully, we will try and wean and extubate in the next 24 to 48 hours. Job ID: [id number]
[2018-10-10] MEDS: Aspirin Chewable 81 MG TAB PER TUBE SCH (09:52)
[2018-10-10] MEDS: Senokot S 8.6-50 MG TAB PO SCH ×2 (09:52→21:03)
[2018-10-10] MEDS: methylPREDNISolone Sod Succ 40 MG VIAL IVP SCH (09:52)
[2018-10-10] MEDS: ALPRAZolam 0.25 MG TAB PO SCH ×3 (09:52→21:01)
[2018-10-10] MEDS: Gabapentin 300 MG CAP PO SCH ×3 (09:53→21:01)
[2018-10-10] MEDS: Lisinopril 5 MG TAB PO SCH ×2 (09:53→21:02)
[2018-10-10] MEDS: Magnesium Oxide 400 MG TAB PO PRN (09:54)
[2018-10-10] MEDS: Cefepime 1 GM in Sodium Chloride 0.9% 100 ML IVPB SCH ×2 (09:55→21:01)
[2018-10-10] MEDS: Enoxaparin Sodium 60 MG/0.6 ML SYRINGE SC SCH ×2 (09:55→21:01)
[2018-10-10] MEDS: Digoxin 0.5 MG/2 ML AMP SLOW IVP SCH (10:12)
[2018-10-10] MEDS: Famotidine/PF 20 mg/2ml Vial SLOW IVP SCH ×2 (10:17→21:01)
[2018-10-10] MEDS ORDERED: Cefdinir 300 MG CAP PO SCH ×2 (11:00→21:00)
[2018-10-10] MEDS: fentaNYL Citrate/PF 2,000 MCG in Sodium Chloride 0.9% 60 ML IV SCH (12:12)
[2018-10-10] MEDS ORDERED: Polyethylene Glycol 3350 17 GM Packet PO PRN (12:14)
[2018-10-10] MEDS: Albuterol Sulfate 2.5 mg/3 ml Neb NEB PRN (12:31)
[2018-10-10] MEDS ORDERED: Spironolactone 25 MG TAB PO SCH ×2 (13:00→14:00)
[2018-10-10] MEDS: oxyCODONE/Acetaminophen 5 mg/325 mg Tablet PO SCH ×2 (16:04→21:02)
--- NOTE | 2018-10-10 16:49 | PDOC.PALF ---
Purpose of Conference: Discuss Goals of care, complex disease process, and resuscitative measures Care Providers Present: Luly Petty english composition instructor RN, Asif Celaya Family Members Present: Paitent daughter Meeting Comments: Patient daughter gave insight into her mothers personality and what she enjoyed in life. Addressed trajectory of chronic disease processes , continued decline, and possible limited outcomes. Therapeutic listening to daughter. Patient birthday [birth year] Goals of Care: *Continue current care, but understanding of potential to seek comfort measures. *Daughter hopes to speak to Court Manager *Prevent Suffering as per daughter *No resuscitative measures *Revisit with daughter and readdress goals of care with the potential of comfort measures should decline continue Summary: As stated in goals. Patient to become a DNAR, will revisit progress or lack of with daughter and revisit what provides comfort for patient. Total Time Spent with Family: 90 min
--- NOTE | 2018-10-10 16:58 | PQF ---
CLINICAL DOCUMENTATION IMPROVEMENT CLARIFICATION FORM: ICD-10 Updated PLEASE DO AN ADDENDUM TO THE PROGRESS NOTE WITH ANY DOCUMENTATION UPDATES OR ADDITIONS AND CARRY THROUGH TO DC SUMMARY. THANK YOU. DATE: 10/10/2018 ATTN: Dr. Leos/ Attending Dr. Valenzuela Please exercise your independent, professional judgment in responding to the clarification form. Clinical indicators are provided on the bottom of this form for your review Please check appropriate box(es): [ ] Sepsis due to: (Pneumonia) [ ] Sepsis due to other: [ ] SIRS due to non-infectious process (please specify etiology) [ ] with organ dysfunction [ ] without organ dysfunction [ ] Severe sepsis with acute organ dysfunction of: (Examples: respiratory failure, ) [ ] Localized infection without sepsis [ ] Other diagnosis [ x ] Unable to determine In addition, please specify: Present on Admission (POA): [ x ] Yes [ ] No [ ] Unable to determine For continuity of documentation, please document condition throughout progress notes and discharge summary. Thank You. CLINICAL INDICATORS - SIGNS / SYMPTOMS / LABS H&P 10/04: VS: BP 153/72 HR 120 RR 17 SIRS/ SEPSIS Tachycardic, Tachypneic, TMax: 101.8 10/07 (Pyle): She appears to be septic with a markedly elevated white count and developed respiratory failure. 10/09 (Morales) Respiratory failure, CHF, superimposed pneumonia, severe deconditioning, and COPD 10/10 PN: CXR improved s/p diuresis w/ bid lasix yesterday. -For possible infection/PNA, sputum CX + only for katt so severe bacterial PNA highly unlikely as procal has been negative since admission. RISKS: H&P 10/04: 77 yo presents for acute respiratory failure intubated by ems in field. She has PMH of COPD , chronic opiate dependence. TREATMENT: Order for Resp: 10/05 Vent Adult MAR: Order 10/07: Cefepime 1 gm IV q 12 hr Thank you, Ngoc (This form is maintained as a part of the permanent medical record) 2015 [employer], [facility]. All Rights Reserved Ngoc He RN, BSN [email or web address] Office: [phone] [facility]
[2018-10-10] MEDS: Atorvastatin Calcium 20 MG TAB PO SCH (21:01)
[2018-10-11] MEDS: Amiodarone 450 MG, Admixture Fee 1 EACH in Dextrose 5% in Water 250 ML IVPB SCH ×2 (00:11→13:27)
[2018-10-11] MEDS: Lorazepam 2 MG/ML VIAL SLOW IVP PRN (00:32)
[2018-10-11] MEDS: Levothyroxine Sodium 50 MCG TAB PO SCH (06:07)
[2018-10-11 06:09] LABS: #Eosinphils 0.1 thou/uL (0.0-0.7); #Lymphocytes 2.5 thou/uL (1.20-3.40); #Monocytes 0.8 thou/uL (0.11-0.59); #Neutrophils 10.1 thou/uL (1.40-6.50); %Lymphocytes 18.4 % (21.0-51.0); %Neutrophils 74.6 % (42.0-75.0); Mean Corpuscular HGB CONC 33.7 g/dL (32.0-36.0); Mean Corpuscular Hemoglobin 31.9 pg (27.0-31.0); Mean Corpuscular Volume 94.7 fL (78.0-98.0); Mean Platelet Volume 8.1 fL (7.4-10.4); Platelet Count 245 thou/uL (130-400); RBC Distribution Width 13.3 % (11.5-14.5); Red Blood Cell (RBC) Count 3.44 mill/uL (4.20-5.40); White Blood Cell (WBC) Count 13.5 thou/uL (4.8-10.8)
[2018-10-11 06:25] LABS: Anion Gap 10 mmol/L (10-20); BUN (Urea Nitrogen) 22 mg/dL (9.8-20.1); Calc. Creatinine Clearance 57 mL/min (70-130); Calcium 8.8 mg/dL (7.8-10.44); Carbon Dioxide 31 mmol/L (23-31); Chloride 100 mmol/L (98-107); Estimated GFR-MDRD 73; Glucose 108 mg/dL (83-110); Potassium 3.6 mmol/L (3.5-5.1); Sodium 137 mmol/L (136-145)
--- NOTE | 2018-10-11 06:51 | PDOC.FM ---
- Subjective Subjective: NAEO. Patient remained stable with exception of a few low BPs but never required pressors for support. Remains intubated and sedated and in NSR on Amio gtt. - Objective MAR Reviewed: Yes Vital Signs & Weight: Vital Signs (12 hours) Temp Pulse Resp BP Pulse Ox 10/11/18 06:00 16 10/11/18 04:00 98.5 F 15 10/11/18 02:12 80 10 L 99 10/11/18 02:00 13 10/11/18 00:00 97.8 F 22 H 10/10/18 22:11 77 20 100 10/10/18 22:00 13 10/10/18 21:02 86 105/57 L 10/10/18 20:00 98.3 F 17 100 Weight Admit Weight 60.1 kg Weight 59.1 kg Most Recent Monitor Data Heart Rate from ECG 86 NIBP 98/56 NIBP BP-Mean 70 Respiration from ECG 14 SpO2 100 I&O: 10/09/18 10/10/18 10/11/18 06:59 06:59 06:59 Intake Total 2400.7 2085.0 2460 Output Total 1790 2340 3075 Balance 610.7 -255.0 -615 Result Diagrams: 10/11/18 05:33 10/11/18 05:33 Radiology Reviewed by me: Yes Phys Exam - Physical Examination Constitutional: NAD HEENT: moist MMs Neck: supple Respiratory: wheezing present diffuse end expiratory wheezing and trace inspiratory rhonchi throughout Cardiovascular: RRR, no significant murmur Gastrointestinal: soft, non-tender, no distention, positive bowel sounds Musculoskeletal: no edema Neurological: moves all 4 limbs Nodded yes to questioning but would not follow commands Skin: no rash Deviation from normal: frail with bruising to B/L UEs 2/2 IV sticks Dx/Plan (1) COPD exacerbation Code(s): J44.1 - CHRONIC OBSTRUCTIVE PULMONARY DISEASE W (ACUTE) EXACERBATION Status: Acute (2) Acute exacerbation of CHF (congestive heart failure) Code(s): I50.9 - HEART FAILURE, UNSPECIFIED Status: Suspected (3) Hypothyroidism Code(s): E03.9 - HYPOTHYROIDISM, UNSPECIFIED Status: Chronic (4) Afib Code(s): I48.91 - UNSPECIFIED ATRIAL FIBRILLATION Status: Acute Qualifiers: Atrial fibrillation type: paroxysmal Qualified Code(s): I48.0 - Paroxysmal atrial fibrillation (5) CAD (coronary artery disease) Code(s): I25.10 - ATHSCL HEART DISEASE OF [place] CORONARY ARTERY W/O ANG PCTRS Status: Chronic Qualifiers: Coronary Disease-Associated Artery/Lesion type: [place] artery [place] vs. transplanted heart: [place] heart Associated angina: without angina Qualified Code(s): I25.10 - Atherosclerotic heart disease of [place] coronary artery without angina pectoris (6) COPD (chronic obstructive pulmonary disease) Status: Chronic Qualifiers: COPD type: COPD with acute exacerbation Qualified Code(s): J44.1 - Chronic obstructive pulmonary disease with (acute) exacerbation (7) Chronic pain syndrome Code(s): G89.4 - CHRONIC PAIN SYNDROME Status: Chronic (8) Hypertension Code(s): I10 - ESSENTIAL (PRIMARY) HYPERTENSION Status: Chronic Qualifiers: Hypertension type: essential hypertension Qualified Code(s): I10 - Essential (primary) hypertension (9) Type 2 AMI (acute myocardial infarction) Code(s): I21.A1 - MYOCARDIAL INFARCTION TYPE 2 Status: Acute - Plan Plan: 77YOF with a PMH significant for COPD on 2L of O2 at home, mild CAD, HTN, paroxysmal A fib, hypothyroidism and chronic pain syndrome who was brought in via EMS after being intubated in the field for SOB. Acute hypoxic hypercapneic respiratory failure 2/2 an acute on chronic COPD and/ or CHF exacerbation - Etiology like multifactorial including COPD & CHF exacerbations as well as infectious. Patient remains intubated & sedated with fentanyl & PRN ativan & morphine. Tolerated CPAP mode for a few hours yesterday before tiring out so no attempt to extubate was made. Will try CPAP again today and consider extubation based on how she tolerates CPAP. - Will continue IV steroids, VINCENZO & PRN duonebs & PRN albuterol. - Will continue lasix but transition to PO today as patient diuresed well yesterday & CXR was much improved. Continue QD weights and strict I&Os. - Will transition to PO abx for ~2 days today & stop cefepime per pulm recs. A fib with RVR, resolved - Patient has remained in NSR since 10/09 PM s/p 2 cardioversions but remains on amio gtt. Cards on board, appreciate recs. Will defer to cards for plans for CVA PPx but will continue Th Lovenox for now. Per chart review keila was d/c 2 /2 recurrent falls in early July of this year. HTN - BP low overnight with MAP ranging from 55-88. Will consider de-escalating SOFIE- I therapy to 2.5mg today since spironolactone was added in addition to lasix. - Will continue to monitor closely & initiate pressor support PRN. Type II NV - Per cards patient likely suffered an anterior type II NV based on EKG changes and uptrending troponins. Will continue ASA & statin therapy per cards recs & consider de-escalating Th Lovenox now that patient is back in NSR. Chronic opiate dependence/abuse -Aware, hx of withdrawal on previous admission. Will restart home meds once off sedation but will continue PRN IV morphine for breakthrough agitation while intubated & sedated. Hypothyroidism - Aware, will continue home meds. hyperglycemia - SSI remains in place should BG levels be >200. Goal to keep BG levels between 140-180. Anticipate improvement today increased rate of tube feeds. Will continue to monitor closely & consider changing hypoglycemia protocol parameters to remain within goal range in setting of acute illness. Physical Deconditioning: - PT and OT on board. - CM also consulted as patient will likely require placement if & when she is discharged as her prognosis still remains quite guarded. - PC also consulted also on board & code status was changed to DNAR yesterday. DVT PPX: Th Lovenox GI PPx: famotidine Abx: Omnicef, day #1 IVFs: none Code Status: DNAR Addendum - Attending - Attending Attestation Date/Time: 10/11/18 1042 I personally evaluated the patient and discussed the management with Dr. Burrell. I agree with and repeated the History, Examination, Assessment and Plan documented above with any addition or exceptions noted below. Patient recently extubated to HFNC. Says she is glad to have the ETT out. Her exam is largely unchanged. Th lovenox and goal directed therapy for HF. She will need bb and may need LV prior to d/c. PT/OT to see.
[2018-10-11 07:07] LABS: Actual Bicarbonate (HCO3a) 29.6 mEq/L (22-28); CO2 Tension 43.5 mmHg (35.0-45.0); Calcium, Ionized 1.16 mmol/L (1.12-1.30); Carboxyhemoglobin (COHb) 1.3 gm% (0.0-3.0); Hemoglobin (Hb) 10.7 g/dL (12.0-16.0); O2 Tension (PaO2) 87.6 mmHg (> 70.0); pH, Arterial 7.45 (7.35-7.45)
[2018-10-11 07:14] LABS: ALV-art Gradient 143.225 (0-20); Puncture Site LRA
[2018-10-11] MEDS ORDERED: Furosemide 40 MG TAB PO SCH (07:30)
[2018-10-11 07:59] LABS: Magnesium 1.8 mg/dL (1.6-2.6)
[2018-10-11] MEDS: methylPREDNISolone Sod Succ 40 MG VIAL IVP SCH (08:40)
[2018-10-11] MEDS: Enoxaparin Sodium 60 MG/0.6 ML SYRINGE SC SCH ×2 (08:40→21:52)
[2018-10-11] MEDS: Senokot S 8.6-50 MG TAB PO SCH ×2 (08:41→21:52)
[2018-10-11] MEDS: Lisinopril 5 MG TAB PO SCH ×2 (08:41→21:51)
[2018-10-11] MEDS: Famotidine/PF 20 mg/2ml Vial SLOW IVP SCH ×2 (08:41→21:52)
[2018-10-11] MEDS: Cefdinir 300 MG CAP PO SCH ×2 (08:41→21:51)
[2018-10-11] MEDS: ALPRAZolam 0.25 MG TAB PO SCH ×3 (08:42→21:50)
[2018-10-11] MEDS: Digoxin 0.5 MG/2 ML AMP SLOW IVP SCH (08:42)
[2018-10-11] MEDS: Gabapentin 300 MG CAP PO SCH ×3 (08:43→21:50)
[2018-10-11] MEDS: Aspirin Chewable 81 MG TAB PER TUBE SCH (08:43)
[2018-10-11] MEDS: oxyCODONE/Acetaminophen 5 mg/325 mg Tablet PO SCH (08:43)
[2018-10-11] MEDS: Spironolactone 25 MG TAB PO SCH (08:43)
[2018-10-11] MEDS ORDERED: Furosemide 20 MG/2 ML VIAL SLOW IVP SCH (08:56)
[2018-10-11] MEDS ORDERED: Polyethylene Glycol 3350 17 GM Packet PO SCH (09:00)
[2018-10-11] MEDS ORDERED: MORPHINE SULFATE 60 MG PO SCH (09:15)
[2018-10-11] MEDS ORDERED: oxyCODONE/Acetaminophen 5 mg/325 mg Tablet PO PRN (09:28)
--- NOTE | 2018-10-11 09:32 | PRG ---
DATE OF SERVICE: 10/11/2018 SUBJECTIVE: This morning, she is awake, alert, and responsive. OBJECTIVE: VITAL SIGNS: Blood pressure is improved, 105/60; temperature 99; pulse 74; _; saturations are 100%. I's and O's are negative. CHEST: Minimal rhonchi and crackles. CARDIAC: Normal S1 and S2. No gallops. ABDOMEN: No masses. LABORATORY DATA: Lytes are normal. PO2 of 87, pCO2 43 ph 7.43. White count 13,000, H and H of 11 and 32, and platelet count 245. ASSESSMENT: 1. Respiratory failure. 2. Congestive heart failure. 3. Possibly superimposed pneumonia. PLAN: Continue present treatment, Zestril, Lasix, diuretics. PT. Amiodarone. Consider weaning and extubation. Decided we will talk with her family that once we extubate, not to re-intubate again. One-half hour of critical care time. Job ID: [id number] MTDD
--- NOTE | 2018-10-11 10:10 | RAD ---
CHEST 1 VIEW: Date: 10/11/18 COMPARISON: 10/10/18. HISTORY: Respiratory distress. Ventilated patient. FINDINGS: Stable endotracheal tube, nasogastric tube. Stable configuration of cardiac silhouette. Diffuse inter stitial and alveolar opacities in the lung parenchyma, slightly worsening. No pneumothorax. Stable at herosclerosis. IMPRESSION: Worsening interstitial and alveolar opacification. POS: [facility]
[2018-10-11] MEDS: Furosemide 40 MG/4 ML VIAL SLOW IVP SCH (14:44)
[2018-10-11] MEDS ORDERED: Midazolam HCl 2 mg/2 ml Vial ONE (20:15)
--- NOTE | 2018-10-11 20:51 | RAD ---
PORTABLE CHEST ONE VIEW: 10/11/18 at 8:34 p.m. HISTORY: Respiratory failure. FINDINGS/IMPRESSION: Comparison made with earlier exam of 8:33 a.m. from the same day. The tip of the endotracheal tube is about 13 mm of above the level of the elier. Nasogastric tube h as been removed in the interim. No pneumothoraces are seen. Remainder of the exam is otherwise stable . Postop changes in the spine again seen. POS: [facility]
[2018-10-11] MEDS: Propofol 1,000 MG/100 ML VIAL IV PRN (20:57)
[2018-10-11] MEDS: Atorvastatin Calcium 20 MG TAB PO SCH (21:51)
[2018-10-11] MEDS ORDERED: Midazolam HCl 2 mg/2 ml Vial SLOW IVP SCH (22:45)
[2018-10-12] MEDS: Labetalol HCl 100 MG/20 ML VIAL SLOW IVP PRN ×2 (00:12→04:25)
--- NOTE | 2018-10-12 05:02 | PDOC.FM ---
- Subjective Subjective: Pt was intubated overnight due to failure to maintain O2 sats. Otherwise, only issue was HTN per nursing. Pt is diuresing well. - Objective MAR Reviewed: Yes Vital Signs & Weight: Vital Signs (12 hours) Temp Pulse Resp BP Pulse Ox 10/12/18 04:25 98 185/106 H 10/12/18 04:00 99.1 F 19 10/12/18 02:58 98 10/12/18 02:57 98 24 H 98 10/12/18 02:00 18 10/12/18 00:12 104 H 192/114 H 10/12/18 00:00 99.3 F 22 H 96 10/11/18 22:04 105 H 10/11/18 22:03 103 H 22 H 98 10/11/18 22:00 18 10/11/18 21:51 103 H 183/121 H 10/11/18 20:41 100 163/93 H 10/11/18 20:30 22 H 10/11/18 19:18 100 10/11/18 19:00 98.9 F 10/11/18 18:39 97 16 100 Weight Admit Weight 60.1 kg Weight 59.1 kg Most Recent Monitor Data Heart Rate from ECG 106 NIBP 185/106 NIBP BP-Mean 132 Respiration from ECG 27 SpO2 97 I&O: 10/10/18 10/11/18 10/12/18 06:59 06:59 06:59 Intake Total 2085.0 2460 371 Output Total 2340 3075 3550 Balance -255.0 -994 -2101 Result Diagrams: 10/11/18 05:33 10/11/18 05:33 Phys Exam - Physical Examination Constitutional: NAD (GCS E3 V1T M5) HEENT: moist MMs No oral pharyngeal signs of thrush Neck: no JVD Respiratory: wheezing present (diffusely) Cardiovascular: RRR, no significant murmur Gastrointestinal: soft, non-tender, no distention, positive bowel sounds Musculoskeletal: no edema, pulses present Neurological: moves all 4 limbs Skin: cap refill <2 seconds Dx/Plan (1) Hypothyroidism Code(s): E03.9 - HYPOTHYROIDISM, UNSPECIFIED Status: Chronic (2) Afib Code(s): I48.91 - UNSPECIFIED ATRIAL FIBRILLATION Status: Acute Qualifiers: Atrial fibrillation type: paroxysmal Qualified Code(s): I48.0 - Paroxysmal atrial fibrillation (3) COPD exacerbation Code(s): J44.1 - CHRONIC OBSTRUCTIVE PULMONARY DISEASE W (ACUTE) EXACERBATION Status: Acute (4) CAD (coronary artery disease) Code(s): I25.10 - ATHSCL HEART DISEASE OF [place] CORONARY ARTERY W/O ANG PCTRS Status: Chronic Qualifiers: Coronary Disease-Associated Artery/Lesion type: [place] artery [place] vs. transplanted heart: [place] heart Associated angina: without angina Qualified Code(s): I25.10 - Atherosclerotic heart disease of [place] coronary artery without angina pectoris (5) COPD (chronic obstructive pulmonary disease) Status: Chronic Qualifiers: COPD type: COPD with acute exacerbation Qualified Code(s): J44.1 - Chronic obstructive pulmonary disease with (acute) exacerbation (6) Hypertension Code(s): I10 - ESSENTIAL (PRIMARY) HYPERTENSION Status: Chronic Qualifiers: Hypertension type: essential hypertension Qualified Code(s): I10 - Essential (primary) hypertension (7) Acute exacerbation of CHF (congestive heart failure) Code(s): I50.9 - HEART FAILURE, UNSPECIFIED Status: Suspected - Plan Plan: This is a 77 yo female with a pmh of COPD on 2 L at home, CAD, HTN, Afibn Hypothyroidism Acute hypoxic hypercaptnic repsiratory failure 2/2 chronic COPD/CHF exacerbation -Extubated early yesterday morning, intubated yesterday evening due to failure to maintain O2 sats on HFNC -Continue IV steroids, Duonebs and albuterol -Continue PO lasix per tube unless unable to tolerate -Net fluid balance for this hospitalization is 203ml, will continue to monitor, down 3 L in last 24 hr -Continue omnicef Afib with RVR -Continue amiodarone drip -Cardiology consulted, will appretiate their recommendations -Currently on therapeutic lovenox, would consider changing or stopping based on family wishes and pt's progress HTN -Elevated BP overnight, will add carvedilol -PRN labetalol -On ACEi Type II PA -Continue ASA and statin -Cardiology consulted as above Chronic opioid use/dependence -PRN morphine and sedation -Will restart home meds when pt is more stable Hypothyroidism -Continue home meds Hyperglycemia -Hypoglycemia protocol in place -SSI in place Physical Deconditioning -PT/OT -CM for discharge planning
[2018-10-12] MEDS: Propofol 1,000 MG/100 ML VIAL IV PRN ×4 (05:11→23:12)
[2018-10-12] MEDS: Amiodarone 450 MG, Admixture Fee 1 EACH in Dextrose 5% in Water 250 ML IVPB SCH ×2 (06:08→22:20)
[2018-10-12] MEDS: Levothyroxine Sodium 50 MCG TAB PO SCH (06:08)
[2018-10-12] MEDS: Furosemide 40 MG/4 ML VIAL SLOW IVP SCH ×2 (06:08→13:51)
[2018-10-12 06:13] LABS: Digoxin 1.03 ng/mL (0.8-2.0)
[2018-10-12 06:50] LABS: Actual Bicarbonate (HCO3a) 36.3 mEq/L (22-28); Base Excess (BEa) 11.9 mEq/L (-2.0 to +3.0); CO2 Tension 45.5 mmHg (35.0-45.0); Calcium, Ionized 1.15 mmol/L (1.12-1.30); Carboxyhemoglobin (COHb) 1.3 gm% (0.0-3.0); Hemoglobin (Hb) 14.8 g/dL (12.0-16.0); O2 Tension (PaO2) 71.3 mmHg (> 70.0); Potassium - ABG Lab 3.71 mmol/L (3.70-5.30); pH, Arterial 7.52 (7.35-7.45)
[2018-10-12 06:51] LABS: ALV-art Gradient 85.725 (0-20); Puncture Site RBA
[2018-10-12 07:29] LABS: Band 6 % (5-11); Hemoglobin 14.3 g/dL (12.0-16.0); Lymphocytes 12 % (21-51); MDiff Complete? YES; Mean Corpuscular HGB CONC 33.7 g/dL (32.0-36.0); Mean Corpuscular Hemoglobin 31.4 pg (27.0-31.0); Mean Corpuscular Volume 93.3 fL (78.0-98.0); Mean Platelet Volume 7.9 fL (7.4-10.4); Monocytes 2 % (0-10); Neutrophil 80 % (42-75); Platelet Count 437 thou/uL (130-400); RBC Distribution Width 13.8 % (11.5-14.5); Red Blood Cell (RBC) Count 4.55 mill/uL (4.20-5.40); Vacuoles SLIGHT; White Blood Cell (WBC) Count 23.5 thou/uL (4.8-10.8)
[2018-10-12 07:32] LABS: Anion Gap 18 mmol/L (10-20); BUN (Urea Nitrogen) 25 mg/dL (9.8-20.1); Calc. Creatinine Clearance 50 mL/min (70-130); Calcium 10.1 mg/dL (7.8-10.44); Carbon Dioxide 33 mmol/L (23-31); Chloride 94 mmol/L (98-107); Estimated GFR-MDRD 67; Glucose 129 mg/dL (83-110); Magnesium 1.9 mg/dL (1.6-2.6); Phosphorus 2.8 mg/dL (2.3-4.7); Potassium 3.9 mmol/L (3.5-5.1); Sodium 141 mmol/L (136-145)
[2018-10-12] MEDS: Famotidine/PF 20 mg/2ml Vial SLOW IVP SCH ×2 (09:04→20:26)
[2018-10-12] MEDS: Gabapentin 300 MG CAP PO SCH ×3 (09:04→20:26)
[2018-10-12] MEDS: ALPRAZolam 0.25 MG TAB PO SCH ×3 (09:04→20:25)
[2018-10-12] MEDS: Digoxin 0.5 MG/2 ML AMP SLOW IVP SCH (09:04)
[2018-10-12] MEDS: Aspirin Chewable 81 MG TAB PER TUBE SCH (09:06)
[2018-10-12] MEDS: Spironolactone 25 MG TAB PO SCH (09:06)
[2018-10-12] MEDS: Cefdinir 300 MG CAP PO SCH (09:06)
[2018-10-12] MEDS: Lisinopril 5 MG TAB PO SCH ×2 (09:07→20:26)
[2018-10-12] MEDS: Senokot S 8.6-50 MG TAB PO SCH ×2 (09:07→20:24)
[2018-10-12] MEDS: methylPREDNISolone Sod Succ 40 MG VIAL IVP SCH ×2 (09:07→20:26)
[2018-10-12] MEDS: Carvedilol 3.125 MG TAB PO SCH ×2 (09:07→16:55)
[2018-10-12] MEDS: Enoxaparin Sodium 60 MG/0.6 ML SYRINGE SC SCH ×2 (09:08→20:25)
--- NOTE | 2018-10-12 09:48 | RAD ---
FRONTAL RADIOGRAPH CHEST: Date: 10/12/18 COMPARISON: 10/11/18. HISTORY: Ventilated patient. FINDINGS: There is a stable endotracheal tube, probably within 2.0 cm of the elier. There is a nasogastric tub e extending into the left upper quadrant. There is evidence of prior spinal surgery and multilevel sp inal kyphoplasty of thoracic spine. There is extensive coarse increased linear interstitial density t hroughout both lungs with hazy air space disease in the perihilar regions and bilateral lung bases, l eft greater than right, nonspecific and unchanged. IMPRESSION: No significant interval change. POS: OFF
--- NOTE | 2018-10-12 11:25 | PRG ---
DATE OF SERVICE: 10/12/2018 Ms. Velazco is a very unfortunate 78-year-old lady with a history of COPD and heart failure, who is currently on a ventilator following an acute hypoxic hypercapnic respiratory arrest. Her prognosis remains quite guarded. This morning, her vital signs are stable and in fact, she is slightly hypertensive. We will continue to follow with the intensive care team and monitor her respiratory status. She also has a history of atrial fibrillation with RVR, although now she has sinus tachycardia. She likewise has a history of coronary artery disease and as mentioned above, COPD and heart failure. Job ID: [id number]
[2018-10-12] MEDS: Lorazepam 2 MG/ML VIAL SLOW IVP PRN (11:42)
[2018-10-12] MEDS: cefTRIAXone\\ROCEPHIN 1 GM in Sodium Chloride 0.9% 100 ML IVPB SCH (13:50)
[2018-10-12] MEDS: niCARdipine 25 MG in Sodium Chloride 0.9% 250 ML 250 ML IVPB SCH (13:51)
--- NOTE | 2018-10-12 17:46 | PRG ---
DATE OF SERVICE: 10/12/2018 SUBJECTIVE: Adriana Velazco remains sedated for ventilation. I met with her family. The daughter is the power of health care and informed me that she wanted to be the point of contact. OBJECTIVE: VITAL SIGNS: Blood pressure is 112/66, heart rate 90, respiratory rates in the 20s, oximetry is 100%. LUNGS: Remarkable for equal breath sounds without wheezes. HEART: Regular rhythm. ABDOMEN: Soft. EXTREMITIES: Without edema. LABORATORY DATA: White count 23.5, hemoglobin 14.3, platelets 437. Sodium 141, potassium 3.9, chloride 94, bicarb 33, BUN 25, creatinine 0.82. IMPRESSION: Respiratory failure associated with cardiomyopathy and chronic obstructive pulmonary disease. She has been intubated 3 times this admission. Family was informed me that she would never want a tracheostomy and never want to go to a long-term care facility. They are willing to continue with supportive care until sometime next week and then try weaning and extubation again. We will concentrate on blood pressure control sedation for now. Chest x-ray was reviewed today. I see no significant change. She appears to be stable. Family has informed me that they do want her to be a do not resuscitate patient. They do want to continue with our aggressive care measures for now. CRITICAL CARE TIME: 30 minutes. Job ID: [id number]
[2018-10-12] MEDS: Atorvastatin Calcium 20 MG TAB PO SCH (20:25)
[2018-10-13] MEDS: Labetalol HCl 100 MG/20 ML VIAL SLOW IVP PRN (00:08)
[2018-10-13 04:25] LABS: #Eosinphils 0.1 thou/uL (0.0-0.7); #Lymphocytes 1.1 thou/uL (1.20-3.40); #Monocytes 0.7 thou/uL (0.11-0.59); #Neutrophils 14.8 thou/uL (1.40-6.50); %Basophils 0.1 % (0.0-1.0); %Eosinophils 0.3 % (0.0-10.0); %Lymphocytes 6.4 % (21.0-51.0); %Monocytes 4.2 % (0.0-10.0); Hemoglobin 13.8 g/dL (12.0-16.0); Mean Corpuscular HGB CONC 33.6 g/dL (32.0-36.0); Mean Corpuscular Hemoglobin 31.8 pg (27.0-31.0); Mean Corpuscular Volume 94.7 fL (78.0-98.0); Platelet Count 406 thou/uL (130-400); RBC Distribution Width 13.9 % (11.5-14.5); Red Blood Cell (RBC) Count 4.36 mill/uL (4.20-5.40); White Blood Cell (WBC) Count 16.6 thou/uL (4.8-10.8)
[2018-10-13 04:47] LABS: Anion Gap 12 mmol/L (10-20); BUN (Urea Nitrogen) 30 mg/dL (9.8-20.1); Calc. Creatinine Clearance 42 mL/min (70-130); Calcium 9.8 mg/dL (7.8-10.44); Carbon Dioxide 37 mmol/L (23-31); Chloride 93 mmol/L (98-107); Estimated GFR-MDRD 56; Glucose 133 mg/dL (83-110); Potassium 3.8 mmol/L (3.5-5.1); Sodium 138 mmol/L (136-145)
[2018-10-13] MEDS: Furosemide 40 MG/4 ML VIAL SLOW IVP SCH ×2 (05:06→13:55)
[2018-10-13] MEDS: Levothyroxine Sodium 50 MCG TAB PO SCH (05:06)
[2018-10-13] MEDS: Propofol 1,000 MG/100 ML VIAL IV PRN ×3 (05:11→18:25)
--- NOTE | 2018-10-13 05:44 | PDOC.FM ---
- Subjective Subjective: Pt had elevate BP overnight require nicardipine drip. Otherwise, night nurse reports no acute events overnight. - Objective MAR Reviewed: Yes Vital Signs & Weight: Vital Signs (12 hours) Temp Pulse Resp BP Pulse Ox 10/13/18 04:00 27 H 10/13/18 03:00 98.3 F 10/13/18 02:31 87 10/13/18 02:30 83 17 96 10/13/18 02:00 25 H 10/13/18 00:08 97 177/107 H 10/13/18 00:00 25 H 10/12/18 23:00 99.4 F 10/12/18 22:12 89 10/12/18 22:11 89 29 H 99 10/12/18 22:00 26 H 10/12/18 20:26 89 137/77 10/12/18 20:00 29 H 10/12/18 19:45 100 10/12/18 19:00 97.9 F 10/12/18 18:31 88 30 H 100 10/12/18 18:00 29 H Weight Admit Weight 60.1 kg Weight 55.1 kg Most Recent Monitor Data Heart Rate from ECG 85 NIBP 140/75 NIBP BP-Mean 96 Respiration from ECG 13 SpO2 97 I&O: 10/11/18 10/12/18 10/13/18 06:59 06:59 06:59 Intake Total 2460 676 1557 Output Total 3075 3890 1920 [facility]615 -3214 -363 Result Diagrams: 10/13/18 03:49 10/13/18 03:49 Phys Exam - Physical Examination Constitutional: NAD (GCS [id number], sedated at this time) HEENT: PERRLA, oral pharynx no lesions (no signs of thrush) Diffuse crackles, improved from yesterday Cardiovascular: RRR, no significant murmur Gastrointestinal: soft, non-tender, no distention Musculoskeletal: pulses present, edema present (1+ in hands and feet) Skin: cap refill <2 seconds Dx/Plan (1) Hypothyroidism Code(s): E03.9 - HYPOTHYROIDISM, UNSPECIFIED Status: Chronic (2) Afib Code(s): I48.91 - UNSPECIFIED ATRIAL FIBRILLATION Status: Acute Qualifiers: Atrial fibrillation type: paroxysmal Qualified Code(s): I48.0 - Paroxysmal atrial fibrillation (3) COPD exacerbation Code(s): J44.1 - CHRONIC OBSTRUCTIVE PULMONARY DISEASE W (ACUTE) EXACERBATION Status: Acute (4) CAD (coronary artery disease) Code(s): I25.10 - ATHSCL HEART DISEASE OF [place] CORONARY ARTERY W/O ANG PCTRS Status: Chronic Qualifiers: Coronary Disease-Associated Artery/Lesion type: [place] artery [place] vs. transplanted heart: [place] heart Associated angina: without angina Qualified Code(s): I25.10 - Atherosclerotic heart disease of [place] coronary artery without angina pectoris (5) COPD (chronic obstructive pulmonary disease) Status: Chronic Qualifiers: COPD type: COPD with acute exacerbation Qualified Code(s): J44.1 - Chronic obstructive pulmonary disease with (acute) exacerbation (6) Hypertension Code(s): I10 - ESSENTIAL (PRIMARY) HYPERTENSION Status: Chronic Qualifiers: Hypertension type: essential hypertension Qualified Code(s): I10 - Essential (primary) hypertension (7) Acute exacerbation of CHF (congestive heart failure) Code(s): I50.9 - HEART FAILURE, UNSPECIFIED Status: Suspected - Plan Plan: This is a 77 yo female with a pmh of COPD on 2 L at home, CAD, HTN, Afibn Hypothyroidism Acute hypoxic hypercaptnic repsiratory failure 2/2 chronic COPD/CHF exacerbation -Remains intubated -Continue IV steroids, Duonebs and albuterol -Continue PO lasix per tube unless unable to tolerate -Net fluid balance for this hospitalization is -159ml, will continue to monitor -Continue omnicef -Pt is DNAR per Dr. Nielsen Afib with RVR -Continue amiodarone drip -Cardiology consulted, will appretiate their recommendations -Stopping lovenox and changing to prophylactic dosing. HTN -Elevated BP overnight, will increase carvedilol -Pt started on nicardipine overnight for BP control -PRN labetalol -On ACEi REMA on CKD2 -Likely 2/2 to diuresis, will trend and consider holding ACEi if continues to worsen Type II CO -Continue ASA and statin -Cardiology consulted as above -Stopping therapeutic lovenox Chronic opioid use/dependence -PRN morphine and sedation -Will restart home meds when pt is more stable Hypothyroidism -Continue home meds Hyperglycemia -Hypoglycemia protocol in place -SSI in place Physical Deconditioning -PT/OT -CM for discharge planning
[2018-10-13] MEDS: Senokot S 8.6-50 MG TAB PO SCH ×2 (08:53→21:13)
[2018-10-13] MEDS: Carvedilol 3.125 MG TAB PO SCH ×2 (08:53→17:07)
[2018-10-13] MEDS: methylPREDNISolone Sod Succ 40 MG VIAL IVP SCH ×2 (08:54→21:13)
[2018-10-13] MEDS: Spironolactone 25 MG TAB PO SCH (08:54)
[2018-10-13] MEDS: Famotidine/PF 20 mg/2ml Vial SLOW IVP SCH ×2 (08:54→21:12)
[2018-10-13] MEDS: Lisinopril 5 MG TAB PO SCH ×2 (08:54→21:13)
[2018-10-13] MEDS: Gabapentin 300 MG CAP PO SCH ×3 (08:55→21:12)
[2018-10-13] MEDS: ALPRAZolam 0.25 MG TAB PO SCH ×3 (08:55→21:12)
[2018-10-13] MEDS: Aspirin Chewable 81 MG TAB PER TUBE SCH (08:55)
[2018-10-13] MEDS: Digoxin 0.5 MG/2 ML AMP SLOW IVP SCH (08:55)
[2018-10-13] MEDS: Enoxaparin Sodium 40 MG/0.4 ML SYRINGE SC SCH (08:56)
--- NOTE | 2018-10-13 09:51 | RAD ---
FRONTAL RADIOGRAPH CHEST PORTABLE SUPINE: Date: 10/13/18 COMPARISON: 10/12/18. HISTORY: Ventilated patient. FINDINGS: Endotracheal tube and nasogastric tube are stable. There is increased density in the left base obscur ing the left hemidiaphragm and blunting the left costophrenic angle suggesting nonspecific left basil ar pleural and parenchymal opacity. Diffuse interstitial prominence and pulmonary vascular congestion has slightly improved when compared to 10/12/18. Multilevel kyphoplasty changes are noted. IMPRESSION: Persistent interstitial opacity and pleural/parenchymal opacity in the left base. Findings suggest pu lmonary edema, improved. Infectious pneumonitis or aspiration cannot be excluded. Continued follow-up to full resolution advised. POS: OFF
--- NOTE | 2018-10-13 10:16 | PRG ---
DATE OF SERVICE: 10/13/2018 Ms. Velazco is sedated on the ventilator. The college coach had a long discussion with the family and they want her to be a do not resuscitate patient. They, however, would like to continue aggressive measures to the early to mid part of next week at which time and an attempt will be made to extubate the patient. Job ID: [id number]
[2018-10-13] MEDS: niCARdipine 25 MG in Sodium Chloride 0.9% 250 ML 250 ML IVPB SCH ×2 (11:47→22:23)
[2018-10-13] MEDS: Amiodarone 450 MG, Admixture Fee 1 EACH in Dextrose 5% in Water 250 ML IVPB SCH (13:53)
[2018-10-13] MEDS: cefTRIAXone\\ROCEPHIN 1 GM in Sodium Chloride 0.9% 100 ML IVPB SCH (13:55)
--- NOTE | 2018-10-13 15:44 | PRG ---
DATE OF SERVICE: 10/13/2018 SUBJECTIVE: Adriana Velazco is sedated for ventilation. OBJECTIVE: GENERAL: She is in no distress. VITAL SIGNS: Heart rate is 83, blood pressure is 124/68, respiratory rates in the 20s, and volumes of 8 to 9 L a minute. LUNGS: Remarkable for distant breath sounds with prolonged expiratory phase. HEART: Regular rhythm. ABDOMEN: Soft and nontender. EXTREMITIES: Without edema. LABORATORY DATA: White count 16.6, hemoglobin 13.8, platelets 406,000. Sodium 138, potassium 3.8, chloride 93, bicarb 37, BUN 30, creatinine 0.97. PH of 7.52, CO2 of 45, pO2 of 71 yesterday. There is no blood gas today. IMPRESSION: Respiratory failure associated with chronic obstructive pulmonary disease and congestive heart failure. Her daughter has told me that she would not want a tracheostomy. She has been intubated 3 times this admission alone and her daughter feels she is tired and wants to continue with supportive care and comfort measures probably with extubation on Sunday or Sunday. Her ejection fraction is 10% to 15%. She has underlying obstructive lung disease and has not tolerated weaning at all. I intubated her approximately 8 hours after she was extubated on Sunday. This is her third intubation this admission. We will continue with supportive care. CRITICAL CARE TIME: 30 minutes. Job ID: [id number]
[2018-10-13] MEDS: Atorvastatin Calcium 20 MG TAB PO SCH (21:12)
[2018-10-14] MEDS: Propofol 1,000 MG/100 ML VIAL IV PRN ×4 (02:40→20:45)
[2018-10-14 04:39] LABS: #Lymphocytes 1.2 thou/uL (1.20-3.40); #Monocytes 0.8 thou/uL (0.11-0.59); #Neutrophils 16.7 thou/uL (1.40-6.50); %Basophils 0.1 % (0.0-1.0); %Eosinophils 0.3 % (0.0-10.0); %Lymphocytes 6.6 % (21.0-51.0); %Monocytes 4.3 % (0.0-10.0); %Neutrophils 88.7 % (42.0-75.0); Mean Corpuscular HGB CONC 33.1 g/dL (32.0-36.0); Mean Corpuscular Volume 93.7 fL (78.0-98.0); Mean Platelet Volume 7.8 fL (7.4-10.4); Platelet Count 438 thou/uL (130-400); RBC Distribution Width 14.2 % (11.5-14.5); Red Blood Cell (RBC) Count 4.51 mill/uL (4.20-5.40); White Blood Cell (WBC) Count 18.8 thou/uL (4.8-10.8)
[2018-10-14 04:58] LABS: Anion Gap 13 mmol/L (10-20); BUN (Urea Nitrogen) 31 mg/dL (9.8-20.1); Calc. Creatinine Clearance 43 mL/min (70-130); Calcium 9.5 mg/dL (7.8-10.44); Carbon Dioxide 33 mmol/L (23-31); Chloride 96 mmol/L (98-107); Estimated GFR-MDRD 58; Glucose 139 mg/dL (83-110); Sodium 138 mmol/L (136-145)
[2018-10-14] MEDS: Levothyroxine Sodium 50 MCG TAB PO SCH (05:42)
[2018-10-14] MEDS: Furosemide 40 MG/4 ML VIAL SLOW IVP SCH ×2 (05:42→14:08)
--- NOTE | 2018-10-14 06:04 | PDOC.FM ---
- Subjective Subjective: Patient remained stable on the ventilator and nicardipine, propofol, & amio drips overnight. Intubated & sedated on exam. - Objective MAR Reviewed: Yes Vital Signs & Weight: Vital Signs (12 hours) Temp Pulse Resp BP Pulse Ox 10/14/18 04:00 25 H 10/14/18 03:59 99.1 F 10/14/18 02:20 91 26 H 98 10/14/18 02:00 26 H 10/14/18 00:00 97.0 F L 25 H 10/13/18 22:12 78 21 H 97 10/13/18 22:00 21 H 10/13/18 21:13 80 138/73 10/13/18 20:00 24 H 10/13/18 19:41 99 10/13/18 19:00 98.1 F 10/13/18 18:26 81 23 H 99 Weight Admit Weight 60.1 kg Weight 51.2 kg Most Recent Monitor Data Heart Rate from ECG 95 NIBP 123/72 NIBP BP-Mean 89 Respiration from ECG 24 SpO2 100 I&O: 10/12/18 10/13/18 10/14/18 06:59 06:59 06:59 Intake Total 676 1557 2717 Output Total 0661 7790 1563 [facility] -[phone] -[phone] -460 Result Diagrams: 10/14/18 04:22 10/14/18 04:22 Radiology Reviewed by me: Yes Phys Exam - Physical Examination Constitutional: NAD Remains intubated & sedated HEENT: moist MMs Respiratory: wheezing present Cardiovascular: RRR, no significant murmur Gastrointestinal: soft, non-tender, no distention, positive bowel sounds Musculoskeletal: edema present (mild edema in B/L UEs but none in LEs) Unable to assess 2/2 sedation Skin: no rash, cap refill <2 seconds Dx/Plan (1) COPD exacerbation Code(s): J44.1 - CHRONIC OBSTRUCTIVE PULMONARY DISEASE W (ACUTE) EXACERBATION Status: Acute (2) Acute exacerbation of CHF (congestive heart failure) Code(s): I50.9 - HEART FAILURE, UNSPECIFIED Status: Suspected (3) Hypothyroidism Code(s): E03.9 - HYPOTHYROIDISM, UNSPECIFIED Status: Chronic (4) Afib Code(s): I48.91 - UNSPECIFIED ATRIAL FIBRILLATION Status: Acute Qualifiers: Atrial fibrillation type: paroxysmal Qualified Code(s): I48.0 - Paroxysmal atrial fibrillation (5) CAD (coronary artery disease) Code(s): I25.10 - ATHSCL HEART DISEASE OF [place] CORONARY ARTERY W/O ANG PCTRS Status: Chronic Qualifiers: Coronary Disease-Associated Artery/Lesion type: [place] artery [place] vs. transplanted heart: [place] heart Associated angina: without angina Qualified Code(s): I25.10 - Atherosclerotic heart disease of [place] coronary artery without angina pectoris (6) COPD (chronic obstructive pulmonary disease) Status: Chronic Qualifiers: COPD type: COPD with acute exacerbation Qualified Code(s): J44.1 - Chronic obstructive pulmonary disease with (acute) exacerbation (7) Chronic pain syndrome Code(s): G89.4 - CHRONIC PAIN SYNDROME Status: Chronic (8) Hypertension Code(s): I10 - ESSENTIAL (PRIMARY) HYPERTENSION Status: Chronic Qualifiers: Hypertension type: essential hypertension Qualified Code(s): I10 - Essential (primary) hypertension (9) Type 2 AMI (acute myocardial infarction) Code(s): I21.A1 - MYOCARDIAL INFARCTION TYPE 2 Status: Acute - Plan Plan: 77YOF with a PMH significant for COPD on 2L of O2 at home, mild CAD, HTN, paroxysmal A fib, hypothyroidism and chronic pain syndrome who was brought in via EMS after being intubated in the field for SOB. Acute hypoxic hypercapneic respiratory failure 2/2 a COPD/CHF exacerbation - Remained stable overnight intubated & sedated. - Will continue IV steroids, VINCENZO & PRN duonebs & PRN albuterol. - Will continue VINCENZO lasix as well as QD weights and strict I&Os. HTN - Patient remains on nicardipine drip for BP control. Will wean as tolerated & continue to monitor BPs closely. REMA on CKD2 -Slightly improved today. Likely 2/2 to diuresis, will trend and consider holding ACEi if continues to worsen. A fib with RVR, resolved - Patient has remained in NSR since 10/09 PM s/p 2 cardioversions but remains on amio gtt. Cards on board, appreciate recs. Will defer to cards for plans for CVA PPx but will continue Th Lovenox for now. Per chart review keila was d/c 2 /2 recurrent falls in early July of this year. Type II NM - Per cards patient likely suffered an anterior type II NM based on EKG changes and uptrending troponins. Will continue ASA & statin therapy per cards recs & consider de-escalating Th Lovenox. Chronic opiate dependence/abuse -Aware, hx of withdrawal on previous admission. Will restart home meds once off sedation but will continue PRN IV morphine for breakthrough agitation while intubated & sedated. Hypothyroidism - Aware, will continue home meds. hyperglycemia - SSI remains in place should BG levels be >200. Goal to keep BG levels between 140-180. Hypoglycemia protocol also in place. Physical Deconditioning: - PT and OT on board. - CM & PC aalso on board & code status was changed back to DNAR again yesterday. Plan is for extubation on Sunday or Sunday per Pulmonology. Will plan discuss goals of care with family again to confirm this. DVT PPX: Th Lovenox GI PPx: famotidine Abx: Rocephin Code Status: DNAR Addendum - Attending - Attending Attestation Date/Time: 10/14/18 7730 I personally evaluated the patient and discussed the management with Dr. Burrell. I agree with the History, Examination, Assessment and Plan documented above with any addition or exceptions noted below. Patient here for respiratory distress in the setting of severe sCHF and COPD. She continues to be intubated. Vital signs overall stable at this time. Her WBC is overall stable. Cardiology on board, patient is diuresing well and overall appears euvolemic on exam. Will need to continue to wean Nicardipine as it can depress the EF further. Family discussing possible move to comfort measures in the coming days if no significant improvement as they do want want to pursue trach.
[2018-10-14] MEDS: Amiodarone 450 MG, Admixture Fee 1 EACH in Dextrose 5% in Water 250 ML IVPB SCH ×2 (06:31→12:28)
[2018-10-14] MEDS: Aspirin Chewable 81 MG TAB PER TUBE SCH (09:03)
[2018-10-14] MEDS: Carvedilol 3.125 MG TAB PO SCH ×2 (09:03→16:53)
[2018-10-14] MEDS: Lisinopril 5 MG TAB PO SCH ×2 (09:03→20:46)
[2018-10-14] MEDS: Gabapentin 300 MG CAP PO SCH ×3 (09:03→20:46)
[2018-10-14] MEDS: Enoxaparin Sodium 40 MG/0.4 ML SYRINGE SC SCH (09:04)
[2018-10-14] MEDS: methylPREDNISolone Sod Succ 40 MG VIAL IVP SCH ×2 (09:04→20:58)
[2018-10-14] MEDS: Famotidine/PF 20 mg/2ml Vial SLOW IVP SCH ×2 (09:04→20:46)
[2018-10-14] MEDS: Spironolactone 25 MG TAB PO SCH (09:04)
[2018-10-14] MEDS: ALPRAZolam 0.25 MG TAB PO SCH ×3 (09:04→20:46)
[2018-10-14] MEDS: Digoxin 0.5 MG/2 ML AMP SLOW IVP SCH (09:05)
--- NOTE | 2018-10-14 09:13 | RAD ---
CHEST 1 VIEW: HISTORY: Respiratory insufficiency, ventilated patient. COMPARISON: 10/13/2018. FINDINGS: Endotracheal tube in stable position. Extensive postoperative and vertebroplasty changes of the thor acolumbar spine with diffuse interstitial and linear opacity changes throughout both lungs with evide nce for small pleural effusions. No new confluent pneumonia. IMPRESSION: Overall stable chest. POS: MARILU
[2018-10-14] MEDS: Senokot S 8.6-50 MG TAB PO SCH ×2 (09:35→20:56)
[2018-10-14] MEDS: niCARdipine 25 MG in Sodium Chloride 0.9% 250 ML 250 ML IVPB SCH (09:46)
--- NOTE | 2018-10-14 12:10 | PRG ---
DATE OF SERVICE: 10/14/2018 TIME SPENT: 35 minutes of critical care time. SUBJECTIVE: The patient remains intubated on mechanical ventilation. Notes from this weekend were reviewed. Currently, she is sedated on propofol. OBJECTIVE: VITAL SIGNS: On exam, temperature is 98.9, pulse 93, and blood pressure 143/81. A 24-hour intake 2177, output 3177. Weight 112 pounds. HEENT: Unremarkable. NECK: No adenopathy or JVD. LUNGS: Distant, but clear breath sounds. CARDIAC: S1 and S2. Irregularly irregular. ABDOMEN: Soft and nontender. EXTREMITIES: No edema. LABORATORY DATA: White blood cell count 18.8, hematocrit 42, and platelet count 438. Sodium 138, potassium 4, chloride 96, CO2 of 33, BUN 31, creatinine 0.9, and glucose 139. IMAGING DATA: Chest x-ray showed no significant change. ASSESSMENT: 1. Acute respiratory failure secondary to chronic obstructive pulmonary disease. 2. Congestive heart failure. 3. Atrial fibrillation. PLAN: Respiratory rate was decreased today to 12. She is getting bolused of amiodarone. I think the plan is to keep her intubated until midweek and make a decision about terminal extubation at that time. I do not see anything that needs to be adjusted today. Job ID: [id number]
[2018-10-14] MEDS ORDERED: Amiodarone 150 MG, Admixture Fee 1 EACH in Dextrose 5% in Water 100 ML IVPB SCH ×2 (12:15→12:30)
[2018-10-14] MEDS: cefTRIAXone\\ROCEPHIN 1 GM in Sodium Chloride 0.9% 100 ML IVPB SCH (14:08)
[2018-10-14] MEDS: Atorvastatin Calcium 20 MG TAB PO SCH (20:46)
[2018-10-15] MEDS: Amiodarone 450 MG, Admixture Fee 1 EACH in Dextrose 5% in Water 250 ML IVPB SCH ×2 (01:35→13:42)
[2018-10-15 05:54] LABS: Band 5 % (5-11); Hemoglobin 14.2 g/dL (12.0-16.0); Lymphocytes 8 % (21-51); MDiff Complete? YES; Mean Corpuscular HGB CONC 33.4 g/dL (32.0-36.0); Mean Corpuscular Hemoglobin 31.1 pg (27.0-31.0); Mean Corpuscular Volume 93.3 fL (78.0-98.0); Mean Platelet Volume 7.9 fL (7.4-10.4); Monocytes 3 % (0-10); Neutrophil 84 % (42-75); Platelet Count 430 thou/uL (130-400); RBC Distribution Width 13.9 % (11.5-14.5); Red Blood Cell (RBC) Count 4.55 mill/uL (4.20-5.40); White Blood Cell (WBC) Count 20.6 thou/uL (4.8-10.8)
[2018-10-15] MEDS: Levothyroxine Sodium 50 MCG TAB PO SCH (06:14)
[2018-10-15] MEDS: Furosemide 40 MG/4 ML VIAL SLOW IVP SCH ×2 (06:14→13:00)
[2018-10-15 06:23] LABS: Anion Gap 14 mmol/L (10-20); BUN (Urea Nitrogen) 38 mg/dL (9.8-20.1); Calc. Creatinine Clearance 38 mL/min (70-130); Calcium 9.6 mg/dL (7.8-10.44); Carbon Dioxide 31 mmol/L (23-31); Chloride 98 mmol/L (98-107); Estimated GFR-MDRD 54; Glucose 133 mg/dL (83-110); Potassium 4.2 mmol/L (3.5-5.1); Sodium 139 mmol/L (136-145)
--- NOTE | 2018-10-15 07:33 | PDOC.FM ---
- Subjective Subjective: NAEO. Patient remains intubated & sedated. - Objective MAR Reviewed: Yes Vital Signs & Weight: Vital Signs (12 hours) Temp Pulse Resp BP Pulse Ox 10/15/18 07:00 98.5 F 10/15/18 06:00 22 H 10/15/18 04:00 97.8 F 21 H 10/15/18 03:14 87 26 H 100 10/15/18 02:00 24 H 10/15/18 00:00 24 H 10/14/18 23:00 97.7 F 10/14/18 22:57 76 25 H 99 10/14/18 22:00 22 H 10/14/18 20:46 80 129/71 10/14/18 20:00 26 H Weight Admit Weight 60.1 kg Weight 51.4 kg Most Recent Monitor Data Heart Rate from ECG 85 NIBP 132/76 NIBP BP-Mean 94 Respiration from ECG 22 SpO2 100 I&O: 10/14/18 10/15/18 10/16/18 06:59 06:59 06:59 Intake Total 2717 2188.3 Output Total 3177 3025 175 Balance -460 -836.7 -175 Result Diagrams: 10/15/18 04:45 10/15/18 05:46 Phys Exam - Physical Examination Constitutional: NAD HEENT: moist MMs decreased breath sounds throughout with trace crackles in bases Cardiovascular: RRR, no significant murmur Gastrointestinal: soft, no distention, positive bowel sounds Musculoskeletal: no edema unable to assess 2/2 sedation Skin: no rash Dx/Plan (1) COPD exacerbation Code(s): J44.1 - CHRONIC OBSTRUCTIVE PULMONARY DISEASE W (ACUTE) EXACERBATION Status: Acute (2) Acute exacerbation of CHF (congestive heart failure) Code(s): I50.9 - HEART FAILURE, UNSPECIFIED Status: Suspected (3) Hypothyroidism Code(s): E03.9 - HYPOTHYROIDISM, UNSPECIFIED Status: Chronic (4) Afib Code(s): I48.91 - UNSPECIFIED ATRIAL FIBRILLATION Status: Acute Qualifiers: Atrial fibrillation type: paroxysmal Qualified Code(s): I48.0 - Paroxysmal atrial fibrillation (5) CAD (coronary artery disease) Code(s): I25.10 - ATHSCL HEART DISEASE OF [place] CORONARY ARTERY W/O ANG PCTRS Status: Chronic Qualifiers: Coronary Disease-Associated Artery/Lesion type: [place] artery [place] vs. transplanted heart: [place] heart Associated angina: without angina Qualified Code(s): I25.10 - Atherosclerotic heart disease of [place] coronary artery without angina pectoris (6) COPD (chronic obstructive pulmonary disease) Status: Chronic Qualifiers: COPD type: COPD with acute exacerbation Qualified Code(s): J44.1 - Chronic obstructive pulmonary disease with (acute) exacerbation (7) Chronic pain syndrome Code(s): G89.4 - CHRONIC PAIN SYNDROME Status: Chronic (8) Hypertension Code(s): I10 - ESSENTIAL (PRIMARY) HYPERTENSION Status: Chronic Qualifiers: Hypertension type: essential hypertension Qualified Code(s): I10 - Essential (primary) hypertension (9) Type 2 AMI (acute myocardial infarction) Code(s): I21.A1 - MYOCARDIAL INFARCTION TYPE 2 Status: Acute - Plan Plan: 77YOF with a PMH significant for COPD on 2L of O2 at home, mild CAD, HTN, paroxysmal A fib, hypothyroidism and chronic pain syndrome who was brought in via EMS for acute hypoxic hypercapneic respiratory failure requiring intubation in the field [employer]. Acute hypoxic hypercapneic respiratory failure 2/2 a COPD/CHF exacerbation - Remained stable overnight intubated & sedated. Failed extubation x2 now. Will discuss plans for possible terminal extubation with family today as they have expressed they do not desire a trach per pulmonology. - Will continue IV steroids, VINCENZO & PRN duonebs & PRN albuterol as well as Rocephin per pulm recs. - Will continue VINCENZO lasix as well as QD weights and strict I&Os. HTN - Will wean cardene drip as tolerated & continue to monitor BPs closely. REMA on CKD2 -Renal fxn stable today w/ Cr of 1.00 & eGFR of 54. Will continue to trend and consider holding ACEi if if significantly worsens. A fib with RVR, resolved - Patient has remained in NSR since 10/09 PM s/p 2 cardioversions but remains on amio gtt. Cards on board, appreciate recs. Type II [place] - Per cards patient likely suffered an anterior type II [place] based on EKG changes and uptrending troponins. Will continue ASA & statin therapy per cards recs & consider de-escalating Th Lovenox. Chronic opiate dependence/abuse -Aware, hx of withdrawal on previous admission. Will restart home meds once off sedation but will continue PRN IV morphine for breakthrough agitation while intubated & sedated. Hypothyroidism - Aware, will continue home meds. hyperglycemia - SSI remains in place should BG levels be >200. Goal to keep BG levels between 140-180. Hypoglycemia protocol also in place. Physical Deconditioning: - PT and OT on board. - CM & PC also on board. DVT PPX: Lovenox GI PPx: famotidine Abx: Rocephin Code Status: DNAR Addendum - Attending - Attending Attestation Date/Time: 10/15/18 3821 I personally evaluated the patient and discussed the management with Dr. Burrell. I agree with the History, Examination, Assessment and Plan documented above with any addition or exceptions noted below. No major changes in patient status overnight. Continues on ventilator as difficult to wean and has failed extubation x2. WBC elevated but no fevers or current infection source. She continues on IV abx. Awaiting further recs from Cardiology and Pulm/CC. Discussion with family again about goals of care, need to get palliative care on board if not already. Continues to have mild diuresis.
[2018-10-15] MEDS: ALPRAZolam 0.25 MG TAB PO SCH ×3 (08:56→21:35)
[2018-10-15] MEDS: Carvedilol 3.125 MG TAB PO SCH ×2 (08:57→16:20)
[2018-10-15] MEDS: Spironolactone 25 MG TAB PO SCH (08:57)
[2018-10-15] MEDS: Aspirin Chewable 81 MG TAB PER TUBE SCH (08:57)
[2018-10-15] MEDS: Digoxin 0.5 MG/2 ML AMP SLOW IVP SCH (08:58)
[2018-10-15] MEDS: Gabapentin 300 MG CAP PO SCH ×3 (08:58→21:36)
[2018-10-15] MEDS: Lisinopril 5 MG TAB PO SCH ×2 (08:59→21:35)
[2018-10-15] MEDS: Enoxaparin Sodium 40 MG/0.4 ML SYRINGE SC SCH (09:00)
[2018-10-15] MEDS: methylPREDNISolone Sod Succ 40 MG VIAL IVP SCH ×2 (09:00→21:36)
[2018-10-15] MEDS: Senokot S 8.6-50 MG TAB PO SCH ×2 (09:02→21:37)
[2018-10-15] MEDS: Propofol 1,000 MG/100 ML VIAL IV PRN (09:54)
--- NOTE | 2018-10-15 10:14 | OP ---
DATE OF PROCEDURE: 10/11/2018 PROCEDURE PERFORMED: Fiberoptic intubation. INDICATIONS FOR PROCEDURE: Ms. Velazco has had a waxing and waning course throughout the afternoon. She became less responsive this afternoon. Her hemodynamics remained stable. I met with her son prior to this and he wanted her intubated again. DESCRIPTION OF PROCEDURE: Disposable fiberoptic scope was brought to the bedside. A bite block was placed in her mouth. Throat was sprayed with Cetacaine spray. Vocal cords were quickly visualized and the endotracheal tube was advanced over the scope through into the trachea and secured above the main elier at 23 cm. Bilateral equal breath sounds were obtained. Chest radiograph shows proper placement of the endotracheal tube. Mostly, there will be some significant improvement over the next week. She will likely need a tracheostomy. The son and the daughter never had this discussion with her, but I have a feeling this may be the only way that she will survive. They have time to get together as a family and think about this. She will remain mechanically ventilated again for the next 4 to 5 days probably. CRITICAL CARE TIME: 30 minutes. Job ID: [id number]
--- NOTE | 2018-10-15 11:41 | PRG ---
DATE OF SERVICE: 10/15/2018 SUBJECTIVE: This morning, she is intubated in the vent, sedated. She failed extubation, had to be reintubated again. She is now once again a DNR. OBJECTIVE: VITAL SIGNS: Blood pressure 132/76, pulse rate is 18, and sats 100%. I's and O's have been consistently ahead. CHEST: Decreased breath sounds. Anterior rhonchi. CARDIAC: Normal S1 and S2. No gallops. ABDOMEN: No masses. IMPRESSION: Congestive heart failure, chronic obstructive pulmonary disease, pneumonia, and leukocytosis. PLAN: Once again, we will discuss with family. Continue vent support. Continue nutrition, PT. Cardiac care. We will follow. One-half hour of critical time. Job ID: [id number]
[2018-10-15] MEDS: cefTRIAXone\\ROCEPHIN 1 GM in Sodium Chloride 0.9% 100 ML IVPB SCH (13:00)
[2018-10-15] MEDS: Budesonide 0.5 MG/2 ML NEB INH SCH (18:42)
[2018-10-15] MEDS ORDERED: Famotidine 20 MG TAB PO SCH (21:00)
[2018-10-15] MEDS: Atorvastatin Calcium 20 MG TAB PO SCH (21:36)
[2018-10-16] MEDS: Amiodarone 450 MG, Admixture Fee 1 EACH in Dextrose 5% in Water 250 ML IVPB SCH (04:54)
[2018-10-16 05:50] LABS: Hemoglobin 14.8 g/dL (12.0-16.0); Mean Corpuscular HGB CONC 33.6 g/dL (32.0-36.0); Mean Corpuscular Hemoglobin 31.4 pg (27.0-31.0); Mean Corpuscular Volume 93.6 fL (78.0-98.0); Mean Platelet Volume 7.9 fL (7.4-10.4); Platelet Count 419 thou/uL (130-400); RBC Distribution Width 14.2 % (11.5-14.5); Red Blood Cell (RBC) Count 4.71 mill/uL (4.20-5.40); White Blood Cell (WBC) Count 20.4 thou/uL (4.8-10.8)
[2018-10-16 05:51] LABS: Anion Gap 13 mmol/L (10-20); BUN (Urea Nitrogen) 47 mg/dL (9.8-20.1); Calc. Creatinine Clearance 36 mL/min (70-130); Calcium 9.6 mg/dL (7.8-10.44); Carbon Dioxide 30 mmol/L (23-31); Chloride 98 mmol/L (98-107); Estimated GFR-MDRD 50; Glucose 144 mg/dL (83-110); Potassium 4.1 mmol/L (3.5-5.1); Sodium 137 mmol/L (136-145)
[2018-10-16 05:53] LABS: Digoxin 1.29 ng/mL (0.8-2.0)
[2018-10-16 05:56] LABS: Band 2 % (5-11); Lymphocytes 4 % (21-51); MDiff Complete? YES; Monocytes 2 % (0-10); Myelocyte 1 % (0-0); Neutrophil 90 % (42-75); Reactive Lymphocytes 1 % (0-10)
[2018-10-16] MEDS: Levothyroxine Sodium 50 MCG TAB PO SCH (06:19)
[2018-10-16] MEDS: Furosemide 40 MG/4 ML VIAL SLOW IVP SCH (06:19)
--- NOTE | 2018-10-16 07:09 | PDOC.FM ---
- Subjective Subjective: NAEO. Patient remains stable on the ventilator on exam this AM. More alert and following commands. - Objective MAR Reviewed: Yes Vital Signs & Weight: Vital Signs (12 hours) Temp Pulse Resp BP Pulse Ox 10/16/18 06:00 20 10/16/18 04:00 98.8 F 18 10/16/18 03:05 87 29 H 98 10/16/18 02:00 24 H 10/16/18 00:00 99.1 F 21 H 10/15/18 22:13 84 24 H 97 10/15/18 22:00 24 H 10/15/18 21:35 88 138/77 10/15/18 20:00 19 10/15/18 19:47 99 Weight Admit Weight 60.1 kg Weight 52.6 kg Most Recent Monitor Data Heart Rate from ECG 86 NIBP 136/77 NIBP BP-Mean 96 Respiration from ECG 17 SpO2 97 I&O: 10/15/18 10/16/18 10/17/18 06:59 06:59 06:59 Intake Total 2188.3 1774 Output Total 3025 3015 Balance -836.7 -1241 Result Diagrams: 10/16/18 04:55 10/16/18 04:55 Phys Exam - Physical Examination Constitutional: NAD HEENT: moist MMs, sclera anicteric Neck: supple, full ROM decreased breath sounds throughout Cardiovascular: RRR, no significant murmur Gastrointestinal: soft, non-tender, no distention, positive bowel sounds Musculoskeletal: no edema Neurological: non-focal, moves all 4 limbs (but significant weakness throughout) Skin: no rash Deviation from normal: bruising to B/L UEs Dx/Plan (1) COPD exacerbation Code(s): J44.1 - CHRONIC OBSTRUCTIVE PULMONARY DISEASE W (ACUTE) EXACERBATION Status: Acute (2) Acute exacerbation of CHF (congestive heart failure) Code(s): I50.9 - HEART FAILURE, UNSPECIFIED Status: Suspected (3) Hypothyroidism Code(s): E03.9 - HYPOTHYROIDISM, UNSPECIFIED Status: Chronic (4) Afib Code(s): I48.91 - UNSPECIFIED ATRIAL FIBRILLATION Status: Acute Qualifiers: Atrial fibrillation type: paroxysmal Qualified Code(s): I48.0 - Paroxysmal atrial fibrillation (5) CAD (coronary artery disease) Code(s): I25.10 - ATHSCL HEART DISEASE OF [place] CORONARY ARTERY W/O ANG PCTRS Status: Chronic Qualifiers: Coronary Disease-Associated Artery/Lesion type: [place] artery [place] vs. transplanted heart: [place] heart Associated angina: without angina Qualified Code(s): I25.10 - Atherosclerotic heart disease of [place] coronary artery without angina pectoris (6) COPD (chronic obstructive pulmonary disease) Status: Chronic Qualifiers: COPD type: COPD with acute exacerbation Qualified Code(s): J44.1 - Chronic obstructive pulmonary disease with (acute) exacerbation (7) Chronic pain syndrome Code(s): G89.4 - CHRONIC PAIN SYNDROME Status: Chronic (8) Hypertension Code(s): I10 - ESSENTIAL (PRIMARY) HYPERTENSION Status: Chronic Qualifiers: Hypertension type: essential hypertension Qualified Code(s): I10 - Essential (primary) hypertension (9) Type 2 AMI (acute myocardial infarction) Code(s): I21.A1 - MYOCARDIAL INFARCTION TYPE 2 Status: Acute - Plan Plan: 77YOF with a PMH significant for COPD on 2L of O2 at home, mild CAD, HTN, paroxysmal A fib, hypothyroidism and chronic pain syndrome who was brought in via EMS for acute hypoxic hypercapneic respiratory failure requiring 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 Acute hypoxic hypercapneic respiratory failure 2/2 a COPD/CHF exacerbation - Remained stable overnight intubated & sedated. Failed extubation x2 now. Plans for compassionate extubation today. Will get hospice on board should patient live longer than anticipated following her extubation. - Will continue IV steroids, VINCENZO & PRN duonebs & PRN albuterol as well as Rocephin per pulm recs. - Will continue VINCENZO lasix as well as QD weights and strict I&Os. HTN - Will continue PO meds as tolerated by patient. REMA on CKD2 -Renal fxn slightly decreased today w/ eGFR of 50. Will continue to trend and consider holding ACEi if if significantly worsens. A fib with RVR, resolved - Patient has remained in NSR since 10/09 PM s/p 2 cardioversions but remains on amio gtt. Cards on board, appreciate recs. Type II PR - Per cards patient likely suffered an anterior type II PR based on EKG changes and uptrending troponins. Will continue ASA & statin therapy per cards recs & consider de-escalating Th Lovenox. Chronic opiate dependence/abuse -Aware, hx of withdrawal on previous admission. Will restart home meds once off sedation but will continue PRN IV morphine for breakthrough agitation while intubated & sedated. Hypothyroidism - Aware, will continue home meds. Hyperglycemia - Will d/c accuchecks & SSI as will continue comfort care measures only more than likely once extubated. Physical Deconditioning: - PT and OT on board. - CM & PC also on board. Dispo: Planning for compassionate extubation at ~10:00 today. Will touch base with PC and get hospice on board. DVT PPX: Lovenox GI PPx: famotidine Abx: Rocephin Code Status: DNAR Addendum - Attending - Attending Attestation Date/Time: 10/16/18 0904 I personally evaluated the patient and discussed the management with Dr. Burrell. I agree with the History, Examination, Assessment and Plan documented above with any addition or exceptions noted below. Patient overall stable. Still unable to extubate. Family discussing possible compassionate and terminal extubation later today with comfort measures only. Palliative care on board, will also need hospice involved if that course continues.
[2018-10-16] MEDS: Budesonide 0.5 MG/2 ML NEB INH SCH (08:15)
[2018-10-16 08:37] LABS: Actual Bicarbonate (HCO3a) 27.7 mEq/L (22-28); Base Excess (BEa) 4.9 mEq/L (-2.0 to +3.0); CO2 Tension 35.4 mmHg (35.0-45.0); Carboxyhemoglobin (COHb) 1.8 gm% (0.0-3.0); Hemoglobin (Hb) 15.4 g/dL (12.0-16.0); O2 Tension (PaO2) 65.8 mmHg (> 70.0); pH, Arterial 7.51 (7.35-7.45)
--- NOTE | 2018-10-16 08:37 | PRG ---
DATE OF SERVICE: 10/16/2018 SUBJECTIVE: This morning, she is awake, alert, and responsive. I spoke to her daughter at length yesterday, considering extubation today and comfort care. She has had no sedation all night. Awake, responsive. OBJECTIVE: VITAL SIGNS: Blood pressure 136/77, pulse 80_, respirations 20. I's and O's have been negative. CHEST: Decreased breath sounds. No wheezing. No crackles. CARDIAC: Normal S1, S2. No gallops. ABDOMEN: No masses. LABORATORY DATA: BNP was 3326. creatinine level is 1.29, BUN is 47. White count 20,000. ASSESSMENT/PLAN: Respiratory failure, cardiomyopathy, severe deconditioning, advanced age. Family is to decide today about extubation and comfort care. X- ray looks much improved. Still has leukocytosis, though all cultures so far negative. Continue nutrition, PT until the family arrives. One-half hour of critical time. Job ID: [id number] MTDD
[2018-10-16 08:38] LABS: Puncture Site RRA
--- NOTE | 2018-10-16 08:50 | RAD ---
CHEST ONE VIEW: HISTORY: Respiratory insufficiency. COMPARISON: 10/14/2018 FINDINGS: Stable life support tubes. Stable bilateral vascular congestion and interstitial and reticulonodular opacity changes. No significant new confluent process. IMPRESSION: Stable chest. POS: [facility]ILUH
[2018-10-16] MEDS: Aspirin Chewable 81 MG TAB PER TUBE SCH (09:11)
[2018-10-16] MEDS: Gabapentin 300 MG CAP PO SCH (09:12)
[2018-10-16] MEDS: Carvedilol 3.125 MG TAB PO SCH (09:12)
[2018-10-16] MEDS: Senokot S 8.6-50 MG TAB PO SCH (09:13)
[2018-10-16] MEDS: ALPRAZolam 0.25 MG TAB PO SCH (09:13)
[2018-10-16] MEDS: Spironolactone 25 MG TAB PO SCH (09:13)
[2018-10-16] MEDS: Digoxin 0.5 MG/2 ML AMP SLOW IVP SCH (09:15)
[2018-10-16] MEDS ORDERED: Metolazone 5 MG TAB PO SCH (09:15)
[2018-10-16] MEDS: methylPREDNISolone Sod Succ 40 MG VIAL IVP SCH (09:43)
[2018-10-16] MEDS: Enoxaparin Sodium 40 MG/0.4 ML SYRINGE SC SCH (09:43)
[2018-10-16] MEDS ORDERED: Lorazepam 2 MG/ML VIAL SLOW IVP PRN (11:28)
[2018-10-16] MEDS: Morphine 4 MG/ML VIAL SLOW IVP PRN ×4 (12:03→22:56)
[2018-10-16] MEDS: Lorazepam 2 MG/ML VIAL SLOW IVP PRN ×3 (12:56→21:06)
[2018-10-16] MEDS ORDERED: Lisinopril 10 MG TAB PO SCH (15:00)
[2018-10-17] MEDS: Morphine 4 MG/ML VIAL SLOW IVP PRN ×4 (04:34→21:41)
--- NOTE | 2018-10-17 07:54 | PDOC.FM ---
- Subjective Subjective: Patient remained comfortable overnight and was transferred to the floor. Appeared comfortable on exam but was minimally responsive only slightly opening eyes to her name being called. Did not follow commands or withdraw to pain. - Objective MAR Reviewed: Yes Vital Signs & Weight: Vital Signs (12 hours) Temp Pulse Resp BP Pulse Ox 10/17/18 07:00 98.0 F 68 16 79/48 L 97 10/16/18 23:10 97.2 F L 71 16 62/35 L 95 10/16/18 23:00 95 Weight Admit Weight 60.1 kg Weight 58.831 kg Most Recent Monitor Data Heart Rate from ECG 71 NIBP 66/41 NIBP BP-Mean 49 Respiration from ECG 28 SpO2 100 I&O: 10/16/18 10/17/18 10/18/18 06:59 06:59 06:59 Intake Total 1774 375 Output Total 3015 800 Balance -1241 -500 Result Diagrams: 10/16/18 04:55 10/16/18 04:55 Phys Exam - Physical Examination Constitutional: NAD HEENT: moist MMs, sclera anicteric decreased breath sounds throughout Cardiovascular: RRR, no significant murmur Musculoskeletal: no edema GCS score of 5 Skin: no rash Dx/Plan (1) COPD exacerbation Code(s): J44.1 - CHRONIC OBSTRUCTIVE PULMONARY DISEASE W (ACUTE) EXACERBATION Status: Acute (2) Acute exacerbation of CHF (congestive heart failure) Code(s): I50.9 - HEART FAILURE, UNSPECIFIED Status: Suspected (3) Hypothyroidism Code(s): E03.9 - HYPOTHYROIDISM, UNSPECIFIED Status: Chronic (4) Afib Code(s): I48.91 - UNSPECIFIED ATRIAL FIBRILLATION Status: Acute Qualifiers: Atrial fibrillation type: paroxysmal Qualified Code(s): I48.0 - Paroxysmal atrial fibrillation (5) CAD (coronary artery disease) Code(s): I25.10 - ATHSCL HEART DISEASE OF [place] CORONARY ARTERY W/O ANG PCTRS Status: Chronic Qualifiers: Coronary Disease-Associated Artery/Lesion type: [place] artery [place] vs. transplanted heart: [place] heart Associated angina: without angina Qualified Code(s): I25.10 - Atherosclerotic heart disease of [place] coronary artery without angina pectoris (6) COPD (chronic obstructive pulmonary disease) Status: Chronic Qualifiers: COPD type: COPD with acute exacerbation Qualified Code(s): J44.1 - Chronic obstructive pulmonary disease with (acute) exacerbation (7) Chronic pain syndrome Code(s): G89.4 - CHRONIC PAIN SYNDROME Status: Chronic (8) Hypertension Code(s): I10 - ESSENTIAL (PRIMARY) HYPERTENSION Status: Chronic Qualifiers: Hypertension type: essential hypertension Qualified Code(s): I10 - Essential (primary) hypertension (9) Type 2 AMI (acute myocardial infarction) Code(s): I21.A1 - MYOCARDIAL INFARCTION TYPE 2 Status: Acute - Plan Plan: 77YOF with a PMH significant for COPD on 2L of O2 at home, mild CAD, HTN, paroxysmal A fib, hypothyroidism and chronic pain syndrome who was brought in via EMS for acute hypoxic hypercapneic respiratory failure 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 Acute hypoxic hypercapneic respiratory failure 2/2 a COPD/CHF exacerbation - Patient extubated and transferred to floor yesterday. Remains stable on NC. Will continue comfort care measures only and get hospice on board today. HTN REMA on CKD2 A fib with RVR, resolved Type II [place] Chronic opiate dependence/abuse Hypothyroidism Hyperglycemia Physical Deconditioning - Will continue comfort care measures only including IV morphine & ativan for agitation and pain control PRN. Dispo: Will touch base with PC & CM for likely admission to inpatient hospice. DVT PPX: none GI PPx: none Abx: none Code Status: DNAR Addendum - Attending - Attending Attestation Date/Time: 10/17/18 6247 I personally evaluated the patient and discussed the management with Dr. Burrell. I agree with the History, Examination, Assessment and Plan documented above with any addition or exceptions noted below. Patient now on comfort measures only. She is currently comfortable. Symptomatic meds as available. Consult Hospice this morning. No aggressive treatment and we are allowing her to pass in comfort.
--- NOTE | 2018-10-17 09:17 | PRG ---
DATE OF SERVICE: 10/17/2018 SUBJECTIVE: This morning, to my surprise, awake and responsive. Denies any pain or difficulty breathing. OBJECTIVE: VITAL SIGNS: Temperature 98, pulse 68, respirations 16, saturations 98, and blood pressure 79/48. CHEST: No wheezing or crackles. CARDIAC: Normal S1 and S2. No gallops. ABDOMEN: No masses. IMPRESSION AND PLAN: End-stage cardiomyopathy, respiratory failure, DNR, and comfort care. She has remained stable. May consider starting some p.o. diet and home medicine if she can tolerate it. Job ID: [id number]
[2018-10-17] MEDS: Lorazepam 2 MG/ML VIAL SLOW IVP PRN ×2 (11:16→23:10)
[2018-10-17] MEDS: Lisinopril 5 MG TAB PO SCH (17:17)
--- NOTE | 2018-10-18 06:22 | PDOC.FM ---
- Subjective Subjective: NAEO. Patient remained stable on NC overnight. - Objective MAR Reviewed: Yes Vital Signs & Weight: Vital Signs (12 hours) Temp Pulse Resp BP Pulse Ox 10/17/18 21:20 96 10/17/18 19:18 97.5 F L 70 16 91/57 L 96 Weight Admit Weight 60.1 kg Weight 58.831 kg Most Recent Monitor Data Heart Rate from ECG 71 NIBP 66/41 NIBP BP-Mean 49 Respiration from ECG 28 SpO2 100 I&O: 10/16/18 10/17/18 10/18/18 06:59 06:59 06:59 Intake Total 1774 375 0 Output Total 3015 800 400 Balance -1245 -425 -400 Result Diagrams: 10/16/18 04:55 10/16/18 04:55 Phys Exam - Physical Examination Constitutional: NAD HEENT: moist MMs, sclera anicteric Neck: supple Respiratory: wheezing present decreased breath sounds throughout Cardiovascular: RRR, no significant murmur Deviation from normal: GCS score of 6. Not following commands and no response to painful stimuli. Skin: no rash Dx/Plan (1) COPD exacerbation Code(s): J44.1 - CHRONIC OBSTRUCTIVE PULMONARY DISEASE W (ACUTE) EXACERBATION Status: Acute (2) Acute exacerbation of CHF (congestive heart failure) Code(s): I50.9 - HEART FAILURE, UNSPECIFIED Status: Suspected (3) Hypothyroidism Code(s): E03.9 - HYPOTHYROIDISM, UNSPECIFIED Status: Chronic (4) Afib Code(s): I48.91 - UNSPECIFIED ATRIAL FIBRILLATION Status: Acute Qualifiers: Atrial fibrillation type: paroxysmal Qualified Code(s): I48.0 - Paroxysmal atrial fibrillation (5) CAD (coronary artery disease) Code(s): I25.10 - ATHSCL HEART DISEASE OF [place] CORONARY ARTERY W/O ANG PCTRS Status: Chronic Qualifiers: Coronary Disease-Associated Artery/Lesion type: [place] artery [place] vs. transplanted heart: [place] heart Associated angina: without angina Qualified Code(s): I25.10 - Atherosclerotic heart disease of [place] coronary artery without angina pectoris (6) COPD (chronic obstructive pulmonary disease) Status: Chronic Qualifiers: COPD type: COPD with acute exacerbation Qualified Code(s): J44.1 - Chronic obstructive pulmonary disease with (acute) exacerbation (7) Chronic pain syndrome Code(s): G89.4 - CHRONIC PAIN SYNDROME Status: Chronic (8) Hypertension Code(s): I10 - ESSENTIAL (PRIMARY) HYPERTENSION Status: Chronic Qualifiers: Hypertension type: essential hypertension Qualified Code(s): I10 - Essential (primary) hypertension (9) Type 2 AMI (acute myocardial infarction) Code(s): I21.A1 - MYOCARDIAL INFARCTION TYPE 2 Status: Acute - Plan Plan: 77YOF with a PMH significant for COPD on 2L of O2 at home, mild CAD, HTN, paroxysmal A fib, hypothyroidism and chronic pain syndrome who was brought in via EMS for acute hypoxic hypercapneic 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 Acute hypoxic hypercapneic respiratory failure 2/2 a COPD/CHF exacerbation - Patient extubated and transferred to floor 2 days ago. Remains stable on NC. Will continue comfort care measures only per family and patient's wishes and attempt once again to get hospice involved today. HTN REMA on CKD2 A fib with RVR, resolved Type II [place] Chronic opiate dependence/abuse Hypothyroidism Hyperglycemia Physical Deconditioning - Will continue comfort care measures only including IV morphine & ativan for agitation and pain control PRN. Dispo: Will meet with family again today to encourage home w/ home hospice vs. admission to inpatient hospice. DVT PPX: none GI PPx: none Abx: none Code Status: DNAR Addendum - Attending - Attending Attestation Date/Time: 10/18/18 2099 I personally evaluated the patient and discussed the management with Dr. Burrell. I agree with the History, Examination, Assessment and Plan documented above with any addition or exceptions noted below. Patient here on comfort care after terminal extubation from severe CHF and COPD. She is comfortable and will continue to provide comfort meds for her as needed. Continue to discuss hospice care with family.
--- NOTE | 2018-10-18 09:08 | PRG ---
DATE OF SERVICE: 10/18/2018 SUBJECTIVE: Adriana Velazco is a 78-year-old female who was extubated 48 hours ago. To my surprise this morning, she is awake. She is having some minimal sips of water. OBJECTIVE: VITAL SIGNS: Temperature 98.4, pulse 72, respiratory rate 16, blood pressure 91/57. GENERAL: She is awake, responsive. CHEST: Decreased breath sounds. No wheezing. CARDIAC: Normal S1, S2. No gallops. ABDOMEN: No masses. IMPRESSION: Congestive cardiomyopathy, respiratory failure, DNR. I signed order for inpatient hospice. Otherwise, continue supportive care, PT. We will follow. Job ID: [id number] MTDD
[2018-10-18] MEDS: Morphine 4 MG/ML VIAL SLOW IVP PRN ×2 (11:18→15:07)
--- NOTE | 2018-10-19 11:40 | PDOC.FM ---
- Subjective Subjective: No significant overnight events. Patient awake and talking this AM. She voiced to me that she would like to go home. She states that she lives with her daughter. CM has been trying to get in touch with daughter regarding Hospice. Patient states that she has low back pain this AM and that she is very thirsty. Otherwise, no complaints. - Objective MAR Reviewed: Yes Vital Signs & Weight: Vital Signs (12 hours) Temp Pulse Resp BP Pulse Ox 10/19/18 09:30 95 10/19/18 07:35 97.7 F 71 20 137/70 95 Weight Admit Weight 60.1 kg Weight 58.831 kg Most Recent Monitor Data Heart Rate from ECG 71 NIBP 66/41 NIBP BP-Mean 49 Respiration from ECG 28 SpO2 100 I&O: 10/18/18 10/19/18 10/20/18 06:59 06:59 06:59 Intake Total 0 90 Output Total 400 550 Balance -400 -460 Result Diagrams: 10/16/18 04:55 10/16/18 04:55 EKG Reviewed by me: No Radiology Reviewed by me: Yes Phys Exam - Physical Examination Constitutional: NAD Awake and alert dry MMM Respiratory: clear to auscultation bilateral Cardiovascular: RRR 2/6 systolic murmur Gastrointestinal: soft, non-tender, no distention Musculoskeletal: no edema, pulses present Neurological: non-focal contracted muscles Deviation from normal: answering questions appropriately Skin: no rash Dx/Plan (1) Type 2 AMI (acute myocardial infarction) Code(s): I21.A1 - MYOCARDIAL INFARCTION TYPE 2 Status: Acute (2) Hypothyroidism Code(s): E03.9 - HYPOTHYROIDISM, UNSPECIFIED Status: Chronic (3) CAD (coronary artery disease) Code(s): I25.10 - ATHSCL HEART DISEASE OF [place] CORONARY ARTERY W/O ANG PCTRS Status: Chronic Qualifiers: Coronary Disease-Associated Artery/Lesion type: [place] artery [place] vs. transplanted heart: [place] heart Associated angina: without angina Qualified Code(s): I25.10 - Atherosclerotic heart disease of [place] coronary artery without angina pectoris (4) COPD (chronic obstructive pulmonary disease) Status: Chronic (5) Chronic pain syndrome Code(s): G89.4 - CHRONIC PAIN SYNDROME Status: Chronic (6) Hypertension Code(s): I10 - ESSENTIAL (PRIMARY) HYPERTENSION Status: Chronic Qualifiers: Hypertension type: essential hypertension Qualified Code(s): I10 - Essential (primary) hypertension - Plan Plan: 77YOF with a PMH significant for COPD on 2L of O2 at home, mild CAD, HTN, paroxysmal A fib, hypothyroidism and chronic pain syndrome who was brought in via EMS for acute hypoxic hypercapneic 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 Acute hypoxic hypercapneic respiratory failure 2/2 a COPD/CHF exacerbation - Patient extubated and transferred to floor 3 days ago - Remains stable on 2.5L NC - Will continue comfort care measures only per family and patient's wishes and attempt once again to get hospice involved - Per notes, CM/palliative attempted to contact daughter regarding hospice yesterday and were unable to reach her - Patient voices desire to return home today; she is on 2.5L NC and is chronically on 2L at home - All medications have been d/c'd as patient and patient's family voiced desire for comfort care only HTN - BP meds d/c'd; see above - BP WNL REMA on CKD2 - Patient on palliative/comfort care A fib with RVR, resolved - HR 68 without medications - Not on any meds; desires comfort care Type II [place] - Treated for 48 hours with therapeutic lovenox Chronic opiate dependence/abuse - Morphine PRN for pain and breathing Hypothyroidism - Patient desires only palliative care, not wanting any additional meds Physical Deconditioning - Will continue comfort care measures only including IV morphine & ativan for agitation and pain control PRN. Dispo: Will meet with family again today to encourage home w/ home hospice vs. admission to inpatient hospice if hospice still desired. DVT PPX: none GI PPx: none Abx: none Code Status: DNAR Dispo: Pending decision for Hospice. Addendum - Attending - Attending Attestation Date/Time: 10/19/18 7302 I personally evaluated the patient and discussed the management with Dr. Conklin. I agree with the History, Examination, Assessment and Plan documented above with any addition or exceptions noted below. The patient is asking to go home this morning. Will try to discuss plan of care with family when they come to the hospital.
[2018-10-19] MEDS: Morphine 4 MG/ML VIAL SLOW IVP PRN (15:57)
[2018-10-19] MEDS: Lorazepam 2 MG/ML VIAL SLOW IVP PRN (16:27)
--- NOTE | 2018-10-20 00:24 | EKG ---
Test Reason : Blood Pressure : / mmHG Vent. Rate : 095 BPM Atrial Rate : 095 BPM P-R Int : 160 ms QRS Dur : 092 ms QT Int : 376 ms P-R-T Axes : 067 046 057 degrees QTc Int : 472 ms Normal sinus rhythm Possible Left atrial enlargement Borderline ECG Confirmed by ALEJANDRO RUIZ ([id number]), editor index BELGICA TAYLOR ([id number]) on 10/20/2018 12:24:09 AM Referred By: Confirmed By:ALEJANDRO RUIZ
[2018-10-20] MEDS: Morphine 4 MG/ML VIAL SLOW IVP PRN ×3 (07:55→23:17)
--- NOTE | 2018-10-20 09:16 | PDOC.FM ---
- Subjective Subjective: No significant changes overnight. Awaiting daughter's decision regarding outpatient Hospice. - Objective MAR Reviewed: Yes Vital Signs & Weight: Vital Signs (12 hours) Temp Pulse Resp BP BP Pulse Ox 10/20/18 08:13 166/88 H 10/20/18 07:37 97.5 F L 78 20 178/80 H 92 L Weight Admit Weight 60.1 kg Weight 58.831 kg Most Recent Monitor Data Heart Rate from ECG 71 NIBP 66/41 NIBP BP-Mean 49 Respiration from ECG 28 SpO2 100 I&O: 10/19/18 10/20/18 10/21/18 06:59 06:59 06:59 Intake Total 90 480 Output Total 550 200 Balance -460 280 Result Diagrams: 10/16/18 04:55 10/16/18 04:55 EKG Reviewed by me: Yes Radiology Reviewed by me: Yes Phys Exam - Physical Examination Constitutional: NAD Cachectic Dry MM Rhonchi anteriorly Cardiovascular: RRR Gastrointestinal: soft, no distention Musculoskeletal: no edema contracted muscles Dx/Plan (1) Type 2 AMI (acute myocardial infarction) Code(s): I21.A1 - MYOCARDIAL INFARCTION TYPE 2 Status: Acute (2) Hypothyroidism Code(s): E03.9 - HYPOTHYROIDISM, UNSPECIFIED Status: Chronic (3) CAD (coronary artery disease) Code(s): I25.10 - ATHSCL HEART DISEASE OF [place] CORONARY ARTERY W/O ANG PCTRS Status: Chronic Qualifiers: Coronary Disease-Associated Artery/Lesion type: [place] artery [place] vs. transplanted heart: [place] heart Associated angina: without angina Qualified Code(s): I25.10 - Atherosclerotic heart disease of [place] coronary artery without angina pectoris (4) COPD (chronic obstructive pulmonary disease) Status: Chronic (5) Chronic pain syndrome Code(s): G89.4 - CHRONIC PAIN SYNDROME Status: Chronic (6) Hypertension Code(s): I10 - ESSENTIAL (PRIMARY) HYPERTENSION Status: Chronic Qualifiers: Hypertension type: essential hypertension Qualified Code(s): I10 - Essential (primary) hypertension - Plan Plan: 77YOF with a PMH significant for COPD on 2L of O2 at home, mild CAD, HTN, paroxysmal A fib, hypothyroidism and chronic pain syndrome who was brought in via EMS for acute hypoxic hypercapneic 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 Acute hypoxic hypercapneic respiratory failure 2/2 a COPD/CHF exacerbation - Remains stable on 2.5L NC - Continue comfort care; pending outpatient hospice services, will try to touch base with daughter again today - Patient voices desire to return home today; she is on 2.5L NC and is chronically on 2L at home - All medications have been d/c'd as patient and patient's family voiced desire for comfort care only HTN - BP meds d/c'd; see above - BP WNL REMA on CKD2 - Patient on palliative/comfort care A fib with RVR, resolved - HR 68 without medications - Not on any meds; desires comfort care Type II [place] - Treated for 48 hours with therapeutic lovenox Chronic opiate dependence/abuse - Morphine PRN for pain and breathing Hypothyroidism - Patient desires only palliative care, not wanting any additional meds Physical Deconditioning - Will continue comfort care measures only including IV morphine & ativan for agitation and pain control PRN. Dispo: Pending outpatient hospice services DVT PPX: none GI PPx: none Abx: none Code Status: DNAR Addendum - Attending - Attending Attestation Date/Time: 10/20/18 6430 I personally evaluated the patient and discussed the management with Dr. Conklin. I agree with the History, Examination, Assessment and Plan documented above with any addition or exceptions noted below. The patient was awake and asking for water and pt daytime caregiver provided this. It is my understanding that the patient's daughter is picking a hospice company to take her mom home with hospice. Will await her decisions.
[2018-10-20] MEDS: Lorazepam 2 MG/ML VIAL SLOW IVP PRN ×2 (15:00→23:23)
--- NOTE | 2018-10-21 09:01 | PRG ---
DATE OF SERVICE: 10/21/2018 SUBJECTIVE: Surprisingly, she is still awake, responsive, and smiling. OBJECTIVE: VITAL SIGNS: Saturations are 91% on 2 L, respiratory rate is 24, pulse 104, temperature 98, and blood pressure 140/75. CHEST: Bilateral rhonchi and crackles. CARDIAC: Normal S1 and S2. No gallops. ABDOMEN: No masses. ASSESSMENT AND PLAN: End-stage cardiomyopathy, chronic obstructive pulmonary disease, respiratory failure, and DNR. Awaiting input from family. Hospice placement. Job ID: [id number]
[2018-10-21] MEDS: Morphine 4 MG/ML VIAL SLOW IVP PRN ×2 (10:04→17:16)
--- NOTE | 2018-10-21 11:57 | PDOC.FM ---
- Subjective Subjective: The patient appeared to be resting comfortable in bed at the time of evaluation and was not in acute distress. Nursing staff reported minimal pain symptoms, with subsequent resolution following morphine administration. No overnight events reported. - Objective Vital Signs & Weight: Vital Signs (12 hours) Temp Pulse Resp BP Pulse Ox 10/21/18 08:00 91 L 10/21/18 07:30 98.7 F 104 H 24 H 144/75 H 91 L 10/21/18 07:27 98.0 F 67 18 125/63 99 Weight Admit Weight 60.1 kg Weight 58.831 kg Most Recent Monitor Data Heart Rate from ECG 71 NIBP 66/41 NIBP BP-Mean 49 Respiration from ECG 28 SpO2 100 I&O: 10/20/18 10/21/18 10/22/18 06:59 06:59 06:59 Intake Total 480 520 Output Total 200 600 Balance 280 -80 Result Diagrams: 10/16/18 04:55 10/16/18 04:55 Phys Exam - Physical Examination Constitutional: NAD HEENT: PERRLA, moist MMs, sclera anicteric, oral pharynx no lesions Neck: supple, full ROM Respiratory: no wheezing, no rales, no rhonchi, clear to auscultation bilateral Cardiovascular: RRR, no significant murmur, no rub Gastrointestinal: soft, non-tender, no distention Musculoskeletal: no edema Neurological: non-focal Psychiatric: normal affect Dx/Plan (1) COPD exacerbation Code(s): J44.1 - CHRONIC OBSTRUCTIVE PULMONARY DISEASE W (ACUTE) EXACERBATION Status: Acute (2) Acute exacerbation of CHF (congestive heart failure) Code(s): I50.9 - HEART FAILURE, UNSPECIFIED Status: Suspected (3) Sepsis Code(s): A41.9 - SEPSIS, UNSPECIFIED ORGANISM Status: Suspected Qualifiers: Sepsis type: sepsis due to unspecified organism Qualified Code(s): A41.9 - Sepsis, unspecified organism (4) Acute respiratory failure with hypoxia Code(s): J96.01 - ACUTE RESPIRATORY FAILURE WITH HYPOXIA Status: Resolved - Plan Plan: 1. Acute Hypoxic Hypercapneic Respiratory Failure 2/2 to COPD/CHF exacerbation -Remains stable on 2.5L NC -All medications have been d/c'd as patient and patient's family voiced desire for comfort care only -Continue comfort care for pain and agitation pending outpatient hospice services, will try to touch base with daughter again today 2. HTN -BP: 144/75 -BP medication regimen has been DC'd; see #1 3. 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 A-Fib with RVR, resolved -HR: 104 without medications -Tachycardia acceptable based on desire for comfort care, see #1 5. Type II [place] -Treated for 48 hours with therapeutic Lovenox 6. Chronic Opioid Dependence -Morphine PRN for pain and breathing 7. Hypothyroidism -See #1 8. Physical Deconditioning -Will continue comfort care measures only -IV Morphine & Ativan for pain and agitation Code Status: DNAR DVT PPX: None GI PPx: None Abx: None Dispo: Follow-up with MPOA (Daughter) to discuss outpatient hospice services desired, plan for DC. Addendum - Attending - Attending Attestation Date/Time: 10/21/18 6190 I personally evaluated the patient and discussed the management with Dr. June. I agree with the History, Examination, Assessment and Plan documented above with any addition or exceptions noted below. Patient here for comfort measures. She is overall comfortable. Working with family to get Hospice on board.
[2018-10-21] MEDS: Lorazepam 2 MG/ML VIAL SLOW IVP PRN ×3 (12:47→23:07)
[2018-10-22] MEDS: Lorazepam 2 MG/ML VIAL SLOW IVP PRN ×2 (03:10→08:36)
[2018-10-22] MEDS: Morphine 4 MG/ML VIAL SLOW IVP PRN (06:31)
[2018-10-22 07:23] VITALS: BP 88/61; TEMP 99
--- NOTE | 2018-10-22 07:31 | PDOC.FM ---
- Subjective Subjective: Patient was resting comfortably in her hospital bed, but was non-responsive during the evaluation. Per chart review and the nursing staff, there were no overnight events and the patient never appeared to be in pain or acute respiratory distress. Urine output was <400 mL for the duration of the shift. - Objective MAR Reviewed: Yes Vital Signs & Weight: Vital Signs (12 hours) Temp Pulse Resp BP BP Pulse Ox 10/22/18 07:20 99.0 F 88 22 H 88/61 L 90 L 10/21/18 20:05 99 10/21/18 20:03 98.7 F 109 H 18 107/67 100 Weight Admit Weight 60.1 kg Weight 58.831 kg Most Recent Monitor Data Heart Rate from ECG 71 NIBP 66/41 NIBP BP-Mean 49 Respiration from ECG 28 SpO2 100 I&O: 10/21/18 10/22/18 10/23/18 06:59 06:59 06:59 Intake Total 520 50 Output Total 600 450 Balance -80 -400 Result Diagrams: 10/16/18 04:55 10/16/18 04:55 Phys Exam - Physical Examination Constitutional: NAD HEENT: moist MMs Neck: supple, full ROM Respiratory: no wheezing, no rales Mild tachypnea with diffuse rhonchi Cardiovascular: RRR, no rub (3/6 systolic murmur heard throughout the precordium ) Gastrointestinal: soft, non-tender, no distention Musculoskeletal: no edema, pulses present Right foot was mildly cool Neurological: non-focal Lymphatic: no nodes Dx/Plan (1) COPD exacerbation Code(s): J44.1 - CHRONIC OBSTRUCTIVE PULMONARY DISEASE W (ACUTE) EXACERBATION Status: Acute (2) Acute exacerbation of CHF (congestive heart failure) Code(s): I50.9 - HEART FAILURE, UNSPECIFIED Status: Suspected (3) Sepsis Code(s): A41.9 - SEPSIS, UNSPECIFIED ORGANISM Status: Suspected Qualifiers: Sepsis type: sepsis due to unspecified organism Qualified Code(s): A41.9 - Sepsis, unspecified organism (4) Acute respiratory failure with hypoxia Code(s): J96.01 - ACUTE RESPIRATORY FAILURE WITH HYPOXIA Status: Resolved - Plan Plan: 1. Acute Hypoxic Hypercapneic Respiratory Failure 2/2 to COPD/CHF exacerbation -Remains stable on 2.5L NC -All medications have been d/c'd as patient and patient's family voiced desire for comfort care only -Continue comfort care for pain and agitation pending outpatient hospice services 2. HTN -BP: 107/67 -BP medication regimen has been DC'd; see #1 3. 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 A-Fib with RVR, resolved -HR: 108, still without medications -Tachycardia acceptable based on desire for comfort care, see #1 5. Type II [place] -See #1 6. Chronic Opioid Dependence -Morphine PRN for pain and breathing 7. Hypothyroidism -See #1 8. Physical Deconditioning -Will continue comfort care measures only -IV Morphine & Ativan for pain and agitation Code Status: DNAR DVT PPX: None GI PPx: None Abx: None Dispo: Daughter was contacted at 0730 to confirm delivery of home hospice equipment. DC orders submitted - anticipate transport to home in [place] later this morning. Addendum - Attending - Attending Attestation Date/Time: 10/22/18 0815 I personally evaluated the patient and discussed the management with Dr. June. I agree with the History, Examination, Assessment and Plan documented above with any addition or exceptions noted below. Patient here currently with comfort measures. Hospice supplies have been delivered to her home and she will be discharged there today.
--- NOTE | 2018-10-22 10:02 | PRG ---
DATE OF SERVICE: 10/22/2018 SUBJECTIVE: A 78-year-old female. She remains in the ICU, DNR. Shallow respirations. OBJECTIVE: VITAL SIGNS: Temperature is 99, pulse 80, respirations 22, saturations are 90% on 3 L, blood pressure 80/61. CHEST: No wheezing. Minimal crackles. CARDIAC: Normal S1, S2. No gallops. ABDOMEN: No mass. IMPRESSION: Congestive heart failure, chronic obstructive pulmonary disease, DNR. PLAN: Comfort care. Hopefully, Hospice has arranged for her to be transferred home today. Job ID: [id number]
--- NOTE | 2018-10-23 11:04 | DIS ---
DATE OF ADMISSION: 10/04/2018 DATE OF DISCHARGE: 10/22/2018 ADMITTING ATTENDING: Sukh Harp MD DISCHARGE ATTENDING: Shree Love MD CONSULTS: 1. Jonathan Morales MD. 2. Mina Pyle MD. 3. Poly Nova. PROCEDURES: Abdominal pelvis CT scan, brain CT, multiple chest x-rays, echocardiogram, unsuccessful electrocardioversion. PRIMARY DIAGNOSIS: Acute hypoxic respiratory failure. SECONDARY DIAGNOSES: 1. Chronic obstructive pulmonary disease. 2. Congestive heart failure. 3. Previous myocardial infarction. 4. Hypertension. 5. Hyperlipidemia. 6. Atrial fibrillation. 7. Hypothyroidism. 8. Coronary artery disease. 9. Chronic opioid use. 10. Chronic tobacco abuse. DISCHARGE MEDICATIONS: None. DISCONTINUED MEDICATIONS: 1. Morphine. 2. Lorazepam. 3. Cefepime. 4. Vancomycin. 5. Fluticasone/salmeterol. 6. Alendronate. 7. Lactated Ringer's. 8. Senokot. 9. Enoxaparin. 10. Ceftriaxone. 11. Levothyroxine. 12. . 13. Aspirin. 14. . 15. Gabapentin. 16. Potassium chloride. 17. Sertraline. 18. Ipratropium-albuterol. 19. Pravastatin. 20. Prednisone. 21. Famotidine. 22. Methylprednisolone. 23. Apixaban. 24. Hydrocodone 5/325. 25. Diltiazem. 26. Labetalol. 27. Humalog. 28. Digoxin. 29. Vitamin D3. 30. Potassium chloride. 31. Magnesium oxide. 32. Lisinopril. 33. Spironolactone. 34. Carvedilol. 35. Nicardipine. 36. Budesonide. 37. Metolazone. HISTORY OF PRESENT ILLNESS/HOSPITAL COURSE: To be completed at a later date. DISPOSITION: Guarded. DISCHARGE INSTRUCTIONS: LOCATION: [facility] in [facility]. DIET: As tolerated. No restrictions. ACTIVITY: As tolerated. FOLLOWUP: No followup expected. The patient is on hospice and will most likely begin actively dying in the near term future. Do not expect any followup with external physicians. Job ID: [id number]
== END 2018-10-22 10:20 | disposition hospice, home (50) | DRG 207 ==
LOC: ERS 20:06 → CCU 22:43 → ERS 23:55 → T4-B 10-16 23:18
PROVIDERS: ADMIT Family Medicine; ATTEND Family Medicine
PROC: 05H533Z Insertion of Infusion Device into Right Subclavian Vein, Percutaneous Approach (ICD-10-PCS; principal; 2018-10-04)
PROC: 5A1945Z Respiratory Ventilation, 24-96 Consecutive Hours (ICD-10-PCS; 2018-10-04)
PROC: 0BH17EZ Insertion of Endotracheal Airway into Trachea, Via Natural or Artificial Opening (ICD-10-PCS; 2018-10-07)
PROC: 5A1955Z Respiratory Ventilation, Greater than 96 Consecutive Hours (ICD-10-PCS; 2018-10-07)
PROC: 5A2204Z Restoration of Cardiac Rhythm, Single (ICD-10-PCS; 2018-10-09)
PROC: 5A1955Z Respiratory Ventilation, Greater than 96 Consecutive Hours (ICD-10-PCS; 2018-10-11)
PROC: 0BH18EZ Insertion of Endotracheal Airway into Trachea, Via Natural or Artificial Opening Endoscopic (ICD-10-PCS; 2018-10-11)
DX: J96.01 Acute respiratory failure with hypoxia (principal); I21.A1 Myocardial infarction type 2; I50.21 Acute systolic (congestive) heart failure; J44.1 Chronic obstructive pulmonary disease with (acute) exacerbation; F11.20 Opioid dependence, uncomplicated; N17.9 Acute kidney failure, unspecified; I13.0 Hypertensive heart and chronic kidney disease with heart failure and stage 1 through stage 4 chronic kidney disease, or unspecified chronic kidney disease; I47.1 Supraventricular tachycardia; I42.9 Cardiomyopathy, unspecified; J44.0 Chronic obstructive pulmonary disease with (acute) lower respiratory infection; J96.02 Acute respiratory failure with hypercapnia; I48.91 Unspecified atrial fibrillation; Z99.81 Dependence on supplemental oxygen; E03.9 Hypothyroidism, unspecified; Z91.048 Other nonmedicinal substance allergy status; Z88.8 Allergy status to other drugs, medicaments and biological substances; Z79.82 Long term (current) use of aspirin; Z90.710 Acquired absence of both cervix and uterus; Z90.49 Acquired absence of other specified parts of digestive tract; Z96.641 Presence of right artificial hip joint; Z90.89 Acquired absence of other organs; F17.210 Nicotine dependence, cigarettes, uncomplicated; G89.4 Chronic pain syndrome; I25.10 Atherosclerotic heart disease of native coronary artery without angina pectoris; Z85.118 Personal history of other malignant neoplasm of bronchus and lung; R73.9 Hyperglycemia, unspecified; Z66 Do not resuscitate; N18.2 Chronic kidney disease, stage 2 (mild); Z79.01 Long term (current) use of anticoagulants; J20.9 Acute bronchitis, unspecified
CPT/HCPCS: 36415; 36416; 36556; 51702; 70450; 71045; 74177; 80048; 80053; 80162; 81003; 82330; 82553; 82803; 82805; 83605; 83735; 83880; 84100; 84145; 84443; 84484; 85025; 85379; 85610; 85730; 87040; 87070; 87086; 87205; 90471; 90670; 93005; 93010; 93306; 94002; 94003; 94640; 94660; 96365; 96367; 96368; 96375; 96376; G0009; J0282; J0456; J0692; J0696; J1160; J1650; J1940; J2060; J2250; J2270; J2704; J2920; J3010; J3370; J3490; J7050; J7070; J7611; J7620; J7626; Q9966; S0028